=== PATIENT | male | born 1935 | race Caucasian/White ===

== ENCOUNTER 2021-03-27 13:29 | Emergency (ER) | payer MEDICARE, BC ==
[2021-03-27] MEDS ORDERED: Sodium Chloride 0.9% 10 ML Syringe FLUSH PRN (14:36)
[2021-03-27] MEDS ORDERED: Aspirin 81 MG Tab.Chew PO ONE (14:36)
[2021-03-27] MEDS ORDERED: Albuterol/Ipratropium 3.0-0.5 MG/3 ML Neb Soln NEB ONE (14:37)
--- NOTE | 2021-03-27 14:46 | EDM.PDOC ---
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 He states really over the last couple of days this has progressively gotten worse to the point where he cannot walk across the room without getting short of breath. He has been vaccinated for Covid x2 denies any fevers or contacts that he is aware of, Chest Pain Score (Numeric/FACES): 3 - Related Data Allergies Allergy/AdvReac Type Severity Reaction Status Date / Time oxycodone AdvReac Nausea and Verified 03/27/21 14:05 Vomiting Home Meds: Home Meds Albuterol Sulfate [Proair Hfa] 1 - 2 puff IH Q4H PRN 03/05/18 [History] Aspirin [Halfprin] 81 mg PO DAILY 03/05/18 [History] Cyanocobalamin (Vitamin B-12) [Vitamin B-12] 100 mcg PO DAILY 03/05/18 [History] Desonide [Tridesilon] 1 applic TP BID PRN 03/05/18 [History] Docusate Sodium [Colace] 100 mg PO DAILY 03/05/18 [History] Ferrous Sulfate [Iron] 325 mg PO BID 03/05/18 [History] Fluticasone/Vilanterol [Breo Ellipta 100-25 MCG Inhalation Kit] 1 puff IH DAILY 03/05/18 [History] Folic Acid 400 mg PO DAILY 03/05/18 [History] Furosemide [Lasix] 40 mg PO BID 03/05/18 [History] Isosorbide Mononitrate [Imdur] 60 mg PO DAILY 03/05/18 [History] Losartan [Cozaar] 100 mg PO DAILY 03/05/18 [History] Metoprolol Succinate [Toprol Xl] 50 mg PO BID 03/05/18 [History] Omeprazole 20 mg PO DAILY 03/05/18 [History] Warfarin [Coumadin] 6 mg PO BEDTIME 03/05/18 [History] allopurinoL [Zyloprim] 100 mg PO BID 03/05/18 [History] atorvaSTATin [Lipitor] 40 mg PO BEDTIME 03/05/18 [History] Spironolactone [Aldactone] 25 mg PO DAILY 10/21/18 [History] Albuterol/Ipratropium [DuoNeb 3.0-0.5 MG/3 ML] 3 ml .XX Q4HR PRN 08/13/20 [History] Fluticasone/Salmeterol [Advair 250-50] 1 puff INH BID 08/13/20 [History] Melatonin/Pyridoxine HCl (B6) [Melatonin 10 mg Tablet] 1 each PO BEDTIME 08/13/20 [History] Nitroglycerin [Nitrostat] 0.4 mg SL ASDIRECTED PRN 08/13/20 [History] Past Medical History HEENT History: Reports: Cataract Cardiovascular History: Reports: Afib, CAD, Heart Failure, Hypertension, Other (See Below) Other Cardiovascular History: peripheral edema Respiratory History: Reports: COPD, Other (See Below) Other Respiratory History: pulmonary nodule Gastrointestinal History: Reports: GERD, Other (See Below) Other Gastrointestinal History: "lesion in my stomach that was bleeding" Genitourinary History: Reports: Other (See Below) Other Genitourinary History: decreased kidney function Musculoskeletal History: Reports: Arthritis, Gout Endocrine/Metabolic History: Reports: Other (See Below), Obesity/BMI 30+ Other Endocrine/Metabolic History: hyperglycemia Hematologic History: Reports: Anemia, Iron Deficiency Oncologic (Cancer) History: Reports: Other (See Below) Other Oncologic History: skin CA Dermatologic History: Reports: Other (See Below) Other Dermatologic History: rash at times - Infectious Disease History Infectious Disease History: Reports: Chicken Pox, Measles, Mumps - Past Surgical History Cardiovascular Surgical History: Reports: Valve Replacement GI Surgical History: Reports: Colonoscopy, EGD Social & Family History - Tobacco Use Tobacco Use Status *Q: Former Tobacco User Used Tobacco, but Quit: Yes Month/Year Tobacco Last Used: - Caffeine Use Caffeine Use: Reports: Coffee - Recreational Drug Use Recreational Drug Use: No ED ROS GENERAL - Review of Systems Review Of Systems: See Below Constitutional: Reports: Fatigue. Denies: Fever, Chills, Diaphoresis HEENT: Reports: No Symptoms Respiratory: Reports: Shortness of Breath. Denies: Wheezing, Cough, Sputum Cardiovascular: Reports: Chest Pain, Dyspnea on Exertion GI/Abdominal: Reports: No Symptoms ED EXAM, GENERAL - Physical Exam Exam: See Below Exam Limited By: No Limitations General Appearance: Alert, WD/WN, No Apparent Distress Respiratory/Chest: No Respiratory Distress, Lungs Clear, No Accessory Muscle Use, Chest Non-Tender, Decreased Breath Sounds Cardiovascular: Regular Rate, Rhythm, No Murmur GI/Abdominal: Soft, Non-Tender Extremities: Pedal Edema #1 Interpretation EKG Date: 03/27/21 Time: 14:48 Rhythm: A-Fib [place]: Normal P-Wave: Absent QRS: LBBB ST-T: Normal QT: Normal Comparison: NA - No Prior EKG Course - Vital Signs Last Recorded V/S: Last Vital Signs Temp 98.1 F 03/27/21 14:01 Pulse 86 03/27/21 17:54 Resp 23 H 03/27/21 17:54 BP 101/58 L 03/27/21 17:54 Pulse Ox 96 03/27/21 17:54 - Orders/Labs/Meds Orders: Active Orders 24 hr Category Date Time Status Cardiac Monitoring [RC] .As Directed Care 03/27/21 14:36 Active Peripheral IV Care [RC] . DIRECTED Care 03/27/21 14:37 Active RT Aerosol Therapy [RC] ASDIRECTED Care 03/27/21 14:38 Active Heparin Sodium Med 03/27/21 18:35 Once 4,000 units IVPUSH .BOLUS ONE Heparin Sodium/D5W [Heparin 25,000 Units in D5W 500 ML] Med 03/27/21 18:45 Ordered 25,000 units in 500 ml IV TITRATE Sodium Chloride 0.9% [Saline Flush] Med 03/27/21 14:36 Active 10 ml FLUSH ASDIRECTED PRN Peripheral IV Insertion Adult [OM.PC] Stat Oth 03/27/21 14:36 Ordered Saline Lock Insert [OM.PC] Stat Oth 03/27/21 14:36 Ordered EKG 12 Lead [EK] Stat Ther 03/27/21 14:37 Ordered Medication Orders Sodium Chloride (Sodium Chloride 0.9% 10 Ml Syringe) 10 ml FLUSH ASDIRECTED PRN PRN Reason: Keep Vein Open Last Admin: 03/27/21 16:12 Dose: 10 ml Documented by: PREILOR Labs: Laboratory Tests 03/27/21 03/27/21 03/27/21 Range/Units 14:48 14:48 14:48 WBC 12.1 H (4.5-11.0) K/uL RBC 4.21 L (4.30-5.90) M/uL Hgb 12.6 (12.0-15.0) g/dL Hct 40.0 (40.0-54.0) % MCV 95 (80-98) fL MCH 30 (27-31) pg MCHC 32 (32-36) % Plt Count 151 (150-400) K/uL Neut % (Auto) 92.5 H (36-66) % Lymph % (Auto) 1.8 L (24-44) % Nelson % (Auto) 5.5 (2-6) % Eos % (Auto) 0.1 L (2-4) % Baso % (Auto) 0.1 (0-1) % PT (9.2-10.6) sec INR D-Dimer, Quantitative 419.97 (0.0-500.0) ng/mL Sodium 138 L (140-148) mmol/L Potassium 3.9 (3.6-5.2) mmol/L Chloride 100 (100-108) mmol/L Carbon Dioxide 31 (21-32) mmol/L Anion Gap 10.9 (5.0-14.0) mmol/L BUN 32 H (7-18) mg/dL Creatinine 1.1 (0.8-1.3) mg/dL Est Cr Clr Drug Dosing 47.55 mL/min Estimated GFR (MDRD) > 60 (>60) Glucose 126 H (74-106) mg/dL Lactic Acid (0.4-2.0) mmol/L Calcium 8.9 (8.5-10.1) mg/dL Total Bilirubin 1.3 H (0.2-1.0) mg/dL AST 40 H (15-37) U/L ALT 87 H (12-78) U/L Alkaline Phosphatase 118 H (46-116) U/L Troponin I 0.129 H* (0.000-0.056) ng/mL NT-Pro-B Natriuret Pep 2630 H (5-450) pg/mL Total Protein 6.0 L (6.4-8.2) g/dL Albumin 3.5 (3.4-5.0) g/dL Globulin 2.5 (2.3-3.5) g/dL Albumin/Globulin Ratio 1.4 (1.2-2.2) SARS-CoV-2 RNA (EDWIN) (NEGATIVE) 03/27/21 03/27/21 03/27/21 Range/Units 14:48 14:48 16:16 WBC (4.5-11.0) K/uL RBC (4.30-5.90) M/uL Hgb (12.0-15.0) g/dL Hct (40.0-54.0) % MCV (80-98) fL MCH (27-31) pg MCHC (32-36) % Plt Count (150-400) K/uL Neut % (Auto) (36-66) % Lymph % (Auto) (24-44) % Nelson % (Auto) (2-6) % Eos % (Auto) (2-4) % Baso % (Auto) (0-1) % PT 24.2 H (9.2-10.6) sec INR 2.4 D-Dimer, Quantitative (0.0-500.0) ng/mL Sodium (140-148) mmol/L Potassium (3.6-5.2) mmol/L Chloride (100-108) mmol/L Carbon Dioxide (21-32) mmol/L Anion Gap (5.0-14.0) mmol/L BUN (7-18) mg/dL Creatinine (0.8-1.3) mg/dL Est Cr Clr Drug Dosing mL/min Estimated GFR (MDRD) (>60) Glucose (74-106) mg/dL Lactic Acid 1.5 (0.4-2.0) mmol/L Calcium (8.5-10.1) mg/dL Total Bilirubin (0.2-1.0) mg/dL AST (15-37) U/L ALT (12-78) U/L Alkaline Phosphatase (46-116) U/L Troponin I (0.000-0.056) ng/mL NT-Pro-B Natriuret Pep (5-450) pg/mL Total Protein (6.4-8.2) g/dL Albumin (3.4-5.0) g/dL Globulin (2.3-3.5) g/dL Albumin/Globulin Ratio (1.2-2.2) SARS-CoV-2 RNA (EDWIN) Negative (NEGATIVE) 03/27/21 Range/Units 17:15 WBC (4.5-11.0) K/uL RBC (4.30-5.90) M/uL Hgb (12.0-15.0) g/dL Hct (40.0-54.0) % MCV (80-98) fL MCH (27-31) pg MCHC (32-36) % Plt Count (150-400) K/uL Neut % (Auto) (36-66) % Lymph % (Auto) (24-44) % Nelson % (Auto) (2-6) % Eos % (Auto) (2-4) % Baso % (Auto) (0-1) % PT (9.2-10.6) sec INR D-Dimer, Quantitative (0.0-500.0) ng/mL Sodium (140-148) mmol/L Potassium (3.6-5.2) mmol/L Chloride (100-108) mmol/L Carbon Dioxide (21-32) mmol/L Anion Gap (5.0-14.0) mmol/L BUN (7-18) mg/dL Creatinine (0.8-1.3) mg/dL Est Cr Clr Drug Dosing mL/min Estimated GFR (MDRD) (>60) Glucose (74-106) mg/dL Lactic Acid (0.4-2.0) mmol/L Calcium (8.5-10.1) mg/dL Total Bilirubin (0.2-1.0) mg/dL AST (15-37) U/L ALT (12-78) U/L Alkaline Phosphatase (46-116) U/L Troponin I 1.655 H* (0.000-0.056) ng/mL NT-Pro-B Natriuret Pep (5-450) pg/mL Total Protein (6.4-8.2) g/dL Albumin (3.4-5.0) g/dL Globulin (2.3-3.5) g/dL Albumin/Globulin Ratio (1.2-2.2) SARS-CoV-2 RNA (EDWIN) (NEGATIVE) Meds: Medications Generic Name Dose Route Start Last Admin Trade Name Freq PRN Reason Stop Dose Admin Sodium Chloride 10 ml 03/27/21 14:36 03/27/21 16:12 Sodium Chloride 0.9% 10 Ml Syringe FLUSH 10 ml ASDIRECTED PRN Administration Keep Vein Open Discontinued Medications Generic Name Dose Route Start Last Admin Trade Name Freq PRN Reason Stop Dose Admin Albuterol/Ipratropium 3 ml 03/27/21 14:37 Albuterol/Ipratropium 3.0-0.5 Mg/3 Ml Neb Soln NEB 03/27/21 14:38 ONETIME ONE Aspirin 324 mg 03/27/21 14:36 03/27/21 16:05 Aspirin 81 Mg Tab.Chew PO 03/27/21 14:37 324 mg ONETIME ONE Administration Furosemide 40 mg 03/27/21 15:57 03/27/21 16:11 Furosemide 40 Mg/4 Ml Vial IVPUSH 03/27/21 15:58 40 mg ONETIME ONE Administration Nitroglycerin 0.4 mg 03/27/21 15:54 03/27/21 16:09 Nitroglycerin 0.4 Mg Tab.Sl SL 03/27/21 15:55 0.4 mg ONETIME ONE Administration Departure - Departure Time of Disposition: 18:40 Disposition: DC/Tfer to Acute Hospital 02 Reason for Transfer *Q: Other Condition: Fair Clinical Impression: Chest pain Referrals: Savage Rodriguez MD [Primary Care Provider] - Forms: ED Department Discharge Sepsis Event Note (ED) - Evaluation Sepsis Screening Result: No Definite Risk - Focused Exam Vital Signs: Vital Signs Temp Pulse Resp BP BP Pulse Ox 03/27/21 17:54 86 23 H 101/58 L 96 03/27/21 17:40 86 24 H 130/61 94 L 03/27/21 16:28 93 30 H 140/71 89 L 03/27/21 16:09 145/81 H 03/27/21 15:57 92 22 H 112/65 98 03/27/21 15:19 91 31 H 122/63 93 L 03/27/21 14:01 98.1 F 99 37 H 146/83 H 95 03/27/21 13:50 98.1 F 99 37 H 146/83 H 95 - My Orders Last 24 Hours: My Active Orders 03/27/21 14:36 Cardiac Monitoring [RC] .As Directed Sodium Chloride 0.9% [Saline Flush] 10 ml FLUSH ASDIRECTED PRN Peripheral IV Insertion Adult [OM.PC] Stat Saline Lock Insert [OM.PC] Stat 03/27/21 14:37 Peripheral IV Care [RC] . DIRECTED EKG 12 Lead [EK] Stat 03/27/21 14:38 RT Aerosol Therapy [RC] ASDIRECTED 03/27/21 18:35 Heparin Sodium 4,000 units IVPUSH .BOLUS ONE 03/27/21 18:45 Heparin Sodium/D5W [Heparin 25,000 Units in D5W 500 ML] 25,000 units in 500 ml IV TITRATE - Assessment/Plan Last 24 Hours: My Active Orders 03/27/21 14:36 Cardiac Monitoring [RC] .As Directed Sodium Chloride 0.9% [Saline Flush] 10 ml FLUSH ASDIRECTED PRN Peripheral IV Insertion Adult [OM.PC] Stat Saline Lock Insert [OM.PC] Stat 03/27/21 14:37 Peripheral IV Care [RC] . DIRECTED EKG 12 Lead [EK] Stat 03/27/21 14:38 RT Aerosol Therapy [RC] ASDIRECTED 03/27/21 18:35 Heparin Sodium 4,000 units IVPUSH .BOLUS ONE 03/27/21 18:45 Heparin Sodium/D5W [Heparin 25,000 Units in D5W 500 ML] 25,000 units in 500 ml IV TITRATE Plan: Assessment Acuity = acute Site and laterality = chest pain congestive heart failure versus non-ST elevation myocardial infarction Etiology = unknown Manifestations = none Location of injury = Home Lab values = WBC slightly elevated 12.1 consistent leukocytosis, INR therapeutic at 2.4 lactic acid normal 1.5 initial troponin 0 0.129 now elevated to 1.655 BNP is elevated to 630 consistent with fluid overload type pattern Covid was negative chest x-ray shows cardiomegaly with concern for congestive heart failure EKG demonstrates atrial fibrillation with no ST elevations or depressions Plan Called multiple facilities [facility] [address] [facility] at [address] [facility] [address] [facility] no beds available at that time I did call [phone] kindly excepted the patient in transfer recommended heparin bolus will be given in the emergency department with heparin drip in route. This note was dictated using [employer] voice recognition software please call with any questions on syntax or grammar.
--- NOTE | 2021-03-27 15:02 | CR ---
CHEST: Portable 03/27/2021 at 2:57 PM CLINICAL HISTORY:Chest pain COMPARISON:CT 03/21/2021 FINDINGS: Patient has a persistent left pleural effusion. This may be slightly smaller than prior study. There is a small right effusion. Heart is enlarged pulmonary vascularity is mildly cephalized. There is patchy density in both lower lung doyle. Some of this may represent atelectasis or infiltrate. Pulmonary edema is felt less likely but not excluded. Impression: Cardiomegaly with vascular cephalization may represent some pulmonary venous hypertension. CHF is not excluded Small bibasal effusions left greater than right
[2021-03-27] MEDS ORDERED: Nitroglycerin 0.4 MG Tab.SL SL ONE (15:54)
[2021-03-27] MEDS ORDERED: Furosemide 40 MG/4 ML VIAL IVPUSH ONE (15:57)
[2021-03-27] MEDS ORDERED: Heparin Sodium 5,000 Units/ML Vial IVPUSH ONE (18:35)
[2021-03-27] MEDS ORDERED: Heparin Sodium/D5W 25,000 UNITS/500 ML BAG IV SCH (18:45)
== END 2021-03-27 21:43 ==
LOC: JP.ED 13:29
DX: R07.89 Other chest pain (principal); I48.91 Unspecified atrial fibrillation; I25.10 Atherosclerotic heart disease of native coronary artery without angina pectoris; I11.0 Hypertensive heart disease with heart failure; I50.9 Heart failure, unspecified; J44.9 Chronic obstructive pulmonary disease, unspecified; M10.9 Gout, unspecified; E66.9 Obesity, unspecified; K21.9 Gastro-esophageal reflux disease without esophagitis; Z68.30 Body mass index [BMI] 30.0-30.9, adult; Z88.5 Allergy status to narcotic agent; Z79.82 Long term (current) use of aspirin; Z79.01 Long term (current) use of anticoagulants; Z79.899 Other long term (current) drug therapy; Z87.891 Personal history of nicotine dependence; Z20.822 Contact with and (suspected) exposure to COVID-19
CPT/HCPCS: 36415; 71045; 80053; 83605; 83880; 84484; 85025; 85379; 85610; 93005; 96365; 96375; 99285; A9270; J1644; J1940; U0002

== ENCOUNTER 2021-04-12 07:42 | Emergency (ER) | payer MEDICARE, BC ==
--- NOTE | 2021-04-12 07:59 | EDM.PDOC ---
ED HPI GENERAL MEDICAL PROBLEM - General Chief Complaint: Chest Pain Stated Complaint: TROUBLE BREATHING Time Seen by Provider: 04/12/21 07:50 Source of Information: Reports: Patient, Old Records History Limitations: Reports: No Limitations - History of Present Illness INITIAL COMMENTS - FREE TEXT/NARRATIVE: 85 yo male presents with complaints of CHAUDHARY and SOB with lying flat. Was seen here for the same issues on 03/27/21 and was transferred to [facility] where he spent 6 days. Since d/c he has followed up with [facility] locally but reportedly there was an issue with seeing what [place] had done at that time. A 2nd outpatient cardiology appt was set up apparently as a result of this records issue. He has known CHF and chronic afib on tx for both of these. He has oxygen at home he uses. Jaylan occasionally gets chest pain resolved with NTG. He has not had any CP today. He lives alone and is interested in changing this living situation at this time to either a [facility] or assisted living facility. Says he accidentally took both his last night's meds and this morning's meds all last night. Took no additional meds this AM. Reviewing [facility]'s records suggests he has coronary dz that is non-operable so will require medical management and severe CHF, his EF is 30-35% with diastolic as well as systolic dysfunction. Made a comment while here of trying to drink 8 glasses of water/day. Onset: Gradual Duration: Chronic, Getting Worse, Waxing/Waning Location: Reports: Chest Quality: Reports: Other (no pain today) Severity: Mild Improves with: Reports: Rest, Other (sitting up) Worsens with: Reports: Other (lying flat/exertion) Context: Reports: Other (See HPI) Associated Symptoms: Reports: Chest Pain (occasionally, not today), Shortness of Breath Treatments SHIPPING ASSOCIATE: Reports: Other (see below) (usual meds) Chest Pain Score (Numeric/FACES): 5 - Related Data Allergies Allergy/AdvReac Type Severity Reaction Status Date / Time oxycodone AdvReac Nausea and Verified 04/12/21 08:16 Vomiting Home Meds: Home Meds Albuterol Sulfate [Proair Hfa] 1 - 2 puff IH Q4H PRN 03/05/18 [History] Aspirin [Halfprin] 81 mg PO DAILY 03/05/18 [History] Cyanocobalamin (Vitamin B-12) [Vitamin B-12] 100 mcg PO DAILY 03/05/18 [History] Desonide [Tridesilon] 1 applic TP BID PRN 03/05/18 [History] Docusate Sodium [Colace] 100 mg PO DAILY 03/05/18 [History] Ferrous Sulfate [Iron] 325 mg PO BID 03/05/18 [History] Fluticasone/Vilanterol [Breo Ellipta 100-25 MCG Inhalation Kit] 1 puff IH DAILY 03/05/18 [History] Folic Acid 400 mg PO DAILY 03/05/18 [History] Isosorbide Mononitrate [Imdur] 60 mg PO DAILY 03/05/18 [History] Losartan [Cozaar] 50 mg PO DAILY 03/05/18 [History] Metoprolol Succinate [Toprol Xl] 25 mg PO BID 03/05/18 [History] Warfarin [Coumadin] 6 mg PO BEDTIME 03/05/18 [History] allopurinoL [Zyloprim] 100 mg PO BID 03/05/18 [History] atorvaSTATin [Lipitor] 40 mg PO BEDTIME 03/05/18 [History] Spironolactone [Aldactone] 12.5 mg PO DAILY 10/21/18 [History] Albuterol/Ipratropium [DuoNeb 3.0-0.5 MG/3 ML] 3 ml .XX Q4HR PRN 08/13/20 [History] Fluticasone/Salmeterol [Advair 250-50] 1 puff INH BID 08/13/20 [History] Melatonin/Pyridoxine HCl (B6) [Melatonin 10 mg Tablet] 1 each PO BEDTIME 08/13/20 [History] Nitroglycerin [Nitrostat] 0.4 mg SL ASDIRECTED PRN 08/13/20 [History] Ascorbic Acid [Vitamin C] 1,000 mg PO DAILY 04/12/21 [History] Cholecalciferol (Vitamin D3) [Vitamin D3] 25 mcg PO DAILY 04/12/21 [History] Digoxin 125 mcg PO DAILY 04/12/21 [History] Lansoprazole [Prevacid] 15 mg PO DAILY 04/12/21 [History] Nystatin [Nystatin Crm] 15 gm TOP TID PRN 04/12/21 [History] Torsemide 100 mg PO DAILY 04/12/21 [History] Past Medical History HEENT History: Reports: Cataract Cardiovascular History: Reports: Afib, CAD, Heart Failure, Hypertension, Other (See Below) Other Cardiovascular History: peripheral edema Respiratory History: Reports: COPD, Other (See Below) Other Respiratory History: pulmonary nodule Gastrointestinal History: Reports: GERD, Other (See Below) Other Gastrointestinal History: "lesion in my stomach that was bleeding" Genitourinary History: Reports: Other (See Below) Other Genitourinary History: decreased kidney function Musculoskeletal History: Reports: Arthritis, Gout Endocrine/Metabolic History: Reports: Other (See Below), Obesity/BMI 30+ Other Endocrine/Metabolic History: hyperglycemia Hematologic History: Reports: Anemia, Iron Deficiency Oncologic (Cancer) History: Reports: Other (See Below) Other Oncologic History: skin CA Dermatologic History: Reports: Other (See Below) Other Dermatologic History: rash at times - Infectious Disease History Infectious Disease History: Reports: Chicken Pox, Measles, Mumps - Past Surgical History Cardiovascular Surgical History: Reports: Valve Replacement GI Surgical History: Reports: Colonoscopy, EGD Social & Family History - Caffeine Use Caffeine Use: Reports: Coffee ED ROS GENERAL - Review of Systems Review Of Systems: See Below Constitutional: Reports: No Symptoms HEENT: Reports: No Symptoms Respiratory: Reports: Shortness of Breath Cardiovascular: Reports: Chest Pain (intermittent) Endocrine: Reports: No Symptoms GI/Abdominal: Reports: Other (doesn't feel well with/after eating "for awhile" worse in the past couple of days. ) : Reports: No Symptoms Musculoskeletal: Reports: No Symptoms Skin: Reports: No Symptoms Neurological: Reports: No Symptoms ED EXAM, GENERAL - Physical Exam Exam: See Below Exam Limited By: No Limitations General Appearance: Alert, WD/WN, No Apparent Distress Eye Exam: Bilateral Eye: Normal Inspection Ears: Normal External Exam, Normal Canal, Hearing Grossly Normal Ear Exam: Bilateral Ear: Auricle Normal, Canal Normal Nose: Normal Inspection, No Blood Throat/Mouth: Normal Inspection, Normal Lips, Normal Oropharynx, Normal Voice, No Airway Compromise Head: Atraumatic, Normocephalic Neck: Normal Inspection Respiratory/Chest: No Respiratory Distress, No Accessory Muscle Use, Rales (bilat) Cardiovascular: Irregularly Irregular. No: No Edema GI/Abdominal: Soft, Non-Tender, No Distention. No: Distended Back Exam: Normal Inspection Extremities: Normal Inspection, Normal Range of Motion, Non-Tender, Pedal Edema (trace pitting edema to both LE's). No: No Pedal Edema Neurological: Alert, Oriented, CN II-XII Intact, Normal Cognition, No Motor/Sensory Deficits Psychiatric: Normal Affect, Normal Mood Skin Exam: Warm, Dry, Intact, Normal Color, No Rash #1 Interpretation EKG Date: 04/12/21 Time: 08:50 Rhythm: A-Fib Rate (Beats/Min): 90 [place]: Normal P-Wave: Absent QRS: LBBB ST-T: Normal QT: Normal Comparison: Change From Previous EKG (Bigeminy now present.) Course - Vital Signs Last Recorded V/S: Last Vital Signs Temp 36.3 C 04/12/21 08:00 Pulse 79 04/12/21 11:27 Resp 22 H 04/12/21 09:50 BP 114/58 L 04/12/21 11:27 Pulse Ox 98 04/12/21 11:27 - Orders/Labs/Meds Orders: Active Orders 24 hr Category Date Time Status Cardiac Monitoring [RC] .As Directed Care 04/12/21 07:56 Active Sodium Chloride 0.9% [Saline Flush] Med 04/12/21 08:11 Active 10 ml FLUSH ASDIRECTED PRN Saline Lock Insert [OM.PC] Routine Oth 04/12/21 08:11 Ordered EKG 12 Lead [EK] Routine Ther 04/12/21 07:56 Ordered Medication Orders Sodium Chloride (Sodium Chloride 0.9% 10 Ml Syringe) 10 ml FLUSH ASDIRECTED PRN PRN Reason: Keep Vein Open Last Admin: 04/12/21 08:29 Dose: 10 ml Documented by: PREILOR Labs: Laboratory Tests 04/12/21 04/12/21 04/12/21 Range/Units 08:11 08:20 08:20 WBC 6.3 (4.5-11.0) K/uL RBC 3.53 L (4.30-5.90) M/uL Hgb 10.3 L D (12.0-15.0) g/dL Hct 33.0 L (40.0-54.0) % MCV 94 (80-98) fL MCH 29 (27-31) pg MCHC 31 L (32-36) % Plt Count 277 (150-400) K/uL PT (9.2-10.6) sec INR Sodium 140 (140-148) mmol/L Potassium 4.4 (3.6-5.2) mmol/L Chloride 100 (100-108) mmol/L Carbon Dioxide 31 (21-32) mmol/L Anion Gap 8.8 (5.0-14.0) mmol/L BUN 38 H (7-18) mg/dL Creatinine 1.6 H (0.8-1.3) mg/dL Est Cr Clr Drug Dosing 32.13 mL/min Estimated GFR (MDRD) 41 L (>60) Glucose 131 H (74-106) mg/dL Calcium 8.8 (8.5-10.1) mg/dL Troponin I 0.027 (0.000-0.056) ng/mL 04/12/21 Range/Units 08:20 WBC (4.5-11.0) K/uL RBC (4.30-5.90) M/uL Hgb (12.0-15.0) g/dL Hct (40.0-54.0) % MCV (80-98) fL MCH (27-31) pg MCHC (32-36) % Plt Count (150-400) K/uL PT 28.6 H (9.2-10.6) sec INR 2.9 Sodium (140-148) mmol/L Potassium (3.6-5.2) mmol/L Chloride (100-108) mmol/L Carbon Dioxide (21-32) mmol/L Anion Gap (5.0-14.0) mmol/L BUN (7-18) mg/dL Creatinine (0.8-1.3) mg/dL Est Cr Clr Drug Dosing mL/min Estimated GFR (MDRD) (>60) Glucose (74-106) mg/dL Calcium (8.5-10.1) mg/dL Troponin I (0.000-0.056) ng/mL Meds: Medications Generic Name Dose Route Start Last Admin Trade Name Freq PRN Reason Stop Dose Admin Sodium Chloride 10 ml 04/12/21 08:11 04/12/21 08:29 Sodium Chloride 0.9% 10 Ml Syringe FLUSH 10 ml ASDIRECTED PRN Administration Keep Vein Open Discontinued Medications Generic Name Dose Route Start Last Admin Trade Name Adelaiad PRN Reason Stop Dose Admin Famotidine 20 mg 04/12/21 11:30 04/12/21 11:40 Famotidine 20 Mg/2 Ml Sdv IVPUSH 04/12/21 11:31 20 mg ONETIME ONE Administration Furosemide 40 mg 04/12/21 08:11 04/12/21 08:28 Furosemide 40 Mg/4 Ml Vial IVPUSH 04/12/21 08:12 40 mg ONETIME ONE Administration Nitroglycerin 1 gm 04/12/21 09:16 04/12/21 10:08 Nitroglycerin 2% Oint 1 Gm Ud Packet TOP 04/12/21 09:17 1 gm ONETIME ONE Administration Sucralfate 1 gm 04/12/21 11:30 04/12/21 11:40 Sucralfate 1 Gm Tab PO 04/12/21 11:31 1 gm ONETIME ONE Administration - Re-Assessments/Exams Free Text/Narrative Re-Assessment/Exam: 04/12/21 10:23 Discharge planning involved to at least get him more help at home. Free Text/Narrative Re-Assessment/Exam: 04/12/21 11:58 Ate lunch, feels better. SOB improved. Departure - Departure Time of Disposition: 12:15 Disposition: Home, Self-Care 01 Condition: Fair Clinical Impression: Heme + stool CHF exacerbation Qualifiers: Heart failure type: combined systolic and diastolic Qualified Code(s): I50.43 - Acute on chronic combined systolic (congestive) and diastolic (congestive) heart failure Gastritis Qualifiers: Gastritis type: unspecified gastritis Chronicity: acute Gastritis bleeding: with bleeding Qualified Code(s): K29.01 - Acute gastritis with bleeding CRF (chronic renal failure) Qualifiers: Chronic kidney disease stage: stage 3 (moderate) Chronic kidney disease stage 3 subtype: stage 3b (GFR 30-44) Qualified Code(s): N18.32 - Chronic kidney disease, stage 3b Instructions: Gastritis, Adult, [id number], Heart Failure Exacerbation Referrals: Elyssa Mensah NP [Ordering Only Provider] - 04/15/21 11:00 am (Your appointment with Elyssa Mensah is at [facility]. Please arrive 15 minutes early to register for your appointment. ) Savage Rodriguez MD [Physician] - 04/15/21 1:30 pm Forms: ED Department Discharge Additional Instructions: Make sure you take your medications on time and as prescribed. Stop your vitamin C 1000 mg daily and substitute 250 mg chewable 4 times a day. Hold your aspirin for 5 days, then resume making sure to take it with your largest meal of the day. Make sure the aspirin is enteric coated. Add famotidine 20 mg every day and take Maalox 30 ml with meals for a week. Follow up with your doctor soon for recheck. Care Plan Goals: A referral was made to [facility] for home services. [facility] will contact you the week of to schedule your home visit. Their phone number is [phone] Sepsis Event Note (ED) - Focused Exam Vital Signs: Vital Signs Temp Pulse Resp BP Pulse Ox 04/12/21 11:27 79 114/58 L 98 04/12/21 09:50 86 22 H 135/76 100 04/12/21 09:20 79 20 120/51 L 100 04/12/21 08:50 80 27 H 110/56 L 88 L 04/12/21 08:23 84 18 107/52 L 98 04/12/21 08:00 36.3 C 88 18 117/61 94 L - My Orders Last 24 Hours: My Active Orders 04/12/21 07:56 Cardiac Monitoring [RC] .As Directed EKG 12 Lead [EK] Routine 04/12/21 08:11 Sodium Chloride 0.9% [Saline Flush] 10 ml FLUSH ASDIRECTED PRN Saline Lock Insert [OM.PC] Routine - Assessment/Plan Last 24 Hours: My Active Orders 04/12/21 07:56 Cardiac Monitoring [RC] .As Directed EKG 12 Lead [EK] Routine 04/12/21 08:11 Sodium Chloride 0.9% [Saline Flush] 10 ml FLUSH ASDIRECTED PRN Saline Lock Insert [OM.PC] Routine
[2021-04-12] MEDS ORDERED: Furosemide 40 MG/4 ML VIAL IVPUSH ONE (08:11)
[2021-04-12] MEDS ORDERED: Sodium Chloride 0.9% 10 ML Syringe FLUSH PRN (08:11)
[2021-04-12] MEDS ORDERED: Nitroglycerin 2% Oint 1 GM UD Packet TOP ONE (09:16)
[2021-04-12] MEDS ORDERED: Sucralfate 1 GM Tab PO ONE (11:30)
[2021-04-12] MEDS ORDERED: Famotidine 20 MG/2 ML SDV IVPUSH ONE (11:30)
== END 2021-04-12 13:25 | disposition home or self-care (01) ==
LOC: JP.ED 07:42
DX: I13.0 Hypertensive heart and chronic kidney disease with heart failure and stage 1 through stage 4 chronic kidney disease, or unspecified chronic kidney disease (principal); N18.32 Chronic kidney disease, stage 3b; I50.40 Unspecified combined systolic (congestive) and diastolic (congestive) heart failure; D63.1 Anemia in chronic kidney disease; K29.01 Acute gastritis with bleeding; R19.5 Other fecal abnormalities; I48.91 Unspecified atrial fibrillation; I44.7 Left bundle-branch block, unspecified; I25.10 Atherosclerotic heart disease of native coronary artery without angina pectoris; J44.9 Chronic obstructive pulmonary disease, unspecified; K21.9 Gastro-esophageal reflux disease without esophagitis; M10.9 Gout, unspecified; E66.9 Obesity, unspecified; Z68.29 Body mass index [BMI] 29.0-29.9, adult; Z88.5 Allergy status to narcotic agent; Z79.82 Long term (current) use of aspirin; Z79.01 Long term (current) use of anticoagulants; Z79.899 Other long term (current) drug therapy
CPT/HCPCS: 36415; 80048; 82272; 84484; 85027; 85610; 93005; 96374; 96375; 99285; A9270; J1940; J3490

== ENCOUNTER 2021-04-15 11:43 | Inpatient (IN) | payer MEDICARE, BC ==
--- NOTE | 2021-04-15 12:28 | EDM.PDOC ---
ED HPI GENERAL MEDICAL PROBLEM - General Chief Complaint: General Stated Complaint: LOW BLOOD PRESSURE Time Seen by Provider: 04/15/21 12:35 Source of Information: Reports: Patient, Old Records History Limitations: Reports: Other (incomplete records) - History of Present Illness INITIAL COMMENTS - FREE TEXT/NARRATIVE: 85 yo male with CHF was sent to the ER from the [facility] for CHAUDHARY and low BP. He is on several meds for his CHF including ARB's and diuretics. He in on oxygen at 2 liters/min chronically. At rest or with lying his breathing is OK, but with any exertion he gets very winded. No recent fever or cough. Stool is black, but he is on Peptobismol. Was seen here in ER last Thursday and found to have heme + stools. Famotidine was added and some other minor changes were suggested in his meds. He was asked to recheck in the clinic today where he presented and was directed back to the ER. His breathing now is about the same as it was then. No chest pain was ex perienced by him. Covid + since 03/27/21 Onset: Gradual, Unknown/Unsure Duration: Chronic, Getting Worse Location: Reports: Chest Quality: Reports: Other (no pain) Severity: Moderate Improves with: Reports: Rest Worsens with: Reports: Movement (exertion) Context: Reports: Other (See HPI) Associated Symptoms: Reports: Other (CHAUDHARY) Treatments CLERICAL ADVISER: Reports: Other (see below) (famotidine) - Related Data Allergies Allergy/AdvReac Type Severity Reaction Status Date / Time oxycodone AdvReac Nausea and Verified 04/15/21 12:08 Vomiting Home Meds: Home Meds Albuterol Sulfate [Proair Hfa] 1 - 2 puff IH Q4H PRN 03/05/18 [History] Aspirin [Halfprin] 81 mg PO DAILY 03/05/18 [History] Cyanocobalamin (Vitamin B-12) [Vitamin B-12] 100 mcg PO DAILY 03/05/18 [History] Desonide [Tridesilon] 1 applic TP BID PRN 03/05/18 [History] Docusate Sodium [Colace] 100 mg PO DAILY 03/05/18 [History] Ferrous Sulfate [Iron] 325 mg PO BID 03/05/18 [History] Fluticasone/Vilanterol [Breo Ellipta 100-25 MCG Inhalation Kit] 1 puff IH DAILY 03/05/18 [History] Folic Acid 400 mg PO DAILY 03/05/18 [History] Isosorbide Mononitrate [Imdur] 60 mg PO DAILY 03/05/18 [History] Losartan [Cozaar] 50 mg PO DAILY 03/05/18 [History] Metoprolol Succinate [Toprol Xl] 25 mg PO BID 03/05/18 [History] Warfarin [Coumadin] 6 mg PO BEDTIME 03/05/18 [History] allopurinoL [Zyloprim] 100 mg PO BID 03/05/18 [History] atorvaSTATin [Lipitor] 40 mg PO BEDTIME 03/05/18 [History] Spironolactone [Aldactone] 12.5 mg PO DAILY 10/21/18 [History] Albuterol/Ipratropium [DuoNeb 3.0-0.5 MG/3 ML] 3 ml .XX Q4HR PRN 08/13/20 [History] Fluticasone/Salmeterol [Advair 250-50] 1 puff INH BID 08/13/20 [History] Melatonin/Pyridoxine HCl (B6) [Melatonin 10 mg Tablet] 1 each PO BEDTIME 08/13/20 [History] Nitroglycerin [Nitrostat] 0.4 mg SL ASDIRECTED PRN 08/13/20 [History] Ascorbic Acid [Vitamin C] 1,000 mg PO DAILY 04/12/21 [History] Cholecalciferol (Vitamin D3) [Vitamin D3] 25 mcg PO DAILY 04/12/21 [History] Digoxin 125 mcg PO DAILY 04/12/21 [History] Famotidine 20 mg PO DAILY #30 tab 04/12/21 [Rx] Lansoprazole [Prevacid] 15 mg PO DAILY 04/12/21 [History] Nystatin [Nystatin Crm] 15 gm TOP TID PRN 04/12/21 [History] Torsemide 100 mg PO DAILY 04/12/21 [History] Past Medical History HEENT History: Reports: Cataract Cardiovascular History: Reports: Afib, CAD, Heart Failure, Hypertension, Other (See Below) Other Cardiovascular History: peripheral edema Respiratory History: Reports: COPD, Other (See Below) Other Respiratory History: pulmonary nodule Gastrointestinal History: Reports: GERD, Other (See Below) Other Gastrointestinal History: "lesion in my stomach that was bleeding" Genitourinary History: Reports: Other (See Below) Other Genitourinary History: decreased kidney function Musculoskeletal History: Reports: Arthritis, Gout Endocrine/Metabolic History: Reports: Other (See Below), Obesity/BMI 30+ Other Endocrine/Metabolic History: hyperglycemia Hematologic History: Reports: Anemia, Iron Deficiency Oncologic (Cancer) History: Reports: Other (See Below) Other Oncologic History: skin CA Dermatologic History: Reports: Other (See Below) Other Dermatologic History: rash at times - Infectious Disease History Infectious Disease History: Reports: Chicken Pox, Measles, Mumps - Past Surgical History Cardiovascular Surgical History: Reports: Valve Replacement GI Surgical History: Reports: Colonoscopy, EGD Social & Family History - Tobacco Use Tobacco Use Status *Q: Never Tobacco User - Caffeine Use Caffeine Use: Reports: Coffee - Recreational Drug Use Recreational Drug Use: No ED ROS GENERAL - Review of Systems Review Of Systems: See Below Constitutional: Reports: No Symptoms HEENT: Reports: No Symptoms Respiratory: Denies: Shortness of Breath Cardiovascular: Reports: Dyspnea on Exertion. Denies: Chest Pain Endocrine: Reports: No Symptoms GI/Abdominal: Reports: Black Stool. Denies: Bloody Stool, Constipation, Diarrhea, Nausea, Vomiting : Reports: No Symptoms Musculoskeletal: Reports: No Symptoms Skin: Reports: No Symptoms Neurological: Reports: No Symptoms ED EXAM, GENERAL - Physical Exam Exam: See Below Exam Limited By: No Limitations General Appearance: Alert, WD/WN, No Apparent Distress Eye Exam: Bilateral Eye: Normal Inspection Ears: Normal External Exam, Normal Canal, Hearing Grossly Normal Ear Exam: Bilateral Ear: Auricle Normal, Canal Normal Nose: Normal Inspection, No Blood Throat/Mouth: Normal Inspection, Normal Lips, Normal Oropharynx, Normal Voice, No Airway Compromise Head: Atraumatic, Normocephalic Neck: Normal Inspection Respiratory/Chest: No Respiratory Distress, No Accessory Muscle Use, Rales Cardiovascular: Regular Rate, Rhythm, No Edema GI/Abdominal: Normal Bowel Sounds, Soft, Non-Tender, No Distention Extremities: Normal Inspection Neurological: Alert, Oriented, CN II-XII Intact, Normal Cognition, No Motor/Sensory Deficits Psychiatric: Normal Affect, Normal Mood #1 Interpretation EKG Date: 04/15/21 Time: 13:45 Rhythm: A-Fib Rate (Beats/Min): 77 [place]: Normal P-Wave: Absent QRS: LBBB ST-T: Normal QT: Normal Comparison: No Change Course - Vital Signs Text/Narrative:: [facility] called @ 1353h Dr. Cunha called @ 1610h Last Recorded V/S: Last Vital Signs Temp 36.9 C 04/15/21 12:13 Pulse 77 04/15/21 15:04 Resp 16 04/15/21 12:13 BP 87/40 L 04/15/21 15:04 Pulse Ox 100 04/15/21 15:04 - Orders/Labs/Meds Orders: Active Orders 24 hr Category Date Time Status Heparin Sodium/D5W [Heparin 25,000 Units in D5W 500 ML] Med 04/15/21 15:30 Active 25,000 units in 500 ml IV TITRATE EKG 12 Lead [EK] Routine Ther 04/15/21 13:33 Ordered Medication Orders Heparin Sodium/Dextrose (Heparin 25,000 Units In D5w 500 Ml) 25,000 units in 500 mls @ 18 mls/hr IV TITRATE MICHAEL Labs: Laboratory Tests 04/15/21 04/15/21 04/15/21 Range/Units 13:05 13:05 13:05 WBC 4.7 (4.5-11.0) K/uL RBC 3.43 L (4.30-5.90) M/uL Hgb 10.0 L (12.0-15.0) g/dL Hct 31.7 L (40.0-54.0) % MCV 92 (80-98) fL MCH 29 (27-31) pg MCHC 32 (32-36) % Plt Count 241 (150-400) K/uL Sodium 138 L (140-148) mmol/L Potassium 4.6 (3.6-5.2) mmol/L Chloride 97 L (100-108) mmol/L Carbon Dioxide 33 H (21-32) mmol/L Anion Gap 12.6 (5.0-14.0) mmol/L BUN 46 H (7-18) mg/dL Creatinine 2.2 H (0.8-1.3) mg/dL Est Cr Clr Drug Dosing 23.37 mL/min Estimated GFR (MDRD) 29 L (>60) Glucose 105 (74-106) mg/dL Calcium 8.2 L (8.5-10.1) mg/dL Troponin I 0.234 H* (0.000-0.056) ng/mL NT-Pro-B Natriuret Pep 5737 H (5-450) pg/mL SARS CoV-2 RNA Rapid EDWIN 04/15/21 Range/Units 13:34 WBC (4.5-11.0) K/uL RBC (4.30-5.90) M/uL Hgb (12.0-15.0) g/dL Hct (40.0-54.0) % MCV (80-98) fL MCH (27-31) pg MCHC (32-36) % Plt Count (150-400) K/uL Sodium (140-148) mmol/L Potassium (3.6-5.2) mmol/L Chloride (100-108) mmol/L Carbon Dioxide (21-32) mmol/L Anion Gap (5.0-14.0) mmol/L BUN (7-18) mg/dL Creatinine (0.8-1.3) mg/dL Est Cr Clr Drug Dosing mL/min Estimated GFR (MDRD) (>60) Glucose (74-106) mg/dL Calcium (8.5-10.1) mg/dL Troponin I (0.000-0.056) ng/mL NT-Pro-B Natriuret Pep (5-450) pg/mL SARS CoV-2 RNA Rapid EDWIN Positive H Meds: Medications Generic Name Dose Route Start Last Admin Trade Name Freq PRN Reason Stop Dose Admin Heparin Sodium/Dextrose 25,000 units in 500 mls @ 18 mls/hr 04/15/21 15:30 Heparin 25,000 Units In D5w 500 Ml IV TITRATE MICHAEL 900 UNITS/HR Discontinued Medications Generic Name Dose Route Start Last Admin Trade Name Freq PRN Reason Stop Dose Admin Heparin Sodium (Porcine) 4,000 units 04/15/21 15:20 Heparin Sodium 5,000 Units/Ml Vial IVPUSH 04/15/21 15:21 ONETIME ONE - Radiology Interpretation Free Text/Narrative:: CXR- - Re-Assessments/Exams Free Text/Narrative Re-Assessment/Exam: 04/15/21 13:37 Is not SOB and oxygen sats stable with lying flat. Free Text/Narrative Re-Assessment/Exam: 04/15/21 14:03 [facility] will call back in a couple hrs after some discharges to let us know if they can take Jaylan. Free Text/Narrative Re-Assessment/Exam: 04/15/21 15:22 Aspirin taken at home, will hold further doses for now due to his GI + blood status. Departure - Departure Time of Disposition: 17:00 Disposition: Admitted As Inpatient 67 Clinical Impression: CHAUDHARY (dyspnea on exertion), Elevated troponin, Occult blood positive stool Anemia Qualifiers: Anemia type: iron deficiency Iron deficiency anemia type: chronic blood loss Qualified Code(s): D50.0 - Iron deficiency anemia secondary to blood loss (chronic) - Discharge Information *PRESCRIPTION DRUG MONITORING PROGRAM REVIEWED*: Not Applicable *COPY OF PRESCRIPTION DRUG MONITORING REPORT IN PATIENT PATRICK: Not Applicable Referrals: Savage Rodriguez MD [Primary Care Provider] - Forms: ED Department Discharge Sepsis Event Note (ED) - Evaluation Sepsis Screening Result: No Definite Risk - Focused Exam Vital Signs: Vital Signs Temp Pulse Resp BP Pulse Ox 04/15/21 15:04 77 87/40 L 100 04/15/21 13:28 84 91/40 L 100 04/15/21 12:13 36.9 C 75 16 86/39 L 97 04/15/21 12:07 36.9 C 75 16 86/39 L 97 - My Orders Last 24 Hours: My Active Orders 04/15/21 13:33 EKG 12 Lead [EK] Routine 04/15/21 15:30 Heparin Sodium/D5W [Heparin 25,000 Units in D5W 500 ML] 25,000 units in 500 ml IV TITRATE - Assessment/Plan Last 24 Hours: My Active Orders 04/15/21 13:33 EKG 12 Lead [EK] Routine 04/15/21 15:30 Heparin Sodium/D5W [Heparin 25,000 Units in D5W 500 ML] 25,000 units in 500 ml IV TITRATE
--- NOTE | 2021-04-15 14:49 | CRLCR ---
For Patients: As a result of the Century Cures Act, medical imaging exams and procedure reports are released immediately into your electronic medical record. You may view this report before your referring provider. If you have questions, please contact your health care provider. INDICATION: Shortness of breath. TECHNIQUE: Chest 2 view(s) COMPARISON: Chest radiographs dated 03/27/2021. FINDINGS: Postsurgical changes of median sternotomy, with prosthetic heart valve. Mild cardiomegaly, unchanged. There are patchy interstitial opacities at the bilateral lower lobes, which are slightly increased in prominence since prior study. Small bilateral pleural effusions, left greater than right. No definite pneumothorax. Multilevel degenerative changes of the visualized spine. IMPRESSION: 1. Patchy interstitial opacities at the bilateral lower lobes, slightly increased in prominence since prior study. This may reflect component of pulmonary edema or infectious process, including component of COVID pneumonia. 2. Small bilateral pleural effusions, left greater than right. 3. Mild cardiomegaly. Dictated by Debo Peña MD @ 04/15/2021 2:48:50 PM (Electronically Signed)
[2021-04-15] MEDS ORDERED: Heparin Sodium 5,000 Units/ML Vial IVPUSH ONE (15:20)
[2021-04-15] MEDS ORDERED: Heparin Sodium/D5W 25,000 UNITS/500 ML BAG IV SCH (15:30)
--- NOTE | 2021-04-15 17:57 | PCM.HP.2 ---
H&P History of Present Illness - General Date of Service: 04/15/21 Admit Problem/Dx: Admission Diagnosis/Problem Admission Diagnosis/Problem Pneumonia Source of Information: Patient, Provider History Limitations: Reports: No Limitations - History of Present Illness Initial Comments - Free Text/Narative: CC: I was so winded HPI: Jaylan presents to the emergency room with progressive shortness of breath, weakness and fatigue. He reports that he has been short of breath for a couple of years but more so over the past couple of weeks and especially the last few days. He is now short of breath with even minimal activity but comfortable at rest. He has an occasional cough but not dramatically different than usual. No shortness of breath or nasal congestion. No orthopnea. No lower extremity edema. He is not aware of any fevers. No nausea or diarrhea. He has noticed that his appetite has been decreased and he has been sleeping more. His strength and energy seem to be quite reduced from baseline though he admits they were not great a few weeks ago before he started to feel worse. He was recently hospitalized at [facility] for management of a non-ST elevation myocardial infarction and diagnosed with heart failure with reduced ejection fraction and an ischemic cardiomyopathy that was managed medically. He seems to be going downhill since that time. He is aware of some sick contacts who have had Covid. He does report he has been vaccinated and has had a booster. Work-up in the emergency room revealed an elevated troponin at 0.2 as well as a mildly elevated INR. His Covid test was positive and D-dimer is moderately elevated while the CRP is quite high at more than 15. He has been started on dexamethasone since he is requiring 2 L of oxygen. He will be admitted for further management of Covid. - Related Data Allergies/Adverse Reactions: Allergies Allergy/AdvReac Type Severity Reaction Status Date / Time oxycodone AdvReac Nausea and Verified 04/15/21 12:08 Vomiting Home Medications: Home Meds Albuterol Sulfate [Proair Hfa] 1 - 2 puff IH Q4H PRN 03/05/18 [History] Aspirin [Halfprin] 81 mg PO DAILY 03/05/18 [History] Cyanocobalamin (Vitamin B-12) [Vitamin B-12] 100 mcg PO DAILY 03/05/18 [History] Desonide [Tridesilon] 1 applic TP BID PRN 03/05/18 [History] Docusate Sodium [Colace] 100 mg PO DAILY 03/05/18 [History] Ferrous Sulfate [Iron] 325 mg PO BID 03/05/18 [History] Fluticasone/Vilanterol [Breo Ellipta 100-25 MCG Inhalation Kit] 1 puff IH DAILY 03/05/18 [History] Folic Acid 400 mg PO DAILY 03/05/18 [History] Isosorbide Mononitrate [Imdur] 60 mg PO DAILY 03/05/18 [History] Losartan [Cozaar] 50 mg PO DAILY 03/05/18 [History] Metoprolol Succinate [Toprol Xl] 25 mg PO BID 03/05/18 [History] Warfarin [Coumadin] 6 mg PO BEDTIME 03/05/18 [History] allopurinoL [Zyloprim] 100 mg PO BID 03/05/18 [History] atorvaSTATin [Lipitor] 40 mg PO BEDTIME 03/05/18 [History] Spironolactone [Aldactone] 12.5 mg PO DAILY 10/21/18 [History] Albuterol/Ipratropium [DuoNeb 3.0-0.5 MG/3 ML] 3 ml .XX Q4HR PRN 08/13/20 [History] Fluticasone/Salmeterol [Advair 250-50] 1 puff INH BID 08/13/20 [History] Melatonin/Pyridoxine HCl (B6) [Melatonin 10 mg Tablet] 1 each PO BEDTIME 08/13/20 [History] Nitroglycerin [Nitrostat] 0.4 mg SL ASDIRECTED PRN 08/13/20 [History] Ascorbic Acid [Vitamin C] 1,000 mg PO DAILY 04/12/21 [History] Cholecalciferol (Vitamin D3) [Vitamin D3] 25 mcg PO DAILY 04/12/21 [History] Digoxin 125 mcg PO DAILY 04/12/21 [History] Famotidine 20 mg PO DAILY #30 tab 04/12/21 [Rx] Lansoprazole [Prevacid] 15 mg PO DAILY 04/12/21 [History] Nystatin [Nystatin Crm] 15 gm TOP TID PRN 04/12/21 [History] Torsemide 100 mg PO DAILY 04/12/21 [History] Past Medical History HEENT History: Reports: Cataract Cardiovascular History: Reports: Afib, CAD, Heart Failure, Hypertension, Other (See Below) Other Cardiovascular History: peripheral edema Respiratory History: Reports: COPD, Other (See Below) Other Respiratory History: pulmonary nodule Gastrointestinal History: Reports: GERD, Other (See Below) Other Gastrointestinal History: "lesion in my stomach that was bleeding" Genitourinary History: Reports: Other (See Below) Other Genitourinary History: decreased kidney function Musculoskeletal History: Reports: Arthritis, Gout Endocrine/Metabolic History: Reports: Other (See Below), Obesity/BMI 30+ Other Endocrine/Metabolic History: hyperglycemia Hematologic History: Reports: Anemia, Iron Deficiency Oncologic (Cancer) History: Reports: Other (See Below) Other Oncologic History: skin CA Dermatologic History: Reports: Other (See Below) Other Dermatologic History: rash at times - Infectious Disease History Infectious Disease History: Reports: Chicken Pox, Measles, Mumps - Past Surgical History Cardiovascular Surgical History: Reports: Valve Replacement GI Surgical History: Reports: Colonoscopy, EGD Social & Family History - Family History Cardiac: Reports: CAD - Tobacco Use Tobacco Use Status *Q: Never Tobacco User - Caffeine Use Caffeine Use: Reports: Coffee - Recreational Drug Use Recreational Drug Use: No H&P Review of Systems - Review of Systems: Review Of Systems: See Below Free Text/Narrative: A complete 12 point review of systems was obtained. Pertinent positives and negatives are noted in the history of present illness. All other systems were reviewed and were negative except as noted. Exam - Exam Exam: See Below - Vital Signs Vital Signs: Last Vital Signs Temp 36.9 C 04/15/21 12:13 Pulse 77 04/15/21 15:04 Resp 33 H 04/15/21 16:54 BP 108/44 L 04/15/21 16:54 Pulse Ox 98 04/15/21 16:54 Weight: 86.183 kg - Exam Quality Assessment: Supplemental Oxygen General: Alert, Oriented, Cooperative. No: Mild Distress HEENT: Conjunctiva Clear. No: Mucosa Moist & Tonsina (dry), Scleral Icterus Neck: Supple, Trachea Midline. No: JVD Lungs: Normal Respiratory Effort, Crackles (rare both mid lungs and mild both lower lungs) Cardiovascular: Regular Rate, Irregular Rhythm, Systolic Murmur, Other (crisp S2 of mechanical valve ) GI/Abdominal Exam: Normal Bowel Sounds, Soft, Non-Tender, No Distention Extremities: No Pedal Edema. No: Increased Warmth Peripheral Pulses: 2+: Dorsalis Pedis (L), Dorsalis Pedis (R) Skin: Warm, Dry. No: Rash Neuro Extensive - Mental Status: Alert, Oriented x3, Nl Response to Commands Neuro Extensive - Motor, Sensory, Reflexes: No: Dysarthria, Abnormal Motor, Tremor Psychiatric: Alert, Normal Affect - Patient Data Lab Results Last 24 hrs: Laboratory Results - last 24 hr 04/15/21 04/15/21 04/15/21 Range/Units 13:05 13:05 13:05 WBC 4.7 (4.5-11.0) K/uL RBC 3.43 L (4.30-5.90) M/uL Hgb 10.0 L (12.0-15.0) g/dL Hct 31.7 L (40.0-54.0) % MCV 92 (80-98) fL MCH 29 (27-31) pg MCHC 32 (32-36) % Plt Count 241 (150-400) K/uL PT (9.2-10.6) sec INR Sodium 138 L (140-148) mmol/L Potassium 4.6 (3.6-5.2) mmol/L Chloride 97 L (100-108) mmol/L Carbon Dioxide 33 H (21-32) mmol/L Anion Gap 12.6 (5.0-14.0) mmol/L BUN 46 H (7-18) mg/dL Creatinine 2.2 H (0.8-1.3) mg/dL Est Cr Clr Drug Dosing 23.37 mL/min Estimated GFR (MDRD) 29 L (>60) Glucose 105 (74-106) mg/dL Calcium 8.2 L (8.5-10.1) mg/dL Troponin I 0.234 H* (0.000-0.056) ng/mL C-Reactive Protein (0.0-0.3) mg/dL NT-Pro-B Natriuret Pep 5737 H (5-450) pg/mL SARS CoV-2 RNA Rapid EDWIN 04/15/21 04/15/21 04/15/21 Range/Units 13:05 13:05 13:34 WBC (4.5-11.0) K/uL RBC (4.30-5.90) M/uL Hgb (12.0-15.0) g/dL Hct (40.0-54.0) % MCV (80-98) fL MCH (27-31) pg MCHC (32-36) % Plt Count (150-400) K/uL PT 43.3 H (9.2-10.6) sec INR 4.4 H* Sodium (140-148) mmol/L Potassium (3.6-5.2) mmol/L Chloride (100-108) mmol/L Carbon Dioxide (21-32) mmol/L Anion Gap (5.0-14.0) mmol/L BUN (7-18) mg/dL Creatinine (0.8-1.3) mg/dL Est Cr Clr Drug Dosing mL/min Estimated GFR (MDRD) (>60) Glucose (74-106) mg/dL Calcium (8.5-10.1) mg/dL Troponin I (0.000-0.056) ng/mL C-Reactive Protein 14.48 H (0.0-0.3) mg/dL NT-Pro-B Natriuret Pep (5-450) pg/mL SARS CoV-2 RNA Rapid EDWIN Positive H Result Diagrams: 04/15/21 13:05 04/15/21 13:05 Darryl Results Last 24 hrs: Microbiology 04/15/21 13:49 Stool Occult Blood (DARRYL) - Final Stool / Feces - Stool, Formed Imaging Impressions Last 24 hrs: CXR-image personally reviewed-patchy diffuse interstitial infiltrates consistent with covid. No effusions or masses. #1 Interpretation EKG Date: 04/15/21 Rhythm: A-Fib Rate (Beats/Min): 77 Pelzer: LAD-Left Pelzer Deviation P-Wave: Variable QRS: LBBB ST-T: Normal QT: Normal Comparison: No Change Sepsis Event Note - Evaluation Sepsis Screening Result: No Definite Risk - Focused Exam Vital Signs: Vital Signs Temp Pulse Resp BP Pulse Ox 04/15/21 16:54 33 H 108/44 L 98 04/15/21 16:05 30 H 108/52 L 98 04/15/21 15:04 77 87/40 L 100 04/15/21 13:28 84 91/40 L 100 04/15/21 12:13 36.9 C 75 16 86/39 L 97 04/15/21 12:07 36.9 C 75 16 86/39 L 97 *Q Meaningful Use (ADM) - VTE Risk Assess *Q Each Risk Factor Represents 1 Point: Obesity ( BMI > 25 kg/m2), Congestive heart failure (CHF), Serious lung disease including pneumonia, Abnormal Pulmonary Function (COPD) Total Score 1 Point Risk Factors: 4 Each Risk Factor Represents 2 Points: None Total Score 2 Point Risk Factors: 0 Each Risk Factor Represents 3 Points: Age 75 Years or Greater Total Score 3 Point Risk Factors: 3 Each Risk Factor Represents 5 Points: None Total Score 5 Point Risk Factors: 0 Venous Thromboembolism Risk Factor Score *Q: 7 - Problem List (1) Pneumonia due to COVID-19 virus SNOMED Code(s): 858423587184791139 ICD Code: U07.1 - COVID-19; J12.82 - PNEUMONIA DUE TO CORONAVIRUS DISEASE 2018 Status: Acute Current Visit: Yes (2) Acute and chronic respiratory failure SNOMED Code(s): 81745294 ICD Code: J96.20 - ACUTE AND CHR RESP FAILURE, UNSP W HYPOXIA OR HYPERCAPNIA Status: Acute Current Visit: Yes Qualifiers: Respiratory failure complication: hypoxia Qualified Code(s): J96.21 - Acute and chronic respiratory failure with hypoxia (3) Acute kidney injury SNOMED Code(s): 58761228, 53810438 ICD Code: N17.9 - ACUTE KIDNEY FAILURE, UNSPECIFIED Status: Acute Current Visit: Yes (4) Elevated troponin SNOMED Code(s): 350051499, 914783663, 753940306 ICD Code: R77.8 - OTHER SPECIFIED ABNORMALITIES OF PLASMA PROTEINS Status: Acute Current Visit: Yes (5) HFrEF (heart failure with reduced ejection fraction) SNOMED Code(s): 430195522 ICD Code: I50.20 - UNSPECIFIED SYSTOLIC (CONGESTIVE) HEART FAILURE Status: Chronic Current Visit: Yes (6) CAD (coronary artery disease) SNOMED Code(s): 66304288 ICD Code: I25.10 - ATHSCL HEART DISEASE OF [place] CORONARY ARTERY W/O ANG PCTRS Status: Chronic Current Visit: Yes Qualifiers: Coronary Disease-Associated Artery/Lesion type: [place] artery [place] vs. transplanted heart: [place] heart Associated angina: without angina Qualified Code(s): I25.10 - Atherosclerotic heart disease of [place] coronary artery without angina pectoris Problem List Initiated/Reviewed/Updated: Yes Orders Last 24hrs: Active Orders 24 hr Category Date Time Status Patient Status Manage Transfer [TRANSFER] Routine ADT 04/15/21 17:44 Ordered DD [D-DIMER QUANTITATIVE] [COAG] Stat Lab 04/15/21 13:05 Received Resuscitation Status Routine Resus Stat 04/15/21 17:47 Ordered EKG 12 Lead [EK] Routine Ther 04/15/21 13:33 Ordered Assessment/Plan Comment:: ASSESSMENT AND PLAN - COVID-19 pneumonia-complicated by acute on chronic respiratory failure. Main manifestation was dyspnea. Significantly elevated CRP and moderately elevated D-dimer. High risk for progression with his coronary artery disease, COPD and advanced age. Potential exposures while he was in [place] [facility] as well as last week. Symptom onset difficult to determine given duration of dyspnea. -Dexamethasone 6 mg daily (day 1) -Remdesivir contraindicated with GFR less than 30 -Supplement oxygen -Encourage prone positioning -Isolation precautions Acute kidney injury-suspect intravascular volume depletion. He has hypotensive and has not been eating or drinking well. -Hold diuretics -Recheck in the morning Elevated troponin-suspect demand ischemia with known heart disease, Covid infection with hypoxia and reduced kidney function. -Serial troponins -Cardiac monitoring -No strong indication for anticoagulation unless his troponin level jumps Coronary artery disease-complicated by ischemic cardiomyopathy and heart failure with reduced ejection fraction. Recent extensive work-up. Some of this could be contributing to his dyspnea but right now he seems intravascularly deplete. He is hypotensive. -Hold diuretics -Hold losartan -Continue additional medical management Mechanical aortic valve replacement-chronically anticoagulated. INR slightly supratherapeutic. -Hold warfarin and recheck INR in the morning Anemia-mild, new for the most part. Stool was positive for heme. Hemoglobin stable compared to most recent check but down from a while back. I think this is a mild problem at this time and we will get some iron studies but otherwise hold off on additional work-up given Covid infection. Maintenance issues - -DVT prophylaxis-warfarin -GI prophylaxis-PPI -Dspvirorh-mfr-delawc -Hart catheter-not indicated CODE STATUS -DNR/DNI Admission justification -this patient will be admitted for inpatient services and is medically appropriate meeting medical necessity for inpatient admission as outlined in my documentation. I reasonably expect the patient will require inpatient services that span a period time over 2 midnights. I reasonably expect this patient to be discharged or transferred within 96 hours after admission to the [facility] Disposition -I anticipate discharge home after the hospital stay Primary care physician -Dr Savage Cunha M.D. - Mortality Measure Prognosis:: Good
[2021-04-15] MEDS ORDERED: Ondansetron 4 MG Tab.DIS PO PRN (18:53)
[2021-04-15] MEDS ORDERED: Ondansetron 4 MG/2 ML SDV IV PRN (18:53)
[2021-04-15] MEDS ORDERED: LORazepam 2 MG/ML SDV IVPUSH PRN (18:53)
[2021-04-15] MEDS: Acetaminophen 325 MG Tab PO PRN (22:22)
[2021-04-15] MEDS: Melatonin 3 MG Tab PO PRN (22:22)
[2021-04-15] MEDS: atorvaSTATin 20 MG Tab PO SCH (22:23)
[2021-04-16] MEDS ORDERED: Ascorbic Acid 500 MG Tab PO SCH (07:30)
[2021-04-16] MEDS: Docusate Sodium 100 MG Cap PO SCH ×2 (08:52→08:57)
[2021-04-16] MEDS: Pantoprazole 40 MG Tab.CR PO SCH ×2 (08:52→16:03)
[2021-04-16] MEDS: Formoterol/Mometasone 200-5 MCG 8.8 GM Inhaler IH SCH ×2 (08:53→20:20)
[2021-04-16] MEDS: Allopurinol 100 MG Tab PO SCH (08:53)
[2021-04-16] MEDS: Cholecalciferol (Vitamin D3) 25 MCG Tab PO SCH (08:53)
[2021-04-16] MEDS: Folic Acid 1 MG Tab PO SCH (08:53)
[2021-04-16] MEDS: Cyanocobalamin (Vitamin B12) 1,000 MCG Tab PO SCH (08:53)
[2021-04-16] MEDS: Metoprolol Succinate 25 MG Tab.ER PO SCH ×2 (10:15→20:21)
[2021-04-16] MEDS: Aspirin 81 MG Tab.EC PO SCH (10:51)
[2021-04-16] MEDS: Ascorbic Acid 500 MG Tab PO SCH ×4 (10:51→21:02)
[2021-04-16] MEDS: Digoxin 125 MCG Tab PO SCH (13:22)
--- NOTE | 2021-04-16 14:36 | PCM.PN ---
- General Info Date of Service: 04/16/21 Subjective Update: No acute events overnight. No significant change since yesterday with regards to his dyspnea. He thinks his cough is a little better. Still quite short of breath with any activity but comfortable at rest. No orthopnea. He did have a fever overnight that resolved after a dose of acetaminophen and has not returned. Kidney function is a little better today and his GFR is now over 30. Supplemental oxygen requirements are stable. Functional Status: Reports: Pain Controlled, Tolerating Diet - Review of Systems General: Reports: Weakness Pulmonary: Reports: Shortness of Breath - Patient Data Vitals - Most Recent: Last Vital Signs Temp 37.5 C 04/16/21 11:00 Pulse 77 04/16/21 13:22 Resp 16 04/16/21 11:00 BP 102/45 L 04/16/21 11:00 Pulse Ox 97 04/16/21 13:12 Weight - Most Recent: 84.277 kg I&O - Last 24 Hours: Intake & Output 04/15/21 04/16/21 04/16/21 22:59 06:59 14:59 Intake Total 320 800 940 Output Total 250 400 Balance 320 550 540 Lab Results Last 24 Hours: Laboratory Results - last 24 hr 04/15/21 04/15/21 04/15/21 Range/Units 13:05 13:05 13:05 WBC (4.5-11.0) K/uL RBC (4.30-5.90) M/uL Hgb (12.0-15.0) g/dL Hct (40.0-54.0) % MCV (80-98) fL MCH (27-31) pg MCHC (32-36) % Plt Count (150-400) K/uL PT 43.3 H (9.2-10.6) sec INR 4.4 H* D-Dimer, Quantitative 963.49 H (0.0-500.0) ng/mL Sodium (140-148) mmol/L Potassium (3.6-5.2) mmol/L Chloride (100-108) mmol/L Carbon Dioxide (21-32) mmol/L Anion Gap (5.0-14.0) mmol/L BUN (7-18) mg/dL Creatinine (0.8-1.3) mg/dL Est Cr Clr Drug Dosing mL/min Estimated GFR (MDRD) (>60) Glucose (74-106) mg/dL Calcium (8.5-10.1) mg/dL Magnesium (1.8-2.4) mg/dL Troponin I (0.000-0.056) ng/mL C-Reactive Protein 14.48 H (0.0-0.3) mg/dL Procalcitonin ng/mL 04/15/21 04/16/21 04/16/21 Range/Units 21:10 04:25 04:25 WBC 4.1 L (4.5-11.0) K/uL RBC 3.66 L (4.30-5.90) M/uL Hgb 10.7 L (12.0-15.0) g/dL Hct 32.8 L (40.0-54.0) % MCV 90 (80-98) fL MCH 29 (27-31) pg MCHC 33 (32-36) % Plt Count 246 (150-400) K/uL PT 37.4 H (9.2-10.6) sec INR 3.8 D-Dimer, Quantitative (0.0-500.0) ng/mL Sodium (140-148) mmol/L Potassium (3.6-5.2) mmol/L Chloride (100-108) mmol/L Carbon Dioxide (21-32) mmol/L Anion Gap (5.0-14.0) mmol/L BUN (7-18) mg/dL Creatinine (0.8-1.3) mg/dL Est Cr Clr Drug Dosing mL/min Estimated GFR (MDRD) (>60) Glucose (74-106) mg/dL Calcium (8.5-10.1) mg/dL Magnesium (1.8-2.4) mg/dL Troponin I 0.227 H* (0.000-0.056) ng/mL C-Reactive Protein (0.0-0.3) mg/dL Procalcitonin ng/mL 04/16/21 04/16/21 Range/Units 04:25 11:10 WBC (4.5-11.0) K/uL RBC (4.30-5.90) M/uL Hgb (12.0-15.0) g/dL Hct (40.0-54.0) % MCV (80-98) fL MCH (27-31) pg MCHC (32-36) % Plt Count (150-400) K/uL PT (9.2-10.6) sec INR D-Dimer, Quantitative (0.0-500.0) ng/mL Sodium 137 L (140-148) mmol/L Potassium 3.8 (3.6-5.2) mmol/L Chloride 98 L (100-108) mmol/L Carbon Dioxide 31 (21-32) mmol/L Anion Gap 11.8 (5.0-14.0) mmol/L BUN 54 H (7-18) mg/dL Creatinine 1.9 H (0.8-1.3) mg/dL Est Cr Clr Drug Dosing 27.06 mL/min Estimated GFR (MDRD) 34 L (>60) Glucose 95 (74-106) mg/dL Calcium 8.1 L (8.5-10.1) mg/dL Magnesium 1.8 (1.8-2.4) mg/dL Troponin I 0.232 H* (0.000-0.056) ng/mL C-Reactive Protein (0.0-0.3) mg/dL Procalcitonin 0.09 ng/mL Darryl Results Last 24 Hours: Microbiology 04/15/21 13:49 Stool Occult Blood (DARRYL) - Final Stool / Feces - Stool, Formed Med Orders - Current: Current Medications Acetaminophen (Acetaminophen 325 Mg Tab) 650 mg PO Q4H PRN PRN Reason: Pain (Mild 1-3)/fever Last Admin: 04/15/21 22:22 Dose: 650 mg Documented by: Albuterol (Albuterol 8 Gm Inhaler) 0 gm INH Q4H PRN PRN Reason: Shortness of Breath Allopurinol (Allopurinol 100 Mg Tab) 100 mg PO DAILY REPLACED BY [facility] Last Admin: 04/16/21 08:53 Dose: 100 mg Documented by: Ascorbic Acid (Ascorbic Acid 500 Mg Tab) 250 mg PO QID REPLACED BY [facility] Last Admin: 04/16/21 10:51 Dose: 250 mg Documented by: Aspirin (Aspirin 81 Mg Tab.Ec) 81 mg PO DAILY REPLACED BY [facility] Last Admin: 04/16/21 10:51 Dose: 81 mg Documented by: Atorvastatin Calcium (Atorvastatin 20 Mg Tab) 40 mg PO BEDTIME REPLACED BY [facility] Last Admin: 04/15/21 22:23 Dose: 40 mg Documented by: Benzonatate (Benzonatate 100 Mg Cap) 100 mg PO TID PRN PRN Reason: Cough Cholecalciferol (Cholecalciferol (Vitamin D3) 25 Mcg Tab) 25 mcg PO DAILY REPLACED BY [facility] Last Admin: 04/16/21 08:53 Dose: 25 mcg Documented by: Cyanocobalamin (Cyanocobalamin (Vitamin B12) 1,000 Mcg Tab) 500 mcg PO DAILY REPLACED BY [facility] Last Admin: 04/16/21 08:53 Dose: 500 mcg Documented by: Dexamethasone (Dexamethasone 4 Mg/Ml Sdv) 6 mg IVPUSH Q24H REPLACED BY [facility] Digoxin (Digoxin 125 Mcg Tab) 125 mcg PO DAILY@1300 REPLACED BY [facility] Last Admin: 04/16/21 13:22 Dose: 125 mcg Documented by: Docusate Sodium (Docusate Sodium 100 Mg Cap) 100 mg PO DAILY REPLACED BY [facility] Last Admin: 04/16/21 08:57 Dose: Not Given Documented by: Folic Acid (Folic Acid 1 Mg Tab) 0.5 mg PO DAILY REPLACED BY [facility] Last Admin: 04/16/21 08:53 Dose: 0.5 mg Documented by: Guaifenesin/Dextromethorphan (Guaifenesin/Dextromethorphan 100-10 Mg/5 Ml Soln 10 Ml Cup) 10 ml PO Q4H PRN PRN Reason: Cough Lorazepam (Lorazepam 2 Mg/Ml Sdv) 0.5 mg IVPUSH Q4H PRN PRN Reason: Nausea/Vomiting Magnesium Hydroxide (Magnesium Hydroxide 400 Mg/5 Ml Susp 30 Ml Cup) 30 ml PO Q12H PRN PRN Reason: Constipation Melatonin (Melatonin 3 Mg Tab) 9 mg PO BEDTIME PRN PRN Reason: Sleep Last Admin: 04/15/21 22:22 Dose: 9 mg Documented by: Metoprolol Succinate (Metoprolol Succinate 25 Mg Tab.Er) 25 mg PO BID REPLACED BY [facility] Last Admin: 04/16/21 10:15 Dose: 25 mg Documented by: Mometasone Furoate/Formoterol Fumar (Formoterol/Mometasone 200-5 Mcg 8.8 Gm Inhaler) 0 puff IH BIDRT REPLACED BY [facility] Last Admin: 04/16/21 08:53 Dose: 2 puff Documented by: Ondansetron HCl (Ondansetron 4 Mg/2 Ml Sdv) 4 mg IV Q6H PRN PRN Reason: Nausea/Vomiting Ondansetron HCl (Ondansetron 4 Mg Tab.Dis) 4 mg PO Q6H PRN PRN Reason: Nausea able to take PO Pantoprazole Sodium (Pantoprazole 40 Mg Tab.Cr) 40 mg PO BIDAC REPLACED BY [facility] Last Admin: 04/16/21 08:52 Dose: 40 mg Documented by: Senna/Docusate Sodium (Docusate Sodium/Sennosides 50-8.6 Mg Tab) 1 tab PO BID PRN PRN Reason: Constipation Discontinued Medications Ascorbic Acid (Ascorbic Acid 500 Mg Tab) 1,000 mg PO BIDAC REPLACED BY [facility] Last Admin: 04/16/21 10:37 Dose: Not Given Documented by: Heparin Sodium (Porcine) (Heparin Sodium 5,000 Units/Ml Vial) 4,000 units IVP [facility] ONETIME ONE Stop: 04/15/21 15:21 Last Admin: 04/15/21 16:51 Dose: Not Given Documented by: Heparin Sodium/Dextrose (Heparin 25,000 Units In D5w 500 Ml) 25,000 units in 500 mls @ 18 mls/hr IV TITRATE REPLACED BY [facility] - Exam Quality Assessment: Supplemental Oxygen General: Alert, Oriented, Cooperative, No Acute Distress Neck: No JVD Lungs: Normal Respiratory Effort, Decreased Breath Sounds (both bases) Cardiovascular: Regular Rate, Irregular Rhythm, Murmurs GI/Abdominal Exam: Soft, No Distention Extremities: No Pedal Edema. No: Increased Warmth Skin: Warm, Dry Psy/Mental Status: Alert, Normal Affect - Patient Data Lab Results Last 24 hrs: Laboratory Results - last 24 hr 04/15/21 04/15/21 04/15/21 Range/Units 13:05 13:05 13:05 WBC (4.5-11.0) K/uL RBC (4.30-5.90) M/uL Hgb (12.0-15.0) g/dL Hct (40.0-54.0) % MCV (80-98) fL MCH (27-31) pg MCHC (32-36) % Plt Count (150-400) K/uL PT 43.3 H (9.2-10.6) sec INR 4.4 H* D-Dimer, Quantitative 963.49 H (0.0-500.0) ng/mL Sodium (140-148) mmol/L Potassium (3.6-5.2) mmol/L Chloride (100-108) mmol/L Carbon Dioxide (21-32) mmol/L Anion Gap (5.0-14.0) mmol/L BUN (7-18) mg/dL Creatinine (0.8-1.3) mg/dL Est Cr Clr Drug Dosing mL/min Estimated GFR (MDRD) (>60) Glucose (74-106) mg/dL Calcium (8.5-10.1) mg/dL Magnesium (1.8-2.4) mg/dL Troponin I (0.000-0.056) ng/mL C-Reactive Protein 14.48 H (0.0-0.3) mg/dL Procalcitonin ng/mL 04/15/21 04/16/21 04/16/21 Range/Units 21:10 04:25 04:25 WBC 4.1 L (4.5-11.0) K/uL RBC 3.66 L (4.30-5.90) M/uL Hgb 10.7 L (12.0-15.0) g/dL Hct 32.8 L (40.0-54.0) % MCV 90 (80-98) fL MCH 29 (27-31) pg MCHC 33 (32-36) % Plt Count 246 (150-400) K/uL PT 37.4 H (9.2-10.6) sec INR 3.8 D-Dimer, Quantitative (0.0-500.0) ng/mL Sodium (140-148) mmol/L Potassium (3.6-5.2) mmol/L Chloride (100-108) mmol/L Carbon Dioxide (21-32) mmol/L Anion Gap (5.0-14.0) mmol/L BUN (7-18) mg/dL Creatinine (0.8-1.3) mg/dL Est Cr Clr Drug Dosing mL/min Estimated GFR (MDRD) (>60) Glucose (74-106) mg/dL Calcium (8.5-10.1) mg/dL Magnesium (1.8-2.4) mg/dL Troponin I 0.227 H* (0.000-0.056) ng/mL C-Reactive Protein (0.0-0.3) mg/dL Procalcitonin ng/mL 04/16/21 04/16/21 Range/Units 04:25 11:10 WBC (4.5-11.0) K/uL RBC (4.30-5.90) M/uL Hgb (12.0-15.0) g/dL Hct (40.0-54.0) % MCV (80-98) fL MCH (27-31) pg MCHC (32-36) % Plt Count (150-400) K/uL PT (9.2-10.6) sec INR D-Dimer, Quantitative (0.0-500.0) ng/mL Sodium 137 L (140-148) mmol/L Potassium 3.8 (3.6-5.2) mmol/L Chloride 98 L (100-108) mmol/L Carbon Dioxide 31 (21-32) mmol/L Anion Gap 11.8 (5.0-14.0) mmol/L BUN 54 H (7-18) mg/dL Creatinine 1.9 H (0.8-1.3) mg/dL Est Cr Clr Drug Dosing 27.06 mL/min Estimated GFR (MDRD) 34 L (>60) Glucose 95 (74-106) mg/dL Calcium 8.1 L (8.5-10.1) mg/dL Magnesium 1.8 (1.8-2.4) mg/dL Troponin I 0.232 H* (0.000-0.056) ng/mL C-Reactive Protein (0.0-0.3) mg/dL Procalcitonin 0.09 ng/mL Result Diagrams: 04/16/21 04:25 04/16/21 04:25 Darryl Results Last 24 hrs: Microbiology 04/15/21 13:49 Stool Occult Blood (DARRYL) - Final Stool / Feces - Stool, Formed Sepsis Event Note - Evaluation Sepsis Screening Result: No Definite Risk - Focused Exam Vital Signs: Vital Signs Temp Pulse Pulse Resp BP BP Pulse Ox 04/16/21 13:22 77 04/16/21 13:12 97 04/16/21 11:00 37.5 C 73 16 102/45 L 99 04/16/21 10:15 94 101/47 L 04/16/21 07:28 36.6 C 80 16 112/62 100 04/16/21 03:12 36.6 C 83 18 102/47 L 96 - Problem List & Annotations (1) Pneumonia due to COVID-19 virus SNOMED Code(s): 940120490669863633 Code(s): U07.1 - COVID-19; J12.82 - PNEUMONIA DUE TO CORONAVIRUS DISEASE 2018 Status: Acute Current Visit: Yes (2) Acute and chronic respiratory failure SNOMED Code(s): 35775343 Code(s): J96.20 - ACUTE AND CHR RESP FAILURE, UNSP W HYPOXIA OR HYPERCAPNIA Status: Acute Current Visit: Yes Qualifiers: Respiratory failure complication: hypoxia Qualified Code(s): J96.21 - Acute and chronic respiratory failure with hypoxia (3) Acute kidney injury SNOMED Code(s): 13913131, 20870070 Code(s): N17.9 - ACUTE KIDNEY FAILURE, UNSPECIFIED Status: Acute Current Visit: Yes (4) Elevated troponin SNOMED Code(s): 674499147, 579271759, 957893007 Code(s): R77.8 - OTHER SPECIFIED ABNORMALITIES OF PLASMA PROTEINS Status: Acute Current Visit: Yes (5) HFrEF (heart failure with reduced ejection fraction) SNOMED Code(s): 984344740 Code(s): I50.20 - UNSPECIFIED SYSTOLIC (CONGESTIVE) HEART FAILURE Status: Chronic Current Visit: Yes (6) CAD (coronary artery disease) SNOMED Code(s): 14122621 Code(s): I25.10 - ATHSCL HEART DISEASE OF [place] CORONARY ARTERY W/O ANG PCTRS Status: Chronic Current Visit: Yes Qualifiers: Coronary Disease-Associated Artery/Lesion type: [place] artery [place] vs. transplanted heart: [place] heart Associated angina: without angina Qualified Code(s): I25.10 - Atherosclerotic heart disease of [place] coronary artery without angina pectoris - Problem List Review Problem List Initiated/Reviewed/Updated: Yes - My Orders Last 24 Hours: My Active Orders 04/15/21 Dinner 2 Gram Sodium Diet [DIET] 04/15/21 17:47 Resuscitation Status Routine 04/15/21 18:53 Acetaminophen [TylenoL] 650 mg PO Q4H PRN Albuterol [Ventolin HFA] 0 gm INH Q4H PRN Benzonatate [Tessalon Perles] 100 mg PO TID PRN Dextromethorphan/guaiFENesin [Robitussin DM] 10 ml PO Q4H PRN Docusate Sodium/Sennosides [Senna Plus] 1 tab PO BID PRN LORazepam [Ativan] 0.5 mg IVPUSH Q4H PRN Magnesium Hydroxide [Milk of Magnesia] 30 ml PO Q12H PRN Melatonin 9 mg PO BEDTIME PRN Ondansetron [Zofran ODT] 4 mg PO Q6H PRN Ondansetron [Zofran] 4 mg IV Q6H PRN 04/15/21 18:53 Patient Status [ADT] Routine Intake and Output [RC] QSHIFT Notify Provider Vital Signs [RC] ASDIRECTED Oxygen Therapy [RC] PRN Pulse Oximetry [RC] CONTINUOUS RT Aerosol Therapy [RC] ASDIRECTED RT Post Treatment Assessment [RC] Click to Edit Up With Assistance [RC] ASDIRECTED VTE/DVT Education [RC] Per Unit Routine Vital Signs [RC] Q4H PT Evaluation and Treatment [CONS] Routine Isolation [COMM] Routine 04/15/21 21:00 Metoprolol Succinate [Toprol XL] 25 mg PO BID atorvaSTATin [Lipitor] 40 mg PO BEDTIME 04/16/21 07:30 Pantoprazole [ProTONIX] 40 mg PO BIDAC 04/16/21 09:00 Aspirin [Halfprin] 81 mg PO DAILY Cholecalciferol (Vitamin D3) [Vitamin D3] 25 mcg PO DAILY Cyanocobalamin (Vitamin B12) [Vitamin B12] 500 mcg PO DAILY Docusate Sodium [Colace] 100 mg PO DAILY Folic Acid 0.5 mg PO DAILY Mometasone/Formoterol [Dulera 200-5 MCG] 0 puff IH BIDRT allopurinoL [Zyloprim] 100 mg PO DAILY 04/16/21 11:00 Ascorbic Acid [Vitamin C] 250 mg PO QID 04/16/21 13:00 Digoxin [Lanoxin] 125 mcg PO DAILY@1300 04/16/21 14:34 Discontinue Telemetry Monitoring [Cardiac Monitoring Discontinue] [RC] Click to Edit 04/16/21 17:00 dexAMETHasone [Decadron] 6 mg IVPUSH Q24H 04/17/21 05:00 BASIC METABOLIC PANEL,BMP [CHEM] Timed CBC W/O DIFF,HEMOGRAM [HEME] Timed (1) INR,PT,PROTHROMBIN TIME [COAG] Timed TROPONIN I [CHEM] Timed - Plan Plan:: ASSESSMENT AND PLAN - COVID-19 pneumonia-complicated by acute on chronic respiratory failure. Stable overnight but not dramatically improved. Tolerating treatment so far. GFR has improved so we can initiate remdesivir. -Dexamethasone 6 mg daily (day 2) -Remdesivir x5 days (day 1) -Supplement oxygen -Encourage prone positioning -Isolation precautions Acute kidney injury-suspect intravascular volume depletion. Blood pressure slowly improving. Kidney function better today but not back to baseline. -Hold diuretics -Recheck in the morning Elevated troponin-suspect demand ischemia with known heart disease, Covid infection with hypoxia and reduced kidney function. Level has been stable since admission. -Recheck troponin in the morning -Discontinue cardiac monitoring -No strong indication for full dose systemic anticoagulation unless his troponin level jumps Coronary artery disease-complicated by ischemic cardiomyopathy and heart failure with reduced ejection fraction. Recent extensive work-up. Some of this could be contributing to his dyspnea but right now he seems intravascularly deplete. -Hold diuretics -Hold losartan -Continue additional medical management Mechanical aortic valve replacement-chronically anticoagulated. INR slightly supratherapeutic. -Hold warfarin again today and recheck INR in the morning Anemia-mild, new for the most part. Stool was positive for heme. Hemoglobin stable. -Outpatient work-up Maintenance issues - -DVT prophylaxis-warfarin -GI prophylaxis-PPI -[id number] Disposition -I anticipate discharge to the skilled nursing for subacute rehab after the hospital stay Primary care physician -Dr Savage Cunha M.D.
[2021-04-16] MEDS: Acetaminophen 325 MG Tab PO PRN (16:03)
[2021-04-16] MEDS ORDERED: Loperamide 2 MG Cap PO PRN (16:31)
[2021-04-16] MEDS: Dexamethasone 4 MG/ML SDV IVPUSH SCH (16:39)
[2021-04-16] MEDS: Melatonin 3 MG Tab PO PRN (20:20)
[2021-04-16] MEDS: atorvaSTATin 20 MG Tab PO SCH (20:21)
[2021-04-17] MEDS: Ascorbic Acid 500 MG Tab PO SCH ×4 (05:35→21:18)
[2021-04-17] MEDS: Formoterol/Mometasone 200-5 MCG 8.8 GM Inhaler IH SCH ×2 (07:43→20:34)
[2021-04-17] MEDS: Pantoprazole 40 MG Tab.CR PO SCH ×2 (08:27→16:53)
[2021-04-17] MEDS: Docusate Sodium 100 MG Cap PO SCH (08:27)
[2021-04-17] MEDS: Aspirin 81 MG Tab.EC PO SCH (08:27)
[2021-04-17] MEDS: Folic Acid 1 MG Tab PO SCH (08:27)
[2021-04-17] MEDS: Metoprolol Succinate 25 MG Tab.ER PO SCH ×2 (08:27→20:35)
[2021-04-17] MEDS: Cholecalciferol (Vitamin D3) 25 MCG Tab PO SCH (08:28)
[2021-04-17] MEDS: Allopurinol 100 MG Tab PO SCH (08:28)
[2021-04-17] MEDS: Cyanocobalamin (Vitamin B12) 1,000 MCG Tab PO SCH (08:28)
[2021-04-17] MEDS: Spironolactone 25 MG Tab PO SCH (09:21)
[2021-04-17] MEDS: Torsemide 20 MG Tab PO SCH (09:21)
[2021-04-17] MEDS ORDERED: Warfarin 5 MG Tab PO SCH (13:00)
--- NOTE | 2021-04-17 13:30 | PCM.PN ---
- General Info Date of Service: 04/17/21 Subjective Update: No acute events overnight. Patient reports he feels well as long as he is at rest. He is short of breath with even minimal activity. No chest pain. Appetite seems to be slowly improving. Slept fairly well last night. No abdominal pain, nausea or diarrhea. Feels weak. Feels tired. Kidney function steadily improving. INR back in his therapeutic range. Functional Status: Reports: Pain Controlled, Tolerating Diet - Review of Systems General: Reports: Weakness Cardiovascular: Reports: Dyspnea on Exertion - Patient Data Vitals - Most Recent: Last Vital Signs Temp 36.4 C 04/17/21 07:48 Pulse 71 04/17/21 11:00 Resp 18 04/17/21 11:00 BP 92/45 L 04/17/21 11:00 Pulse Ox 95 04/17/21 12:14 Weight - Most Recent: 83.915 kg I&O - Last 24 Hours: Intake & Output 04/16/21 04/17/21 04/17/21 22:59 06:59 14:59 Intake Total 240 800 360 Output Total 200 250 Balance 40 550 360 Lab Results Last 24 Hours: Laboratory Results - last 24 hr 04/17/21 04/17/21 04/17/21 Range/Units 05:55 05:55 05:55 WBC 1.8 L (4.5-11.0) K/uL RBC 3.71 L (4.30-5.90) M/uL Hgb 10.9 L (12.0-15.0) g/dL Hct 32.9 L (40.0-54.0) % MCV 89 (80-98) fL MCH 29 (27-31) pg MCHC 33 (32-36) % Plt Count 227 (150-400) K/uL PT 34.7 H (9.2-10.6) sec INR 3.5 Sodium 137 L (140-148) mmol/L Potassium 4.4 (3.6-5.2) mmol/L Chloride 98 L (100-108) mmol/L Carbon Dioxide 31 (21-32) mmol/L Anion Gap 12.4 (5.0-14.0) mmol/L BUN 51 H (7-18) mg/dL Creatinine 1.4 H (0.8-1.3) mg/dL Est Cr Clr Drug Dosing 36.72 mL/min Estimated GFR (MDRD) 48 L (>60) Glucose 132 H (74-106) mg/dL Calcium 8.2 L (8.5-10.1) mg/dL Troponin I 0.110 H* (0.000-0.056) ng/mL Med Orders - Current: Current Medications Acetaminophen (Acetaminophen 325 Mg Tab) 650 mg PO Q4H PRN PRN Reason: Pain (Mild 1-3)/fever Last Admin: 04/16/21 16:03 Dose: 650 mg Documented by: Albuterol (Albuterol 8 Gm Inhaler) 0 gm INH Q4H PRN PRN Reason: Shortness of Breath Allopurinol (Allopurinol 100 Mg Tab) 100 mg PO DAILY [facility] Last Admin: 04/17/21 08:28 Dose: 100 mg Documented by: Ascorbic Acid (Ascorbic Acid 500 Mg Tab) 250 mg PO QID [facility] Last Admin: 04/17/21 09:22 Dose: 250 mg Documented by: Aspirin (Aspirin 81 Mg Tab.Ec) 81 mg PO DAILY [facility] Last Admin: 04/17/21 08:27 Dose: 81 mg Documented by: Atorvastatin Calcium (Atorvastatin 20 Mg Tab) 40 mg PO BEDTIME [facility] Last Admin: 04/16/21 20:21 Dose: 40 mg Documented by: Benzonatate (Benzonatate 100 Mg Cap) 100 mg PO TID PRN PRN Reason: Cough Cholecalciferol (Cholecalciferol (Vitamin D3) 25 Mcg Tab) 25 mcg PO DAILY [facility] Last Admin: 04/17/21 08:28 Dose: 25 mcg Documented by: Cyanocobalamin (Cyanocobalamin (Vitamin B12) 1,000 Mcg Tab) 500 mcg PO DAILY [facility] Last Admin: 04/17/21 08:28 Dose: 500 mcg Documented by: Dexamethasone (Dexamethasone 4 Mg/Ml Sdv) 6 mg IVPUSH Q24H [facility] Last Admin: 04/16/21 16:39 Dose: 6 mg Documented by: Digoxin (Digoxin 125 Mcg Tab) 125 mcg PO DAILY@1300 [facility] Last Admin: 04/16/21 13:22 Dose: 125 mcg Documented by: Docusate Sodium (Docusate Sodium 100 Mg Cap) 100 mg PO DAILY [facility] Last Admin: 04/17/21 08:27 Dose: 100 mg Documented by: Folic Acid (Folic Acid 1 Mg Tab) 0.5 mg PO DAILY [facility] Last Admin: 04/17/21 08:27 Dose: 0.5 mg Documented by: Guaifenesin/Dextromethorphan (Guaifenesin/Dextromethorphan 100-10 Mg/5 Ml Soln 10 Ml Cup) 10 ml PO Q4H PRN PRN Reason: Cough Loperamide HCl (Loperamide 2 Mg Cap) 2 mg PO Q4H PRN PRN Reason: Diarrhea Last Admin: 04/16/21 17:47 Dose: 2 mg Documented by: Lorazepam (Lorazepam 2 Mg/Ml Sdv) 0.5 mg IVPUSH Q4H PRN PRN Reason: Nausea/Vomiting Magnesium Hydroxide (Magnesium Hydroxide 400 Mg/5 Ml Susp 30 Ml Cup) 30 ml PO Q12H PRN PRN Reason: Constipation Melatonin (Melatonin 3 Mg Tab) 9 mg PO BEDTIME PRN PRN Reason: Sleep Last Admin: 04/16/21 20:20 Dose: 9 mg Documented by: Metoprolol Succinate (Metoprolol Succinate 25 Mg Tab.Er) 25 mg PO BID [facility] Last Admin: 04/17/21 08:27 Dose: 25 mg Documented by: Mometasone Furoate/Formoterol Fumar (Formoterol/Mometasone 200-5 Mcg 8.8 Gm Inhaler) 0 puff IH BIDRT [facility] Last Admin: 04/17/21 07:43 Dose: 2 puff Documented by: Ondansetron HCl (Ondansetron 4 Mg/2 Ml Sdv) 4 mg IV Q6H PRN PRN Reason: Nausea/Vomiting Ondansetron HCl (Ondansetron 4 Mg Tab.Dis) 4 mg PO Q6H PRN PRN Reason: Nausea able to take PO Pantoprazole Sodium (Pantoprazole 40 Mg Tab.Cr) 40 mg PO BIDAC [facility] Last Admin: 04/17/21 08:27 Dose: 40 mg Documented by: Senna/Docusate Sodium (Docusate Sodium/Sennosides 50-8.6 Mg Tab) 1 tab PO BID PRN PRN Reason: Constipation Spironolactone (Spironolactone 25 Mg Tab) 12.5 mg PO DAILY [facility] Last Admin: 04/17/21 09:21 Dose: 12.5 mg Documented by: Torsemide (Torsemide 20 Mg Tab) 40 mg PO DAILY [facility] Last Admin: 04/17/21 09:21 Dose: 40 mg Documented by: Warfarin Sodium (Warfarin 5 Mg Tab) 5 mg PO DAILY@1300 [facility] Discontinued Medications Ascorbic Acid (Ascorbic Acid 500 Mg Tab) 1,000 mg PO BIDAC [facility] Last Admin: 04/16/21 10:37 Dose: Not Given Documented by: Heparin Sodium (Porcine) (Heparin Sodium 5,000 Units/Ml Vial) 4,000 units IVPUSH ONETIME ONE Stop: 04/15/21 15:21 Last Admin: 04/15/21 16:51 Dose: Not Given Documented by: Heparin Sodium/Dextrose (Heparin 25,000 Units In D5w 500 Ml) 25,000 units in 500 mls @ 18 mls/hr IV TITRATE [facility] - Exam Quality Assessment: Supplemental Oxygen General: Alert, Oriented, Cooperative, No Acute Distress Neck: No JVD Lungs: Normal Respiratory Effort, Crackles (rare right lung base) Cardiovascular: Regular Rate, Irregular Rhythm GI/Abdominal Exam: Soft, No Distention Extremities: No Pedal Edema. No: Increased Warmth Skin: Warm, Dry Psy/Mental Status: Alert, Normal Affect - Patient Data Lab Results Last 24 hrs: Laboratory Results - last 24 hr 04/17/21 04/17/21 04/17/21 Range/Units 05:55 05:55 05:55 WBC 1.8 L (4.5-11.0) K/uL RBC 3.71 L (4.30-5.90) M/uL Hgb 10.9 L (12.0-15.0) g/dL Hct 32.9 L (40.0-54.0) % MCV 89 (80-98) fL MCH 29 (27-31) pg MCHC 33 (32-36) % Plt Count 227 (150-400) K/uL PT 34.7 H (9.2-10.6) sec INR 3.5 Sodium 137 L (140-148) mmol/L Potassium 4.4 (3.6-5.2) mmol/L Chloride 98 L (100-108) mmol/L Carbon Dioxide 31 (21-32) mmol/L Anion Gap 12.4 (5.0-14.0) mmol/L BUN 51 H (7-18) mg/dL Creatinine 1.4 H (0.8-1.3) mg/dL Est Cr Clr Drug Dosing 36.72 mL/min Estimated GFR (MDRD) 48 L (>60) Glucose 132 H (74-106) mg/dL Calcium 8.2 L (8.5-10.1) mg/dL Troponin I 0.110 H* (0.000-0.056) ng/mL Result Diagrams: 04/17/21 05:55 04/17/21 05:55 Sepsis Event Note - Evaluation Sepsis Screening Result: No Definite Risk - Focused Exam Vital Signs: Vital Signs Temp Pulse Pulse Resp BP BP Pulse Ox 04/17/21 12:14 95 04/17/21 11:00 71 18 92/45 L 99 04/17/21 08:27 80 119/62 04/17/21 07:48 36.4 C 80 16 119/62 100 04/17/21 07:26 99 04/17/21 02:19 36.1 C 80 18 106/50 L 04/17/21 02:00 94 L - Problem List & Annotations (1) Pneumonia due to COVID-19 virus SNOMED Code(s): 989074383011341081 Code(s): U07.1 - COVID-19; J12.82 - PNEUMONIA DUE TO CORONAVIRUS DISEASE 2018 Status: Acute Current Visit: Yes (2) Acute and chronic respiratory failure SNOMED Code(s): 16097854 Code(s): J96.20 - ACUTE AND CHR RESP FAILURE, UNSP W HYPOXIA OR HYPERCAPNIA Status: Acute Current Visit: Yes Qualifiers: Respiratory failure complication: hypoxia Qualified Code(s): J96.21 - Acute and chronic respiratory failure with hypoxia (3) Acute kidney injury SNOMED Code(s): 66202907, 49125079 Code(s): N17.9 - ACUTE KIDNEY FAILURE, UNSPECIFIED Status: Acute Current Visit: Yes (4) Elevated troponin SNOMED Code(s): 556464805, 850672676, 555229839 Code(s): R77.8 - OTHER SPECIFIED ABNORMALITIES OF PLASMA PROTEINS Status: Acute Current Visit: Yes (5) HFrEF (heart failure with reduced ejection fraction) SNOMED Code(s): 258808801 Code(s): I50.20 - UNSPECIFIED SYSTOLIC (CONGESTIVE) HEART FAILURE Status: Chronic Current Visit: Yes (6) CAD (coronary artery disease) SNOMED Code(s): 59101998 Code(s): I25.10 - ATHSCL HEART DISEASE OF [place] CORONARY ARTERY W/O ANG PCTRS Status: Chronic Current Visit: Yes Qualifiers: Coronary Disease-Associated Artery/Lesion type: [place] artery [place] vs. transplanted heart: [place] heart Associated angina: without angina Qualified Code(s): I25.10 - Atherosclerotic heart disease of [place] coronary artery without angina pectoris - Problem List Review Problem List Initiated/Reviewed/Updated: Yes - My Orders Last 24 Hours: My Active Orders 04/16/21 13:00 Digoxin [Lanoxin] 125 mcg PO DAILY@1300 04/16/21 14:34 Discontinue Telemetry Monitoring [Cardiac Monitoring Discontinue] [RC] Click to Edit 04/16/21 16:31 Loperamide [Imodium] 2 mg PO Q4H PRN 04/16/21 17:00 dexAMETHasone [Decadron] 6 mg IVPUSH Q24H 04/17/21 09:00 Spironolactone [Aldactone] 12.5 mg PO DAILY Torsemide [Demadex] 40 mg PO DAILY 04/17/21 13:00 Warfarin [Coumadin] 5 mg PO DAILY@1300 04/18/21 05:00 BASIC METABOLIC PANEL,BMP [CHEM] Timed CBC W/O DIFF,HEMOGRAM [HEME] Timed (1) CRP [C-REACTIVE PROTEIN] [CHEM] Timed D-DIMER QUANTITATIVE [COAG] Timed INR,PT,PROTHROMBIN TIME [COAG] Timed TROPONIN I [CHEM] Timed - Plan Plan:: ASSESSMENT AND PLAN - COVID-19 pneumonia-complicated by acute on chronic respiratory failure. Stable. Tolerating current treatment. Most significant manifestation is weakness. -Dexamethasone 6 mg daily (day 3) -Remdesivir x5 days (day 2) -Supplement oxygen -Encourage prone positioning -Isolation precautions (symptom onset 04/12) Acute kidney injury-suspect intravascular volume depletion. Blood pressure improving. Kidney function improving. -Restart diuretics -Recheck labs in the morning Elevated troponin-suspect demand ischemia with known heart disease, Covid infection with hypoxia and reduced kidney function. Level is slowly improving. -Recheck troponin in the morning Coronary artery disease-complicated by ischemic cardiomyopathy and heart failure with reduced ejection fraction. Recent extensive work-up. -Restarting diuretics -Hold losartan -Continue additional medical management Mechanical aortic valve replacement-chronically anticoagulated. INR now at the top of the therapeutic range. -Restart reduced dose warfarin today and recheck INR in the morning -INR goal 2.5-3.5 Anemia-mild, new for the most part. Stool was positive for heme. Hemoglobin stable. -Outpatient work-up Maintenance issues - -DVT prophylaxis-warfarin -GI prophylaxis-PPI -[id number] Disposition -[facility] after the hospital stay. He will need isolation precautions until 04/22. Primary care physician -Dr Savage Cunha M.D.
[2021-04-17] MEDS: Digoxin 125 MCG Tab PO SCH (13:32)
[2021-04-17] MEDS: Albuterol 8 GM Inhaler INH PRN ×2 (14:30→22:55)
[2021-04-17] MEDS: Dexamethasone 4 MG/ML SDV IVPUSH SCH (16:53)
[2021-04-17] MEDS: atorvaSTATin 20 MG Tab PO SCH (20:37)
[2021-04-18] MEDS: guaiFENesin/Dextromethorphan 100-10 MG/5 ML Soln 10 ML Cup PO PRN ×2 (01:01→06:16)
[2021-04-18] MEDS: Albuterol 8 GM Inhaler INH PRN ×2 (03:09→23:59)
[2021-04-18] MEDS: Ascorbic Acid 500 MG Tab PO SCH ×4 (05:45→20:59)
[2021-04-18] MEDS ORDERED: Isosorbide Mononitrate 30 MG Tab.ER PO ONE (06:27)
[2021-04-18] MEDS: Formoterol/Mometasone 200-5 MCG 8.8 GM Inhaler IH SCH ×2 (07:23→20:57)
[2021-04-18] MEDS: Pantoprazole 40 MG Tab.CR PO SCH ×2 (09:01→16:02)
[2021-04-18] MEDS: Spironolactone 25 MG Tab PO SCH (09:02)
[2021-04-18] MEDS: Aspirin 81 MG Tab.EC PO SCH (09:02)
[2021-04-18] MEDS: Folic Acid 1 MG Tab PO SCH (09:02)
[2021-04-18] MEDS: Cholecalciferol (Vitamin D3) 25 MCG Tab PO SCH (09:03)
[2021-04-18] MEDS: Allopurinol 100 MG Tab PO SCH (09:03)
[2021-04-18] MEDS: Metoprolol Succinate 25 MG Tab.ER PO SCH ×2 (09:03→20:58)
[2021-04-18] MEDS: Docusate Sodium 100 MG Cap PO SCH (09:03)
[2021-04-18] MEDS: Cyanocobalamin (Vitamin B12) 1,000 MCG Tab PO SCH (09:03)
[2021-04-18] MEDS: Torsemide 20 MG Tab PO SCH (09:03)
--- NOTE | 2021-04-18 12:35 | PCM.PN ---
- General Info Date of Service: 04/18/21 Subjective Update: No acute events overnight but he did have an episode of chest pressure this morning shortly after he woke up. This was substernal and in the central portion of his chest. He did get a dose of Imdur and has had resolution since that time. He did report some dyspnea at the time of the chest pressure and this has resolved as well. Oxygenation has been stable and he only requires about 1 L of supplemental oxygen. Appetite is improving. Strength is still q uite decreased but seems to be slowly improving. Kidney function not quite back to baseline but stable. INR is supratherapeutic again today. Functional Status: Reports: Pain Controlled, Tolerating Diet - Review of Systems General: Reports: Weakness Pulmonary: Reports: Shortness of Breath - Patient Data Vitals - Most Recent: Last Vital Signs Temp 36.2 C 04/18/21 11:00 Pulse 70 04/18/21 11:00 Resp 18 04/18/21 11:00 BP 100/53 L 04/18/21 11:00 Pulse Ox 100 04/18/21 12:26 Weight - Most Recent: 83.915 kg I&O - Last 24 Hours: Intake & Output 04/17/21 04/18/21 04/18/21 22:59 06:59 14:59 Intake Total 600 Output Total 650 600 125 Balance -650 0 -125 Lab Results Last 24 Hours: Laboratory Results - last 24 hr 04/18/21 04/18/21 04/18/21 Range/Units 05:00 05:00 05:00 WBC 5.7 (4.5-11.0) K/uL RBC 3.83 L (4.30-5.90) M/uL Hgb 11.1 L (12.0-15.0) g/dL Hct 33.6 L (40.0-54.0) % MCV 88 (80-98) fL MCH 29 (27-31) pg MCHC 33 (32-36) % Plt Count 232 (150-400) K/uL PT 55.3 H (9.2-10.6) sec INR 5.7 H* D D-Dimer, Quantitative 1032.49 H (0.0-500.0) ng/mL Sodium (140-148) mmol/L Potassium (3.6-5.2) mmol/L Chloride (100-108) mmol/L Carbon Dioxide (21-32) mmol/L Anion Gap (5.0-14.0) mmol/L BUN (7-18) mg/dL Creatinine (0.8-1.3) mg/dL Est Cr Clr Drug Dosing mL/min Estimated GFR (MDRD) (>60) Glucose (74-106) mg/dL Calcium (8.5-10.1) mg/dL Troponin I (0.000-0.056) ng/mL C-Reactive Protein (0.0-0.3) mg/dL 04/18/21 Range/Units 05:00 WBC (4.5-11.0) K/uL RBC (4.30-5.90) M/uL Hgb (12.0-15.0) g/dL Hct (40.0-54.0) % MCV (80-98) fL MCH (27-31) pg MCHC (32-36) % Plt Count (150-400) K/uL PT (9.2-10.6) sec INR D-Dimer, Quantitative (0.0-500.0) ng/mL Sodium 139 L (140-148) mmol/L Potassium 4.5 (3.6-5.2) mmol/L Chloride 97 L (100-108) mmol/L Carbon Dioxide 31 (21-32) mmol/L Anion Gap 15.5 H (5.0-14.0) mmol/L BUN 66 H (7-18) mg/dL Creatinine 1.6 H (0.8-1.3) mg/dL Est Cr Clr Drug Dosing 32.13 mL/min Estimated GFR (MDRD) 41 L (>60) Glucose 139 H (74-106) mg/dL Calcium 8.2 L (8.5-10.1) mg/dL Troponin I 0.113 H* (0.000-0.056) ng/mL C-Reactive Protein 7.22 H (0.0-0.3) mg/dL Med Orders - Current: Current Medications Acetaminophen (Acetaminophen 325 Mg Tab) 650 mg PO Q4H PRN PRN Reason: Pain (Mild 1-3)/fever Last Admin: 04/16/21 16:03 Dose: 650 mg Documented by: Albuterol (Albuterol 8 Gm Inhaler) 0 gm INH Q4H PRN PRN Reason: Shortness of Breath Last Admin: 04/18/21 03:09 Dose: 2 puff Documented by: Allopurinol (Allopurinol 100 Mg Tab) 100 mg PO DAILY [facility] Last Admin: 04/18/21 09:03 Dose: 100 mg Documented by: Ascorbic Acid (Ascorbic Acid 500 Mg Tab) 250 mg PO QID [facility] Last Admin: 04/18/21 09:02 Dose: 250 mg Documented by: Aspirin (Aspirin 81 Mg Tab.Ec) 81 mg PO DAILY [facility] Last Admin: 04/18/21 09:02 Dose: 81 mg Documented by: Atorvastatin Calcium (Atorvastatin 20 Mg Tab) 40 mg PO BEDTIME [facility] Last Admin: 04/17/21 20:37 Dose: 40 mg Documented by: Benzonatate (Benzonatate 100 Mg Cap) 100 mg PO TID PRN PRN Reason: Cough Cholecalciferol (Cholecalciferol (Vitamin D3) 25 Mcg Tab) 25 mcg PO DAILY [facility] Last Admin: 04/18/21 09:03 Dose: 25 mcg Documented by: Cyanocobalamin (Cyanocobalamin (Vitamin B12) 1,000 Mcg Tab) 500 mcg PO DAILY [facility] Last Admin: 04/18/21 09:03 Dose: 500 mcg Documented by: Dexamethasone (Dexamethasone 4 Mg/Ml Sdv) 6 mg IVPUSH Q24H [facility] Last Admin: 04/17/21 16:53 Dose: 6 mg Documented by: Digoxin (Digoxin 125 Mcg Tab) 125 mcg PO DAILY@1300 [facility] Last Admin: 04/17/21 13:32 Dose: Not Given Documented by: Docusate Sodium (Docusate Sodium 100 Mg Cap) 100 mg PO DAILY [facility] Last Admin: 04/18/21 09:03 Dose: 100 mg Documented by: Folic Acid (Folic Acid 1 Mg Tab) 0.5 mg PO DAILY [facility] Last Admin: 04/18/21 09:02 Dose: 0.5 mg Documented by: Guaifenesin/Dextromethorphan (Guaifenesin/Dextromethorphan 100-10 Mg/5 Ml Soln 10 Ml Cup) 10 ml PO Q4H PRN PRN Reason: Cough Last Admin: 04/18/21 06:16 Dose: 10 ml Documented by: Loperamide HCl (Loperamide 2 Mg Cap) 2 mg PO Q4H PRN PRN Reason: Diarrhea Last Admin: 04/16/21 17:47 Dose: 2 mg Documented by: Lorazepam (Lorazepam 2 Mg/Ml Sdv) 0.5 mg IVPUSH Q4H PRN PRN Reason: Nausea/Vomiting Magnesium Hydroxide (Magnesium Hydroxide 400 Mg/5 Ml Susp 30 Ml Cup) 30 ml PO Q12H PRN PRN Reason: Constipation Melatonin (Melatonin 3 Mg Tab) 9 mg PO BEDTIME PRN PRN Reason: Sleep Last Admin: 04/16/21 20:20 Dose: 9 mg Documented by: Metoprolol Succinate (Metoprolol Succinate 25 Mg Tab.Er) 25 mg PO BID [facility] Last Admin: 04/18/21 09:03 Dose: 25 mg Documented by: Mometasone Furoate/Formoterol Fumar (Formoterol/Mometasone 200-5 Mcg 8.8 Gm Inhaler) 0 puff IH BIDRT [facility] Last Admin: 04/18/21 07:23 Dose: 2 puff Documented by: Ondansetron HCl (Ondansetron 4 Mg/2 Ml Sdv) 4 mg IV Q6H PRN PRN Reason: Nausea/Vomiting Ondansetron HCl (Ondansetron 4 Mg Tab.Dis) 4 mg PO Q6H PRN PRN Reason: Nausea able to take PO Pantoprazole Sodium (Pantoprazole 40 Mg Tab.Cr) 40 mg PO BIDAC [facility] Last Admin: 04/18/21 09:01 Dose: 40 mg Documented by: Senna/Docusate Sodium (Docusate Sodium/Sennosides 50-8.6 Mg Tab) 1 tab PO BID PRN PRN Reason: Constipation Spironolactone (Spironolactone 25 Mg Tab) 12.5 mg PO DAILY [facility] Last Admin: 04/18/21 09:02 Dose: 12.5 mg Documented by: Torsemide (Torsemide 20 Mg Tab) 40 mg PO DAILY [facility] Last Admin: 04/18/21 09:03 Dose: 40 mg Documented by: Discontinued Medications Ascorbic Acid (Ascorbic Acid 500 Mg Tab) 1,000 mg PO BIDAC [facility] Last Admin: 04/16/21 10:37 Dose: Not Given Documented by: Heparin Sodium (Porcine) (Heparin Sodium 5,000 Units/Ml Vial) 4,000 units IVPUSH ONETIME ONE Stop: 04/15/21 15:21 Last Admin: 04/15/21 16:51 Dose: Not Given Documented by: Heparin Sodium/Dextrose (Heparin 25,000 Units In D5w 500 Ml) 25,000 units in 500 mls @ 18 mls/hr IV TITRATE [facility] Isosorbide Mononitrate (Isosorbide Mononitrate 30 Mg Tab.Er) 30 mg PO ONETIME ONE Stop: 04/18/21 06:28 Last Admin: 04/18/21 06:39 Dose: 30 mg Documented by: Warfarin Sodium (Warfarin 5 Mg Tab) 5 mg PO DAILY@1300 [facility] Last Admin: 04/17/21 13:31 Dose: 5 mg Documented by: - Exam Quality Assessment: Supplemental Oxygen General: Alert, Oriented, Cooperative, No Acute Distress Lungs: Normal Respiratory Effort. No: Wheezing GI/Abdominal Exam: Soft, No Distention Extremities: No Pedal Edema. No: Increased Warmth Skin: Warm, Dry Psy/Mental Status: Alert, Normal Affect - Patient Data Lab Results Last 24 hrs: Laboratory Results - last 24 hr 04/18/21 04/18/21 04/18/21 Range/Units 05:00 05:00 05:00 WBC 5.7 (4.5-11.0) K/uL RBC 3.83 L (4.30-5.90) M/uL Hgb 11.1 L (12.0-15.0) g/dL Hct 33.6 L (40.0-54.0) % MCV 88 (80-98) fL MCH 29 (27-31) pg MCHC 33 (32-36) % Plt Count 232 (150-400) K/uL PT 55.3 H (9.2-10.6) sec INR 5.7 H* D D-Dimer, Quantitative 1032.49 H (0.0-500.0) ng/mL Sodium (140-148) mmol/L Potassium (3.6-5.2) mmol/L Chloride (100-108) mmol/L Carbon Dioxide (21-32) mmol/L Anion Gap (5.0-14.0) mmol/L BUN (7-18) mg/dL Creatinine (0.8-1.3) mg/dL Est Cr Clr Drug Dosing mL/min Estimated GFR (MDRD) (>60) Glucose (74-106) mg/dL Calcium (8.5-10.1) mg/dL Troponin I (0.000-0.056) ng/mL C-Reactive Protein (0.0-0.3) mg/dL 04/18/21 Range/Units 05:00 WBC (4.5-11.0) K/uL RBC (4.30-5.90) M/uL Hgb (12.0-15.0) g/dL Hct (40.0-54.0) % MCV (80-98) fL MCH (27-31) pg MCHC (32-36) % Plt Count (150-400) K/uL PT (9.2-10.6) sec INR D-Dimer, Quantitative (0.0-500.0) ng/mL Sodium 139 L (140-148) mmol/L Potassium 4.5 (3.6-5.2) mmol/L Chloride 97 L (100-108) mmol/L Carbon Dioxide 31 (21-32) mmol/L Anion Gap 15.5 H (5.0-14.0) mmol/L BUN 66 H (7-18) mg/dL Creatinine 1.6 H (0.8-1.3) mg/dL Est Cr Clr Drug Dosing 32.13 mL/min Estimated GFR (MDRD) 41 L (>60) Glucose 139 H (74-106) mg/dL Calcium 8.2 L (8.5-10.1) mg/dL Troponin I 0.113 H* (0.000-0.056) ng/mL C-Reactive Protein 7.22 H (0.0-0.3) mg/dL Result Diagrams: 04/18/21 05:00 04/18/21 05:00 Sepsis Event Note - Evaluation Sepsis Screening Result: No Definite Risk - Focused Exam Vital Signs: Vital Signs Temp Pulse Pulse Resp BP BP Pulse Ox 04/18/21 12:26 100 04/18/21 11:00 36.2 C 70 18 100/53 L 98 04/18/21 09:03 76 112/56 L 04/18/21 07:46 98 04/18/21 07:00 36.5 C 67 16 107/53 L 99 04/18/21 06:39 110/48 L 04/18/21 06:18 36.3 C 73 16 110/48 L 94 L 04/18/21 03:00 36.4 C 65 17 105/47 L 97 04/18/21 01:00 100 - Problem List & Annotations (1) Pneumonia due to COVID-19 virus SNOMED Code(s): 640467488785739905 Code(s): U07.1 - COVID-19; J12.82 - PNEUMONIA DUE TO CORONAVIRUS DISEASE 2019 Status: Acute Current Visit: Yes (2) Acute and chronic respiratory failure SNOMED Code(s): 64821185 Code(s): J96.20 - ACUTE AND CHR RESP FAILURE, UNSP W HYPOXIA OR HYPERCAPNIA Status: Acute Current Visit: Yes Qualifiers: Respiratory failure complication: hypoxia Qualified Code(s): J96.21 - Acute and chronic respiratory failure with hypoxia (3) Acute kidney injury SNOMED Code(s): 67735039, 86650370 Code(s): N17.9 - ACUTE KIDNEY FAILURE, UNSPECIFIED Status: Acute Current Visit: Yes (4) Elevated troponin SNOMED Code(s): 789747872, 239067353, 331677259 Code(s): R77.8 - OTHER SPECIFIED ABNORMALITIES OF PLASMA PROTEINS Status: Acute Current Visit: Yes (5) HFrEF (heart failure with reduced ejection fraction) SNOMED Code(s): 573638254 Code(s): I50.20 - UNSPECIFIED SYSTOLIC (CONGESTIVE) HEART FAILURE Status: Chronic Current Visit: Yes (6) CAD (coronary artery disease) SNOMED Code(s): 68702664 Code(s): I25.10 - ATHSCL HEART DISEASE OF [place] CORONARY ARTERY W/O ANG PCTRS Status: Chronic Current Visit: Yes Qualifiers: Coronary Disease-Associated Artery/Lesion type: [place] artery [place] vs. transplanted heart: [place] heart Associated angina: without angina Qualified Code(s): I25.10 - Atherosclerotic heart disease of [place] coronary artery without angina pectoris - Problem List Review Problem List Initiated/Reviewed/Updated: Yes - My Orders Last 24 Hours: My Active Orders 04/18/21 12:33 Phytonadione [Mephyton] 2.5 mg PO ONETIME ONE 04/19/21 05:00 BASIC METABOLIC PANEL,BMP [CHEM] Timed CBC W/O DIFF,HEMOGRAM [HEME] Timed (1) INR,PT,PROTHROMBIN TIME [COAG] Timed - Plan Plan:: ASSESSMENT AND PLAN - COVID-19 pneumonia-complicated by acute on chronic respiratory failure. Stable. Tolerating current treatment. Weak but otherwise doing okay. -Dexamethasone 6 mg daily (day 4) -Remdesivir x5 days (day 3) -Supplement oxygen -Encourage prone positioning -Isolation precautions (symptom onset 04/12) Acute kidney injury-suspect intravascular volume depletion. Blood pressure improving. Kidney function stable but not quite back to baseline. -Continue diuretics -Recheck labs in the morning Elevated troponin-suspect demand ischemia with known heart disease, Covid infection with hypoxia and reduced kidney function. Level is slowly improving. -Recheck troponin in the morning Coronary artery disease-complicated by ischemic cardiomyopathy and heart failure with reduced ejection fraction. Episode of chest pain this morning that has resolved. -Continue diuretics -Restart isosorbide mononitrate -Hold losartan -Continue additional medical management Mechanical aortic valve replacement-chronically anticoagulated. INR supratherapeutic after 1 dose of warfarin yesterday. -Discontinue warfarin -Vitamin K 2.5 mg this morning -INR in the morning -INR goal 2.5-3.5 Anemia-mild, stable. -Outpatient work-up Maintenance issues - -DVT prophylaxis-warfarin -GI prophylaxis-PPI -[id number] Disposition -I anticipate [facility] the [facility] for subacute rehab after the hospital stay. He will need isolation precautions until 04/22. Primary care physician -Dr Savage Cunha M.D.
[2021-04-18] MEDS ORDERED: Phytonadione 5 MG Tab PO ONE (13:00)
[2021-04-18] MEDS: Digoxin 125 MCG Tab PO SCH (13:43)
[2021-04-18] MEDS: Dexamethasone 4 MG/ML SDV IVPUSH SCH (16:02)
[2021-04-18] MEDS: atorvaSTATin 20 MG Tab PO SCH (20:58)
[2021-04-19] MEDS: Benzonatate 100 MG Cap PO PRN ×2 (00:02→21:45)
[2021-04-19] MEDS: guaiFENesin/Dextromethorphan 100-10 MG/5 ML Soln 10 ML Cup PO PRN ×2 (00:02→20:21)
[2021-04-19] MEDS: Ascorbic Acid 500 MG Tab PO SCH ×4 (06:35→21:45)
[2021-04-19] MEDS: Formoterol/Mometasone 200-5 MCG 8.8 GM Inhaler IH SCH ×2 (06:59→20:07)
[2021-04-19] MEDS: Pantoprazole 40 MG Tab.CR PO SCH ×2 (07:16→16:52)
[2021-04-19] MEDS: Cyanocobalamin (Vitamin B12) 1,000 MCG Tab PO SCH (09:44)
[2021-04-19] MEDS: Allopurinol 100 MG Tab PO SCH (09:46)
[2021-04-19] MEDS: Aspirin 81 MG Tab.EC PO SCH (09:46)
[2021-04-19] MEDS: Cholecalciferol (Vitamin D3) 25 MCG Tab PO SCH (09:46)
[2021-04-19] MEDS: Docusate Sodium 100 MG Cap PO SCH (09:46)
[2021-04-19] MEDS: Folic Acid 1 MG Tab PO SCH (09:47)
[2021-04-19] MEDS: Spironolactone 25 MG Tab PO SCH (09:47)
[2021-04-19] MEDS: Torsemide 20 MG Tab PO SCH (09:47)
[2021-04-19] MEDS: Isosorbide Mononitrate 30 MG Tab.ER PO SCH (09:48)
[2021-04-19] MEDS: Metoprolol Succinate 25 MG Tab.ER PO SCH ×2 (09:48→20:09)
[2021-04-19] MEDS ORDERED: Calcium Carbonate 500 MG Tab.Chew PO PRN (09:57)
--- NOTE | 2021-04-19 12:15 | PCM.PN ---
- General Info Date of Service: 04/19/21 Subjective Update: No acute events overnight. No chest pain. He has reported some heartburn symptoms. These have responded well to the pantoprazole. No significant change in his dyspnea since admission. Still feels weak. Still quite fatigued. Appetite not great but may be a little better. INR is down to 4.1. Kidney function slightly better. Troponin level continues to trend down. Functional Status: Reports: Pain Controlled, Tolerating Diet - Review of Systems General: Reports: Weakness Pulmonary: Reports: Shortness of Breath - Patient Data Vitals - Most Recent: Last Vital Signs Temp 36.1 C 04/19/21 11:01 Pulse 74 04/19/21 11:01 Resp 16 04/19/21 11:01 BP 107/62 04/19/21 11:01 Pulse Ox 93 L 04/19/21 11:01 Weight - Most Recent: 83.915 kg I&O - Last 24 Hours: Intake & Output 04/18/21 04/19/21 04/19/21 22:59 06:59 14:59 Intake Total 1300 120 Output Total 800 200 850 Balance 500 -200 -730 Lab Results Last 24 Hours: Laboratory Results - last 24 hr 04/19/21 04/19/21 04/19/21 Range/Units 05:30 05:30 05:30 WBC 11.8 H (4.5-11.0) K/uL RBC 3.57 L (4.30-5.90) M/uL Hgb 10.2 L (12.0-15.0) g/dL Hct 31.4 L (40.0-54.0) % MCV 88 (80-98) fL MCH 29 (27-31) pg MCHC 33 (32-36) % Plt Count 239 (150-400) K/uL PT 40.3 H (9.2-10.6) sec INR 4.1 H* Sodium 142 (140-148) mmol/L Potassium 4.9 (3.6-5.2) mmol/L Chloride 99 L (100-108) mmol/L Carbon Dioxide 34 H (21-32) mmol/L Anion Gap 13.9 (5.0-14.0) mmol/L BUN 66 H (7-18) mg/dL Creatinine 1.4 H (0.8-1.3) mg/dL Est Cr Clr Drug Dosing 36.72 mL/min Estimated GFR (MDRD) 48 L (>60) Glucose 141 H (74-106) mg/dL Calcium 8.1 L (8.5-10.1) mg/dL Troponin I 0.076 H* (0.000-0.056) ng/mL Med Orders - Current: Current Medications Acetaminophen (Acetaminophen 325 Mg Tab) 650 mg PO Q4H PRN PRN Reason: Pain (Mild 1-3)/fever Last Admin: 04/16/21 16:03 Dose: 650 mg Documented by: Albuterol (Albuterol 8 Gm Inhaler) 0 gm INH Q4H PRN PRN Reason: Shortness of Breath Last Admin: 04/18/21 23:59 Dose: 2 puff Documented by: Allopurinol (Allopurinol 100 Mg Tab) 100 mg PO DAILY [facility] Last Admin: 04/19/21 09:46 Dose: 100 mg Documented by: Ascorbic Acid (Ascorbic Acid 500 Mg Tab) 250 mg PO QID [facility] Last Admin: 04/19/21 09:44 Dose: 250 mg Documented by: Aspirin (Aspirin 81 Mg Tab.Ec) 81 mg PO DAILY [facility] Last Admin: 04/19/21 09:46 Dose: 81 mg Documented by: Atorvastatin Calcium (Atorvastatin 20 Mg Tab) 40 mg PO BEDTIME [facility] Last Admin: 04/18/21 20:58 Dose: 40 mg Documented by: Benzonatate (Benzonatate 100 Mg Cap) 100 mg PO TID PRN PRN Reason: Cough Last Admin: 04/19/21 00:02 Dose: 100 mg Documented by: Calcium Carbonate/Glycine (Calcium Carbonate 500 Mg Tab.Chew) 1,000 mg PO Q2H PRN PRN Reason: Indigestion Cholecalciferol (Cholecalciferol (Vitamin D3) 25 Mcg Tab) 25 mcg PO DAILY [facility] Last Admin: 04/19/21 09:46 Dose: 25 mcg Documented by: Cyanocobalamin (Cyanocobalamin (Vitamin B12) 1,000 Mcg Tab) 500 mcg PO DAILY [facility] Last Admin: 04/19/21 09:44 Dose: 500 mcg Documented by: Dexamethasone (Dexamethasone 4 Mg/Ml Sdv) 6 mg IVPUSH Q24H [facility] Last Admin: 04/18/21 16:02 Dose: 6 mg Documented by: Digoxin (Digoxin 125 Mcg Tab) 125 mcg PO DAILY@1300 [facility] Last Admin: 04/18/21 13:43 Dose: 125 mcg Documented by: Docusate Sodium (Docusate Sodium 100 Mg Cap) 100 mg PO DAILY [facility] Last Admin: 04/19/21 09:46 Dose: 100 mg Documented by: Folic Acid (Folic Acid 1 Mg Tab) 0.5 mg PO DAILY [facility] Last Admin: 04/19/21 09:47 Dose: 0.5 mg Documented by: Guaifenesin/Dextromethorphan (Guaifenesin/Dextromethorphan 100-10 Mg/5 Ml Soln 10 Ml Cup) 10 ml PO Q4H PRN PRN Reason: Cough Last Admin: 04/19/21 00:02 Dose: 10 ml Documented by: Isosorbide Mononitrate (Isosorbide Mononitrate 30 Mg Tab.Er) 30 mg PO DAILY [facility] Last Admin: 04/19/21 09:48 Dose: 30 mg Documented by: Loperamide HCl (Loperamide 2 Mg Cap) 2 mg PO Q4H PRN PRN Reason: Diarrhea Last Admin: 04/16/21 17:47 Dose: 2 mg Documented by: Lorazepam (Lorazepam 2 Mg/Ml Sdv) 0.5 mg IVPUSH Q4H PRN PRN Reason: Nausea/Vomiting Magnesium Hydroxide (Magnesium Hydroxide 400 Mg/5 Ml Susp 30 Ml Cup) 30 ml PO Q12H PRN PRN Reason: Constipation Melatonin (Melatonin 3 Mg Tab) 9 mg PO BEDTIME PRN PRN Reason: Sleep Last Admin: 04/16/21 20:20 Dose: 9 mg Documented by: Metoprolol Succinate (Metoprolol Succinate 25 Mg Tab.Er) 25 mg PO BID [facility] Last Admin: 04/19/21 09:48 Dose: 25 mg Documented by: Mometasone Furoate/Formoterol Fumar (Formoterol/Mometasone 200-5 Mcg 8.8 Gm Inhaler) 0 puff IH BIDRT [facility] Last Admin: 04/19/21 06:59 Dose: 2 puff Documented by: Ondansetron HCl (Ondansetron 4 Mg/2 Ml Sdv) 4 mg IV Q6H PRN PRN Reason: Nausea/Vomiting Ondansetron HCl (Ondansetron 4 Mg Tab.Dis) 4 mg PO Q6H PRN PRN Reason: Nausea able to take PO Pantoprazole Sodium (Pantoprazole 40 Mg Tab.Cr) 40 mg PO BIDAC [facility] Last Admin: 04/19/21 07:16 Dose: 40 mg Documented by: Senna/Docusate Sodium (Docusate Sodium/Sennosides 50-8.6 Mg Tab) 1 tab PO BID PRN PRN Reason: Constipation Spironolactone (Spironolactone 25 Mg Tab) 12.5 mg PO DAILY [facility] Last Admin: 04/19/21 09:47 Dose: 12.5 mg Documented by: Torsemide (Torsemide 20 Mg Tab) 40 mg PO DAILY [facility] Last Admin: 04/19/21 09:47 Dose: 40 mg Documented by: Discontinued Medications Ascorbic Acid (Ascorbic Acid 500 Mg Tab) 1,000 mg PO BIDAC [facility] Last Admin: 04/16/21 10:37 Dose: Not Given Documented by: Heparin Sodium (Porcine) (Heparin Sodium 5,000 Units/Ml Vial) 4,000 units IVPUSH ONETIME ONE Stop: 04/15/21 15:21 Last Admin: 04/15/21 16:51 Dose: Not Given Documented by: Heparin Sodium/Dextrose (Heparin 25,000 Units In D5w 500 Ml) 25,000 units in 500 mls @ 18 mls/hr IV TITRATE [facility] Isosorbide Mononitrate (Isosorbide Mononitrate 30 Mg Tab.Er) 30 mg PO ONETIME ONE Stop: 04/18/21 06:28 Last Admin: 04/18/21 06:39 Dose: 30 mg Documented by: Phytonadione (Phytonadione 5 Mg Tab) 2.5 mg PO ONETIME ONE Stop: 04/18/21 13:01 Last Admin: 04/18/21 13:43 Dose: 2.5 mg Documented by: Warfarin Sodium (Warfarin 5 Mg Tab) 5 mg PO DAILY@1300 [facility] Last Admin: 04/17/21 13:31 Dose: 5 mg Documented by: - Exam Quality Assessment: Supplemental Oxygen General: Alert, Oriented, Cooperative, No Acute Distress Lungs: Normal Respiratory Effort. No: Wheezing Cardiovascular: Regular Rate, Irregular Rhythm GI/Abdominal Exam: Soft, No Distention Extremities: No Pedal Edema. No: Increased Warmth Psy/Mental Status: Alert, Normal Affect - Patient Data Lab Results Last 24 hrs: Laboratory Results - last 24 hr 04/19/21 04/19/21 04/19/21 Range/Units 05:30 05:30 05:30 WBC 11.8 H (4.5-11.0) K/uL RBC 3.57 L (4.30-5.90) M/uL Hgb 10.2 L (12.0-15.0) g/dL Hct 31.4 L (40.0-54.0) % MCV 88 (80-98) fL MCH 29 (27-31) pg MCHC 33 (32-36) % Plt Count 239 (150-400) K/uL PT 40.3 H (9.2-10.6) sec INR 4.1 H* Sodium 142 (140-148) mmol/L Potassium 4.9 (3.6-5.2) mmol/L Chloride 99 L (100-108) mmol/L Carbon Dioxide 34 H (21-32) mmol/L Anion Gap 13.9 (5.0-14.0) mmol/L BUN 66 H (7-18) mg/dL Creatinine 1.4 H (0.8-1.3) mg/dL Est Cr Clr Drug Dosing 36.72 mL/min Estimated GFR (MDRD) 48 L (>60) Glucose 141 H (74-106) mg/dL Calcium 8.1 L (8.5-10.1) mg/dL Troponin I 0.076 H* (0.000-0.056) ng/mL Result Diagrams: 04/19/21 05:30 04/19/21 05:30 Sepsis Event Note - Evaluation Sepsis Screening Result: No Definite Risk - Focused Exam Vital Signs: Vital Signs Temp Pulse Pulse Resp BP BP Pulse Ox 04/19/21 11:01 36.1 C 74 16 107/62 93 L 04/19/21 09:48 67 112/65 04/19/21 08:17 35.9 C L 67 18 112/55 L 94 L 04/19/21 07:30 96 04/19/21 04:00 58 L 97 04/19/21 01:36 98 - Problem List & Annotations (1) Pneumonia due to COVID-19 virus SNOMED Code(s): 423872723112721817 Code(s): U07.1 - COVID-19; J12.82 - PNEUMONIA DUE TO CORONAVIRUS DISEASE 2019 Status: Acute Current Visit: Yes (2) Acute and chronic respiratory failure SNOMED Code(s): 91452410 Code(s): J96.20 - ACUTE AND CHR RESP FAILURE, UNSP W HYPOXIA OR HYPERCAPNIA Status: Acute Current Visit: Yes Qualifiers: Respiratory failure complication: hypoxia Qualified Code(s): J96.21 - Acute and chronic respiratory failure with hypoxia (3) Acute kidney injury SNOMED Code(s): 42760016, 03919439 Code(s): N17.9 - ACUTE KIDNEY FAILURE, UNSPECIFIED Status: Acute Current Visit: Yes (4) Elevated troponin SNOMED Code(s): 495450695, 809653403, 850142384 Code(s): R77.8 - OTHER SPECIFIED ABNORMALITIES OF PLASMA PROTEINS Status: Acute Current Visit: Yes (5) HFrEF (heart failure with reduced ejection fraction) SNOMED Code(s): 862239182 Code(s): I50.20 - UNSPECIFIED SYSTOLIC (CONGESTIVE) HEART FAILURE Status: Chronic Current Visit: Yes (6) CAD (coronary artery disease) SNOMED Code(s): 40649816 Code(s): I25.10 - ATHSCL HEART DISEASE OF [place] CORONARY ARTERY W/O ANG PCTRS Status: Chronic Current Visit: Yes Qualifiers: Coronary Disease-Associated Artery/Lesion type: [place] artery [place] vs. transplanted heart: [place] heart Associated angina: without angina Qualified Code(s): I25.10 - Atherosclerotic heart disease of [place] coronary artery without angina pectoris - Problem List Review Problem List Initiated/Reviewed/Updated: Yes - My Orders Last 24 Hours: My Active Orders 04/19/21 09:00 Isosorbide Mononitrate [Imdur] 30 mg PO DAILY 04/19/21 09:57 Calcium Carbonate [Tums] 1,000 mg PO Q2H PRN 04/20/21 05:00 BASIC METABOLIC PANEL,BMP [CHEM] Timed CBC W/O DIFF,HEMOGRAM [HEME] Timed (1) CRP [C-REACTIVE PROTEIN] [CHEM] Timed D-DIMER QUANTITATIVE [COAG] Timed INR,PT,PROTHROMBIN TIME [COAG] Timed - Plan Plan:: ASSESSMENT AND PLAN - COVID-19 pneumonia-complicated by acute on chronic respiratory failure. Stable. Tolerating current treatment. Weak but otherwise doing okay. -Dexamethasone 6 mg daily (day 5) -Remdesivir x5 days (day 4) -Supplement oxygen -Encourage prone positioning -Isolation precautions (symptom onset 04/12) Acute kidney injury-suspect intravascular volume depletion. Blood pressure improving. Kidney function slowly improving but not quite to baseline. -Continue diuretics -Recheck labs in the morning Elevated troponin-suspect demand ischemia with known heart disease, Covid infection with hypoxia and reduced kidney function. Level slowly improving. -Recheck troponin in the morning Coronary artery disease-complicated by ischemic cardiomyopathy and heart failure with reduced ejection fraction. No chest pain overnight. -Continue diuretics -Continue isosorbide mononitrate -Hold losartan -Continue additional medical management Mechanical aortic valve replacement-chronically anticoagulated. INR supratherapeutic but improving after vitamin K yesterday. -Hold warfarin -INR in the morning -INR goal 2.5-3.5 Anemia-mild, stable. -Outpatient work-up Maintenance issues - -DVT prophylaxis-warfarin -GI prophylaxis-PPI -[id number] Disposition [facility] stay. He will need isolation precautions until 04/22. Primary care physician -Dr Savage Cunha M.D.
[2021-04-19] MEDS: Digoxin 125 MCG Tab PO SCH (13:06)
[2021-04-19] MEDS: Albuterol 8 GM Inhaler INH PRN ×2 (13:07→23:13)
[2021-04-19] MEDS: Dexamethasone 2 MG Tab PO SCH (16:53)
[2021-04-19] MEDS: atorvaSTATin 20 MG Tab PO SCH (20:08)
[2021-04-19] MEDS: Melatonin 3 MG Tab PO PRN (21:45)
[2021-04-20] MEDS: Ascorbic Acid 500 MG Tab PO SCH ×4 (06:15→21:02)
[2021-04-20] MEDS: Pantoprazole 40 MG Tab.CR PO SCH ×3 (06:30→16:36)
[2021-04-20] MEDS: Formoterol/Mometasone 200-5 MCG 8.8 GM Inhaler IH SCH ×2 (07:17→20:59)
[2021-04-20] MEDS: Benzonatate 100 MG Cap PO PRN (07:59)
[2021-04-20] MEDS: Albuterol 8 GM Inhaler INH PRN (07:59)
[2021-04-20] MEDS: Allopurinol 100 MG Tab PO SCH (09:13)
[2021-04-20] MEDS: Spironolactone 25 MG Tab PO SCH (09:13)
[2021-04-20] MEDS: Aspirin 81 MG Tab.EC PO SCH (09:13)
[2021-04-20] MEDS: Isosorbide Mononitrate 30 MG Tab.ER PO SCH (09:14)
[2021-04-20] MEDS: Cholecalciferol (Vitamin D3) 25 MCG Tab PO SCH (09:15)
[2021-04-20] MEDS: Cyanocobalamin (Vitamin B12) 1,000 MCG Tab PO SCH (09:15)
[2021-04-20] MEDS: Torsemide 20 MG Tab PO SCH (09:15)
[2021-04-20] MEDS: Metoprolol Succinate 25 MG Tab.ER PO SCH ×2 (09:15→20:56)
[2021-04-20] MEDS: Folic Acid 1 MG Tab PO SCH (09:16)
[2021-04-20] MEDS: Docusate Sodium 100 MG Cap PO SCH (09:16)
--- NOTE | 2021-04-20 11:59 | PCM.PN ---
- General Info Date of Service: 04/20/21 Subjective Update: No acute events overnight but he did have a slight increase in his supplemental oxygen requirements overnight. Back down to 2 L this morning. He feels weak and fatigued. He thinks he is a little more short of breath today. No chest pain. Heartburn is improving. No fevers. Heart rate and blood pressure have been stable. INR therapeutic today. Functional Status: Reports: Pain Controlled, Tolerating Diet - Review of Systems General: Reports: Weakness Pulmonary: Reports: Shortness of Breath - Patient Data Vitals - Most Recent: Last Vital Signs Temp 36.3 C 04/20/21 10:47 Pulse 73 04/20/21 10:47 Resp 18 04/20/21 10:47 BP 109/58 L 04/20/21 10:47 Pulse Ox 97 04/20/21 10:47 Weight - Most Recent: 83.915 kg I&O - Last 24 Hours: Intake & Output 04/19/21 04/20/21 04/20/21 22:59 06:59 14:59 Output Total 250 400 450 Balance -250 -400 -450 Lab Results Last 24 Hours: Laboratory Results - last 24 hr 04/20/21 04/20/21 04/20/21 Range/Units 04:15 04:15 04:15 WBC 12.3 H (4.5-11.0) K/uL RBC 3.36 L (4.30-5.90) M/uL Hgb 9.8 L (12.0-15.0) g/dL Hct 30.1 L (40.0-54.0) % MCV 90 (80-98) fL MCH 29 (27-31) pg MCHC 33 (32-36) % Plt Count 235 (150-400) K/uL PT 27.9 H (9.2-10.6) sec INR 2.8 D-Dimer, Quantitative 759.13 H (0.0-500.0) ng/mL Sodium (140-148) mmol/L Potassium (3.6-5.2) mmol/L Chloride (100-108) mmol/L Carbon Dioxide (21-32) mmol/L Anion Gap (5.0-14.0) mmol/L BUN (7-18) mg/dL Creatinine (0.8-1.3) mg/dL Est Cr Clr Drug Dosing mL/min Estimated GFR (MDRD) (>60) Glucose (74-106) mg/dL Calcium (8.5-10.1) mg/dL C-Reactive Protein (0.0-0.3) mg/dL 04/20/21 Range/Units 04:15 WBC (4.5-11.0) K/uL RBC (4.30-5.90) M/uL Hgb (12.0-15.0) g/dL Hct (40.0-54.0) % MCV (80-98) fL MCH (27-31) pg MCHC (32-36) % Plt Count (150-400) K/uL PT (9.2-10.6) sec INR D-Dimer, Quantitative (0.0-500.0) ng/mL Sodium 143 (140-148) mmol/L Potassium 4.7 (3.6-5.2) mmol/L Chloride 101 (100-108) mmol/L Carbon Dioxide 34 H (21-32) mmol/L Anion Gap 12.7 (5.0-14.0) mmol/L BUN 68 H (7-18) mg/dL Creatinine 1.4 H (0.8-1.3) mg/dL Est Cr Clr Drug Dosing 36.72 mL/min Estimated GFR (MDRD) 48 L (>60) Glucose 179 H (74-106) mg/dL Calcium 8.3 L (8.5-10.1) mg/dL C-Reactive Protein 5.01 H (0.0-0.3) mg/dL Med Orders - Current: Current Medications Acetaminophen (Acetaminophen 325 Mg Tab) 650 mg PO Q4H PRN PRN Reason: Pain (Mild 1-3)/fever Last Admin: 04/16/21 16:03 Dose: 650 mg Documented by: Albuterol (Albuterol 8 Gm Inhaler) 0 gm INH Q4H PRN PRN Reason: Shortness of Breath Last Admin: 04/20/21 07:59 Dose: 2 puff Documented by: Allopurinol (Allopurinol 100 Mg Tab) 100 mg PO DAILY [facility] Last Admin: 04/20/21 09:13 Dose: 100 mg Documented by: Ascorbic Acid (Ascorbic Acid 500 Mg Tab) 250 mg PO QID [facility] Last Admin: 04/20/21 09:15 Dose: Not Given Documented by: Aspirin (Aspirin 81 Mg Tab.Ec) 81 mg PO DAILY [facility] Last Admin: 04/20/21 09:13 Dose: 81 mg Documented by: Atorvastatin Calcium (Atorvastatin 20 Mg Tab) 40 mg PO BEDTIME [facility] Last Admin: 04/19/21 20:08 Dose: 40 mg Documented by: Benzonatate (Benzonatate 100 Mg Cap) 100 mg PO TID PRN PRN Reason: Cough Last Admin: 04/20/21 07:59 Dose: 100 mg Documented by: Calcium Carbonate/Glycine (Calcium Carbonate 500 Mg Tab.Chew) 1,000 mg PO Q2H PRN PRN Reason: Indigestion Cholecalciferol (Cholecalciferol (Vitamin D3) 25 Mcg Tab) 25 mcg PO DAILY [facility] Last Admin: 04/20/21 09:15 Dose: Not Given Documented by: Cyanocobalamin (Cyanocobalamin (Vitamin B12) 1,000 Mcg Tab) 500 mcg PO DAILY [facility] Last Admin: 04/20/21 09:15 Dose: Not Given Documented by: Dexamethasone (Dexamethasone 2 Mg Tab) 6 mg PO Q24H [facility] Last Admin: 04/19/21 16:53 Dose: 6 mg Documented by: Digoxin (Digoxin 125 Mcg Tab) 125 mcg PO DAILY@1300 [facility] Last Admin: 04/19/21 13:06 Dose: 125 mcg Documented by: Docusate Sodium (Docusate Sodium 100 Mg Cap) 100 mg PO DAILY [facility] Last Admin: 04/20/21 09:16 Dose: 100 mg Documented by: Folic Acid (Folic Acid 1 Mg Tab) 0.5 mg PO DAILY [facility] Last Admin: 04/20/21 09:16 Dose: Not Given Documented by: Guaifenesin/Dextromethorphan (Guaifenesin/Dextromethorphan 100-10 Mg/5 Ml Soln 10 Ml Cup) 10 ml PO Q4H PRN PRN Reason: Cough Last Admin: 04/19/21 20:21 Dose: 10 ml Documented by: Isosorbide Mononitrate (Isosorbide Mononitrate 30 Mg Tab.Er) 30 mg PO DAILY [facility] Last Admin: 04/20/21 09:14 Dose: 30 mg Documented by: Loperamide HCl (Loperamide 2 Mg Cap) 2 mg PO Q4H PRN PRN Reason: Diarrhea Last Admin: 04/16/21 17:47 Dose: 2 mg Documented by: Lorazepam (Lorazepam 2 Mg/Ml Sdv) 0.5 mg IVPUSH Q4H PRN PRN Reason: Nausea/Vomiting Magnesium Hydroxide (Magnesium Hydroxide 400 Mg/5 Ml Susp 30 Ml Cup) 30 ml PO Q12H PRN PRN Reason: Constipation Melatonin (Melatonin 3 Mg Tab) 9 mg PO BEDTIME PRN PRN Reason: Sleep Last Admin: 04/19/21 21:45 Dose: 9 mg Documented by: Metoprolol Succinate (Metoprolol Succinate 25 Mg Tab.Er) 25 mg PO BID [facility] Last Admin: 04/20/21 09:15 Dose: 25 mg Documented by: Mometasone Furoate/Formoterol Fumar (Formoterol/Mometasone 200-5 Mcg 8.8 Gm Inhaler) 0 puff IH BIDRT [facility] Last Admin: 04/20/21 07:17 Dose: 2 puff Documented by: Ondansetron HCl (Ondansetron 4 Mg/2 Ml Sdv) 4 mg IV Q6H PRN PRN Reason: Nausea/Vomiting Ondansetron HCl (Ondansetron 4 Mg Tab.Dis) 4 mg PO Q6H PRN PRN Reason: Nausea able to take PO Pantoprazole Sodium (Pantoprazole 40 Mg Tab.Cr) 40 mg PO BIDAC [facility] Last Admin: 04/20/21 06:59 Dose: Not Given Documented by: Senna/Docusate Sodium (Docusate Sodium/Sennosides 50-8.6 Mg Tab) 1 tab PO BID PRN PRN Reason: Constipation Spironolactone (Spironolactone 25 Mg Tab) 12.5 mg PO DAILY [facility] Last Admin: 04/20/21 09:13 Dose: 12.5 mg Documented by: Torsemide (Torsemide 20 Mg Tab) 40 mg PO DAILY [facility] Last Admin: 04/20/21 09:15 Dose: 40 mg Documented by: Warfarin Sodium (Warfarin 2.5 Mg Tab) 2.5 mg PO DAILY@1300 [facility] Discontinued Medications Ascorbic Acid (Ascorbic Acid 500 Mg Tab) 1,000 mg PO BIDAC [facility] Last Admin: 04/16/21 10:37 Dose: Not Given Documented by: Dexamethasone (Dexamethasone 4 Mg/Ml Sdv) 6 mg IVPUSH Q24H [facility] Last Admin: 04/18/21 16:02 Dose: 6 mg Documented by: Heparin Sodium (Porcine) (Heparin Sodium 5,000 Units/Ml Vial) 4,000 units IVPUSH ONETIME ONE Stop: 04/15/21 15:21 Last Admin: 04/15/21 16:51 Dose: Not Given Documented by: Heparin Sodium/Dextrose (Heparin 25,000 Units In D5w 500 Ml) 25,000 units in 500 mls @ 18 mls/hr IV TITRATE [facility] Isosorbide Mononitrate (Isosorbide Mononitrate 30 Mg Tab.Er) 30 mg PO ONETIME ONE Stop: 04/18/21 06:28 Last Admin: 04/18/21 06:39 Dose: 30 mg Documented by: Phytonadione (Phytonadione 5 Mg Tab) 2.5 mg PO ONETIME ONE Stop: 04/18/21 13:01 Last Admin: 04/18/21 13:43 Dose: 2.5 mg Documented by: Warfarin Sodium (Warfarin 5 Mg Tab) 5 mg PO DAILY@1300 [facility] Last Admin: 04/17/21 13:31 Dose: 5 mg Documented by: - Exam Quality Assessment: Supplemental Oxygen General: Alert, Oriented, Cooperative, No Acute Distress Neck: No JVD Lungs: Normal Respiratory Effort, Rhonchi (moderate bilateral upper lungs). No: Wheezing GI/Abdominal Exam: Soft, No Distention Extremities: No Pedal Edema. No: Increased Warmth Skin: Warm, Dry Psy/Mental Status: Alert, Normal Affect - Patient Data Lab Results Last 24 hrs: Laboratory Results - last 24 hr 04/20/21 04/20/21 04/20/21 Range/Units 04:15 04:15 04:15 WBC 12.3 H (4.5-11.0) K/uL RBC 3.36 L (4.30-5.90) M/uL Hgb 9.8 L (12.0-15.0) g/dL Hct 30.1 L (40.0-54.0) % MCV 90 (80-98) fL MCH 29 (27-31) pg MCHC 33 (32-36) % Plt Count 235 (150-400) K/uL PT 27.9 H (9.2-10.6) sec INR 2.8 D-Dimer, Quantitative 759.13 H (0.0-500.0) ng/mL Sodium (140-148) mmol/L Potassium (3.6-5.2) mmol/L Chloride (100-108) mmol/L Carbon Dioxide (21-32) mmol/L Anion Gap (5.0-14.0) mmol/L BUN (7-18) mg/dL Creatinine (0.8-1.3) mg/dL Est Cr Clr Drug Dosing mL/min Estimated GFR (MDRD) (>60) Glucose (74-106) mg/dL Calcium (8.5-10.1) mg/dL C-Reactive Protein (0.0-0.3) mg/dL 04/20/21 Range/Units 04:15 WBC (4.5-11.0) K/uL RBC (4.30-5.90) M/uL Hgb (12.0-15.0) g/dL Hct (40.0-54.0) % MCV (80-98) fL MCH (27-31) pg MCHC (32-36) % Plt Count (150-400) K/uL PT (9.2-10.6) sec INR D-Dimer, Quantitative (0.0-500.0) ng/mL Sodium 143 (140-148) mmol/L Potassium 4.7 (3.6-5.2) mmol/L Chloride 101 (100-108) mmol/L Carbon Dioxide 34 H (21-32) mmol/L Anion Gap 12.7 (5.0-14.0) mmol/L BUN 68 H (7-18) mg/dL Creatinine 1.4 H (0.8-1.3) mg/dL Est Cr Clr Drug Dosing 36.72 mL/min Estimated GFR (MDRD) 48 L (>60) Glucose 179 H (74-106) mg/dL Calcium 8.3 L (8.5-10.1) mg/dL C-Reactive Protein 5.01 H (0.0-0.3) mg/dL Result Diagrams: 04/20/21 04:15 04/20/21 04:15 Sepsis Event Note - Evaluation Sepsis Screening Result: No Definite Risk - Focused Exam Vital Signs: Vital Signs Temp Pulse Pulse Resp BP BP Pulse Ox 04/20/21 10:47 36.3 C 73 18 109/58 L 97 04/20/21 09:15 75 119/63 04/20/21 09:14 119/75 04/20/21 08:14 36.3 C 75 18 119/63 95 04/20/21 03:00 36.6 C 64 18 114/52 L 93 L - Problem List & Annotations (1) Pneumonia due to COVID-19 virus SNOMED Code(s): 121552534040298047 Code(s): U07.1 - COVID-19; J12.82 - PNEUMONIA DUE TO CORONAVIRUS DISEASE 2018 Status: Acute Current Visit: Yes (2) Acute and chronic respiratory failure SNOMED Code(s): 25220640 Code(s): J96.20 - ACUTE AND CHR RESP FAILURE, UNSP W HYPOXIA OR HYPERCAPNIA Status: Acute Current Visit: Yes Qualifiers: Respiratory failure complication: hypoxia Qualified Code(s): J96.21 - Acute and chronic respiratory failure with hypoxia (3) Acute kidney injury SNOMED Code(s): 49250233, 43200594 Code(s): N17.9 - ACUTE KIDNEY FAILURE, UNSPECIFIED Status: Acute Current Visit: Yes (4) Elevated troponin SNOMED Code(s): 800001086, 506361149, 872970268 Code(s): R77.8 - OTHER SPECIFIED ABNORMALITIES OF PLASMA PROTEINS Status: Acute Current Visit: Yes (5) HFrEF (heart failure with reduced ejection fraction) SNOMED Code(s): 778052558 Code(s): I50.20 - UNSPECIFIED SYSTOLIC (CONGESTIVE) HEART FAILURE Status: Chronic Current Visit: Yes (6) CAD (coronary artery disease) SNOMED Code(s): 34580717 Code(s): I25.10 - ATHSCL HEART DISEASE OF [place] CORONARY ARTERY W/O ANG PCTRS Status: Chronic Current Visit: Yes Qualifiers: Coronary Disease-Associated Artery/Lesion type: [place] artery [place] vs. transplanted heart: [place] heart Associated angina: without angina Qualified Code(s): I25.10 - Atherosclerotic heart disease of [place] coronary artery without angina pectoris - Problem List Review Problem List Initiated/Reviewed/Updated: Yes - My Orders Last 24 Hours: My Active Orders 04/19/21 17:00 dexAMETHasone 6 mg PO Q24H 04/20/21 11:58 RT Aerosol Therapy [RC] ASDIRECTED RT Post Treatment Assessment [RC] Click to Edit 04/20/21 12:00 Albuterol/Ipratropium [Combivent Respimat] 2 gm INH QID Doxycycline [Vibramycin] 100 mg PO Q12H 04/20/21 13:00 Warfarin [Coumadin] 2.5 mg PO DAILY@1300 04/20/21 18:00 Benzonatate [Tessalon Perles] 100 mg PO Q24H 04/21/21 05:00 BASIC METABOLIC PANEL,BMP [CHEM] Timed INR,PT,PROTHROMBIN TIME [COAG] Timed 04/22/21 08:00 OT Evaluation and Treatment [CONS] Routine - Plan Plan:: ASSESSMENT AND PLAN - COVID-19 pneumonia-complicated by acute on chronic respiratory failure. Stable. Tolerating current treatment. Weak but otherwise doing okay. Respiratory status stable. -Dexamethasone 6 mg daily (day 6) -Remdesivir x5 days (day 5) -Supplement oxygen -Encourage prone positioning -Isolation precautions (symptom onset 04/12), precautions well and after 04/21) Acute kidney injury- Blood pressure improving. Kidney function slowly improving but not quite to baseline. -Continue diuretics -Recheck labs in the morning Elevated troponin-suspect demand ischemia with known heart disease, Covid infection with hypoxia and reduced kidney function. Level decreased to near normal. Coronary artery disease-complicated by ischemic cardiomyopathy and heart failure with reduced ejection fraction. No chest pain the past 24 hours. -Continue diuretics -Continue isosorbide mononitrate -Hold losartan -Continue additional medical management Mechanical aortic valve replacement-chronically anticoagulated. INR therapeutic today. -Restart reduced dose of warfarin -INR in the morning -INR goal 2.5-3.5 Anemia-mild, stable. -Outpatient work-up Maintenance issues - -DVT prophylaxis-warfarin -GI prophylaxis-PPI -Jjpopaiua-saf-npcokc Disposition -I anticipate discharge to the group home for subacute rehab after the hospital stay. He will need isolation precautions until 04/22. We are planning to transition to swing bed on 04/22 until a subacute rehab bed is available on the . Primary care physician -Dr Savage Cunha M.D.
[2021-04-20] MEDS: Doxycycline 100 MG Cap PO SCH (12:21)
[2021-04-20] MEDS: Digoxin 125 MCG Tab PO SCH (12:21)
[2021-04-20] MEDS: Albuterol/Ipratropium 4 GM Inhalation Spray INH SCH ×3 (12:22→20:59)
[2021-04-20] MEDS ORDERED: Warfarin 2.5 MG Tab PO SCH (13:00)
[2021-04-20] MEDS: Dexamethasone 2 MG Tab PO SCH (16:36)
[2021-04-20] MEDS: Benzonatate 100 MG Cap PO SCH (18:11)
[2021-04-20] MEDS: Melatonin 3 MG Tab PO PRN (20:55)
[2021-04-20] MEDS: atorvaSTATin 20 MG Tab PO SCH (20:56)
[2021-04-20] MEDS: guaiFENesin/Dextromethorphan 100-10 MG/5 ML Soln 10 ML Cup PO PRN (20:56)
[2021-04-21] MEDS: Albuterol 8 GM Inhaler INH PRN ×2 (00:17→04:30)
[2021-04-21] MEDS: Doxycycline 100 MG Cap PO SCH ×3 (00:17→21:09)
[2021-04-21] MEDS: Benzonatate 100 MG Cap PO PRN (04:30)
[2021-04-21] MEDS: Ascorbic Acid 500 MG Tab PO SCH ×4 (06:24→21:08)
[2021-04-21] MEDS: Albuterol/Ipratropium 4 GM Inhalation Spray INH SCH ×4 (07:22→21:11)
[2021-04-21] MEDS: Formoterol/Mometasone 200-5 MCG 8.8 GM Inhaler IH SCH ×2 (07:22→21:11)
[2021-04-21] MEDS: Pantoprazole 40 MG Tab.CR PO SCH ×2 (07:52→15:38)
[2021-04-21] MEDS: Docusate Sodium 100 MG Cap PO SCH (09:24)
[2021-04-21] MEDS: Torsemide 20 MG Tab PO SCH (09:24)
[2021-04-21] MEDS: Metoprolol Succinate 25 MG Tab.ER PO SCH ×2 (09:25→21:09)
[2021-04-21] MEDS: Allopurinol 100 MG Tab PO SCH (09:25)
[2021-04-21] MEDS: Aspirin 81 MG Tab.EC PO SCH (09:25)
[2021-04-21] MEDS: Spironolactone 25 MG Tab PO SCH (09:26)
[2021-04-21] MEDS: Folic Acid 1 MG Tab PO SCH (09:27)
[2021-04-21] MEDS: Cyanocobalamin (Vitamin B12) 1,000 MCG Tab PO SCH (09:27)
[2021-04-21] MEDS: Cholecalciferol (Vitamin D3) 25 MCG Tab PO SCH (09:27)
[2021-04-21] MEDS: Isosorbide Mononitrate 30 MG Tab.ER PO SCH (09:32)
[2021-04-21] MEDS: Digoxin 125 MCG Tab PO SCH (12:13)
--- NOTE | 2021-04-21 14:06 | PCM.PN ---
- General Info Date of Service: 04/21/21 Subjective Update: No acute events overnight. Patient did have an episode of short-lived desaturation this morning. He feels weaker and a little bit more short of breath today. Cough is unchanged. He is worried that he is slowly going backwards. Weak and requiring a fair amount of assistance. Not much of an appetite. Fluid intake has been okay. He is not having any fevers. Supplemental oxygen requirement is stable. Functional Status: Reports: Pain Controlled, Tolerating Diet - Review of Systems General: Reports: Weakness. Denies: Fever Pulmonary: Reports: Shortness of Breath - Patient Data Vitals - Most Recent: Last Vital Signs Temp 36.9 C 04/21/21 10:18 Pulse 82 04/21/21 12:13 Resp 20 04/21/21 10:18 BP 145/63 H 04/21/21 10:18 Pulse Ox 86 L 04/21/21 10:18 Weight - Most Recent: 83.915 kg I&O - Last 24 Hours: Intake & Output 04/20/21 04/21/21 04/21/21 22:59 06:59 14:59 Intake Total 800 120 Output Total 150 300 200 Balance -150 500 -80 Lab Results Last 24 Hours: Laboratory Results - last 24 hr 04/21/21 04/21/21 Range/Units 04:10 04:10 PT 32.7 H (9.2-10.6) sec INR 3.3 Sodium 144 (140-148) mmol/L Potassium 4.6 (3.6-5.2) mmol/L Chloride 100 (100-108) mmol/L Carbon Dioxide 37 H (21-32) mmol/L Anion Gap 11.6 (5.0-14.0) mmol/L BUN 66 H (7-18) mg/dL Creatinine 1.3 (0.8-1.3) mg/dL Est Cr Clr Drug Dosing 39.55 mL/min Estimated GFR (MDRD) 53 L (>60) Glucose 190 H (74-106) mg/dL Calcium 8.6 (8.5-10.1) mg/dL Med Orders - Current: Current Medications Acetaminophen (Acetaminophen 325 Mg Tab) 650 mg PO Q4H PRN PRN Reason: Pain (Mild 1-3)/fever Last Admin: 04/16/21 16:03 Dose: 650 mg Documented by: Albuterol (Albuterol 8 Gm Inhaler) 0 gm INH Q4H PRN PRN Reason: Shortness of Breath Last Admin: 04/21/21 04:30 Dose: 2 puff Documented by: Albuterol/Ipratropium (Albuterol/Ipratropium 4 Gm Inhalation [place]) 0 gm INH QIDRT [facility] Last Admin: 04/21/21 12:12 Dose: 2 puff Documented by: Allopurinol (Allopurinol 100 Mg Tab) 100 mg PO DAILY [facility] Last Admin: 04/21/21 09:25 Dose: 100 mg Documented by: Ascorbic Acid (Ascorbic Acid 500 Mg Tab) 250 mg PO QID [facility] Last Admin: 04/21/21 09:30 Dose: Not Given Documented by: Aspirin (Aspirin 81 Mg Tab.Ec) 81 mg PO DAILY [facility] Last Admin: 04/21/21 09:25 Dose: 81 mg Documented by: Atorvastatin Calcium (Atorvastatin 20 Mg Tab) 40 mg PO BEDTIME [facility] Last Admin: 04/20/21 20:56 Dose: 40 mg Documented by: Benzonatate (Benzonatate 100 Mg Cap) 100 mg PO TID PRN PRN Reason: Cough Last Admin: 04/21/21 04:30 Dose: 100 mg Documented by: Benzonatate (Benzonatate 100 Mg Cap) 100 mg PO Q24H [facility] Last Admin: 04/20/21 18:11 Dose: 100 mg Documented by: Calcium Carbonate/Glycine (Calcium Carbonate 500 Mg Tab.Chew) 1,000 mg PO Q2H PRN PRN Reason: Indigestion Cholecalciferol (Cholecalciferol (Vitamin D3) 25 Mcg Tab) 25 mcg PO DAILY [facility] Last Admin: 04/21/21 09:27 Dose: Not Given Documented by: Cyanocobalamin (Cyanocobalamin (Vitamin B12) 1,000 Mcg Tab) 500 mcg PO DAILY [facility] Last Admin: 04/21/21 09:27 Dose: Not Given Documented by: Dexamethasone (Dexamethasone 2 Mg Tab) 6 mg PO Q24H [facility] Last Admin: 04/20/21 16:36 Dose: 6 mg Documented by: Digoxin (Digoxin 125 Mcg Tab) 125 mcg PO DAILY@1300 [facility] Last Admin: 04/21/21 12:13 Dose: 125 mcg Documented by: Docusate Sodium (Docusate Sodium 100 Mg Cap) 100 mg PO DAILY [facility] Last Admin: 04/21/21 09:24 Dose: 100 mg Documented by: Doxycycline Hyclate (Doxycycline 100 Mg Cap) 100 mg PO Q12H [facility] Stop: 04/24/21 22:01 Folic Acid (Folic Acid 1 Mg Tab) 0.5 mg PO DAILY [facility] Last Admin: 04/21/21 09:27 Dose: Not Given Documented by: Guaifenesin/Dextromethorphan (Guaifenesin/Dextromethorphan 100-10 Mg/5 Ml Soln 10 Ml Cup) 10 ml PO Q4H PRN PRN Reason: Cough Last Admin: 04/20/21 20:56 Dose: 10 ml Documented by: Isosorbide Mononitrate (Isosorbide Mononitrate 30 Mg Tab.Er) 30 mg PO DAILY [facility] Last Admin: 04/21/21 09:32 Dose: 30 mg Documented by: Loperamide HCl (Loperamide 2 Mg Cap) 2 mg PO Q4H PRN PRN Reason: Diarrhea Last Admin: 04/16/21 17:47 Dose: 2 mg Documented by: Lorazepam (Lorazepam 2 Mg/Ml Sdv) 0.5 mg IVPUSH Q4H PRN PRN Reason: Nausea/Vomiting Magnesium Hydroxide (Magnesium Hydroxide 400 Mg/5 Ml Susp 30 Ml Cup) 30 ml PO Q12H PRN PRN Reason: Constipation Melatonin (Melatonin 3 Mg Tab) 9 mg PO BEDTIME PRN PRN Reason: Sleep Last Admin: 04/20/21 20:55 Dose: 9 mg Documented by: Metoprolol Succinate (Metoprolol Succinate 25 Mg Tab.Er) 25 mg PO BID [facility] Last Admin: 04/21/21 09:25 Dose: 25 mg Documented by: Mometasone Furoate/Formoterol Fumar (Formoterol/Mometasone 200-5 Mcg 8.8 Gm Inhaler) 0 puff IH BIDRT [facility] Last Admin: 04/21/21 07:22 Dose: 2 puff Documented by: Ondansetron HCl (Ondansetron 4 Mg/2 Ml Sdv) 4 mg IV Q6H PRN PRN Reason: Nausea/Vomiting Ondansetron HCl (Ondansetron 4 Mg Tab.Dis) 4 mg PO Q6H PRN PRN Reason: Nausea able to take PO Pantoprazole Sodium (Pantoprazole 40 Mg Tab.Cr) 40 mg PO BIDAC [facility] Last Admin: 04/21/21 07:52 Dose: 40 mg Documented by: Senna/Docusate Sodium (Docusate Sodium/Sennosides 50-8.6 Mg Tab) 1 tab PO BID PRN PRN Reason: Constipation Spironolactone (Spironolactone 25 Mg Tab) 12.5 mg PO DAILY [facility] Last Admin: 04/21/21 09:26 Dose: 12.5 mg Documented by: Torsemide (Torsemide 20 Mg Tab) 40 mg PO DAILY [facility] Last Admin: 04/21/21 09:24 Dose: 40 mg Documented by: Warfarin Sodium (Warfarin 2.5 Mg Tab) 1.25 mg PO DAILY@1300 [facility] Discontinued Medications Ascorbic Acid (Ascorbic Acid 500 Mg Tab) 1,000 mg PO BIDAC [facility] Last Admin: 04/16/21 10:37 Dose: Not Given Documented by: Dexamethasone (Dexamethasone 4 Mg/Ml Sdv) 6 mg IVPUSH Q24H [facility] Last Admin: 04/18/21 16:02 Dose: 6 mg Documented by: Doxycycline Hyclate (Doxycycline 100 Mg Cap) 100 mg PO Q12H [facility] Stop: 04/25/21 00:01 Last Admin: 04/21/21 12:12 Dose: 100 mg Documented by: Heparin Sodium (Porcine) (Heparin Sodium 5,000 Units/Ml Vial) 4,000 units IVPUSH ONETIME ONE Stop: 04/15/21 15:21 Last Admin: 04/15/21 16:51 Dose: Not Given Documented by: Heparin Sodium/Dextrose (Heparin 25,000 Units In D5w 500 Ml) 25,000 units in 500 mls @ 18 mls/hr IV TITRATE [facility] Isosorbide Mononitrate (Isosorbide Mononitrate 30 Mg Tab.Er) 30 mg PO ONETIME ONE Stop: 04/18/21 06:28 Last Admin: 04/18/21 06:39 Dose: 30 mg Documented by: Phytonadione (Phytonadione 5 Mg Tab) 2.5 mg PO ONETIME ONE Stop: 04/18/21 13:01 Last Admin: 04/18/21 13:43 Dose: 2.5 mg Documented by: Warfarin Sodium (Warfarin 5 Mg Tab) 5 mg PO DAILY@1300 [facility] Last Admin: 04/17/21 13:31 Dose: 5 mg Documented by: Warfarin Sodium (Warfarin 2.5 Mg Tab) 2.5 mg PO DAILY@1300 [facility] Last Admin: 04/20/21 12:21 Dose: 2.5 mg Documented by: - Exam Quality Assessment: Supplemental Oxygen General: Alert, Oriented, Cooperative, No Acute Distress Lungs: Normal Respiratory Effort, Crackles (moderate both lower lungs) Cardiovascular: Regular Rate, Irregular Rhythm GI/Abdominal Exam: Soft, No Distention Extremities: No Pedal Edema. No: Increased Warmth Skin: Warm, Dry Psy/Mental Status: Alert, Normal Affect - Patient Data Lab Results Last 24 hrs: Laboratory Results - last 24 hr 04/21/21 04/21/21 Range/Units 04:10 04:10 PT 32.7 H (9.2-10.6) sec INR 3.3 Sodium 144 (140-148) mmol/L Potassium 4.6 (3.6-5.2) mmol/L Chloride 100 (100-108) mmol/L Carbon Dioxide 37 H (21-32) mmol/L Anion Gap 11.6 (5.0-14.0) mmol/L BUN 66 H (7-18) mg/dL Creatinine 1.3 (0.8-1.3) mg/dL Est Cr Clr Drug Dosing 39.55 mL/min Estimated GFR (MDRD) 53 L (>60) Glucose 190 H (74-106) mg/dL Calcium 8.6 (8.5-10.1) mg/dL Result Diagrams: 04/20/21 04:15 04/21/21 04:10 Sepsis Event Note - Evaluation Sepsis Screening Result: No Definite Risk - Focused Exam Vital Signs: Vital Signs Temp Pulse Pulse Resp BP BP Pulse Ox 04/21/21 12:13 82 04/21/21 10:18 36.9 C 64 20 145/63 H 86 L 04/21/21 09:32 124/62 04/21/21 09:25 78 124/62 04/21/21 07:00 36.8 C 78 16 124/62 93 L 04/21/21 02:54 37.0 C 71 18 106/47 L 97 - Problem List & Annotations (1) Pneumonia due to COVID-19 virus SNOMED Code(s): 808792951441714639 Code(s): U07.1 - COVID-19; J12.82 - PNEUMONIA DUE TO CORONAVIRUS DISEASE 2019 Status: Acute Current Visit: Yes (2) Acute and chronic respiratory failure SNOMED Code(s): 94120563 Code(s): J96.20 - ACUTE AND CHR RESP FAILURE, UNSP W HYPOXIA OR HYPERCAPNIA Status: Acute Current Visit: Yes Qualifiers: Respiratory failure complication: hypoxia Qualified Code(s): J96.21 - Acute and chronic respiratory failure with hypoxia (3) Acute kidney injury SNOMED Code(s): 55721225, 34138552 Code(s): N17.9 - ACUTE KIDNEY FAILURE, UNSPECIFIED Status: Acute Current Visit: Yes (4) Elevated troponin SNOMED Code(s): 597153571, 382442750, 200351189 Code(s): R77.8 - OTHER SPECIFIED ABNORMALITIES OF PLASMA PROTEINS Status: Acute Current Visit: Yes (5) HFrEF (heart failure with reduced ejection fraction) SNOMED Code(s): 862773944 Code(s): I50.20 - UNSPECIFIED SYSTOLIC (CONGESTIVE) HEART FAILURE Status: Chronic Current Visit: Yes (6) CAD (coronary artery disease) SNOMED Code(s): 55276438 Code(s): I25.10 - ATHSCL HEART DISEASE OF [place] CORONARY ARTERY W/O ANG PCTRS Status: Chronic Current Visit: Yes Qualifiers: Coronary Disease-Associated Artery/Lesion type: [place] artery [place] vs. transplanted heart: [place] heart Associated angina: without angina Qualified Code(s): I25.10 - Atherosclerotic heart disease of [place] coronary artery without angina pectoris - Problem List Review Problem List Initiated/Reviewed/Updated: Yes - My Orders Last 24 Hours: My Active Orders 04/20/21 18:00 Benzonatate [Tessalon Perles] 100 mg PO Q24H 04/21/21 22:00 Doxycycline [Vibramycin] 100 mg PO Q12H 04/22/21 05:00 BASIC METABOLIC PANEL,BMP [CHEM] Timed CBC W/O DIFF,HEMOGRAM [HEME] Timed (1) CRP [C-REACTIVE PROTEIN] [CHEM] Timed D-DIMER QUANTITATIVE [COAG] Timed 04/22/21 08:00 OT Evaluation and Treatment [CONS] Routine 04/22/21 13:00 Warfarin [Coumadin] 1.25 mg PO DAILY@1300 - Plan Plan:: ASSESSMENT AND PLAN - COVID-19 pneumonia-complicated by acute on chronic respiratory failure. Stable. Tolerating current treatment. Weak but otherwise doing okay. Respiratory status stable. -Dexamethasone 6 mg daily (day 7) -Remdesivir x5 days complete -Supplement oxygen -Encourage prone positioning -Isolation precautions (symptom onset 04/12), precautions well and after 04/21) Acute kidney injury- Blood pressure improving. Kidney function has steadily improved. -Continue diuretics (dose reduced slightly from home dose) -Recheck labs in the morning Elevated troponin-suspect demand ischemia with known heart disease, Covid infection with hypoxia and reduced kidney function. Level decreased to near normal. Coronary artery disease-complicated by ischemic cardiomyopathy and heart failure with reduced ejection fraction. -Continue diuretics -Continue isosorbide mononitrate -Hold losartan -Continue additional medical management Mechanical aortic valve replacement-chronically anticoagulated. INR therapeutic today. -Restart reduced dose of warfarin Thursday -INR in the morning -INR goal 2.5-3.5 Anemia-mild, stable. -Outpatient work-up Maintenance issues - -DVT prophylaxis-warfarin -GI prophylaxis-PPI -[id number] Disposition -I anticipate discharge to the skilled nursing for subacute rehab after the hospital stay. He will need isolation precautions until 04/22. We are planning to transition to swing bed on 04/22 until a subacute rehab bed is available on the . Primary care physician -Dr Savage Cunha M.D.
[2021-04-21] MEDS: Dexamethasone 2 MG Tab PO SCH (17:21)
[2021-04-21] MEDS: Benzonatate 100 MG Cap PO SCH (17:21)
[2021-04-21] MEDS: Melatonin 3 MG Tab PO PRN (21:08)
[2021-04-21] MEDS: guaiFENesin/Dextromethorphan 100-10 MG/5 ML Soln 10 ML Cup PO PRN (21:08)
[2021-04-21] MEDS: atorvaSTATin 20 MG Tab PO SCH (21:09)
[2021-04-22] MEDS: Albuterol 8 GM Inhaler INH PRN ×4 (01:55→23:40)
[2021-04-22] MEDS: Ascorbic Acid 500 MG Tab PO SCH ×4 (05:52→21:49)
[2021-04-22] MEDS: Albuterol/Ipratropium 4 GM Inhalation Spray INH SCH ×4 (07:01→21:53)
[2021-04-22] MEDS: Formoterol/Mometasone 200-5 MCG 8.8 GM Inhaler IH SCH ×2 (07:01→20:16)
[2021-04-22] MEDS: Spironolactone 25 MG Tab PO SCH (08:29)
[2021-04-22] MEDS: Pantoprazole 40 MG Tab.CR PO SCH ×2 (08:29→15:46)
[2021-04-22] MEDS: Docusate Sodium 100 MG Cap PO SCH (08:29)
[2021-04-22] MEDS: Folic Acid 1 MG Tab PO SCH (08:30)
[2021-04-22] MEDS: Torsemide 20 MG Tab PO SCH (08:30)
[2021-04-22] MEDS: Aspirin 81 MG Tab.EC PO SCH (08:30)
[2021-04-22] MEDS: Isosorbide Mononitrate 30 MG Tab.ER PO SCH (08:30)
[2021-04-22] MEDS: Metoprolol Succinate 25 MG Tab.ER PO SCH ×2 (08:30→20:16)
[2021-04-22] MEDS: Cyanocobalamin (Vitamin B12) 1,000 MCG Tab PO SCH (08:31)
[2021-04-22] MEDS: Allopurinol 100 MG Tab PO SCH (08:31)
[2021-04-22] MEDS: Cholecalciferol (Vitamin D3) 25 MCG Tab PO SCH (08:31)
[2021-04-22] MEDS: Doxycycline 100 MG Cap PO SCH ×2 (09:00→21:49)
[2021-04-22] MEDS: Digoxin 125 MCG Tab PO SCH (11:59)
[2021-04-22] MEDS: Warfarin 2.5 MG Tab PO SCH (11:59)
--- NOTE | 2021-04-22 15:43 | CR ---
CHEST: Portable 04/22/2021 at 1510. CLINICAL HISTORY:Increasing dyspnea, history of CHF COMPARISON:04/15/2021 FINDINGS: Heart size is enlarged pulmonary vascular areas cephalized. There are diffuse bilateral pulmonary infiltrates. Patient is a small left effusion similar to the prior study. Impression: Increasing diffuse bilateral pulmonary infiltrates. This may represent pulmonary edema from CHF alone or its may be superimposed over pneumonitis which is seen in the lower lobes on prior study
[2021-04-22] MEDS: Benzonatate 100 MG Cap PO SCH (17:13)
[2021-04-22] MEDS: Dexamethasone 2 MG Tab PO SCH (17:13)
--- NOTE | 2021-04-22 17:18 | PCM.PN ---
- General Info Date of Service: 04/22/21 Subjective Update: Mr. Batres continues to feel very weak and tired. He gets short of breath with fairly minimal exertion resulting in increase in respiratory rate. At rest he is on 2 L/min via nasal cannula and feels fairly comfortable. Functional Status: Reports: Tolerating Diet, Urinating - Review of Systems General: Reports: Weakness, Fatigue. Denies: Fever, Chills Pulmonary: Reports: Shortness of Breath, Cough. Denies: Pleuritic Chest Pain, Sputum, Hemoptysis, Wheezing Cardiovascular: Reports: Dyspnea on Exertion, Edema. Denies: Chest Pain, Palpitations, Orthopnea, PND, Lightheadedness Gastrointestinal: Reports: No Symptoms Genitourinary: Reports: No Symptoms - Patient Data Vitals - Most Recent: Last Vital Signs Temp 96.9 F 04/22/21 14:23 Pulse 56 L 04/22/21 14:23 Resp 20 04/22/21 14:23 BP 144/63 H 04/22/21 14:23 Pulse Ox 96 04/22/21 14:25 Weight - Most Recent: 185 lb I&O - Last 24 Hours: Intake & Output 04/22/21 04/22/21 04/22/21 06:59 14:59 22:59 Intake Total 600 800 Output Total 800 275 Balance -200 525 Lab Results Last 24 Hours: Laboratory Results - last 24 hr 04/22/21 04/22/21 04/22/21 Range/Units 04:40 04:40 04:40 WBC 17.9 H (4.5-11.0) K/uL RBC 3.27 L (4.30-5.90) M/uL Hgb 9.5 L (12.0-15.0) g/dL Hct 30.0 L (40.0-54.0) % MCV 92 (80-98) fL MCH 29 (27-31) pg MCHC 32 (32-36) % Plt Count 257 (150-400) K/uL D-Dimer, Quantitative 1090.45 H (0.0-500.0) ng/mL Sodium 146 (140-148) mmol/L Potassium 4.5 (3.6-5.2) mmol/L Chloride 101 (100-108) mmol/L Carbon Dioxide 37 H (21-32) mmol/L Anion Gap 12.5 (5.0-14.0) mmol/L BUN 67 H (7-18) mg/dL Creatinine 1.2 (0.8-1.3) mg/dL Est Cr Clr Drug Dosing 42.84 mL/min Estimated GFR (MDRD) 58 L (>60) Glucose 194 H (74-106) mg/dL Calcium 8.8 (8.5-10.1) mg/dL C-Reactive Protein 14.61 H (0.0-0.3) mg/dL Med Orders - Current: Current Medications Acetaminophen (Acetaminophen 325 Mg Tab) 650 mg PO Q4H PRN PRN Reason: Pain (Mild 1-3)/fever Last Admin: 04/16/21 16:03 Dose: 650 mg Documented by: Albuterol (Albuterol 8 Gm Inhaler) 0 gm INH Q4H PRN PRN Reason: Shortness of Breath Last Admin: 04/22/21 05:54 Dose: 2 puff Documented by: Albuterol/Ipratropium (Albuterol/Ipratropium 4 Gm Inhalation [place]) 0 gm INH QIDRT [facility] Last Admin: 04/22/21 15:45 Dose: 2 puff Documented by: Allopurinol (Allopurinol 100 Mg Tab) 100 mg PO DAILY [facility] Last Admin: 04/22/21 08:31 Dose: 100 mg Documented by: Ascorbic Acid (Ascorbic Acid 500 Mg Tab) 250 mg PO QID [facility] Last Admin: 04/22/21 15:46 Dose: 250 mg Documented by: Aspirin (Aspirin 81 Mg Tab.Ec) 81 mg PO DAILY [facility] Last Admin: 04/22/21 08:30 Dose: 81 mg Documented by: Atorvastatin Calcium (Atorvastatin 20 Mg Tab) 40 mg PO BEDTIME [facility] Last Admin: 04/21/21 21:09 Dose: 40 mg Documented by: Benzonatate (Benzonatate 100 Mg Cap) 100 mg PO TID PRN PRN Reason: Cough Last Admin: 04/21/21 04:30 Dose: 100 mg Documented by: Benzonatate (Benzonatate 100 Mg Cap) 100 mg PO Q24H [facility] Last Admin: 04/22/21 17:13 Dose: 100 mg Documented by: Bumetanide (Bumetanide 1 Mg/4 Ml Mdv) 2 mg IVPUSH ONETIME ONE Stop: 04/22/21 18:01 Last Admin: 04/22/21 17:12 Dose: 2 mg Documented by: Calcium Carbonate/Glycine (Calcium Carbonate 500 Mg Tab.Chew) 1,000 mg PO Q2H PRN PRN Reason: Indigestion Cholecalciferol (Cholecalciferol (Vitamin D3) 25 Mcg Tab) 25 mcg PO DAILY [facility] Last Admin: 04/22/21 08:31 Dose: 25 mcg Documented by: Cyanocobalamin (Cyanocobalamin (Vitamin B12) 1,000 Mcg Tab) 500 mcg PO DAILY [facility] Last Admin: 04/22/21 08:31 Dose: 500 mcg Documented by: Dexamethasone (Dexamethasone 2 Mg Tab) 6 mg PO Q24H [facility] Last Admin: 04/22/21 17:13 Dose: 6 mg Documented by: Digoxin (Digoxin 125 Mcg Tab) 125 mcg PO DAILY@1300 [facility] Last Admin: 04/22/21 11:59 Dose: 125 mcg Documented by: Docusate Sodium (Docusate Sodium 100 Mg Cap) 100 mg PO DAILY [facility] Last Admin: 04/22/21 08:29 Dose: 100 mg Documented by: Doxycycline Hyclate (Doxycycline 100 Mg Cap) 100 mg PO Q12H [facility] Stop: 04/24/21 22:01 Last Admin: 04/22/21 09:00 Dose: 100 mg Documented by: Folic Acid (Folic Acid 1 Mg Tab) 0.5 mg PO DAILY [facility] Last Admin: 04/22/21 08:30 Dose: 0.5 mg Documented by: Guaifenesin/Dextromethorphan (Guaifenesin/Dextromethorphan 100-10 Mg/5 Ml Soln 10 Ml Cup) 10 ml PO Q4H PRN PRN Reason: Cough Last Admin: 04/21/21 21:08 Dose: 10 ml Documented by: Isosorbide Mononitrate (Isosorbide Mononitrate 30 Mg Tab.Er) 30 mg PO DAILY [facility] Last Admin: 04/22/21 08:30 Dose: 30 mg Documented by: Loperamide HCl (Loperamide 2 Mg Cap) 2 mg PO Q4H PRN PRN Reason: Diarrhea Last Admin: 04/16/21 17:47 Dose: 2 mg Documented by: Lorazepam (Lorazepam 2 Mg/Ml Sdv) 0.5 mg IVPUSH Q4H PRN PRN Reason: Nausea/Vomiting Magnesium Hydroxide (Magnesium Hydroxide 400 Mg/5 Ml Susp 30 Ml Cup) 30 ml PO Q12H PRN PRN Reason: Constipation Melatonin (Melatonin 3 Mg Tab) 9 mg PO BEDTIME PRN PRN Reason: Sleep Last Admin: 04/21/21 21:08 Dose: 9 mg Documented by: Metoprolol Succinate (Metoprolol Succinate 25 Mg Tab.Er) 25 mg PO BID [facility] Last Admin: 04/22/21 08:30 Dose: 25 mg Documented by: Mometasone Furoate/Formoterol Fumar (Formoterol/Mometasone 200-5 Mcg 8.8 Gm Inhaler) 0 puff IH BIDRT [facility] Last Admin: 04/22/21 07:01 Dose: 2 puff Documented by: Ondansetron HCl (Ondansetron 4 Mg/2 Ml Sdv) 4 mg IV Q6H PRN PRN Reason: Nausea/Vomiting Ondansetron HCl (Ondansetron 4 Mg Tab.Dis) 4 mg PO Q6H PRN PRN Reason: Nausea able to take PO Pantoprazole Sodium (Pantoprazole 40 Mg Tab.Cr) 40 mg PO BIDAC [facility] Last Admin: 04/22/21 15:46 Dose: 40 mg Documented by: Senna/Docusate Sodium (Docusate Sodium/Sennosides 50-8.6 Mg Tab) 1 tab PO BID PRN PRN Reason: Constipation Spironolactone (Spironolactone 25 Mg Tab) 12.5 mg PO DAILY [facility] Last Admin: 04/22/21 08:29 Dose: 12.5 mg Documented by: Torsemide (Torsemide 20 Mg Tab) 40 mg PO DAILY [facility] Last Admin: 04/22/21 08:30 Dose: 40 mg Documented by: Warfarin Sodium (Warfarin 2.5 Mg Tab) 1.25 mg PO DAILY@1300 [facility] Last Admin: 04/22/21 11:59 Dose: 1.25 mg Documented by: Discontinued Medications Ascorbic Acid (Ascorbic Acid 500 Mg Tab) 1,000 mg PO BIDAC [facility] Last Admin: 04/16/21 10:37 Dose: Not Given Documented by: Dexamethasone (Dexamethasone 4 Mg/Ml Sdv) 6 mg IVPUSH Q24H [facility] Last Admin: 04/18/21 16:02 Dose: 6 mg Documented by: Doxycycline Hyclate (Doxycycline 100 Mg Cap) 100 mg PO Q12H [facility] Stop: 04/25/21 00:01 Last Admin: 04/21/21 12:12 Dose: 100 mg Documented by: Heparin Sodium (Porcine) (Heparin Sodium 5,000 Units/Ml Vial) 4,000 units IVPUSH ONETIME ONE Stop: 04/15/21 15:21 Last Admin: 04/15/21 16:51 Dose: Not Given Documented by: Heparin Sodium/Dextrose (Heparin 25,000 Units In D5w 500 Ml) 25,000 units in 500 mls @ 18 mls/hr IV TITRATE [facility] Isosorbide Mononitrate (Isosorbide Mononitrate 30 Mg Tab.Er) 30 mg PO ONETIME ONE Stop: 04/18/21 06:28 Last Admin: 04/18/21 06:39 Dose: 30 mg Documented by: Phytonadione (Phytonadione 5 Mg Tab) 2.5 mg PO ONETIME ONE Stop: 04/18/21 13:01 Last Admin: 04/18/21 13:43 Dose: 2.5 mg Documented by: Warfarin Sodium (Warfarin 5 Mg Tab) 5 mg PO DAILY@1300 [facility] Last Admin: 04/17/21 13:31 Dose: 5 mg Documented by: Warfarin Sodium (Warfarin 2.5 Mg Tab) 2.5 mg PO DAILY@1300 [facility] Last Admin: 04/20/21 12:21 Dose: 2.5 mg Documented by: - Exam Quality Assessment: Supplemental Oxygen, DVT Prophylaxis General: Alert, Oriented, Cooperative, Moderate Distress Lungs: Decreased Breath Sounds, Crackles. No: Rales, Rhonchi, Wheezing Cardiovascular: Regular Rate, No Murmurs, Irregular Rhythm GI/Abdominal Exam: Soft, Non-Tender, No Organomegaly, No Distention Extremities: Non-Tender, Pedal Edema - Patient Data Lab Results Last 24 hrs: Laboratory Results - last 24 hr 04/22/21 04/22/21 04/22/21 Range/Units 04:40 04:40 04:40 WBC 17.9 H (4.5-11.0) K/uL RBC 3.27 L (4.30-5.90) M/uL Hgb 9.5 L (12.0-15.0) g/dL Hct 30.0 L (40.0-54.0) % MCV 92 (80-98) fL MCH 29 (27-31) pg MCHC 32 (32-36) % Plt Count 257 (150-400) K/uL D-Dimer, Quantitative 1090.45 H (0.0-500.0) ng/mL Sodium 146 (140-148) mmol/L Potassium 4.5 (3.6-5.2) mmol/L Chloride 101 (100-108) mmol/L Carbon Dioxide 37 H (21-32) mmol/L Anion Gap 12.5 (5.0-14.0) mmol/L BUN 67 H (7-18) mg/dL Creatinine 1.2 (0.8-1.3) mg/dL Est Cr Clr Drug Dosing 42.84 mL/min Estimated GFR (MDRD) 58 L (>60) Glucose 194 H (74-106) mg/dL Calcium 8.8 (8.5-10.1) mg/dL C-Reactive Protein 14.61 H (0.0-0.3) mg/dL Result Diagrams: 04/22/21 04:40 04/22/21 04:40 Sepsis Event Note - Evaluation Sepsis Screening Result: No Definite Risk - Focused Exam Vital Signs: Vital Signs Temp Pulse Pulse Resp BP BP Pulse Ox 04/22/21 14:25 96 04/22/21 14:23 96.9 F 56 L 20 144/63 H 96 04/22/21 11:59 82 04/22/21 11:33 123/66 04/22/21 11:31 96.4 F L 81 22 H 126/105 H 96 04/22/21 08:30 82 118/56 L 04/22/21 07:58 98.2 F 82 20 118/56 L 94 L 04/22/21 07:47 94 L - Problem List Review Problem List Initiated/Reviewed/Updated: Yes - My Orders Last 24 Hours: My Active Orders 04/22/21 18:00 Bumetanide [Bumex] 2 mg IVPUSH ONETIME ONE 04/23/21 05:00 BASIC METABOLIC PANEL,BMP [CHEM] Timed CBC WITH AUTO DIFF [HEME] Timed INR,PT,PROTHROMBIN TIME [COAG] DAILY 04/24/21 05:00 INR,PT,PROTHROMBIN TIME [COAG] DAILY 04/25/21 05:00 INR,PT,PROTHROMBIN TIME [COAG] DAILY 04/26/21 05:00 INR,PT,PROTHROMBIN TIME [COAG] DAILY 04/27/21 05:00 INR,PT,PROTHROMBIN TIME [COAG] DAILY 04/28/21 05:00 INR,PT,PROTHROMBIN TIME [COAG] DAILY 04/29/21 05:00 INR,PT,PROTHROMBIN TIME [COAG] DAILY - Plan Plan:: ASSESSMENT AND PLAN - COVID-19 pneumonia-complicated by acute on chronic respiratory failure. Stable. Tolerating current treatment. Weak and fatigues easily, short of breath with minimal exertion. -Bumex 2 mg IV this afternoon, reassess in a.m. -Dexamethasone 6 mg daily (day 8) -Remdesivir x5 days complete -Supplement oxygen -Encourage prone positioning -Isolation precautions (symptom onset 04/12) Acute kidney injury- Blood pressure improving. Kidney function has steadily improved. -Continue diuretics (dose reduced slightly from home dose) -Recheck labs in the morning Elevated troponin-suspect demand ischemia with known heart disease, Covid infection with hypoxia and reduced kidney function. Level decreased to near normal. Coronary artery disease-complicated by ischemic cardiomyopathy and heart failure with reduced ejection fraction. -Continue diuretics -Continue isosorbide mononitrate -Hold losartan -Continue additional medical management Mechanical aortic valve replacement-chronically anticoagulated. INR therapeutic today. -Restart reduced dose of warfarin Thursday -INR in the morning -INR goal 2.5-3.5 Anemia-mild, stable. -Outpatient work-up Maintenance issues - -DVT prophylaxis-warfarin -GI prophylaxis-PPI -[id number] Disposition -I anticipate discharge to the residential for subacute rehab after the hospital stay. He will need isolation precautions until 04/22. We are planning to transition to swing bed on 04/22 until a subacute rehab bed is available on the . Primary care physician -Dr Savage Rodriguez
[2021-04-22] MEDS ORDERED: Bumetanide 1 MG/4 ML MDV IVPUSH ONE (18:00)
[2021-04-22] MEDS: atorvaSTATin 20 MG Tab PO SCH (21:53)
[2021-04-23] MEDS: Ascorbic Acid 500 MG Tab PO SCH ×4 (05:13→21:12)
[2021-04-23] MEDS: Formoterol/Mometasone 200-5 MCG 8.8 GM Inhaler IH SCH ×2 (07:02→21:05)
[2021-04-23] MEDS: Albuterol/Ipratropium 4 GM Inhalation Spray INH SCH ×4 (07:02→21:06)
[2021-04-23] MEDS: Cholecalciferol (Vitamin D3) 25 MCG Tab PO SCH (08:43)
[2021-04-23] MEDS: Allopurinol 100 MG Tab PO SCH (08:44)
[2021-04-23] MEDS: Cyanocobalamin (Vitamin B12) 1,000 MCG Tab PO SCH (08:45)
[2021-04-23] MEDS: Torsemide 20 MG Tab PO SCH (08:45)
[2021-04-23] MEDS: Isosorbide Mononitrate 30 MG Tab.ER PO SCH (08:45)
[2021-04-23] MEDS: Spironolactone 25 MG Tab PO SCH (08:46)
[2021-04-23] MEDS: Aspirin 81 MG Tab.EC PO SCH (08:46)
[2021-04-23] MEDS: Metoprolol Succinate 25 MG Tab.ER PO SCH ×2 (08:46→21:13)
[2021-04-23] MEDS: Folic Acid 1 MG Tab PO SCH (08:47)
[2021-04-23] MEDS: Docusate Sodium 100 MG Cap PO SCH (08:47)
[2021-04-23] MEDS: Pantoprazole 40 MG Tab.CR PO SCH ×2 (08:47→15:56)
[2021-04-23] MEDS: Doxycycline 100 MG Cap PO SCH ×2 (09:02→21:14)
[2021-04-23] MEDS: Warfarin 2.5 MG Tab PO SCH (15:50)
--- NOTE | 2021-04-23 15:51 | PCM.PN ---
- General Info Date of Service: 04/23/21 Subjective Update: Mr. Batres felt somewhat improved today compared to yesterday. Less shortness of breath, cough, and modest improvement in overall strength. Functional Status: Reports: Urinating. Denies: Tolerating Diet, Ambulating - Review of Systems General: Reports: Weakness, Fatigue. Denies: Fever, Chills Pulmonary: Reports: Shortness of Breath, Cough. Denies: Pleuritic Chest Pain, Sputum, Hemoptysis, Wheezing Cardiovascular: Reports: Dyspnea on Exertion. Denies: Chest Pain, Palpitations, Orthopnea, PND, Edema, Lightheadedness Gastrointestinal: Reports: No Symptoms Genitourinary: Reports: No Symptoms - Patient Data Vitals - Most Recent: Last Vital Signs Temp 97.5 F 04/23/21 14:45 Pulse 88 04/23/21 14:45 Resp 18 04/23/21 14:45 BP 112/55 L 04/23/21 14:45 Pulse Ox 98 04/23/21 14:45 Weight - Most Recent: 185 lb I&O - Last 24 Hours: Intake & Output 04/23/21 04/23/21 04/23/21 06:59 14:59 22:59 Intake Total 360 200 Output Total 600 Balance -240 200 Lab Results Last 24 Hours: Laboratory Results - last 24 hr 04/23/21 04/23/21 04/23/21 Range/Units 04:55 04:55 04:55 WBC 16.7 H (4.5-11.0) K/uL RBC 3.23 L (4.30-5.90) M/uL Hgb 9.8 L (12.0-15.0) g/dL Hct 30.4 L (40.0-54.0) % MCV 94 (80-98) fL MCH 30 (27-31) pg MCHC 32 (32-36) % Plt Count 283 (150-400) K/uL Add Manual Diff Yes Neutrophils % (Manual) 89 H (36-66) % Band Neutrophils % 3 L (5-11) % Lymphocytes % (Manual) 3 L (24-44) % Monocytes % (Manual) 5 (2-6) % Anisocytosis Marked H Ovalocytes Moderate H PT 39.1 H (9.2-10.6) sec INR 4.0 Sodium 146 (140-148) mmol/L Potassium 4.7 (3.6-5.2) mmol/L Chloride 101 (100-108) mmol/L Carbon Dioxide 36 H (21-32) mmol/L Anion Gap 13.7 (5.0-14.0) mmol/L BUN 67 H (7-18) mg/dL Creatinine 1.4 H (0.8-1.3) mg/dL Est Cr Clr Drug Dosing 36.72 mL/min Estimated GFR (MDRD) 48 L (>60) Glucose 180 H (74-106) mg/dL Calcium 9.1 (8.5-10.1) mg/dL Med Orders - Current: Current Medications Acetaminophen (Acetaminophen 325 Mg Tab) 650 mg PO Q4H PRN PRN Reason: Pain (Mild 1-3)/fever Last Admin: 04/16/21 16:03 Dose: 650 mg Documented by: Albuterol (Albuterol 8 Gm Inhaler) 0 gm INH Q4H PRN PRN Reason: Shortness of Breath Last Admin: 04/22/21 23:40 Dose: 2 puff Documented by: Albuterol/Ipratropium (Albuterol/Ipratropium 4 Gm Inhalation Raymond) 0 gm INH QIDRT [facility] Last Admin: 04/23/21 14:29 Dose: 2 puff Documented by: Allopurinol (Allopurinol 100 Mg Tab) 100 mg PO DAILY [facility] Last Admin: 04/23/21 08:44 Dose: 100 mg Documented by: Ascorbic Acid (Ascorbic Acid 500 Mg Tab) 250 mg PO QID [facility] Last Admin: 04/23/21 09:02 Dose: 250 mg Documented by: Aspirin (Aspirin 81 Mg Tab.Ec) 81 mg PO DAILY [facility] Last Admin: 04/23/21 08:46 Dose: 81 mg Documented by: Atorvastatin Calcium (Atorvastatin 20 Mg Tab) 40 mg PO BEDTIME [facility] Last Admin: 04/22/21 21:53 Dose: 40 mg Documented by: Benzonatate (Benzonatate 100 Mg Cap) 100 mg PO TID PRN PRN Reason: Cough Last Admin: 04/21/21 04:30 Dose: 100 mg Documented by: Benzonatate (Benzonatate 100 Mg Cap) 100 mg PO Q24H [facility] Last Admin: 04/22/21 17:13 Dose: 100 mg Documented by: Calcium Carbonate/Glycine (Calcium Carbonate 500 Mg Tab.Chew) 1,000 mg PO Q2H PRN PRN Reason: Indigestion Cholecalciferol (Cholecalciferol (Vitamin D3) 25 Mcg Tab) 25 mcg PO DAILY [facility] Last Admin: 04/23/21 08:43 Dose: 25 mcg Documented by: Cyanocobalamin (Cyanocobalamin (Vitamin B12) 1,000 Mcg Tab) 500 mcg PO DAILY [facility] Last Admin: 04/23/21 08:45 Dose: 500 mcg Documented by: Dexamethasone (Dexamethasone 2 Mg Tab) 6 mg PO Q24H [facility] Last Admin: 04/22/21 17:13 Dose: 6 mg Documented by: Digoxin (Digoxin 125 Mcg Tab) 125 mcg PO DAILY@1300 [facility] Last Admin: 04/22/21 11:59 Dose: 125 mcg Documented by: Docusate Sodium (Docusate Sodium 100 Mg Cap) 100 mg PO DAILY [facility] Last Admin: 04/23/21 08:47 Dose: 100 mg Documented by: Doxycycline Hyclate (Doxycycline 100 Mg Cap) 100 mg PO Q12H [facility] Stop: 04/24/21 22:01 Last Admin: 04/23/21 09:02 Dose: 100 mg Documented by: Folic Acid (Folic Acid 1 Mg Tab) 0.5 mg PO DAILY [facility] Last Admin: 04/23/21 08:47 Dose: 0.5 mg Documented by: Guaifenesin/Dextromethorphan (Guaifenesin/Dextromethorphan 100-10 Mg/5 Ml Soln 10 Ml Cup) 10 ml PO Q4H PRN PRN Reason: Cough Last Admin: 04/21/21 21:08 Dose: 10 ml Documented by: Isosorbide Mononitrate (Isosorbide Mononitrate 30 Mg Tab.Er) 30 mg PO DAILY [facility] Last Admin: 04/23/21 08:45 Dose: 30 mg Documented by: Loperamide HCl (Loperamide 2 Mg Cap) 2 mg PO Q4H PRN PRN Reason: Diarrhea Last Admin: 04/16/21 17:47 Dose: 2 mg Documented by: Lorazepam (Lorazepam 2 Mg/Ml Sdv) 0.5 mg IVPUSH Q4H PRN PRN Reason: Nausea/Vomiting Magnesium Hydroxide (Magnesium Hydroxide 400 Mg/5 Ml Susp 30 Ml Cup) 30 ml PO Q12H PRN PRN Reason: Constipation Melatonin (Melatonin 3 Mg Tab) 9 mg PO BEDTIME PRN PRN Reason: Sleep Last Admin: 04/21/21 21:08 Dose: 9 mg Documented by: Metoprolol Succinate (Metoprolol Succinate 25 Mg Tab.Er) 25 mg PO BID [facility] Last Admin: 04/23/21 08:46 Dose: 25 mg Documented by: Mometasone Furoate/Formoterol Fumar (Formoterol/Mometasone 200-5 Mcg 8.8 Gm Inhaler) 0 puff IH BIDRT [facility] Last Admin: 04/23/21 07:02 Dose: 2 puff Documented by: Ondansetron HCl (Ondansetron 4 Mg/2 Ml Sdv) 4 mg IV Q6H PRN PRN Reason: Nausea/Vomiting Ondansetron HCl (Ondansetron 4 Mg Tab.Dis) 4 mg PO Q6H PRN PRN Reason: Nausea able to take PO Pantoprazole Sodium (Pantoprazole 40 Mg Tab.Cr) 40 mg PO BIDAC [facility] Last Admin: 04/23/21 08:47 Dose: 40 mg Documented by: Senna/Docusate Sodium (Docusate Sodium/Sennosides 50-8.6 Mg Tab) 1 tab PO BID PRN PRN Reason: Constipation Spironolactone (Spironolactone 25 Mg Tab) 12.5 mg PO DAILY [facility] Last Admin: 04/23/21 08:46 Dose: 12.5 mg Documented by: Torsemide (Torsemide 20 Mg Tab) 40 mg PO DAILY [facility] Last Admin: 04/23/21 08:45 Dose: 40 mg Documented by: Warfarin Sodium (Warfarin 2.5 Mg Tab) 1.25 mg PO DAILY@1300 [facility] Last Admin: 04/22/21 11:59 Dose: 1.25 mg Documented by: Discontinued Medications Ascorbic Acid (Ascorbic Acid 500 Mg Tab) 1,000 mg PO BIDAC [facility] Last Admin: 04/16/21 10:37 Dose: Not Given Documented by: Bumetanide (Bumetanide 1 Mg/4 Ml Mdv) 2 mg IVPUSH ONETIME ONE Stop: 04/22/21 18:01 Last Admin: 04/22/21 17:12 Dose: 2 mg Documented by: Dexamethasone (Dexamethasone 4 Mg/Ml Sdv) 6 mg IVPUSH Q24H [facility] Last Admin: 04/18/21 16:02 Dose: 6 mg Documented by: Doxycycline Hyclate (Doxycycline 100 Mg Cap) 100 mg PO Q12H [facility] Stop: 04/25/21 00:01 Last Admin: 04/21/21 12:12 Dose: 100 mg Documented by: Heparin Sodium (Porcine) (Heparin Sodium 5,000 Units/Ml Vial) 4,000 units IVPUSH ONETIME ONE Stop: 04/15/21 15:21 Last Admin: 04/15/21 16:51 Dose: Not Given Documented by: Heparin Sodium/Dextrose (Heparin 25,000 Units In D5w 500 Ml) 25,000 units in 500 mls @ 18 mls/hr IV TITRATE [facility] Isosorbide Mononitrate (Isosorbide Mononitrate 30 Mg Tab.Er) 30 mg PO ONETIME ONE Stop: 04/18/21 06:28 Last Admin: 04/18/21 06:39 Dose: 30 mg Documented by: Phytonadione (Phytonadione 5 Mg Tab) 2.5 mg PO ONETIME ONE Stop: 04/18/21 13:01 Last Admin: 04/18/21 13:43 Dose: 2.5 mg Documented by: Warfarin Sodium (Warfarin 5 Mg Tab) 5 mg PO DAILY@1300 [facility] Last Admin: 04/17/21 13:31 Dose: 5 mg Documented by: Warfarin Sodium (Warfarin 2.5 Mg Tab) 2.5 mg PO DAILY@1300 [facility] Last Admin: 04/20/21 12:21 Dose: 2.5 mg Documented by: - Exam Quality Assessment: Supplemental Oxygen, DVT Prophylaxis General: Alert, Oriented, Cooperative, Mild Distress Lungs: Clear to Auscultation, Normal Respiratory Effort, Decreased Breath Sounds. No: Crackles, Rales, Rhonchi, Wheezing Cardiovascular: Regular Rate, Irregular Rhythm, Murmurs GI/Abdominal Exam: Soft, Non-Tender, No Organomegaly, No Distention Extremities: Non-Tender, No Pedal Edema - Patient Data Lab Results Last 24 hrs: Laboratory Results - last 24 hr 04/23/21 04/23/21 04/23/21 Range/Units 04:55 04:55 04:55 WBC 16.7 H (4.5-11.0) K/uL RBC 3.23 L (4.30-5.90) M/uL Hgb 9.8 L (12.0-15.0) g/dL Hct 30.4 L (40.0-54.0) % MCV 94 (80-98) fL MCH 30 (27-31) pg MCHC 32 (32-36) % Plt Count 283 (150-400) K/uL Add Manual Diff Yes Neutrophils % (Manual) 89 H (36-66) % Band Neutrophils % 3 L (5-11) % Lymphocytes % (Manual) 3 L (24-44) % Monocytes % (Manual) 5 (2-6) % Anisocytosis Marked H Ovalocytes Moderate H PT 39.1 H (9.2-10.6) sec INR 4.0 Sodium 146 (140-148) mmol/L Potassium 4.7 (3.6-5.2) mmol/L Chloride 101 (100-108) mmol/L Carbon Dioxide 36 H (21-32) mmol/L Anion Gap 13.7 (5.0-14.0) mmol/L BUN 67 H (7-18) mg/dL Creatinine 1.4 H (0.8-1.3) mg/dL Est Cr Clr Drug Dosing 36.72 mL/min Estimated GFR (MDRD) 48 L (>60) Glucose 180 H (74-106) mg/dL Calcium 9.1 (8.5-10.1) mg/dL Result Diagrams: 04/23/21 04:55 04/23/21 04:55 Sepsis Event Note - Evaluation Sepsis Screening Result: No Definite Risk - Focused Exam Vital Signs: Vital Signs Temp Pulse Pulse Resp BP BP BP 04/23/21 14:45 97.5 F 88 18 112/55 L 04/23/21 11:00 97.2 F 84 18 109/50 L 04/23/21 08:46 75 126/68 04/23/21 08:45 126/68 04/23/21 07:00 98.5 F 75 18 126/68 Pulse Ox 04/23/21 14:45 98 04/23/21 11:00 99 04/23/21 08:46 04/23/21 08:45 04/23/21 07:00 97 - Problem List Review Problem List Initiated/Reviewed/Updated: Yes - My Orders Last 24 Hours: My Active Orders 04/24/21 05:00 CBC WITH AUTO DIFF [HEME] Timed COMPREHENSIVE METABOLIC PN,CMP [CHEM] Timed INR,PT,PROTHROMBIN TIME [COAG] DAILY 04/24/21 05:11 CRP [C-REACTIVE PROTEIN] [CHEM] AM D Dimer [D-DIMER QUANTITATIVE] [COAG] AM 04/25/21 05:00 INR,PT,PROTHROMBIN TIME [COAG] DAILY 04/26/21 05:00 INR,PT,PROTHROMBIN TIME [COAG] DAILY 04/27/21 05:00 INR,PT,PROTHROMBIN TIME [COAG] DAILY 04/28/21 05:00 INR,PT,PROTHROMBIN TIME [COAG] DAILY 04/29/21 05:00 INR,PT,PROTHROMBIN TIME [COAG] DAILY - Plan Plan:: ASSESSMENT AND PLAN - COVID-19 pneumonia-complicated by acute on chronic respiratory failure. Stable. Tolerating current treatment. Modest improvement in strength and shortness of breath since yesterday -Dexamethasone 6 mg daily (day 9) -Remdesivir x5 days complete -Supplement oxygen -Encourage prone positioning -Isolation precautions (symptom onset 04/12) Acute kidney injury-resolved -Continue diuretics (dose reduced slightly from home dose) -Recheck labs in the morning Elevated troponin-suspect demand ischemia with known heart disease, Covid infection with hypoxia and reduced kidney function. Level decreased to near normal. Coronary artery disease-complicated by ischemic cardiomyopathy and heart failure with reduced ejection fraction. -Continue diuretics -Continue isosorbide mononitrate -Hold losartan -Continue additional medical management Mechanical aortic valve replacement-chronically anticoagulated. INR supratherapeutic -Hold warfarin -INR in the morning -INR goal 2.5-3.5 Anemia-mild, stable. -Outpatient work-up Maintenance issues - -DVT prophylaxis-warfarin -GI prophylaxis-PPI -[id number] Disposition -I anticipate discharge to the halfway for subacute rehab after the hospital stay. He will need isolation precautions until 04/22. We are planning to transition to swing bed on 04/22 until a subacute rehab bed is available on the . Primary care physician -Dr Savage Rodriguez
[2021-04-23] MEDS: Albuterol 8 GM Inhaler INH PRN (15:52)
[2021-04-23] MEDS: Digoxin 125 MCG Tab PO SCH (15:55)
[2021-04-23] MEDS: Benzonatate 100 MG Cap PO SCH (18:11)
[2021-04-23] MEDS: Dexamethasone 2 MG Tab PO SCH (18:11)
[2021-04-23] MEDS: Albuterol/Ipratropium 3.0-0.5 MG/3 ML Neb Soln NEB SCH (21:06)
[2021-04-23] MEDS: atorvaSTATin 20 MG Tab PO SCH (21:12)
[2021-04-24] MEDS: Melatonin 3 MG Tab PO PRN ×2 (01:21→22:44)
[2021-04-24] MEDS: Ascorbic Acid 500 MG Tab PO SCH ×4 (06:00→22:34)
[2021-04-24] MEDS: Formoterol/Mometasone 200-5 MCG 8.8 GM Inhaler IH SCH ×2 (07:07→22:33)
[2021-04-24] MEDS: Albuterol/Ipratropium 4 GM Inhalation Spray INH SCH ×4 (07:07→22:32)
[2021-04-24] MEDS: Albuterol/Ipratropium 3.0-0.5 MG/3 ML Neb Soln NEB SCH ×4 (07:07→22:40)
[2021-04-24] MEDS: Pantoprazole 40 MG Tab.CR PO SCH ×2 (07:31→17:04)
[2021-04-24] MEDS: Cholecalciferol (Vitamin D3) 25 MCG Tab PO SCH (08:51)
[2021-04-24] MEDS: Docusate Sodium 100 MG Cap PO SCH (08:52)
[2021-04-24] MEDS: Folic Acid 1 MG Tab PO SCH (08:52)
[2021-04-24] MEDS: Cyanocobalamin (Vitamin B12) 1,000 MCG Tab PO SCH (08:52)
[2021-04-24] MEDS: Isosorbide Mononitrate 30 MG Tab.ER PO SCH (08:53)
[2021-04-24] MEDS: Allopurinol 100 MG Tab PO SCH (08:53)
[2021-04-24] MEDS: Spironolactone 25 MG Tab PO SCH (08:53)
[2021-04-24] MEDS: Torsemide 20 MG Tab PO SCH (08:54)
[2021-04-24] MEDS: Metoprolol Succinate 25 MG Tab.ER PO SCH ×2 (08:54→22:34)
[2021-04-24] MEDS: Aspirin 81 MG Tab.EC PO SCH (08:55)
[2021-04-24] MEDS: Doxycycline 100 MG Cap PO SCH ×2 (09:29→22:34)
[2021-04-24] MEDS: Digoxin 125 MCG Tab PO SCH (14:05)
--- NOTE | 2021-04-24 14:36 | PCM.PN ---
- General Info Date of Service: 04/24/21 Subjective Update: Mr. Batres is stable since yesterday, continues to require 2 L of oxygen per minute via nasal cannula. He is fairly comfortable at rest but does become short of breath with minimal exertion. Inflammatory markers have improved significantly since 2 days ago. Functional Status: Reports: Urinating. Denies: Tolerating Diet - Review of Systems General: Reports: Weakness, Fatigue. Denies: Fever, Chills Pulmonary: Reports: Shortness of Breath. Denies: Pleuritic Chest Pain, Cough, Sputum, Hemoptysis, Wheezing Cardiovascular: Reports: Dyspnea on Exertion. Denies: Chest Pain, Palpitations, Orthopnea, PND, Edema, Lightheadedness Gastrointestinal: Reports: No Symptoms Genitourinary: Reports: No Symptoms - Patient Data Vitals - Most Recent: Last Vital Signs Temp 97.4 F 04/24/21 10:13 Pulse 103 H 04/24/21 14:05 Resp 18 04/24/21 10:13 BP 98/50 L 04/24/21 10:13 Pulse Ox 91 L 04/24/21 10:13 Weight - Most Recent: 185 lb I&O - Last 24 Hours: Intake & Output 04/23/21 04/24/21 04/24/21 22:59 06:59 14:59 Intake Total 920 500 Output Total 200 825 325 Balance 720 -325 -325 Lab Results Last 24 Hours: Laboratory Results - last 24 hr 04/24/21 04/24/21 04/24/21 Range/Units 04:20 04:20 04:20 WBC 23.6 H (4.5-11.0) K/uL RBC 3.45 L (4.30-5.90) M/uL Hgb 10.1 L (12.0-15.0) g/dL Hct 32.0 L (40.0-54.0) % MCV 93 (80-98) fL MCH 29 (27-31) pg MCHC 32 (32-36) % Plt Count 312 (150-400) K/uL Add Manual Diff Yes Neutrophils % (Manual) 89 H (36-66) % Lymphocytes % (Manual) 5 L (24-44) % Monocytes % (Manual) 6 (2-6) % PT 40.4 H (9.2-10.6) sec INR 4.1 H* D-Dimer, Quantitative (0.0-500.0) ng/mL Sodium 144 (140-148) mmol/L Potassium 4.3 (3.6-5.2) mmol/L Chloride 100 (100-108) mmol/L Carbon Dioxide 36 H (21-32) mmol/L Anion Gap 12.3 (5.0-14.0) mmol/L BUN 72 H (7-18) mg/dL Creatinine 1.4 H (0.8-1.3) mg/dL Est Cr Clr Drug Dosing 36.72 mL/min Estimated GFR (MDRD) 48 L (>60) Glucose 189 H (74-106) mg/dL Calcium 8.9 (8.5-10.1) mg/dL Total Bilirubin 1.4 H (0.2-1.0) mg/dL AST 48 H (15-37) U/L ALT 63 (12-78) U/L Alkaline Phosphatase 98 (46-116) U/L C-Reactive Protein (0.0-0.3) mg/dL Total Protein 6.1 L (6.4-8.2) g/dL Albumin 2.5 L (3.4-5.0) g/dL Globulin 3.6 H (2.3-3.5) g/dL Albumin/Globulin Ratio 0.7 L (1.2-2.2) 04/24/21 04/24/21 Range/Units 04:20 04:20 WBC (4.5-11.0) K/uL RBC (4.30-5.90) M/uL Hgb (12.0-15.0) g/dL Hct (40.0-54.0) % MCV (80-98) fL MCH (27-31) pg MCHC (32-36) % Plt Count (150-400) K/uL Add Manual Diff Neutrophils % (Manual) (36-66) % Lymphocytes % (Manual) (24-44) % Monocytes % (Manual) (2-6) % PT (9.2-10.6) sec INR D-Dimer, Quantitative 1166.25 H (0.0-500.0) ng/mL Sodium (140-148) mmol/L Potassium (3.6-5.2) mmol/L Chloride (100-108) mmol/L Carbon Dioxide (21-32) mmol/L Anion Gap (5.0-14.0) mmol/L BUN (7-18) mg/dL Creatinine (0.8-1.3) mg/dL Est Cr Clr Drug Dosing mL/min Estimated GFR (MDRD) (>60) Glucose (74-106) mg/dL Calcium (8.5-10.1) mg/dL Total Bilirubin (0.2-1.0) mg/dL AST (15-37) U/L ALT (12-78) U/L Alkaline Phosphatase (46-116) U/L C-Reactive Protein 6.59 H (0.0-0.3) mg/dL Total Protein (6.4-8.2) g/dL Albumin (3.4-5.0) g/dL Globulin (2.3-3.5) g/dL Albumin/Globulin Ratio (1.2-2.2) Med Orders - Current: Current Medications Acetaminophen (Acetaminophen 325 Mg Tab) 650 mg PO Q4H PRN PRN Reason: Pain (Mild 1-3)/fever Last Admin: 04/16/21 16:03 Dose: 650 mg Documented by: Albuterol (Albuterol 8 Gm Inhaler) 0 gm INH Q4H PRN PRN Reason: Shortness of Breath Last Admin: 04/23/21 15:52 Dose: 2 puff Documented by: Albuterol (Albuterol 0.083% 2.5 Mg/3 Ml Neb Soln) 2.5 mg NEB Q4H PRN PRN Reason: Dyspnea Albuterol/Ipratropium (Albuterol/Ipratropium 4 Gm Inhalation [place]) 0 gm INH QIDRT [facility] Last Admin: 04/24/21 10:50 Dose: Not Given Documented by: Albuterol/Ipratropium (Albuterol/Ipratropium 3.0-0.5 Mg/3 Ml Neb Soln) 3 ml NEB QIDRT [facility] Last Admin: 04/24/21 10:50 Dose: 3 ml Documented by: Allopurinol (Allopurinol 100 Mg Tab) 100 mg PO DAILY [facility] Last Admin: 04/24/21 08:53 Dose: 100 mg Documented by: Ascorbic Acid (Ascorbic Acid 500 Mg Tab) 250 mg PO QID [facility] Last Admin: 04/24/21 10:44 Dose: 250 mg Documented by: Aspirin (Aspirin 81 Mg Tab.Ec) 81 mg PO DAILY [facility] Last Admin: 04/24/21 08:55 Dose: 81 mg Documented by: Atorvastatin Calcium (Atorvastatin 20 Mg Tab) 40 mg PO BEDTIME [facility] Last Admin: 04/23/21 21:12 Dose: 40 mg Documented by: Benzonatate (Benzonatate 100 Mg Cap) 100 mg PO TID PRN PRN Reason: Cough Last Admin: 04/21/21 04:30 Dose: 100 mg Documented by: Benzonatate (Benzonatate 100 Mg Cap) 100 mg PO Q24H [facility] Last Admin: 04/23/21 18:11 Dose: 100 mg Documented by: Calcium Carbonate/Glycine (Calcium Carbonate 500 Mg Tab.Chew) 1,000 mg PO Q2H PRN PRN Reason: Indigestion Cholecalciferol (Cholecalciferol (Vitamin D3) 25 Mcg Tab) 25 mcg PO DAILY [facility] Last Admin: 04/24/21 08:51 Dose: 25 mcg Documented by: Cyanocobalamin (Cyanocobalamin (Vitamin B12) 1,000 Mcg Tab) 500 mcg PO DAILY [facility] Last Admin: 04/24/21 08:52 Dose: 500 mcg Documented by: Dexamethasone (Dexamethasone 2 Mg Tab) 6 mg PO Q24H [facility] Last Admin: 04/23/21 18:11 Dose: 6 mg Documented by: Digoxin (Digoxin 125 Mcg Tab) 125 mcg PO DAILY@1300 [facility] Last Admin: 04/24/21 14:05 Dose: 125 mcg Documented by: Docusate Sodium (Docusate Sodium 100 Mg Cap) 100 mg PO DAILY [facility] Last Admin: 04/24/21 08:52 Dose: 100 mg Documented by: Doxycycline Hyclate (Doxycycline 100 Mg Cap) 100 mg PO Q12H [facility] Stop: 04/24/21 22:01 Last Admin: 04/24/21 09:29 Dose: 100 mg Documented by: Folic Acid (Folic Acid 1 Mg Tab) 0.5 mg PO DAILY [facility] Last Admin: 04/24/21 08:52 Dose: 0.5 mg Documented by: Guaifenesin/Dextromethorphan (Guaifenesin/Dextromethorphan 100-10 Mg/5 Ml Soln 10 Ml Cup) 10 ml PO Q4H PRN PRN Reason: Cough Last Admin: 04/21/21 21:08 Dose: 10 ml Documented by: Isosorbide Mononitrate (Isosorbide Mononitrate 30 Mg Tab.Er) 30 mg PO DAILY [facility] Last Admin: 04/24/21 08:53 Dose: 30 mg Documented by: Loperamide HCl (Loperamide 2 Mg Cap) 2 mg PO Q4H PRN PRN Reason: Diarrhea Last Admin: 04/16/21 17:47 Dose: 2 mg Documented by: Lorazepam (Lorazepam 2 Mg/Ml Sdv) 0.5 mg IVPUSH Q4H PRN PRN Reason: Nausea/Vomiting Magnesium Hydroxide (Magnesium Hydroxide 400 Mg/5 Ml Susp 30 Ml Cup) 30 ml PO Q12H PRN PRN Reason: Constipation Melatonin (Melatonin 3 Mg Tab) 9 mg PO BEDTIME PRN PRN Reason: Sleep Last Admin: 04/24/21 01:21 Dose: 9 mg Documented by: Metoprolol Succinate (Metoprolol Succinate 25 Mg Tab.Er) 25 mg PO BID [facility] Last Admin: 04/24/21 08:54 Dose: 25 mg Documented by: Mometasone Furoate/Formoterol Fumar (Formoterol/Mometasone 200-5 Mcg 8.8 Gm Inhaler) 0 puff IH BIDRT [facility] Last Admin: 04/24/21 07:07 Dose: 2 puff Documented by: Ondansetron HCl (Ondansetron 4 Mg/2 Ml Sdv) 4 mg IV Q6H PRN PRN Reason: Nausea/Vomiting Ondansetron HCl (Ondansetron 4 Mg Tab.Dis) 4 mg PO Q6H PRN PRN Reason: Nausea able to take PO Pantoprazole Sodium (Pantoprazole 40 Mg Tab.Cr) 40 mg PO BIDAC [facility] Last Admin: 04/24/21 07:31 Dose: 40 mg Documented by: Senna/Docusate Sodium (Docusate Sodium/Sennosides 50-8.6 Mg Tab) 1 tab PO BID PRN PRN Reason: Constipation Spironolactone (Spironolactone 25 Mg Tab) 12.5 mg PO DAILY [facility] Last Admin: 04/24/21 08:53 Dose: 12.5 mg Documented by: Torsemide (Torsemide 20 Mg Tab) 40 mg PO DAILY [facility] Last Admin: 04/24/21 08:54 Dose: 40 mg Documented by: Warfarin Sodium (Warfarin 2.5 Mg Tab) 1.25 mg PO DAILY@1300 [facility] Last Admin: 04/23/21 15:50 Dose: Not Given Documented by: Discontinued Medications Ascorbic Acid (Ascorbic Acid 500 Mg Tab) 1,000 mg PO BIDAC [facility] Last Admin: 04/16/21 10:37 Dose: Not Given Documented by: Bumetanide (Bumetanide 1 Mg/4 Ml Mdv) 2 mg IVPUSH ONETIME ONE Stop: 04/22/21 18:01 Last Admin: 04/22/21 17:12 Dose: 2 mg Documented by: Dexamethasone (Dexamethasone 4 Mg/Ml Sdv) 6 mg IVPUSH Q24H [facility] Last Admin: 04/18/21 16:02 Dose: 6 mg Documented by: Doxycycline Hyclate (Doxycycline 100 Mg Cap) 100 mg PO Q12H [facility] Stop: 04/25/21 00:01 Last Admin: 04/21/21 12:12 Dose: 100 mg Documented by: Heparin Sodium (Porcine) (Heparin Sodium 5,000 Units/Ml Vial) 4,000 units IVPUSH ONETIME ONE Stop: 04/15/21 15:21 Last Admin: 04/15/21 16:51 Dose: Not Given Documented by: Heparin Sodium/Dextrose (Heparin 25,000 Units In D5w 500 Ml) 25,000 units in 500 mls @ 18 mls/hr IV TITRATE [facility] Isosorbide Mononitrate (Isosorbide Mononitrate 30 Mg Tab.Er) 30 mg PO ONETIME ONE Stop: 04/18/21 06:28 Last Admin: 04/18/21 06:39 Dose: 30 mg Documented by: Phytonadione (Phytonadione 5 Mg Tab) 2.5 mg PO ONETIME ONE Stop: 04/18/21 13:01 Last Admin: 04/18/21 13:43 Dose: 2.5 mg Documented by: Warfarin Sodium (Warfarin 5 Mg Tab) 5 mg PO DAILY@1300 [facility] Last Admin: 04/17/21 13:31 Dose: 5 mg Documented by: Warfarin Sodium (Warfarin 2.5 Mg Tab) 2.5 mg PO DAILY@1300 [facility] Last Admin: 04/20/21 12:21 Dose: 2.5 mg Documented by: - Exam Quality Assessment: Supplemental Oxygen, DVT Prophylaxis General: Alert, Oriented, Cooperative, Moderate Distress Lungs: Decreased Breath Sounds. No: Crackles, Rales, Rhonchi, Wheezing Cardiovascular: Regular Rate, Regular Rhythm, No Murmurs GI/Abdominal Exam: Soft, Non-Tender, No Organomegaly, No Distention Extremities: Non-Tender, No Pedal Edema - Patient Data Lab Results Last 24 hrs: Laboratory Results - last 24 hr 04/24/21 04/24/21 04/24/21 Range/Units 04:20 04:20 04:20 WBC 23.6 H (4.5-11.0) K/uL RBC 3.45 L (4.30-5.90) M/uL Hgb 10.1 L (12.0-15.0) g/dL Hct 32.0 L (40.0-54.0) % MCV 93 (80-98) fL MCH 29 (27-31) pg MCHC 32 (32-36) % Plt Count 312 (150-400) K/uL Add Manual Diff Yes Neutrophils % (Manual) 89 H (36-66) % Lymphocytes % (Manual) 5 L (24-44) % Monocytes % (Manual) 6 (2-6) % PT 40.4 H (9.2-10.6) sec INR 4.1 H* D-Dimer, Quantitative (0.0-500.0) ng/mL Sodium 144 (140-148) mmol/L Potassium 4.3 (3.6-5.2) mmol/L Chloride 100 (100-108) mmol/L Carbon Dioxide 36 H (21-32) mmol/L Anion Gap 12.3 (5.0-14.0) mmol/L BUN 72 H (7-18) mg/dL Creatinine 1.4 H (0.8-1.3) mg/dL Est Cr Clr Drug Dosing 36.72 mL/min Estimated GFR (MDRD) 48 L (>60) Glucose 189 H (74-106) mg/dL Calcium 8.9 (8.5-10.1) mg/dL Total Bilirubin 1.4 H (0.2-1.0) mg/dL AST 48 H (15-37) U/L ALT 63 (12-78) U/L Alkaline Phosphatase 98 (46-116) U/L C-Reactive Protein (0.0-0.3) mg/dL Total Protein 6.1 L (6.4-8.2) g/dL Albumin 2.5 L (3.4-5.0) g/dL Globulin 3.6 H (2.3-3.5) g/dL Albumin/Globulin Ratio 0.7 L (1.2-2.2) 04/24/21 04/24/21 Range/Units 04:20 04:20 WBC (4.5-11.0) K/uL RBC (4.30-5.90) M/uL Hgb (12.0-15.0) g/dL Hct (40.0-54.0) % MCV (80-98) fL MCH (27-31) pg MCHC (32-36) % Plt Count (150-400) K/uL Add Manual Diff Neutrophils % (Manual) (36-66) % Lymphocytes % (Manual) (24-44) % Monocytes % (Manual) (2-6) % PT (9.2-10.6) sec INR D-Dimer, Quantitative 1166.25 H (0.0-500.0) ng/mL Sodium (140-148) mmol/L Potassium (3.6-5.2) mmol/L Chloride (100-108) mmol/L Carbon Dioxide (21-32) mmol/L Anion Gap (5.0-14.0) mmol/L BUN (7-18) mg/dL Creatinine (0.8-1.3) mg/dL Est Cr Clr Drug Dosing mL/min Estimated GFR (MDRD) (>60) Glucose (74-106) mg/dL Calcium (8.5-10.1) mg/dL Total Bilirubin (0.2-1.0) mg/dL AST (15-37) U/L ALT (12-78) U/L Alkaline Phosphatase (46-116) U/L C-Reactive Protein 6.59 H (0.0-0.3) mg/dL Total Protein (6.4-8.2) g/dL Albumin (3.4-5.0) g/dL Globulin (2.3-3.5) g/dL Albumin/Globulin Ratio (1.2-2.2) Result Diagrams: 04/24/21 04:20 04/24/21 04:20 Sepsis Event Note - Evaluation Sepsis Screening Result: Possible Sepsis Risk - Focused Exam Vital Signs: Vital Signs Temp Pulse Pulse Resp BP BP Pulse Ox 04/24/21 14:05 103 H 04/24/21 10:13 97.4 F 96 18 98/50 L 91 L 04/24/21 08:54 84 119/53 L 04/24/21 08:53 119/53 L 04/24/21 07:25 97.7 F 84 20 119/53 L 90 L - Problem List Review Problem List Initiated/Reviewed/Updated: Yes - My Orders Last 24 Hours: My Active Orders 04/23/21 16:10 RT Aerosol Therapy [RC] ASDIRECTED Albuterol [Proventil Neb Soln] 2.5 mg NEB Q4H PRN 04/23/21 21:00 Albuterol/Ipratropium [DuoNeb 3.0-0.5 MG/3 ML] 3 ml NEB QIDRT 04/25/21 05:00 BASIC METABOLIC PANEL,BMP [CHEM] Timed CBC WITH AUTO DIFF [HEME] Timed INR,PT,PROTHROMBIN TIME [COAG] DAILY 04/26/21 05:00 INR,PT,PROTHROMBIN TIME [COAG] DAILY 04/27/21 05:00 INR,PT,PROTHROMBIN TIME [COAG] DAILY 04/28/21 05:00 INR,PT,PROTHROMBIN TIME [COAG] DAILY 04/29/21 05:00 INR,PT,PROTHROMBIN TIME [COAG] DAILY - Plan Plan:: ASSESSMENT AND PLAN - COVID-19 pneumonia-complicated by acute on chronic respiratory failure. Stable. Tolerating current treatment. Continues to experience shortness of breath with minimal activity -Dexamethasone 6 mg daily (day 10) -Remdesivir x5 days complete -Supplement oxygen -Encourage prone positioning -Isolation precautions (symptom onset 04/12) Acute kidney injury-renal function stable since yesterday -Continue diuretics (dose reduced slightly from home dose) -Recheck labs in the morning Elevated troponin-suspect demand ischemia with known heart disease, Covid infection with hypoxia and reduced kidney function. Level decreased to near normal. Coronary artery disease-complicated by ischemic cardiomyopathy and heart failure with reduced ejection fraction. -Continue diuretics -Continue isosorbide mononitrate -Hold losartan -Continue additional medical management Mechanical aortic valve replacement-chronically anticoagulated. INR suprathera peutic -Hold warfarin -INR in the morning -INR goal 2.5-3.5 Anemia-mild, stable. -Outpatient work-up Maintenance issues - -DVT prophylaxis-warfarin -GI prophylaxis-PPI -[id number] Disposition -I anticipate discharge to the half-way for subacute rehab after the hospital stay. He will need isolation precautions until 04/22. We are planning to transition to swing bed on 04/22 until a subacute rehab bed is available on the . Primary care physician -Dr Savage Rodriguez
[2021-04-24] MEDS: Dexamethasone 2 MG Tab PO SCH (17:03)
[2021-04-24] MEDS: Benzonatate 100 MG Cap PO SCH (17:04)
[2021-04-24] MEDS: atorvaSTATin 20 MG Tab PO SCH (22:33)
[2021-04-25] MEDS: Ascorbic Acid 500 MG Tab PO SCH ×4 (06:15→21:01)
[2021-04-25] MEDS: Albuterol/Ipratropium 4 GM Inhalation Spray INH SCH ×4 (06:57→20:35)
[2021-04-25] MEDS: Formoterol/Mometasone 200-5 MCG 8.8 GM Inhaler IH SCH ×2 (06:57→20:35)
[2021-04-25] MEDS: Albuterol/Ipratropium 3.0-0.5 MG/3 ML Neb Soln NEB SCH ×4 (06:57→20:39)
[2021-04-25] MEDS: Pantoprazole 40 MG Tab.CR PO SCH ×2 (08:50→16:58)
[2021-04-25] MEDS: Cholecalciferol (Vitamin D3) 25 MCG Tab PO SCH (08:51)
[2021-04-25] MEDS: Cyanocobalamin (Vitamin B12) 1,000 MCG Tab PO SCH (08:51)
[2021-04-25] MEDS: Allopurinol 100 MG Tab PO SCH (08:54)
[2021-04-25] MEDS: Torsemide 20 MG Tab PO SCH (08:54)
[2021-04-25] MEDS: Spironolactone 25 MG Tab PO SCH (08:55)
[2021-04-25] MEDS: Docusate Sodium 100 MG Cap PO SCH (08:55)
[2021-04-25] MEDS: Aspirin 81 MG Tab.EC PO SCH (08:56)
[2021-04-25] MEDS: Isosorbide Mononitrate 30 MG Tab.ER PO SCH (08:57)
[2021-04-25] MEDS: Metoprolol Succinate 25 MG Tab.ER PO SCH ×2 (08:59→20:37)
[2021-04-25] MEDS: Folic Acid 1 MG Tab PO SCH (08:59)
--- NOTE | 2021-04-25 13:48 | PCM.PN ---
- General Info Date of Service: 04/25/21 Subjective Update: Mr. Batres is remained stable since yesterday, continues to require supplemental oxygen at 2 L/min via nasal cannula. He is comfortable at rest but becomes short of breath with fairly minimal exertion. Functional Status: Reports: Urinating - Review of Systems General: Reports: Weakness, Fatigue. Denies: Fever, Chills Pulmonary: Reports: Shortness of Breath. Denies: Pleuritic Chest Pain, Cough, Sputum, Hemoptysis, Wheezing Cardiovascular: Reports: Dyspnea on Exertion. Denies: Chest Pain, Palpitations, Orthopnea, PND, Edema, Lightheadedness Gastrointestinal: Reports: No Symptoms Genitourinary: Reports: No Symptoms - Patient Data Vitals - Most Recent: Last Vital Signs Temp 97.5 F 04/25/21 11:22 Pulse 76 04/25/21 11:22 Resp 20 04/25/21 11:22 BP 112/52 L 04/25/21 11:22 Pulse Ox 90 L 04/25/21 11:22 Weight - Most Recent: 185 lb I&O - Last 24 Hours: Intake & Output 04/24/21 04/25/21 04/25/21 22:59 06:59 14:59 Intake Total 480 600 Output Total 925 400 550 Balance -445 -400 50 Lab Results Last 24 Hours: Laboratory Results - last 24 hr 04/25/21 04/25/21 04/25/21 Range/Units 05:00 05:00 05:00 WBC 20.6 H (4.5-11.0) K/uL RBC 3.43 L (4.30-5.90) M/uL Hgb 10.4 L (12.0-15.0) g/dL Hct 32.2 L (40.0-54.0) % MCV 94 (80-98) fL MCH 30 (27-31) pg MCHC 32 (32-36) % Plt Count 284 (150-400) K/uL Add Manual Diff Yes Neutrophils % (Manual) 92 H (36-66) % Band Neutrophils % 1 L (5-11) % Lymphocytes % (Manual) 2 L (24-44) % Monocytes % (Manual) 5 (2-6) % Nucleated RBCs 1 Atypical Lymphocytes Rare PT 35.3 H (9.2-10.6) sec INR 3.6 Sodium 146 (140-148) mmol/L Potassium 4.6 (3.6-5.2) mmol/L Chloride 102 (100-108) mmol/L Carbon Dioxide 38 H (21-32) mmol/L Anion Gap 10.6 (5.0-14.0) mmol/L BUN 70 H (7-18) mg/dL Creatinine 1.3 (0.8-1.3) mg/dL Est Cr Clr Drug Dosing 39.55 mL/min Estimated GFR (MDRD) 53 L (>60) Glucose 192 H (74-106) mg/dL Calcium 9.0 (8.5-10.1) mg/dL Med Orders - Current: Current Medications Acetaminophen (Acetaminophen 325 Mg Tab) 650 mg PO Q4H PRN PRN Reason: Pain (Mild 1-3)/fever Last Admin: 04/16/21 16:03 Dose: 650 mg Documented by: Albuterol (Albuterol 8 Gm Inhaler) 0 gm INH Q4H PRN PRN Reason: Shortness of Breath Last Admin: 04/23/21 15:52 Dose: 2 puff Documented by: Albuterol (Albuterol 0.083% 2.5 Mg/3 Ml Neb Soln) 2.5 mg NEB Q4H PRN PRN Reason: Dyspnea Albuterol/Ipratropium (Albuterol/Ipratropium 4 Gm Inhalation Cabins) 0 gm INH QIDRT [facility] Last Admin: 04/25/21 10:22 Dose: Not Given Documented by: Albuterol/Ipratropium (Albuterol/Ipratropium 3.0-0.5 Mg/3 Ml Neb Soln) 3 ml NEB QIDRT [facility] Last Admin: 04/25/21 10:53 Dose: 3 ml Documented by: Allopurinol (Allopurinol 100 Mg Tab) 100 mg PO DAILY [facility] Last Admin: 04/25/21 08:54 Dose: 100 mg Documented by: Ascorbic Acid (Ascorbic Acid 500 Mg Tab) 250 mg PO QID [facility] Last Admin: 04/25/21 09:00 Dose: 250 mg Documented by: Aspirin (Aspirin 81 Mg Tab.Ec) 81 mg PO DAILY [facility] Last Admin: 04/25/21 08:56 Dose: 81 mg Documented by: Atorvastatin Calcium (Atorvastatin 20 Mg Tab) 40 mg PO BEDTIME [facility] Last Admin: 04/24/21 22:33 Dose: 40 mg Documented by: Benzonatate (Benzonatate 100 Mg Cap) 100 mg PO TID PRN PRN Reason: Cough Last Admin: 04/21/21 04:30 Dose: 100 mg Documented by: Benzonatate (Benzonatate 100 Mg Cap) 100 mg PO Q24H [facility] Last Admin: 04/24/21 17:04 Dose: 100 mg Documented by: Calcium Carbonate/Glycine (Calcium Carbonate 500 Mg Tab.Chew) 1,000 mg PO Q2H PRN PRN Reason: Indigestion Cholecalciferol (Cholecalciferol (Vitamin D3) 25 Mcg Tab) 25 mcg PO DAILY [facility] Last Admin: 04/25/21 08:51 Dose: 25 mcg Documented by: Cyanocobalamin (Cyanocobalamin (Vitamin B12) 1,000 Mcg Tab) 500 mcg PO DAILY [facility] Last Admin: 04/25/21 08:51 Dose: 500 mcg Documented by: Digoxin (Digoxin 125 Mcg Tab) 125 mcg PO DAILY@1300 [facility] Last Admin: 04/24/21 14:05 Dose: 125 mcg Documented by: Docusate Sodium (Docusate Sodium 100 Mg Cap) 100 mg PO DAILY [facility] Last Admin: 04/25/21 08:55 Dose: 100 mg Documented by: Folic Acid (Folic Acid 1 Mg Tab) 0.5 mg PO DAILY [facility] Last Admin: 04/25/21 08:59 Dose: 0.5 mg Documented by: Guaifenesin/Dextromethorphan (Guaifenesin/Dextromethorphan 100-10 Mg/5 Ml Soln 10 Ml Cup) 10 ml PO Q4H PRN PRN Reason: Cough Last Admin: 04/21/21 21:08 Dose: 10 ml Documented by: Isosorbide Mononitrate (Isosorbide Mononitrate 30 Mg Tab.Er) 30 mg PO DAILY [facility] Last Admin: 04/25/21 08:57 Dose: 30 mg Documented by: Loperamide HCl (Loperamide 2 Mg Cap) 2 mg PO Q4H PRN PRN Reason: Diarrhea Last Admin: 04/16/21 17:47 Dose: 2 mg Documented by: Lorazepam (Lorazepam 2 Mg/Ml Sdv) 0.5 mg IVPUSH Q4H PRN PRN Reason: Nausea/Vomiting Magnesium Hydroxide (Magnesium Hydroxide 400 Mg/5 Ml Susp 30 Ml Cup) 30 ml PO Q12H PRN PRN Reason: Constipation Melatonin (Melatonin 3 Mg Tab) 9 mg PO BEDTIME PRN PRN Reason: Sleep Last Admin: 04/24/21 22:44 Dose: 9 mg Documented by: Metoprolol Succinate (Metoprolol Succinate 25 Mg Tab.Er) 25 mg PO BID [facility] Last Admin: 04/25/21 08:59 Dose: 25 mg Documented by: Mometasone Furoate/Formoterol Fumar (Formoterol/Mometasone 200-5 Mcg 8.8 Gm Inhaler) 0 puff IH BIDRT [facility] Last Admin: 04/25/21 06:57 Dose: 2 puff Documented by: Ondansetron HCl (Ondansetron 4 Mg/2 Ml Sdv) 4 mg IV Q6H PRN PRN Reason: Nausea/Vomiting Ondansetron HCl (Ondansetron 4 Mg Tab.Dis) 4 mg PO Q6H PRN PRN Reason: Nausea able to take PO Pantoprazole Sodium (Pantoprazole 40 Mg Tab.Cr) 40 mg PO BIDAC [facility] Last Admin: 04/25/21 08:50 Dose: 40 mg Documented by: Senna/Docusate Sodium (Docusate Sodium/Sennosides 50-8.6 Mg Tab) 1 tab PO BID PRN PRN Reason: Constipation Last Admin: 04/24/21 17:02 Dose: 1 tab Documented by: Spironolactone (Spironolactone 25 Mg Tab) 12.5 mg PO DAILY [facility] Last Admin: 04/25/21 08:55 Dose: 12.5 mg Documented by: Torsemide (Torsemide 20 Mg Tab) 60 mg PO DAILY [facility] Warfarin Sodium (Warfarin 2.5 Mg Tab) 1.25 mg PO DAILY@1300 [facility] Last Admin: 04/23/21 15:50 Dose: Not Given Documented by: Discontinued Medications Ascorbic Acid (Ascorbic Acid 500 Mg Tab) 1,000 mg PO BIDAC [facility] Last Admin: 04/16/21 10:37 Dose: Not Given Documented by: Bumetanide (Bumetanide 1 Mg/4 Ml Mdv) 2 mg IVPUSH ONETIME ONE Stop: 04/22/21 18:01 Last Admin: 04/22/21 17:12 Dose: 2 mg Documented by: Dexamethasone (Dexamethasone 4 Mg/Ml Sdv) 6 mg IVPUSH Q24H [facility] Last Admin: 04/18/21 16:02 Dose: 6 mg Documented by: Dexamethasone (Dexamethasone 2 Mg Tab) 6 mg PO Q24H [facility] Last Admin: 04/24/21 17:03 Dose: 6 mg Documented by: Doxycycline Hyclate (Doxycycline 100 Mg Cap) 100 mg PO Q12H [facility] Stop: 04/25/21 00:01 Last Admin: 04/21/21 12:12 Dose: 100 mg Documented by: Doxycycline Hyclate (Doxycycline 100 Mg Cap) 100 mg PO Q12H [facility] Stop: 04/24/21 22:01 Last Admin: 04/24/21 22:34 Dose: 100 mg Documented by: Heparin Sodium (Porcine) (Heparin Sodium 5,000 Units/Ml Vial) 4,000 units IVPUSH ONETIME ONE Stop: 04/15/21 15:21 Last Admin: 04/15/21 16:51 Dose: Not Given Documented by: Heparin Sodium/Dextrose (Heparin 25,000 Units In D5w 500 Ml) 25,000 units in 500 mls @ 18 mls/hr IV TITRATE [facility] Isosorbide Mononitrate (Isosorbide Mononitrate 30 Mg Tab.Er) 30 mg PO ONETIME ONE Stop: 04/18/21 06:28 Last Admin: 04/18/21 06:39 Dose: 30 mg Documented by: Phytonadione (Phytonadione 5 Mg Tab) 2.5 mg PO ONETIME ONE Stop: 04/18/21 13:01 Last Admin: 04/18/21 13:43 Dose: 2.5 mg Documented by: Torsemide (Torsemide 20 Mg Tab) 40 mg PO DAILY [facility] Last Admin: 04/25/21 08:54 Dose: 40 mg Documented by: Warfarin Sodium (Warfarin 5 Mg Tab) 5 mg PO DAILY@1300 [facility] Last Admin: 04/17/21 13:31 Dose: 5 mg Documented by: Warfarin Sodium (Warfarin 2.5 Mg Tab) 2.5 mg PO DAILY@1300 [facility] Last Admin: 04/20/21 12:21 Dose: 2.5 mg Documented by: - Exam Quality Assessment: Supplemental Oxygen, DVT Prophylaxis General: Alert, Oriented, Cooperative, Mild Distress Lungs: Decreased Breath Sounds. No: Crackles, Rales, Rhonchi, Wheezing Cardiovascular: Regular Rate, Regular Rhythm, No Murmurs GI/Abdominal Exam: Soft, Non-Tender, No Organomegaly, No Distention Extremities: Non-Tender, No Pedal Edema - Patient Data Lab Results Last 24 hrs: Laboratory Results - last 24 hr 04/25/21 04/25/21 04/25/21 Range/Units 05:00 05:00 05:00 WBC 20.6 H (4.5-11.0) K/uL RBC 3.43 L (4.30-5.90) M/uL Hgb 10.4 L (12.0-15.0) g/dL Hct 32.2 L (40.0-54.0) % MCV 94 (80-98) fL MCH 30 (27-31) pg MCHC 32 (32-36) % Plt Count 284 (150-400) K/uL Add Manual Diff Yes Neutrophils % (Manual) 92 H (36-66) % Band Neutrophils % 1 L (5-11) % Lymphocytes % (Manual) 2 L (24-44) % Monocytes % (Manual) 5 (2-6) % Nucleated RBCs 1 Atypical Lymphocytes Rare PT 35.3 H (9.2-10.6) sec INR 3.6 Sodium 146 (140-148) mmol/L Potassium 4.6 (3.6-5.2) mmol/L Chloride 102 (100-108) mmol/L Carbon Dioxide 38 H (21-32) mmol/L Anion Gap 10.6 (5.0-14.0) mmol/L BUN 70 H (7-18) mg/dL Creatinine 1.3 (0.8-1.3) mg/dL Est Cr Clr Drug Dosing 39.55 mL/min Estimated GFR (MDRD) 53 L (>60) Glucose 192 H (74-106) mg/dL Calcium 9.0 (8.5-10.1) mg/dL Result Diagrams: 04/25/21 05:00 04/25/21 05:00 Sepsis Event Note - Evaluation Sepsis Screening Result: No Definite Risk - Focused Exam Vital Signs: Vital Signs Temp Pulse Pulse Resp BP BP BP 04/25/21 11:22 97.5 F 76 20 112/52 L 04/25/21 10:11 96.9 F 92 18 106/51 L 04/25/21 08:59 77 107/52 L 04/25/21 08:57 107/52 L 04/25/21 07:52 97.3 F 77 18 107/52 L 04/25/21 02:56 97.4 F 86 18 115/45 L 04/25/21 02:00 Pulse Ox 04/25/21 11:22 90 L 04/25/21 10:11 93 L 04/25/21 08:59 04/25/21 08:57 04/25/21 07:52 92 L 04/25/21 02:56 97 04/25/21 02:00 96 - Problem List Review Problem List Initiated/Reviewed/Updated: Yes - My Orders Last 24 Hours: My Active Orders 04/26/21 05:00 BASIC METABOLIC PANEL,BMP [CHEM] Timed CBC WITH AUTO DIFF [HEME] Timed INR,PT,PROTHROMBIN TIME [COAG] DAILY 04/26/21 09:00 Torsemide [Demadex] 60 mg PO DAILY 04/27/21 05:00 INR,PT,PROTHROMBIN TIME [COAG] DAILY 04/28/21 05:00 INR,PT,PROTHROMBIN TIME [COAG] DAILY 04/29/21 05:00 INR,PT,PROTHROMBIN TIME [COAG] DAILY - Plan Plan:: ASSESSMENT AND PLAN - COVID-19 pneumonia-complicated by acute on chronic respiratory failure. Stable. Tolerating current treatment. Continues to experience shortness of breath with minimal activity -Dexamethasone 6 mg daily, complete -Remdesivir x5 days complete -Supplement oxygen -Encourage prone positioning -Isolation precautions (symptom onset 04/12) Acute kidney injury-renal function stable over the past few days -Continue diuretics -Recheck labs in the morning Elevated troponin-resolved Coronary artery disease-complicated by ischemic cardiomyopathy and heart failure with reduced ejection fraction. -Continue diuretics -Continue isosorbide mononitrate -Hold losartan -Continue additional medical management Mechanical aortic valve replacement-chronically anticoagulated. INR supratherapeutic -Resume warfarin tomorrow -INR in the morning -INR goal 2.5-3.5 Anemia-mild, stable. -Outpatient work-up Maintenance issues - -DVT prophylaxis-warfarin -GI prophylaxis-PPI -[id number] Disposition -I anticipate discharge to the residential for subacute rehab after the hospital stay. He will need isolation precautions until 04/22. We are planning to transition to swing bed on 04/22 until a subacute rehab bed is available on the . Primary care physician -Dr Savage Rodriguez
[2021-04-25] MEDS: Digoxin 125 MCG Tab PO SCH (14:42)
[2021-04-25] MEDS: Benzonatate 100 MG Cap PO SCH (17:00)
[2021-04-25] MEDS: atorvaSTATin 20 MG Tab PO SCH (20:36)
[2021-04-25] MEDS: Melatonin 3 MG Tab PO PRN (20:36)
[2021-04-25] MEDS: Acetaminophen 325 MG Tab PO PRN (22:04)
[2021-04-25] MEDS: Benzonatate 100 MG Cap PO PRN (22:04)
[2021-04-26] MEDS: Albuterol 0.083% 2.5 MG/3 ML Neb Soln NEB PRN ×2 (00:48→04:54)
[2021-04-26] MEDS: Ascorbic Acid 500 MG Tab PO SCH ×4 (05:13→21:08)
[2021-04-26] MEDS: Albuterol/Ipratropium 3.0-0.5 MG/3 ML Neb Soln NEB SCH ×4 (06:27→21:02)
[2021-04-26] MEDS: Albuterol/Ipratropium 4 GM Inhalation Spray INH SCH ×2 (06:53→10:21)
[2021-04-26] MEDS: Formoterol/Mometasone 200-5 MCG 8.8 GM Inhaler IH SCH ×2 (07:17→21:00)
[2021-04-26] MEDS: Albuterol 8 GM Inhaler INH PRN (08:24)
[2021-04-26] MEDS: Spironolactone 25 MG Tab PO SCH (08:26)
[2021-04-26] MEDS: Torsemide 20 MG Tab PO SCH (08:26)
[2021-04-26] MEDS: Pantoprazole 40 MG Tab.CR PO SCH ×2 (09:16→15:31)
[2021-04-26] MEDS: Docusate Sodium 100 MG Cap PO SCH (09:16)
[2021-04-26] MEDS: Folic Acid 1 MG Tab PO SCH (09:17)
[2021-04-26] MEDS: Cholecalciferol (Vitamin D3) 25 MCG Tab PO SCH (09:17)
[2021-04-26] MEDS: Metoprolol Succinate 25 MG Tab.ER PO SCH ×2 (09:17→21:07)
[2021-04-26] MEDS: Allopurinol 100 MG Tab PO SCH (09:17)
[2021-04-26] MEDS: Aspirin 81 MG Tab.EC PO SCH (09:17)
[2021-04-26] MEDS: Cyanocobalamin (Vitamin B12) 1,000 MCG Tab PO SCH (09:18)
[2021-04-26] MEDS: Isosorbide Mononitrate 30 MG Tab.ER PO SCH (09:18)
[2021-04-26] MEDS ORDERED: Vancomycin 1 GM SDV IV SCH (11:15)
[2021-04-26] MEDS: Meropenem 1 GM in Sodium Chloride 0.9% 100 ML IV SCH ×2 (11:22→19:34)
[2021-04-26] MEDS ORDERED: Vancomycin 1.6 GM in Sodium Chloride 0.9% 250 ML IV SCH (12:30)
[2021-04-26] MEDS: Warfarin 2.5 MG Tab PO SCH (12:35)
--- NOTE | 2021-04-26 12:47 | CR ---
CHEST: Portable 04/26/2021 at 12:19 PM CLINICAL HISTORY:Hypoxia,covid COMPARISON:04/22/2021 FINDINGS: Patient has moderate bilateral lower lobe pneumonic infiltrates. There is no new area consolidation in the right lower lung field. Left pleural effusion persists. Heart is enlarged. Patient has had previous sternotomy. There are atherosclerotic changes in the aorta. Impression: Persistent bilateral pulmonary infiltrates No area of consolidation in the right lower lobe [id number] left pleural effusion similar to prior study.
[2021-04-26] MEDS: Morphine 10 MG/0.5 ML Oral Syringe PO PRN ×2 (13:28→21:08)
--- NOTE | 2021-04-26 13:36 | PCM.PN ---
- General Info Date of Service: 04/26/21 Subjective Update: Mr. Batres is not feeling as well today with more fatigue and shortness of breath. White blood cell count has been elevated and has been thought secondary to recent steroid use. He has not had significant fevers but has had persistent productive cough with purulent appearing sputum. He has required increased level of supplemental oxygen today. Functional Status: Reports: Urinating. Denies: Ambulating - Review of Systems General: Reports: Weakness, Fatigue. Denies: Fever, Chills Pulmonary: Reports: Shortness of Breath, Cough, Sputum. Denies: Pleuritic Chest Pain, Hemoptysis, Wheezing Cardiovascular: Reports: Dyspnea on Exertion. Denies: Chest Pain, Palpitations, Orthopnea, PND, Edema, Lightheadedness Gastrointestinal: Reports: No Symptoms Genitourinary: Reports: No Symptoms - Patient Data Vitals - Most Recent: Last Vital Signs Temp 97.9 F 04/26/21 10:38 Pulse 95 04/26/21 10:38 Resp 18 04/26/21 10:38 BP 102/62 04/26/21 10:38 Pulse Ox 88 L 04/26/21 10:38 Weight - Most Recent: 185 lb I&O - Last 24 Hours: Intake & Output 04/25/21 04/26/21 04/26/21 22:59 06:59 14:59 Intake Total 360 360 710 Output Total 925 675 625 Balance -565 -315 85 Lab Results Last 24 Hours: Laboratory Results - last 24 hr 04/26/21 04/26/21 04/26/21 Range/Units 05:08 05:08 05:08 WBC 26.0 H (4.5-11.0) K/uL RBC 3.73 L (4.30-5.90) M/uL Hgb 11.0 L (12.0-15.0) g/dL Hct 35.5 L (40.0-54.0) % MCV 95 (80-98) fL MCH 30 (27-31) pg MCHC 31 L (32-36) % Plt Count 291 (150-400) K/uL Add Manual Diff Yes Neutrophils % (Manual) 97 H (36-66) % Lymphocytes % (Manual) 1 L (24-44) % Monocytes % (Manual) 2 (2-6) % Anisocytosis Few Macrocytosis Occasional PT 29.9 H (9.2-10.6) sec INR 3.0 Sodium 148 (140-148) mmol/L Potassium 4.4 (3.6-5.2) mmol/L Chloride 104 (100-108) mmol/L Carbon Dioxide 38 H (21-32) mmol/L Anion Gap 10.4 (5.0-14.0) mmol/L BUN 63 H (7-18) mg/dL Creatinine 1.3 (0.8-1.3) mg/dL Est Cr Clr Drug Dosing 39.55 mL/min Estimated GFR (MDRD) 53 L (>60) Glucose 155 H (74-106) mg/dL Calcium 9.2 (8.5-10.1) mg/dL Procalcitonin ng/mL 04/26/21 Range/Units 11:45 WBC (4.5-11.0) K/uL RBC (4.30-5.90) M/uL Hgb (12.0-15.0) g/dL Hct (40.0-54.0) % MCV (80-98) fL MCH (27-31) pg MCHC (32-36) % Plt Count (150-400) K/uL Add Manual Diff Neutrophils % (Manual) (36-66) % Lymphocytes % (Manual) (24-44) % Monocytes % (Manual) (2-6) % Anisocytosis Macrocytosis PT (9.2-10.6) sec INR Sodium (140-148) mmol/L Potassium (3.6-5.2) mmol/L Chloride (100-108) mmol/L Carbon Dioxide (21-32) mmol/L Anion Gap (5.0-14.0) mmol/L BUN (7-18) mg/dL Creatinine (0.8-1.3) mg/dL Est Cr Clr Drug Dosing mL/min Estimated GFR (MDRD) (>60) Glucose (74-106) mg/dL Calcium (8.5-10.1) mg/dL Procalcitonin 0.23 ng/mL Med Orders - Current: Current Medications Acetaminophen (Acetaminophen 325 Mg Tab) 650 mg PO Q4H PRN PRN Reason: Pain (Mild 1-3)/fever Last Admin: 04/25/21 22:04 Dose: 650 mg Documented by: Albuterol (Albuterol 8 Gm Inhaler) 0 gm INH Q4H PRN PRN Reason: Shortness of Breath Last Admin: 04/26/21 08:24 Dose: 2 puff Documented by: Albuterol (Albuterol 0.083% 2.5 Mg/3 Ml Neb Soln) 2.5 mg NEB Q4H PRN PRN Reason: Dyspnea Last Admin: 04/26/21 04:54 Dose: 2.5 mg Documented by: Albuterol/Ipratropium (Albuterol/Ipratropium 3.0-0.5 Mg/3 Ml Neb Soln) 3 ml NEB QIDRT [facility] Last Admin: 04/26/21 10:21 Dose: 3 ml Documented by: Allopurinol (Allopurinol 100 Mg Tab) 100 mg PO DAILY [facility] Last Admin: 04/26/21 09:17 Dose: 100 mg Documented by: Ascorbic Acid (Ascorbic Acid 500 Mg Tab) 250 mg PO QID [facility] Last Admin: 04/26/21 09:16 Dose: 250 mg Documented by: Aspirin (Aspirin 81 Mg Tab.Ec) 81 mg PO DAILY [facility] Last Admin: 04/26/21 09:17 Dose: 81 mg Documented by: Atorvastatin Calcium (Atorvastatin 20 Mg Tab) 40 mg PO BEDTIME [facility] Last Admin: 04/25/21 20:36 Dose: 40 mg Documented by: Benzonatate (Benzonatate 100 Mg Cap) 100 mg PO TID PRN PRN Reason: Cough Last Admin: 04/25/21 22:04 Dose: 100 mg Documented by: Benzonatate (Benzonatate 100 Mg Cap) 100 mg PO Q24H [facility] Last Admin: 04/25/21 17:00 Dose: 100 mg Documented by: Bumetanide (Bumetanide 2.5 Mg/10 Ml Mdv) 2 mg IV ONETIME ONE Stop: 04/27/21 18:01 Calcium Carbonate/Glycine (Calcium Carbonate 500 Mg Tab.Chew) 1,000 mg PO Q2H PRN PRN Reason: Indigestion Last Admin: 04/25/21 21:32 Dose: 1,000 mg Documented by: Cholecalciferol (Cholecalciferol (Vitamin D3) 25 Mcg Tab) 25 mcg PO DAILY [facility] Last Admin: 04/26/21 09:17 Dose: 25 mcg Documented by: Cyanocobalamin (Cyanocobalamin (Vitamin B12) 1,000 Mcg Tab) 500 mcg PO DAILY [facility] Last Admin: 04/26/21 09:18 Dose: 500 mcg Documented by: Digoxin (Digoxin 125 Mcg Tab) 125 mcg PO DAILY@1300 [facility] Last Admin: 04/25/21 14:42 Dose: 125 mcg Documented by: Docusate Sodium (Docusate Sodium 100 Mg Cap) 100 mg PO DAILY [facility] Last Admin: 04/26/21 09:16 Dose: 100 mg Documented by: Folic Acid (Folic Acid 1 Mg Tab) 0.5 mg PO DAILY [facility] Last Admin: 04/26/21 09:17 Dose: 0.5 mg Documented by: Guaifenesin/Dextromethorphan (Guaifenesin/Dextromethorphan 100-10 Mg/5 Ml Soln 10 Ml Cup) 10 ml PO Q4H PRN PRN Reason: Cough Last Admin: 04/21/21 21:08 Dose: 10 ml Documented by: Meropenem 1 gm/ Sodium (Chloride) 100 mls @ 200 mls/hr IV Q8H [facility] Last Admin: 04/26/21 11:22 Dose: 200 mls/hr Documented by: Levofloxacin/Dextrose 750 mg/ (Premix) 150 mls @ 100 mls/hr IV Q48H [facility] Vancomycin HCl 1.6 gm/ Sodium (Chloride) 250 mls @ 166.667 mls/hr IV Q12H [facility] Stop: 04/26/21 13:59 Last Admin: 04/26/21 12:29 Dose: 166.667 mls/hr Documented by: Vancomycin HCl 1.25 gm/ Sodium (Chloride) 250 mls @ 166.667 mls/hr IV Q24H [facility] Isosorbide Mononitrate (Isosorbide Mononitrate 30 Mg Tab.Er) 30 mg PO DAILY [facility] Last Admin: 04/26/21 09:18 Dose: 30 mg Documented by: Loperamide HCl (Loperamide 2 Mg Cap) 2 mg PO Q4H PRN PRN Reason: Diarrhea Last Admin: 04/16/21 17:47 Dose: 2 mg Documented by: Lorazepam (Lorazepam 2 Mg/Ml Sdv) 0.5 mg IVPUSH Q4H PRN PRN Reason: Nausea/Vomiting Magnesium Hydroxide (Magnesium Hydroxide 400 Mg/5 Ml Susp 30 Ml Cup) 30 ml PO Q12H PRN PRN Reason: Constipation Melatonin (Melatonin 3 Mg Tab) 9 mg PO BEDTIME PRN PRN Reason: Sleep Last Admin: 04/25/21 20:36 Dose: 9 mg Documented by: Metoprolol Succinate (Metoprolol Succinate 25 Mg Tab.Er) 25 mg PO BID [facility] Last Admin: 04/26/21 09:17 Dose: 25 mg Documented by: Mometasone Furoate/Formoterol Fumar (Formoterol/Mometasone 200-5 Mcg 8.8 Gm Inhaler) 0 puff IH BIDRT [facility] Last Admin: 04/26/21 07:17 Dose: 2 puff Documented by: Morphine Sulfate (Morphine 10 Mg/0.5 Ml Oral Syringe) 2.5 mg PO Q2H PRN PRN Reason: Dyspnea Last Admin: 04/26/21 13:28 Dose: 2.5 mg Documented by: Ondansetron HCl (Ondansetron 4 Mg/2 Ml Sdv) 4 mg IV Q6H PRN PRN Reason: Nausea/Vomiting Ondansetron HCl (Ondansetron 4 Mg Tab.Dis) 4 mg PO Q6H PRN PRN Reason: Nausea able to take PO Pantoprazole Sodium (Pantoprazole 40 Mg Tab.Cr) 40 mg PO BIDAC [facility] Last Admin: 04/26/21 09:16 Dose: 40 mg Documented by: Senna/Docusate Sodium (Docusate Sodium/Sennosides 50-8.6 Mg Tab) 1 tab PO BID PRN PRN Reason: Constipation Last Admin: 04/24/21 17:02 Dose: 1 tab Documented by: Spironolactone (Spironolactone 25 Mg Tab) 12.5 mg PO DAILY [facility] Last Admin: 04/26/21 08:26 Dose: 12.5 mg Documented by: Torsemide (Torsemide 20 Mg Tab) 60 mg PO DAILY [facility] Last Admin: 04/26/21 08:26 Dose: 60 mg Documented by: Warfarin Sodium (Warfarin 2.5 Mg Tab) 1.25 mg PO DAILY@1300 [facility] Last Admin: 04/26/21 12:35 Dose: 1.25 mg Documented by: Discontinued Medications Albuterol/Ipratropium (Albuterol/Ipratropium 4 Gm Inhalation [place]) 0 gm INH QIDRT [facility] Last Admin: 04/26/21 10:21 Dose: Not Given Documented by: Ascorbic Acid (Ascorbic Acid 500 Mg Tab) 1,000 mg PO BIDAC [facility] Last Admin: 04/16/21 10:37 Dose: Not Given Documented by: Bumetanide (Bumetanide 1 Mg/4 Ml Mdv) 2 mg IVPUSH ONETIME ONE Stop: 04/22/21 18:01 Last Admin: 04/22/21 17:12 Dose: 2 mg Documented by: Dexamethasone (Dexamethasone 4 Mg/Ml Sdv) 6 mg IVPUSH Q24H [facility] Last Admin: 04/18/21 16:02 Dose: 6 mg Documented by: Dexamethasone (Dexamethasone 2 Mg Tab) 6 mg PO Q24H [facility] Last Admin: 04/24/21 17:03 Dose: 6 mg Documented by: Doxycycline Hyclate (Doxycycline 100 Mg Cap) 100 mg PO Q12H [facility] Stop: 04/25/21 00:01 Last Admin: 04/21/21 12:12 Dose: 100 mg Documented by: Doxycycline Hyclate (Doxycycline 100 Mg Cap) 100 mg PO Q12H [facility] Stop: 04/24/21 22:01 Last Admin: 04/24/21 22:34 Dose: 100 mg Documented by: Heparin Sodium (Porcine) (Heparin Sodium 5,000 Units/Ml Vial) 4,000 units IVPUSH ONETIME ONE Stop: 04/15/21 15:21 Last Admin: 04/15/21 16:51 Dose: Not Given Documented by: Heparin Sodium/Dextrose (Heparin 25,000 Units In D5w 500 Ml) 25,000 units in 500 mls @ 18 mls/hr IV TITRATE [facility] Isosorbide Mononitrate (Isosorbide Mononitrate 30 Mg Tab.Er) 30 mg PO ONETIME ONE Stop: 04/18/21 06:28 Last Admin: 04/18/21 06:39 Dose: 30 mg Documented by: Phytonadione (Phytonadione 5 Mg Tab) 2.5 mg PO ONETIME ONE Stop: 04/18/21 13:01 Last Admin: 04/18/21 13:43 Dose: 2.5 mg Documented by: Torsemide (Torsemide 20 Mg Tab) 40 mg PO DAILY [facility] Last Admin: 04/25/21 08:54 Dose: 40 mg Documented by: Vancomycin HCl (Vancomycin 1 Gm Sdv) 1 gm IV .PHARMACY TO DOSE [facility] Stop: 04/26/21 12:00 Warfarin Sodium (Warfarin 5 Mg Tab) 5 mg PO DAILY@1300 [facility] Last Admin: 04/17/21 13:31 Dose: 5 mg Documented by: Warfarin Sodium (Warfarin 2.5 Mg Tab) 2.5 mg PO DAILY@1300 [facility] Last Admin: 04/20/21 12:21 Dose: 2.5 mg Documented by: - Exam Quality Assessment: Supplemental Oxygen, DVT Prophylaxis General: Alert, Oriented, Cooperative, Moderate Distress Lungs: Decreased Breath Sounds, Rales. No: Crackles, Rhonchi, Wheezing Cardiovascular: Regular Rate, Regular Rhythm, No Murmurs GI/Abdominal Exam: Soft, Non-Tender, No Organomegaly, No Distention Extremities: Non-Tender, No Pedal Edema - Patient Data Lab Results Last 24 hrs: Laboratory Results - last 24 hr 04/26/21 04/26/21 04/26/21 Range/Units 05:08 05:08 05:08 WBC 26.0 H (4.5-11.0) K/uL RBC 3.73 L (4.30-5.90) M/uL Hgb 11.0 L (12.0-15.0) g/dL Hct 35.5 L (40.0-54.0) % MCV 95 (80-98) fL MCH 30 (27-31) pg MCHC 31 L (32-36) % Plt Count 291 (150-400) K/uL Add Manual Diff Yes Neutrophils % (Manual) 97 H (36-66) % Lymphocytes % (Manual) 1 L (24-44) % Monocytes % (Manual) 2 (2-6) % Anisocytosis Few Macrocytosis Occasional PT 29.9 H (9.2-10.6) sec INR 3.0 Sodium 148 (140-148) mmol/L Potassium 4.4 (3.6-5.2) mmol/L Chloride 104 (100-108) mmol/L Carbon Dioxide 38 H (21-32) mmol/L Anion Gap 10.4 (5.0-14.0) mmol/L BUN 63 H (7-18) mg/dL Creatinine 1.3 (0.8-1.3) mg/dL Est Cr Clr Drug Dosing 39.55 mL/min Estimated GFR (MDRD) 53 L (>60) Glucose 155 H (74-106) mg/dL Calcium 9.2 (8.5-10.1) mg/dL Procalcitonin ng/mL 04/26/21 Range/Units 11:45 WBC (4.5-11.0) K/uL RBC (4.30-5.90) M/uL Hgb (12.0-15.0) g/dL Hct (40.0-54.0) % MCV (80-98) fL MCH (27-31) pg MCHC (32-36) % Plt Count (150-400) K/uL Add Manual Diff Neutrophils % (Manual) (36-66) % Lymphocytes % (Manual) (24-44) % Monocytes % (Manual) (2-6) % Anisocytosis Macrocytosis PT (9.2-10.6) sec INR Sodium (140-148) mmol/L Potassium (3.6-5.2) mmol/L Chloride (100-108) mmol/L Carbon Dioxide (21-32) mmol/L Anion Gap (5.0-14.0) mmol/L BUN (7-18) mg/dL Creatinine (0.8-1.3) mg/dL Est Cr Clr Drug Dosing mL/min Estimated GFR (MDRD) (>60) Glucose (74-106) mg/dL Calcium (8.5-10.1) mg/dL Procalcitonin 0.23 ng/mL Result Diagrams: 04/26/21 05:08 04/26/21 05:08 Sepsis Event Note - Evaluation Sepsis Screening Result: No Definite Risk - Focused Exam Vital Signs: Vital Signs Temp Pulse Pulse Resp BP BP BP 04/26/21 10:38 97.9 F 95 18 102/62 04/26/21 09:18 119/58 L 04/26/21 09:17 85 119/58 L 04/26/21 08:33 97.5 F 85 20 119/58 L 04/26/21 02:30 96.7 F L 79 22 H 107/67 04/26/21 02:00 Pulse Ox 04/26/21 10:38 88 L 04/26/21 09:18 04/26/21 09:17 04/26/21 08:33 86 L 04/26/21 02:30 90 L 04/26/21 02:00 94 L - Problem List Review Problem List Initiated/Reviewed/Updated: Yes - My Orders Last 24 Hours: My Active Orders 04/26/21 09:00 Torsemide [Demadex] 60 mg PO DAILY 04/26/21 11:08 Morphine [Morphine 10 MG/0.5 ML Oral Syringe] 2.5 mg PO Q2H PRN Blood Culture x2 Reflex Set [OM.PC] Urgent 04/26/21 11:25 CULTURE BLOOD [BC] Stat 04/26/21 11:30 Meropenem [Merrem] 1 gm Sodium Chloride 0.9% [Normal Saline] 100 ml IV Q8H 04/26/21 11:45 CULTURE BLOOD [BC] Stat 04/26/21 12:30 Vancomycin 1.6 gm Sodium Chloride 0.9% [Normal Saline] 250 ml IV Q12H 04/26/21 14:00 Levofloxacin/Dextrose 5%-Water [Levaquin in D5W 750 MG/150 ML] 750 mg Premix Bag 1 bag IV Q48H 04/27/21 05:00 BASIC METABOLIC PANEL,BMP [CHEM] Timed CBC WITH AUTO DIFF [HEME] Timed INR,PT,PROTHROMBIN TIME [COAG] DAILY 04/27/21 12:30 Vancomycin 1.25 gm Sodium Chloride 0.9% [Normal Saline] 250 ml IV Q24H 04/27/21 18:00 Bumetanide [Bumex] 2 mg IV ONETIME ONE 04/28/21 05:00 INR,PT,PROTHROMBIN TIME [COAG] DAILY 04/29/21 05:00 INR,PT,PROTHROMBIN TIME [COAG] DAILY - Plan Plan:: ASSESSMENT AND PLAN - Pneumonia-probable component of bacterial pneumonia given persistent elevation in white count and borderline elevation in procalcitonin. He is more short of breath over the last 24 hours and requiring increased level of supplemental oxygen. Chest x-ray shows bilateral pulmonary infiltrates. -Blood cultures x2 -Begin empiric antibiotic therapy for healthcare acquired pneumonia; vancomycin, meropenem, and levofloxacin COVID-19 pneumonia-complicated by acute on chronic respiratory failure. Stable. Tolerating current treatment. Continues to experience shortness of breath with minimal activity -Dexamethasone 6 mg daily, complete -Remdesivir x5 days complete -Supplement oxygen -Isolation precautions (symptom onset 04/12) Acute kidney injury-renal function stable over the past few days -Continue diuretics -Recheck labs in the morning Elevated troponin-resolved Coronary artery disease-complicated by ischemic cardiomyopathy and heart failure with reduced ejection fraction. -Continue diuretics -Continue isosorbide mononitrate -Hold losartan -Continue additional medical management Mechanical aortic valve replacement-chronically anticoagulated. INR therapeutic -Continue warfarin -INR in the morning -INR goal 2.5-3.5 Anemia-mild, stable. -Outpatient work-up Palliative care-we discussed options for ongoing management, he is not yet ready to consider comfort cares only. He would like to be treated for comfort in addition to other interventions. -Morphine 2.5 mg p.o. every 2 hours as needed Maintenance issues - -DVT prophylaxis-warfarin -GI prophylaxis-PPI -[id number] Disposition -I anticipate discharge to the longterm for subacute rehab after the hospital stay. He will need isolation precautions until 04/22. We are planning to transition to swing bed on 04/22 until a subacute rehab bed is available on the . Primary care physician -Dr Savage Rodriguez
[2021-04-26] MEDS: Digoxin 125 MCG Tab PO SCH (13:53)
[2021-04-26] MEDS: Levofloxacin/Dextrose 5%-Water 750 MG in Premix Bag 1 BAG IV SCH (13:54)
[2021-04-26] MEDS: Benzonatate 100 MG Cap PO SCH (17:31)
[2021-04-26] MEDS ORDERED: Bumetanide 1 MG/4 ML MDV IV ONE (18:00)
[2021-04-26] MEDS: atorvaSTATin 20 MG Tab PO SCH (21:08)
[2021-04-27] MEDS: Meropenem 1 GM in Sodium Chloride 0.9% 100 ML IV SCH ×2 (03:41→15:02)
[2021-04-27] MEDS: Ascorbic Acid 500 MG Tab PO SCH ×4 (06:27→21:12)
[2021-04-27] MEDS: Formoterol/Mometasone 200-5 MCG 8.8 GM Inhaler IH SCH ×2 (06:56→21:10)
[2021-04-27] MEDS: Albuterol/Ipratropium 3.0-0.5 MG/3 ML Neb Soln NEB SCH ×4 (06:56→21:07)
[2021-04-27] MEDS: Pantoprazole 40 MG Tab.CR PO SCH ×2 (07:34→17:30)
[2021-04-27] MEDS: Morphine 10 MG/0.5 ML Oral Syringe PO PRN ×4 (07:35→21:36)
[2021-04-27] MEDS: Cholecalciferol (Vitamin D3) 25 MCG Tab PO SCH (08:57)
[2021-04-27] MEDS: Torsemide 20 MG Tab PO SCH (08:57)
[2021-04-27] MEDS: Docusate Sodium 100 MG Cap PO SCH (08:57)
[2021-04-27] MEDS: Cyanocobalamin (Vitamin B12) 1,000 MCG Tab PO SCH (08:58)
[2021-04-27] MEDS: Spironolactone 25 MG Tab PO SCH (08:58)
[2021-04-27] MEDS: Allopurinol 100 MG Tab PO SCH (08:59)
[2021-04-27] MEDS: Folic Acid 1 MG Tab PO SCH (08:59)
[2021-04-27] MEDS: Isosorbide Mononitrate 30 MG Tab.ER PO SCH (08:59)
[2021-04-27] MEDS: Aspirin 81 MG Tab.EC PO SCH (08:59)
[2021-04-27] MEDS: Metoprolol Succinate 25 MG Tab.ER PO SCH ×2 (09:00→21:11)
--- NOTE | 2021-04-27 11:09 | PCM.PN ---
- General Info Date of Service: 04/27/21 Subjective Update: Mr. Batres reports feeling modestly improved since yesterday. Definitely more comfortable with intermittent use of morphine and slightly less short of breath. Continues to have cough productive of purulent appearing sputum. Functional Status: Reports: Urinating. Denies: Tolerating Diet, Ambulating - Review of Systems General: Reports: Weakness, Fatigue. Denies: Fever, Chills Pulmonary: Reports: Shortness of Breath, Cough, Sputum. Denies: Pleuritic Chest Pain, Hemoptysis, Wheezing Cardiovascular: Reports: Dyspnea on Exertion. Denies: Chest Pain, Palpitations, Orthopnea, PND, Edema, Lightheadedness Gastrointestinal: Reports: No Symptoms Genitourinary: Reports: No Symptoms - Patient Data Vitals - Most Recent: Last Vital Signs Temp 97.9 F 04/27/21 07:00 Pulse 82 04/27/21 10:31 Resp 20 04/27/21 07:00 BP 118/70 04/27/21 09:00 Pulse Ox 97 04/27/21 07:00 Weight - Most Recent: 185 lb I&O - Last 24 Hours: Intake & Output 04/26/21 04/27/21 04/27/21 22:59 06:59 14:59 Intake Total 1000 380 Output Total 1075 850 300 Balance -75 -470 -300 Lab Results Last 24 Hours: Laboratory Results - last 24 hr 04/26/21 04/27/21 04/27/21 Range/Units 11:45 04:30 04:30 WBC 23.1 H (4.5-11.0) K/uL RBC 3.46 L (4.30-5.90) M/uL Hgb 10.2 L (12.0-15.0) g/dL Hct 33.2 L (40.0-54.0) % MCV 96 (80-98) fL MCH 30 (27-31) pg MCHC 31 L (32-36) % Plt Count 237 (150-400) K/uL Neut % (Auto) 93.7 H (36-66) % Lymph % (Auto) 1.1 L (24-44) % [place] % (Auto) 4.7 (2-6) % Eos % (Auto) 0.3 L (2-4) % Baso % (Auto) 0.2 (0-1) % PT 28.8 H (9.2-10.6) sec INR 2.9 Sodium (140-148) mmol/L Potassium (3.6-5.2) mmol/L Chloride (100-108) mmol/L Carbon Dioxide (21-32) mmol/L Anion Gap (5.0-14.0) mmol/L BUN (7-18) mg/dL Creatinine (0.8-1.3) mg/dL Est Cr Clr Drug Dosing mL/min Estimated GFR (MDRD) (>60) Glucose (74-106) mg/dL Calcium (8.5-10.1) mg/dL Procalcitonin 0.23 ng/mL 04/27/21 Range/Units 04:30 WBC (4.5-11.0) K/uL RBC (4.30-5.90) M/uL Hgb (12.0-15.0) g/dL Hct (40.0-54.0) % MCV (80-98) fL MCH (27-31) pg MCHC (32-36) % Plt Count (150-400) K/uL Neut % (Auto) (36-66) % Lymph % (Auto) (24-44) % [place] % (Auto) (2-6) % Eos % (Auto) (2-4) % Baso % (Auto) (0-1) % PT (9.2-10.6) sec INR Sodium 147 (140-148) mmol/L Potassium 3.7 (3.6-5.2) mmol/L Chloride 103 (100-108) mmol/L Carbon Dioxide 37 H (21-32) mmol/L Anion Gap 10.7 (5.0-14.0) mmol/L BUN 51 H (7-18) mg/dL Creatinine 1.2 (0.8-1.3) mg/dL Est Cr Clr Drug Dosing 42.84 mL/min Estimated GFR (MDRD) 58 L (>60) Glucose 116 H (74-106) mg/dL Calcium 8.8 (8.5-10.1) mg/dL Procalcitonin ng/mL Med Orders - Current: Current Medications Acetaminophen (Acetaminophen 325 Mg Tab) 650 mg PO Q4H PRN PRN Reason: Pain (Mild 1-3)/fever Last Admin: 04/25/21 22:04 Dose: 650 mg Documented by: Albuterol (Albuterol 8 Gm Inhaler) 0 gm INH Q4H PRN PRN Reason: Shortness of Breath Last Admin: 04/26/21 08:24 Dose: 2 puff Documented by: Albuterol (Albuterol 0.083% 2.5 Mg/3 Ml Neb Soln) 2.5 mg NEB Q4H PRN PRN Reason: Dyspnea Last Admin: 04/26/21 04:54 Dose: 2.5 mg Documented by: Albuterol/Ipratropium (Albuterol/Ipratropium 3.0-0.5 Mg/3 Ml Neb Soln) 3 ml NEB QIDRT [facility] Last Admin: 04/27/21 10:31 Dose: 3 ml Documented by: Allopurinol (Allopurinol 100 Mg Tab) 100 mg PO DAILY [facility] Last Admin: 04/27/21 08:59 Dose: 100 mg Documented by: Ascorbic Acid (Ascorbic Acid 500 Mg Tab) 250 mg PO QID [facility] Last Admin: 04/27/21 06:27 Dose: 250 mg Documented by: Aspirin (Aspirin 81 Mg Tab.Ec) 81 mg PO DAILY [facility] Last Admin: 04/27/21 08:59 Dose: 81 mg Documented by: Atorvastatin Calcium (Atorvastatin 20 Mg Tab) 40 mg PO BEDTIME [facility] Last Admin: 04/26/21 21:08 Dose: 40 mg Documented by: Benzonatate (Benzonatate 100 Mg Cap) 100 mg PO TID PRN PRN Reason: Cough Last Admin: 04/25/21 22:04 Dose: 100 mg Documented by: Benzonatate (Benzonatate 100 Mg Cap) 100 mg PO Q24H [facility] Last Admin: 04/26/21 17:31 Dose: 100 mg Documented by: Bumetanide (Bumetanide 1 Mg/4 Ml Mdv) 2 mg IVPUSH ONETIME ONE Stop: 04/27/21 18:01 Calcium Carbonate/Glycine (Calcium Carbonate 500 Mg Tab.Chew) 1,000 mg PO Q2H PRN PRN Reason: Indigestion Last Admin: 04/25/21 21:32 Dose: 1,000 mg Documented by: Cholecalciferol (Cholecalciferol (Vitamin D3) 25 Mcg Tab) 25 mcg PO DAILY [facility] Last Admin: 04/27/21 08:57 Dose: 25 mcg Documented by: Cyanocobalamin (Cyanocobalamin (Vitamin B12) 1,000 Mcg Tab) 500 mcg PO DAILY [facility] Last Admin: 04/27/21 08:58 Dose: 500 mcg Documented by: Digoxin (Digoxin 125 Mcg Tab) 125 mcg PO DAILY@1300 [facility] Last Admin: 04/26/21 13:53 Dose: 125 mcg Documented by: Docusate Sodium (Docusate Sodium 100 Mg Cap) 100 mg PO DAILY [facility] Last Admin: 04/27/21 08:57 Dose: 100 mg Documented by: Folic Acid (Folic Acid 1 Mg Tab) 0.5 mg PO DAILY [facility] Last Admin: 04/27/21 08:59 Dose: 0.5 mg Documented by: Guaifenesin/Dextromethorphan (Guaifenesin/Dextromethorphan 100-10 Mg/5 Ml Soln 10 Ml Cup) 10 ml PO Q4H PRN PRN Reason: Cough Last Admin: 04/21/21 21:08 Dose: 10 ml Documented by: Levofloxacin/Dextrose 750 mg/ (Premix) 150 mls @ 100 mls/hr IV Q48H [facility] Last Admin: 04/26/21 13:54 Dose: 100 mls/hr Documented by: Vancomycin HCl 1.25 gm/ Sodium (Chloride) 250 mls @ 166.667 mls/hr IV Q24H [facility] Meropenem 1 gm/ Sodium (Chloride) 100 mls @ 200 mls/hr IV Q12H [facility] Isosorbide Mononitrate (Isosorbide Mononitrate 30 Mg Tab.Er) 30 mg PO DAILY [facility] Last Admin: 04/27/21 08:59 Dose: 30 mg Documented by: Loperamide HCl (Loperamide 2 Mg Cap) 2 mg PO Q4H PRN PRN Reason: Diarrhea Last Admin: 04/16/21 17:47 Dose: 2 mg Documented by: Lorazepam (Lorazepam 2 Mg/Ml Sdv) 0.5 mg IVPUSH Q4H PRN PRN Reason: Nausea/Vomiting Magnesium Hydroxide (Magnesium Hydroxide 400 Mg/5 Ml Susp 30 Ml Cup) 30 ml PO Q12H PRN PRN Reason: Constipation Melatonin (Melatonin 3 Mg Tab) 9 mg PO BEDTIME PRN PRN Reason: Sleep Last Admin: 04/25/21 20:36 Dose: 9 mg Documented by: Metoprolol Succinate (Metoprolol Succinate 25 Mg Tab.Er) 25 mg PO BID [facility] Last Admin: 04/27/21 09:00 Dose: 25 mg Documented by: Mometasone Furoate/Formoterol Fumar (Formoterol/Mometasone 200-5 Mcg 8.8 Gm Inhaler) 0 puff IH BIDRT [facility] Last Admin: 04/27/21 06:56 Dose: 2 puff Documented by: Morphine Sulfate (Morphine 10 Mg/0.5 Ml Oral Syringe) 2.5 mg PO Q2H PRN PRN Reason: Dyspnea Last Admin: 04/27/21 07:35 Dose: 2.5 mg Documented by: Ondansetron HCl (Ondansetron 4 Mg/2 Ml Sdv) 4 mg IV Q6H PRN PRN Reason: Nausea/Vomiting Ondansetron HCl (Ondansetron 4 Mg Tab.Dis) 4 mg PO Q6H PRN PRN Reason: Nausea able to take PO Pantoprazole Sodium (Pantoprazole 40 Mg Tab.Cr) 40 mg PO BIDAC [facility] Last Admin: 04/27/21 07:34 Dose: 40 mg Documented by: Senna/Docusate Sodium (Docusate Sodium/Sennosides 50-8.6 Mg Tab) 1 tab PO BID PRN PRN Reason: Constipation Last Admin: 04/24/21 17:02 Dose: 1 tab Documented by: Spironolactone (Spironolactone 25 Mg Tab) 12.5 mg PO DAILY [facility] Last Admin: 04/27/21 08:58 Dose: 12.5 mg Documented by: Torsemide (Torsemide 20 Mg Tab) 60 mg PO DAILY [facility] Last Admin: 04/27/21 08:57 Dose: 60 mg Documented by: Warfarin Sodium (Warfarin 2.5 Mg Tab) 1.25 mg PO DAILY@1300 [facility] Last Admin: 04/26/21 12:35 Dose: 1.25 mg Documented by: Discontinued Medications Albuterol/Ipratropium (Albuterol/Ipratropium 4 Gm Inhalation [place]) 0 gm INH QIDRT [facility] Last Admin: 04/26/21 10:21 Dose: Not Given Documented by: Ascorbic Acid (Ascorbic Acid 500 Mg Tab) 1,000 mg PO BIDAC [facility] Last Admin: 04/16/21 10:37 Dose: Not Given Documented by: Bumetanide (Bumetanide 1 Mg/4 Ml Mdv) 2 mg IVPUSH ONETIME ONE Stop: 04/22/21 18:01 Last Admin: 04/22/21 17:12 Dose: 2 mg Documented by: Bumetanide (Bumetanide 2.5 Mg/10 Ml Mdv) 2 mg IV ONETIME ONE Stop: 04/27/21 18:01 Bumetanide (Bumetanide 1 Mg/4 Ml Mdv) 2 mg IV ONETIME ONE Stop: 04/26/21 18:01 Last Admin: 04/26/21 17:42 Dose: 2 mg Documented by: Dexamethasone (Dexamethasone 4 Mg/Ml Sdv) 6 mg IVPUSH Q24H [facility] Last Admin: 04/18/21 16:02 Dose: 6 mg Documented by: Dexamethasone (Dexamethasone 2 Mg Tab) 6 mg PO Q24H [facility] Last Admin: 04/24/21 17:03 Dose: 6 mg Documented by: Doxycycline Hyclate (Doxycycline 100 Mg Cap) 100 mg PO Q12H [facility] Stop: 04/25/21 00:01 Last Admin: 04/21/21 12:12 Dose: 100 mg Documented by: Doxycycline Hyclate (Doxycycline 100 Mg Cap) 100 mg PO Q12H [facility] Stop: 04/24/21 22:01 Last Admin: 04/24/21 22:34 Dose: 100 mg Documented by: Heparin Sodium (Porcine) (Heparin Sodium 5,000 Units/Ml Vial) 4,000 units IVPUSH ONETIME ONE Stop: 04/15/21 15:21 Last Admin: 04/15/21 16:51 Dose: Not Given Documented by: Heparin Sodium/Dextrose (Heparin 25,000 Units In D5w 500 Ml) 25,000 units in 500 mls @ 18 mls/hr IV TITRATE [facility] Meropenem 1 gm/ Sodium (Chloride) 100 mls @ 200 mls/hr IV Q8H [facility] Last Admin: 04/27/21 03:41 Dose: 200 mls/hr Documented by: Vancomycin HCl 1.6 gm/ Sodium (Chloride) 250 mls @ 166.667 mls/hr IV Q12H [facility] Stop: 04/26/21 13:59 Last Admin: 04/26/21 12:29 Dose: 166.667 mls/hr Documented by: Isosorbide Mononitrate (Isosorbide Mononitrate 30 Mg Tab.Er) 30 mg PO ONETIME ONE Stop: 04/18/21 06:28 Last Admin: 04/18/21 06:39 Dose: 30 mg Documented by: Phytonadione (Phytonadione 5 Mg Tab) 2.5 mg PO ONETIME ONE Stop: 04/18/21 13:01 Last Admin: 04/18/21 13:43 Dose: 2.5 mg Documented by: Torsemide (Torsemide 20 Mg Tab) 40 mg PO DAILY [facility] Last Admin: 04/25/21 08:54 Dose: 40 mg Documented by: Vancomycin HCl (Vancomycin 1 Gm Sdv) 1 gm IV .PHARMACY TO DOSE [facility] Stop: 04/26/21 12:00 Warfarin Sodium (Warfarin 5 Mg Tab) 5 mg PO DAILY@1300 [facility] Last Admin: 04/17/21 13:31 Dose: 5 mg Documented by: Warfarin Sodium (Warfarin 2.5 Mg Tab) 2.5 mg PO DAILY@1300 [facility] Last Admin: 04/20/21 12:21 Dose: 2.5 mg Documented by: - Exam Quality Assessment: Supplemental Oxygen, DVT Prophylaxis General: Alert, Oriented, Cooperative, Moderate Distress Lungs: Decreased Breath Sounds, Rales. No: Crackles, Rhonchi Cardiovascular: Regular Rate, No Murmurs, Irregular Rhythm GI/Abdominal Exam: Soft, Non-Tender, No Organomegaly, No Distention Extremities: Non-Tender, No Pedal Edema - Patient Data Lab Results Last 24 hrs: Laboratory Results - last 24 hr 04/26/21 04/27/21 04/27/21 Range/Units 11:45 04:30 04:30 WBC 23.1 H (4.5-11.0) K/uL RBC 3.46 L (4.30-5.90) M/uL Hgb 10.2 L (12.0-15.0) g/dL Hct 33.2 L (40.0-54.0) % MCV 96 (80-98) fL MCH 30 (27-31) pg MCHC 31 L (32-36) % Plt Count 237 (150-400) K/uL Neut % (Auto) 93.7 H (36-66) % Lymph % (Auto) 1.1 L (24-44) % [place] % (Auto) 4.7 (2-6) % Eos % (Auto) 0.3 L (2-4) % Baso % (Auto) 0.2 (0-1) % PT 28.8 H (9.2-10.6) sec INR 2.9 Sodium (140-148) mmol/L Potassium (3.6-5.2) mmol/L Chloride (100-108) mmol/L Carbon Dioxide (21-32) mmol/L Anion Gap (5.0-14.0) mmol/L BUN (7-18) mg/dL Creatinine (0.8-1.3) mg/dL Est Cr Clr Drug Dosing mL/min Estimated GFR (MDRD) (>60) Glucose (74-106) mg/dL Calcium (8.5-10.1) mg/dL Procalcitonin 0.23 ng/mL 04/27/21 Range/Units 04:30 WBC (4.5-11.0) K/uL RBC (4.30-5.90) M/uL Hgb (12.0-15.0) g/dL Hct (40.0-54.0) % MCV (80-98) fL MCH (27-31) pg MCHC (32-36) % Plt Count (150-400) K/uL Neut % (Auto) (36-66) % Lymph % (Auto) (24-44) % [place] % (Auto) (2-6) % Eos % (Auto) (2-4) % Baso % (Auto) (0-1) % PT (9.2-10.6) sec INR Sodium 147 (140-148) mmol/L Potassium 3.7 (3.6-5.2) mmol/L Chloride 103 (100-108) mmol/L Carbon Dioxide 37 H (21-32) mmol/L Anion Gap 10.7 (5.0-14.0) mmol/L BUN 51 H (7-18) mg/dL Creatinine 1.2 (0.8-1.3) mg/dL Est Cr Clr Drug Dosing 42.84 mL/min Estimated GFR (MDRD) 58 L (>60) Glucose 116 H (74-106) mg/dL Calcium 8.8 (8.5-10.1) mg/dL Procalcitonin ng/mL Result Diagrams: 04/27/21 04:30 04/27/21 04:30 Sepsis Event Note - Evaluation Sepsis Screening Result: No Definite Risk - Focused Exam Vital Signs: Vital Signs Temp Pulse Pulse Resp BP BP Pulse Ox 04/27/21 10:31 82 04/27/21 09:00 82 118/70 04/27/21 08:59 118/70 04/27/21 07:00 97.9 F 86 20 96/55 L 97 04/27/21 06:57 83 04/27/21 03:00 97.9 F 86 16 113/57 L 96 04/27/21 02:00 96 - Problem List Review Problem List Initiated/Reviewed/Updated: Yes - My Orders Last 24 Hours: My Active Orders 04/26/21 11:08 Morphine [Morphine 10 MG/0.5 ML Oral Syringe] 2.5 mg PO Q2H PRN Blood Culture x2 Reflex Set [OM.PC] Urgent 04/26/21 11:25 CULTURE BLOOD [BC] Stat 04/26/21 11:45 CULTURE BLOOD [BC] Stat 04/26/21 14:00 Levofloxacin/Dextrose 5%-Water [Levaquin in D5W 750 MG/150 ML] 750 mg Premix Bag 1 bag IV Q48H 04/27/21 12:30 Vancomycin 1.25 gm Sodium Chloride 0.9% [Normal Saline] 250 ml IV Q24H 04/27/21 15:30 Meropenem [Merrem] 1 gm Sodium Chloride 0.9% [Normal Saline] 100 ml IV Q12H 04/27/21 18:00 Bumetanide [Bumex] 2 mg IVPUSH ONETIME ONE 04/28/21 05:00 BASIC METABOLIC PANEL,BMP [CHEM] Timed CBC WITH AUTO DIFF [HEME] Timed INR,PT,PROTHROMBIN TIME [COAG] DAILY 04/29/21 05:00 INR,PT,PROTHROMBIN TIME [COAG] DAILY - Plan Plan:: ASSESSMENT AND PLAN - Pneumonia-probable component of bacterial pneumonia given persistent elevation in white count and borderline elevation in procalcitonin. Modest improvement in shortness of breath since yesterday, definitely more comfortable with intermittent use of morphine -Blood cultures x2 -Diuretic therapy twice daily, reassess in a.m. -Continue empiric antibiotic therapy for healthcare acquired pneumonia; vancomycin, meropenem, and levofloxacin COVID-19 pneumonia-complicated by acute on chronic respiratory failure. -Dexamethasone 6 mg daily, complete -Remdesivir x5 days complete -Supplement oxygen -Isolation precautions (symptom onset 04/12) Acute kidney injury-renal function stable over the past few days -Continue diuretics -Recheck labs in the morning Elevated troponin-resolved Coronary artery disease-complicated by ischemic cardiomyopathy and heart failure with reduced ejection fraction. -Continue diuretics -Continue isosorbide mononitrate -Hold losartan -Continue additional medical management Mechanical aortic valve replacement-chronically anticoagulated. INR therapeutic -Continue warfarin -INR in the morning -INR goal 2.5-3.5 Anemia-mild, stable. -Outpatient work-up Palliative care-we discussed options for ongoing management, he is not yet ready to consider comfort cares only. He would like to be treated for comfort in addition to other interventions. -Morphine 2.5 mg p.o. every 2 hours as needed Maintenance issues - -DVT prophylaxis-warfarin -GI prophylaxis-PPI -[id number] Disposition -I anticipate discharge to the group home for subacute rehab after the hospital stay. He will need isolation precautions until 04/22. We are planning to transition to swing bed on 04/22 until a subacute rehab bed is available on the . Primary care physician -Dr Savage Rodriguez
[2021-04-27] MEDS: Digoxin 125 MCG Tab PO SCH (12:39)
[2021-04-27] MEDS: Warfarin 2.5 MG Tab PO SCH (12:39)
[2021-04-27] MEDS: Benzonatate 100 MG Cap PO SCH (17:30)
[2021-04-27] MEDS ORDERED: Bumetanide 2.5 MG/10 ML MDV IV ONE (18:00)
[2021-04-27] MEDS ORDERED: Bumetanide 2.5 MG/10 ML MDV IVPUSH ONE (18:00)
[2021-04-27] MEDS: atorvaSTATin 20 MG Tab PO SCH (21:11)
[2021-04-28] MEDS: Meropenem 1 GM in Sodium Chloride 0.9% 100 ML IV SCH ×2 (03:27→16:33)
[2021-04-28] MEDS: Ascorbic Acid 500 MG Tab PO SCH ×4 (06:06→21:33)
[2021-04-28] MEDS: Albuterol/Ipratropium 3.0-0.5 MG/3 ML Neb Soln NEB SCH ×4 (06:56→20:16)
[2021-04-28] MEDS: Formoterol/Mometasone 200-5 MCG 8.8 GM Inhaler IH SCH ×2 (06:57→21:30)
[2021-04-28] MEDS: Pantoprazole 40 MG Tab.CR PO SCH ×2 (07:29→16:40)
[2021-04-28] MEDS: Morphine 10 MG/0.5 ML Oral Syringe PO PRN ×4 (09:51→22:56)
[2021-04-28] MEDS: Spironolactone 25 MG Tab PO SCH (09:53)
[2021-04-28] MEDS: Docusate Sodium 100 MG Cap PO SCH (09:54)
[2021-04-28] MEDS: Torsemide 20 MG Tab PO SCH (09:54)
[2021-04-28] MEDS: Isosorbide Mononitrate 30 MG Tab.ER PO SCH (09:55)
[2021-04-28] MEDS: Folic Acid 1 MG Tab PO SCH (09:55)
[2021-04-28] MEDS: Aspirin 81 MG Tab.EC PO SCH (09:55)
[2021-04-28] MEDS: Cyanocobalamin (Vitamin B12) 1,000 MCG Tab PO SCH (09:56)
[2021-04-28] MEDS: Metoprolol Succinate 25 MG Tab.ER PO SCH ×2 (09:56→21:36)
[2021-04-28] MEDS: Allopurinol 100 MG Tab PO SCH (09:57)
[2021-04-28] MEDS: Cholecalciferol (Vitamin D3) 25 MCG Tab PO SCH (09:57)
[2021-04-28] MEDS: Digoxin 125 MCG Tab PO SCH (13:11)
[2021-04-28] MEDS: Warfarin 2.5 MG Tab PO SCH (13:12)
--- NOTE | 2021-04-28 13:57 | PCM.PN ---
- General Info Date of Service: 04/28/21 Subjective Update: Mr. Batres is well today with increased shortness of breath and fatigue. He does feel that the morphine is helping make him much more comfortable. He would like to continue current management as well as palliative care with medication for comfort. He is not yet ready to consider a move to comfort cares only. Functional Status: Reports: Urinating. Denies: Tolerating Diet, Ambulating - Review of Systems General: Reports: Weakness, Fatigue. Denies: Fever, Chills Pulmonary: Reports: Shortness of Breath, Cough, Sputum. Denies: Pleuritic Chest Pain, Hemoptysis, Wheezing Cardiovascular: Reports: Dyspnea on Exertion. Denies: Chest Pain, Palpitations, Orthopnea, PND, Edema, Lightheadedness Gastrointestinal: Reports: No Symptoms Genitourinary: Reports: No Symptoms - Patient Data Vitals - Most Recent: Last Vital Signs Temp 96.3 F L 04/28/21 13:08 Pulse 88 04/28/21 13:11 Resp 20 04/28/21 13:08 BP 106/62 04/28/21 13:08 Pulse Ox 95 04/28/21 13:08 Weight - Most Recent: 185 lb I&O - Last 24 Hours: Intake & Output 04/27/21 04/28/21 04/28/21 22:59 06:59 14:59 Intake Total 900 300 650 Output Total 350 400 600 Balance 550 -100 50 Lab Results Last 24 Hours: Laboratory Results - last 24 hr 04/28/21 04/28/21 04/28/21 Range/Units 04:35 04:35 04:35 WBC 21.6 H (4.5-11.0) K/uL RBC 3.76 L (4.30-5.90) M/uL Hgb 11.1 L (12.0-15.0) g/dL Hct 36.6 L (40.0-54.0) % MCV 97 (80-98) fL MCH 30 (27-31) pg MCHC 30 L (32-36) % Plt Count 248 (150-400) K/uL Neut % (Auto) 93.0 H (36-66) % Lymph % (Auto) 1.3 L (24-44) % Tyler % (Auto) 5.1 (2-6) % Eos % (Auto) 0.4 L (2-4) % Baso % (Auto) 0.2 (0-1) % PT 33.9 H (9.2-10.6) sec INR 3.4 Sodium 150 H (140-148) mmol/L Potassium 4.6 (3.6-5.2) mmol/L Chloride 106 (100-108) mmol/L Carbon Dioxide 40 H (21-32) mmol/L Anion Gap 8.6 (5.0-14.0) mmol/L BUN 51 H (7-18) mg/dL Creatinine 1.3 (0.8-1.3) mg/dL Est Cr Clr Drug Dosing 39.55 mL/min Estimated GFR (MDRD) 53 L (>60) Glucose 105 (74-106) mg/dL Calcium 9.1 (8.5-10.1) mg/dL Darryl Results Last 24 Hours: Microbiology 04/26/21 11:45 Aerobic Blood Culture - Preliminary Blood NO GROWTH AFTER 2 DAYS Anaerobic Blood Culture - Preliminary NO GROWTH AFTER 2 DAYS 04/26/21 11:25 Aerobic Blood Culture - Preliminary Blood - Venous - Lab Draw NO GROWTH AFTER 2 DAYS Anaerobic Blood Culture - Preliminary NO GROWTH AFTER 2 DAYS Med Orders - Current: Current Medications Acetaminophen (Acetaminophen 325 Mg Tab) 650 mg PO Q4H PRN PRN Reason: Pain (Mild 1-3)/fever Last Admin: 04/25/21 22:04 Dose: 650 mg Documented by: Albuterol (Albuterol 8 Gm Inhaler) 0 gm INH Q4H PRN PRN Reason: Shortness of Breath Last Admin: 04/26/21 08:24 Dose: 2 puff Documented by: Albuterol (Albuterol 0.083% 2.5 Mg/3 Ml Neb Soln) 2.5 mg NEB Q4H PRN PRN Reason: Dyspnea Last Admin: 04/26/21 04:54 Dose: 2.5 mg Documented by: Albuterol/Ipratropium (Albuterol/Ipratropium 3.0-0.5 Mg/3 Ml Neb Soln) 3 ml NEB QIDRT [facility] Last Admin: 04/28/21 10:30 Dose: 3 ml Documented by: Allopurinol (Allopurinol 100 Mg Tab) 100 mg PO DAILY [facility] Last Admin: 04/28/21 09:57 Dose: 100 mg Documented by: Ascorbic Acid (Ascorbic Acid 500 Mg Tab) 250 mg PO QID [facility] Last Admin: 04/28/21 09:57 Dose: 250 mg Documented by: Aspirin (Aspirin 81 Mg Tab.Ec) 81 mg PO DAILY [facility] Last Admin: 04/28/21 09:55 Dose: 81 mg Documented by: Atorvastatin Calcium (Atorvastatin 20 Mg Tab) 40 mg PO BEDTIME [facility] Last Admin: 04/27/21 21:11 Dose: 40 mg Documented by: Benzonatate (Benzonatate 100 Mg Cap) 100 mg PO TID PRN PRN Reason: Cough Last Admin: 04/25/21 22:04 Dose: 100 mg Documented by: Benzonatate (Benzonatate 100 Mg Cap) 100 mg PO Q24H [facility] Last Admin: 04/27/21 17:30 Dose: 100 mg Documented by: Bumetanide (Bumetanide 1 Mg/4 Ml Mdv) 2 mg IVPUSH ONETIME ONE Stop: 04/28/21 18:01 Calcium Carbonate/Glycine (Calcium Carbonate 500 Mg Tab.Chew) 1,000 mg PO Q2H PRN PRN Reason: Indigestion Last Admin: 04/25/21 21:32 Dose: 1,000 mg Documented by: Cholecalciferol (Cholecalciferol (Vitamin D3) 25 Mcg Tab) 25 mcg PO DAILY [facility] Last Admin: 04/28/21 09:57 Dose: 25 mcg Documented by: Cyanocobalamin (Cyanocobalamin (Vitamin B12) 1,000 Mcg Tab) 500 mcg PO DAILY [facility] Last Admin: 04/28/21 09:56 Dose: 500 mcg Documented by: Digoxin (Digoxin 125 Mcg Tab) 125 mcg PO DAILY@1300 [facility] Last Admin: 04/28/21 13:11 Dose: 125 mcg Documented by: Docusate Sodium (Docusate Sodium 100 Mg Cap) 100 mg PO DAILY [facility] Last Admin: 04/28/21 09:54 Dose: 100 mg Documented by: Folic Acid (Folic Acid 1 Mg Tab) 0.5 mg PO DAILY [facility] Last Admin: 04/28/21 09:55 Dose: 0.5 mg Documented by: Guaifenesin/Dextromethorphan (Guaifenesin/Dextromethorphan 100-10 Mg/5 Ml Soln 10 Ml Cup) 10 ml PO Q4H PRN PRN Reason: Cough Last Admin: 04/21/21 21:08 Dose: 10 ml Documented by: Levofloxacin/Dextrose 750 mg/ (Premix) 150 mls @ 100 mls/hr IV Q48H [facility] Last Admin: 04/26/21 13:54 Dose: 100 mls/hr Documented by: Vancomycin HCl 1.25 gm/ Sodium (Chloride) 250 mls @ 166.667 mls/hr IV Q24H [facility] Last Admin: 04/28/21 13:04 Dose: 166.667 mls/hr Documented by: Meropenem 1 gm/ Sodium (Chloride) 100 mls @ 200 mls/hr IV Q12H [facility] Last Admin: 04/28/21 03:27 Dose: 200 mls/hr Documented by: Isosorbide Mononitrate (Isosorbide Mononitrate 30 Mg Tab.Er) 30 mg PO DAILY [facility] Last Admin: 04/28/21 09:55 Dose: 30 mg Documented by: Loperamide HCl (Loperamide 2 Mg Cap) 2 mg PO Q4H PRN PRN Reason: Diarrhea Last Admin: 04/16/21 17:47 Dose: 2 mg Documented by: Lorazepam (Lorazepam 2 Mg/Ml Sdv) 0.5 mg IVPUSH Q4H PRN PRN Reason: Nausea/Vomiting Magnesium Hydroxide (Magnesium Hydroxide 400 Mg/5 Ml Susp 30 Ml Cup) 30 ml PO Q12H PRN PRN Reason: Constipation Melatonin (Melatonin 3 Mg Tab) 9 mg PO BEDTIME PRN PRN Reason: Sleep Last Admin: 04/25/21 20:36 Dose: 9 mg Documented by: Metoprolol Succinate (Metoprolol Succinate 25 Mg Tab.Er) 25 mg PO BID [facility] Last Admin: 04/28/21 09:56 Dose: 25 mg Documented by: Mometasone Furoate/Formoterol Fumar (Formoterol/Mometasone 200-5 Mcg 8.8 Gm Inhaler) 0 puff IH BIDRT [facility] Last Admin: 04/28/21 06:57 Dose: 2 puff Documented by: Morphine Sulfate (Morphine 10 Mg/0.5 Ml Oral Syringe) 2.5 mg PO Q2H PRN PRN Reason: Dyspnea Last Admin: 04/28/21 09:51 Dose: 2.5 mg Documented by: Ondansetron HCl (Ondansetron 4 Mg/2 Ml Sdv) 4 mg IV Q6H PRN PRN Reason: Nausea/Vomiting Ondansetron HCl (Ondansetron 4 Mg Tab.Dis) 4 mg PO Q6H PRN PRN Reason: Nausea able to take PO Pantoprazole Sodium (Pantoprazole 40 Mg Tab.Cr) 40 mg PO BIDAC [facility] Last Admin: 04/28/21 07:29 Dose: 40 mg Documented by: Senna/Docusate Sodium (Docusate Sodium/Sennosides 50-8.6 Mg Tab) 1 tab PO BID PRN PRN Reason: Constipation Last Admin: 04/24/21 17:02 Dose: 1 tab Documented by: Spironolactone (Spironolactone 25 Mg Tab) 12.5 mg PO DAILY [facility] Last Admin: 04/28/21 09:53 Dose: 12.5 mg Documented by: Torsemide (Torsemide 20 Mg Tab) 60 mg PO DAILY [facility] Last Admin: 04/28/21 09:54 Dose: 60 mg Documented by: Warfarin Sodium (Warfarin 2.5 Mg Tab) 1.25 mg PO DAILY@1300 [facility] Last Admin: 04/28/21 13:12 Dose: 1.25 mg Documented by: Discontinued Medications Albuterol/Ipratropium (Albuterol/Ipratropium 4 Gm Inhalation Gleason) 0 gm INH QIDRT [facility] Last Admin: 04/26/21 10:21 Dose: Not Given Documented by: Ascorbic Acid (Ascorbic Acid 500 Mg Tab) 1,000 mg PO BIDAC [facility] Last Admin: 04/16/21 10:37 Dose: Not Given Documented by: Bumetanide (Bumetanide 1 Mg/4 Ml Mdv) 2 mg IVPUSH ONETIME ONE Stop: 04/22/21 18:01 Last Admin: 04/22/21 17:12 Dose: 2 mg Documented by: Bumetanide (Bumetanide 2.5 Mg/10 Ml Mdv) 2 mg IV ONETIME ONE Stop: 04/27/21 18:01 Bumetanide (Bumetanide 1 Mg/4 Ml Mdv) 2 mg IV ONETIME ONE Stop: 04/26/21 18:01 Last Admin: 04/26/21 17:42 Dose: 2 mg Documented by: Bumetanide (Bumetanide 2.5 Mg/10 Ml Mdv) 2 mg IVPUSH ONETIME ONE Stop: 04/27/21 18:01 Last Admin: 04/27/21 17:59 Dose: 2 mg Documented by: Dexamethasone (Dexamethasone 4 Mg/Ml Sdv) 6 mg IVPUSH Q24H [facility] Last Admin: 04/18/21 16:02 Dose: 6 mg Documented by: Dexamethasone (Dexamethasone 2 Mg Tab) 6 mg PO Q24H [facility] Last Admin: 04/24/21 17:03 Dose: 6 mg Documented by: Doxycycline Hyclate (Doxycycline 100 Mg Cap) 100 mg PO Q12H [facility] Stop: 04/25/21 00:01 Last Admin: 04/21/21 12:12 Dose: 100 mg Documented by: Doxycycline Hyclate (Doxycycline 100 Mg Cap) 100 mg PO Q12H [facility] Stop: 04/24/21 22:01 Last Admin: 04/24/21 22:34 Dose: 100 mg Documented by: Heparin Sodium (Porcine) (Heparin Sodium 5,000 Units/Ml Vial) 4,000 units IVPUSH ONETIME ONE Stop: 04/15/21 15:21 Last Admin: 04/15/21 16:51 Dose: Not Given Documented by: Heparin Sodium/Dextrose (Heparin 25,000 Units In D5w 500 Ml) 25,000 units in 500 mls @ 18 mls/hr IV TITRATE [facility] Meropenem 1 gm/ Sodium (Chloride) 100 mls @ 200 mls/hr IV Q8H [facility] Last Admin: 04/27/21 03:41 Dose: 200 mls/hr Documented by: Vancomycin HCl 1.6 gm/ Sodium (Chloride) 250 mls @ 166.667 mls/hr IV Q12H [facility] Stop: 04/26/21 13:59 Last Admin: 04/26/21 12:29 Dose: 166.667 mls/hr Documented by: Isosorbide Mononitrate (Isosorbide Mononitrate 30 Mg Tab.Er) 30 mg PO ONETIME ONE Stop: 04/18/21 06:28 Last Admin: 04/18/21 06:39 Dose: 30 mg Documented by: Phytonadione (Phytonadione 5 Mg Tab) 2.5 mg PO ONETIME ONE Stop: 04/18/21 13:01 Last Admin: 04/18/21 13:43 Dose: 2.5 mg Documented by: Torsemide (Torsemide 20 Mg Tab) 40 mg PO DAILY [facility] Last Admin: 04/25/21 08:54 Dose: 40 mg Documented by: Vancomycin HCl (Vancomycin 1 Gm Sdv) 1 gm IV .PHARMACY TO DOSE [facility] Stop: 04/26/21 12:00 Warfarin Sodium (Warfarin 5 Mg Tab) 5 mg PO DAILY@1300 [facility] Last Admin: 04/17/21 13:31 Dose: 5 mg Documented by: Warfarin Sodium (Warfarin 2.5 Mg Tab) 2.5 mg PO DAILY@1300 [facility] Last Admin: 04/20/21 12:21 Dose: 2.5 mg Documented by: - Exam Quality Assessment: Supplemental Oxygen, DVT Prophylaxis General: Alert, Oriented, Cooperative, Moderate Distress Lungs: Decreased Breath Sounds, Crackles. No: Rales, Rhonchi, Wheezing Cardiovascular: Regular Rate, No Murmurs, Irregular Rhythm GI/Abdominal Exam: Soft, Non-Tender, No Organomegaly, No Distention Extremities: Non-Tender, No Pedal Edema - Patient Data Lab Results Last 24 hrs: Laboratory Results - last 24 hr 04/28/21 04/28/21 04/28/21 Range/Units 04:35 04:35 04:35 WBC 21.6 H (4.5-11.0) K/uL RBC 3.76 L (4.30-5.90) M/uL Hgb 11.1 L (12.0-15.0) g/dL Hct 36.6 L (40.0-54.0) % MCV 97 (80-98) fL MCH 30 (27-31) pg MCHC 30 L (32-36) % Plt Count 248 (150-400) K/uL Neut % (Auto) 93.0 H (36-66) % Lymph % (Auto) 1.3 L (24-44) % Tyler % (Auto) 5.1 (2-6) % Eos % (Auto) 0.4 L (2-4) % Baso % (Auto) 0.2 (0-1) % PT 33.9 H (9.2-10.6) sec INR 3.4 Sodium 150 H (140-148) mmol/L Potassium 4.6 (3.6-5.2) mmol/L Chloride 106 (100-108) mmol/L Carbon Dioxide 40 H (21-32) mmol/L Anion Gap 8.6 (5.0-14.0) mmol/L BUN 51 H (7-18) mg/dL Creatinine 1.3 (0.8-1.3) mg/dL Est Cr Clr Drug Dosing 39.55 mL/min Estimated GFR (MDRD) 53 L (>60) Glucose 105 (74-106) mg/dL Calcium 9.1 (8.5-10.1) mg/dL Result Diagrams: 04/28/21 04:35 04/28/21 04:35 Darryl Results Last 24 hrs: Microbiology 04/26/21 11:45 Aerobic Blood Culture - Preliminary Blood NO GROWTH AFTER 2 DAYS Anaerobic Blood Culture - Preliminary NO GROWTH AFTER 2 DAYS 04/26/21 11:25 Aerobic Blood Culture - Preliminary Blood - Venous - Lab Draw NO GROWTH AFTER 2 DAYS Anaerobic Blood Culture - Preliminary NO GROWTH AFTER 2 DAYS Sepsis Event Note - Evaluation Sepsis Screening Result: Sepsis Risk - Focused Exam Vital Signs: Vital Signs Temp Pulse Pulse Resp BP BP BP 04/28/21 13:11 88 04/28/21 13:08 96.3 F L 82 20 106/62 04/28/21 11:30 24 H 04/28/21 11:28 26 H 04/28/21 10:07 34 H 04/28/21 09:56 83 113/52 L 04/28/21 09:55 113/52 L 04/28/21 07:26 97.1 F 83 32 H 113/52 L 04/28/21 06:57 84 04/28/21 03:28 04/28/21 03:00 97.7 F 88 18 107/59 L Pulse Ox 04/28/21 13:11 04/28/21 13:08 95 04/28/21 11:30 99 04/28/21 11:28 100 04/28/21 10:07 91 L 04/28/21 09:56 04/28/21 09:55 04/28/21 07:26 96 04/28/21 06:57 04/28/21 03:28 91 L 04/28/21 03:00 96 - Problem List Review Problem List Initiated/Reviewed/Updated: Yes - My Orders Last 24 Hours: My Active Orders 04/27/21 15:30 Meropenem [Merrem] 1 gm Sodium Chloride 0.9% [Normal Saline] 100 ml IV Q12H 04/28/21 18:00 Bumetanide [Bumex] 2 mg IVPUSH ONETIME ONE 04/29/21 05:00 BASIC METABOLIC PANEL,BMP [CHEM] Timed CBC WITH AUTO DIFF [HEME] Timed INR,PT,PROTHROMBIN TIME [COAG] DAILY 04/29/21 12:00 VANCOMYCIN TROUGH [CHEM] Timed 04/30/21 05:00 INR,PT,PROTHROMBIN TIME [COAG] DAILY 05/01/21 05:00 INR,PT,PROTHROMBIN TIME [COAG] DAILY 05/02/21 05:00 INR,PT,PROTHROMBIN TIME [COAG] DAILY 05/03/21 05:00 INR,PT,PROTHROMBIN TIME [COAG] DAILY 05/04/21 05:00 INR,PT,PROTHROMBIN TIME [COAG] DAILY - Plan Plan:: ASSESSMENT AND PLAN - Pneumonia-probable component of bacterial pneumonia given persistent elevation in white count and borderline elevation in procalcitonin. He feels somewhat worse today with increased shortness of breath and weakness, despite current interventions. -Blood cultures x2 -Diuretic therapy twice daily, reassess in a.m. -Continue empiric antibiotic therapy for healthcare acquired pneumonia; vancomycin, meropenem, and levofloxacin -Restart steroids with Solu-Medrol 40 mg IV every 8 hours COVID-19 pneumonia-complicated by acute on chronic respiratory failure. -Dexamethasone 6 mg daily, complete -Remdesivir x5 days complete -Supplement oxygen -Isolation precautions (symptom onset 04/12) Acute kidney injury-renal function stable over the past few days -Continue diuretics -Recheck labs in the morning Elevated troponin-resolved Coronary artery disease-complicated by ischemic cardiomyopathy and heart failure with reduced ejection fraction. -Continue diuretics -Continue isosorbide mononitrate -Hold losartan -Continue additional medical management Mechanical aortic valve replacement-chronically anticoagulated. INR therapeutic -Continue warfarin -INR in the morning -INR goal 2.5-3.5 Anemia-mild, stable. -Outpatient work-up Palliative care-we discussed options for ongoing management, he is not yet ready to consider comfort cares only. He would like to be treated for comfort in addition to other interventions. -Morphine 2.5 mg p.o. every 2 hours as needed Maintenance issues - -DVT prophylaxis-warfarin -GI prophylaxis-PPI -[id number] Disposition -I anticipate discharge to the senior living for subacute rehab after the hospital stay. He will need isolation precautions until 04/22. We are planning to transition to swing bed on 04/22 until a subacute rehab bed is available on the . Primary care physician -Dr Savage Rodriguez
[2021-04-28] MEDS: methylPREDNISolone Sodium Succinate 40 MG/1 ML SDV IVPUSH SCH ×2 (14:46→21:37)
[2021-04-28] MEDS: Levofloxacin/Dextrose 5%-Water 750 MG in Premix Bag 1 BAG IV SCH (14:47)
[2021-04-28] MEDS: Benzonatate 100 MG Cap PO SCH (17:38)
[2021-04-28] MEDS ORDERED: Bumetanide 1 MG/4 ML MDV IVPUSH ONE (18:00)
[2021-04-28] MEDS: Benzonatate 100 MG Cap PO PRN (20:13)
[2021-04-28] MEDS: atorvaSTATin 20 MG Tab PO SCH (21:33)
[2021-04-29] MEDS: Morphine 10 MG/0.5 ML Oral Syringe PO PRN ×6 (03:12→22:18)
[2021-04-29] MEDS: Meropenem 1 GM in Sodium Chloride 0.9% 100 ML IV SCH ×2 (03:38→15:27)
[2021-04-29] MEDS: methylPREDNISolone Sodium Succinate 40 MG/1 ML SDV IVPUSH SCH ×3 (06:52→21:39)
[2021-04-29] MEDS: Ascorbic Acid 500 MG Tab PO SCH ×4 (06:53→21:38)
[2021-04-29] MEDS: Albuterol/Ipratropium 3.0-0.5 MG/3 ML Neb Soln NEB SCH ×4 (07:13→21:37)
[2021-04-29] MEDS: Formoterol/Mometasone 200-5 MCG 8.8 GM Inhaler IH SCH ×2 (07:13→21:37)
[2021-04-29] MEDS: Pantoprazole 40 MG Tab.CR PO SCH ×2 (08:17→15:34)
[2021-04-29] MEDS: Cyanocobalamin (Vitamin B12) 1,000 MCG Tab PO SCH (08:18)
[2021-04-29] MEDS: Folic Acid 1 MG Tab PO SCH (08:19)
[2021-04-29] MEDS: Spironolactone 25 MG Tab PO SCH (08:20)
[2021-04-29] MEDS: Allopurinol 100 MG Tab PO SCH (08:20)
[2021-04-29] MEDS: Docusate Sodium 100 MG Cap PO SCH (08:20)
[2021-04-29] MEDS: Metoprolol Succinate 25 MG Tab.ER PO SCH ×2 (08:21→21:38)
[2021-04-29] MEDS: Cholecalciferol (Vitamin D3) 25 MCG Tab PO SCH (08:21)
[2021-04-29] MEDS: Torsemide 20 MG Tab PO SCH (08:22)
[2021-04-29] MEDS: Isosorbide Mononitrate 30 MG Tab.ER PO SCH (08:22)
[2021-04-29] MEDS: Aspirin 81 MG Tab.EC PO SCH (08:22)
[2021-04-29] MEDS ORDERED: Phytonadione 5 MG Tab PO ONE (08:45)
[2021-04-29] MEDS: Digoxin 125 MCG Tab PO SCH (13:13)
--- NOTE | 2021-04-29 14:12 | PCM.PN ---
- General Info Date of Service: 04/29/21 Subjective Update: No acute events overnight. Patient does report that he is feeling a little better today. He feels less short of breath. No chest pain. Oxygenation has improved and he is down to 3 L of supplemental oxygen. No nausea. He is in better spirits today. We did discuss the utility of a CT scan of his chest to further evaluate the bilateral infiltrates and possible effusion. He was interested in the CT scan. Functional Status: Reports: Pain Controlled, Tolerating Diet - Review of Systems General: Reports: Weakness Pulmonary: Reports: Shortness of Breath - Patient Data Vitals - Most Recent: Last Vital Signs Temp 35.4 C L 04/29/21 10:26 Pulse 91 04/29/21 13:13 Resp 18 04/29/21 10:26 BP 109/55 L 04/29/21 10:26 Pulse Ox 96 04/29/21 10:26 Weight - Most Recent: 83.915 kg I&O - Last 24 Hours: Intake & Output 04/28/21 04/29/21 04/29/21 22:59 06:59 14:59 Intake Total 220 560 260 Output Total 500 400 100 Balance -280 160 160 Lab Results Last 24 Hours: Laboratory Results - last 24 hr 04/29/21 04/29/21 04/29/21 Range/Units 04:40 04:40 04:40 WBC 21.5 H (4.5-11.0) K/uL RBC 3.69 L (4.30-5.90) M/uL Hgb 10.8 L (12.0-15.0) g/dL Hct 36.0 L (40.0-54.0) % MCV 98 (80-98) fL MCH 29 (27-31) pg MCHC 30 L (32-36) % Plt Count 278 (150-400) K/uL Neut % (Auto) 98.6 H (36-66) % Lymph % (Auto) 0.7 L (24-44) % [place] % (Auto) 0.6 L (2-6) % Eos % (Auto) 0.0 L (2-4) % Baso % (Auto) 0.1 (0-1) % PT 59.0 H (9.2-10.6) sec INR 6.1 H* D D-Dimer, Quantitative (0.0-500.0) ng/mL Sodium 148 (140-148) mmol/L Potassium 4.2 (3.6-5.2) mmol/L Chloride 105 (100-108) mmol/L Carbon Dioxide 37 H (21-32) mmol/L Anion Gap 10.2 (5.0-14.0) mmol/L BUN 68 H (7-18) mg/dL Creatinine 1.5 H (0.8-1.3) mg/dL Est Cr Clr Drug Dosing 34.27 mL/min Estimated GFR (MDRD) 45 L (>60) Glucose 170 H (74-106) mg/dL Calcium 9.1 (8.5-10.1) mg/dL C-Reactive Protein (0.0-0.3) mg/dL 04/29/21 04/29/21 Range/Units 04:40 04:40 WBC (4.5-11.0) K/uL RBC (4.30-5.90) M/uL Hgb (12.0-15.0) g/dL Hct (40.0-54.0) % MCV (80-98) fL MCH (27-31) pg MCHC (32-36) % Plt Count (150-400) K/uL Neut % (Auto) (36-66) % Lymph % (Auto) (24-44) % [place] % (Auto) (2-6) % Eos % (Auto) (2-4) % Baso % (Auto) (0-1) % PT (9.2-10.6) sec INR D-Dimer, Quantitative 1665.65 H (0.0-500.0) ng/mL Sodium (140-148) mmol/L Potassium (3.6-5.2) mmol/L Chloride (100-108) mmol/L Carbon Dioxide (21-32) mmol/L Anion Gap (5.0-14.0) mmol/L BUN (7-18) mg/dL Creatinine (0.8-1.3) mg/dL Est Cr Clr Drug Dosing mL/min Estimated GFR (MDRD) (>60) Glucose (74-106) mg/dL Calcium (8.5-10.1) mg/dL C-Reactive Protein 21.17 H (0.0-0.3) mg/dL Darryl Results Last 24 Hours: Microbiology 04/26/21 11:45 Aerobic Blood Culture - Preliminary Blood NO GROWTH AFTER 3 DAYS Anaerobic Blood Culture - Preliminary NO GROWTH AFTER 3 DAYS 04/26/21 11:25 Aerobic Blood Culture - Preliminary Blood - Venous - Lab Draw NO GROWTH AFTER 3 DAYS Anaerobic Blood Culture - Preliminary NO GROWTH AFTER 3 DAYS Med Orders - Current: Current Medications Acetaminophen (Acetaminophen 325 Mg Tab) 650 mg PO Q4H PRN PRN Reason: Pain (Mild 1-3)/fever Last Admin: 04/25/21 22:04 Dose: 650 mg Documented by: Albuterol (Albuterol 8 Gm Inhaler) 0 gm INH Q4H PRN PRN Reason: Shortness of Breath Last Admin: 04/26/21 08:24 Dose: 2 puff Documented by: Albuterol (Albuterol 0.083% 2.5 Mg/3 Ml Neb Soln) 2.5 mg NEB Q4H PRN PRN Reason: Dyspnea Last Admin: 04/26/21 04:54 Dose: 2.5 mg Documented by: Albuterol/Ipratropium (Albuterol/Ipratropium 3.0-0.5 Mg/3 Ml Neb Soln) 3 ml NEB QIDRT [facility] Last Admin: 04/29/21 11:00 Dose: 3 ml Documented by: Allopurinol (Allopurinol 100 Mg Tab) 100 mg PO DAILY [facility] Last Admin: 04/29/21 08:20 Dose: 100 mg Documented by: Ascorbic Acid (Ascorbic Acid 500 Mg Tab) 250 mg PO QID [facility] Last Admin: 04/29/21 10:47 Dose: 250 mg Documented by: Aspirin (Aspirin 81 Mg Tab.Ec) 81 mg PO DAILY [facility] Last Admin: 04/29/21 08:22 Dose: 81 mg Documented by: Atorvastatin Calcium (Atorvastatin 20 Mg Tab) 40 mg PO BEDTIME [facility] Last Admin: 04/28/21 21:33 Dose: 40 mg Documented by: Benzonatate (Benzonatate 100 Mg Cap) 100 mg PO TID PRN PRN Reason: Cough Last Admin: 04/28/21 20:13 Dose: 100 mg Documented by: Benzonatate (Benzonatate 100 Mg Cap) 100 mg PO Q24H [facility] Last Admin: 04/28/21 17:38 Dose: 100 mg Documented by: Calcium Carbonate/Glycine (Calcium Carbonate 500 Mg Tab.Chew) 1,000 mg PO Q2H PRN PRN Reason: Indigestion Last Admin: 04/25/21 21:32 Dose: 1,000 mg Documented by: Cholecalciferol (Cholecalciferol (Vitamin D3) 25 Mcg Tab) 25 mcg PO DAILY [facility] Last Admin: 04/29/21 08:21 Dose: 25 mcg Documented by: Cyanocobalamin (Cyanocobalamin (Vitamin B12) 1,000 Mcg Tab) 500 mcg PO DAILY [facility] Last Admin: 04/29/21 08:18 Dose: 500 mcg Documented by: Digoxin (Digoxin 125 Mcg Tab) 125 mcg PO DAILY@1300 [facility] Last Admin: 04/29/21 13:13 Dose: 125 mcg Documented by: Docusate Sodium (Docusate Sodium 100 Mg Cap) 100 mg PO DAILY [facility] Last Admin: 04/29/21 08:20 Dose: 100 mg Documented by: Folic Acid (Folic Acid 1 Mg Tab) 0.5 mg PO DAILY [facility] Last Admin: 04/29/21 08:19 Dose: 0.5 mg Documented by: Guaifenesin/Dextromethorphan (Guaifenesin/Dextromethorphan 100-10 Mg/5 Ml Soln 10 Ml Cup) 10 ml PO Q4H PRN PRN Reason: Cough Last Admin: 04/21/21 21:08 Dose: 10 ml Documented by: Levofloxacin/Dextrose 750 mg/ (Premix) 150 mls @ 100 mls/hr IV Q48H [facility] Last Admin: 04/28/21 14:47 Dose: 100 mls/hr Documented by: Meropenem 1 gm/ Sodium (Chloride) 100 mls @ 200 mls/hr IV Q12H [facility] Last Admin: 04/29/21 03:38 Dose: 200 mls/hr Documented by: Isosorbide Mononitrate (Isosorbide Mononitrate 30 Mg Tab.Er) 30 mg PO DAILY [facility] Last Admin: 04/29/21 08:22 Dose: 30 mg Documented by: Loperamide HCl (Loperamide 2 Mg Cap) 2 mg PO Q4H PRN PRN Reason: Diarrhea Last Admin: 04/16/21 17:47 Dose: 2 mg Documented by: Lorazepam (Lorazepam 2 Mg/Ml Sdv) 0.5 mg IVPUSH Q4H PRN PRN Reason: Nausea/Vomiting Magnesium Hydroxide (Magnesium Hydroxide 400 Mg/5 Ml Susp 30 Ml Cup) 30 ml PO Q12H PRN PRN Reason: Constipation Melatonin (Melatonin 3 Mg Tab) 9 mg PO BEDTIME PRN PRN Reason: Sleep Last Admin: 04/25/21 20:36 Dose: 9 mg Documented by: Methylprednisolone Sodium Succinate (Methylprednisolone Sodium Succinate 40 Mg/1 Ml Sdv) 40 mg IVPUSH Q8H [facility] Stop: 04/30/21 02:00 Last Admin: 04/29/21 06:52 Dose: 40 mg Documented by: Metoprolol Succinate (Metoprolol Succinate 25 Mg Tab.Er) 25 mg PO BID [facility] Last Admin: 04/29/21 08:21 Dose: 25 mg Documented by: Mometasone Furoate/Formoterol Fumar (Formoterol/Mometasone 200-5 Mcg 8.8 Gm Inhaler) 0 puff IH BIDRT [facility] Last Admin: 04/29/21 07:13 Dose: 2 puff Documented by: Morphine Sulfate (Morphine 10 Mg/0.5 Ml Oral Syringe) 2.5 mg PO Q2H PRN PRN Reason: Dyspnea Last Admin: 04/29/21 12:08 Dose: 2.5 mg Documented by: Ondansetron HCl (Ondansetron 4 Mg/2 Ml Sdv) 4 mg IV Q6H PRN PRN Reason: Nausea/Vomiting Ondansetron HCl (Ondansetron 4 Mg Tab.Dis) 4 mg PO Q6H PRN PRN Reason: Nausea able to take PO Pantoprazole Sodium (Pantoprazole 40 Mg Tab.Cr) 40 mg PO BIDAC [facility] Last Admin: 04/29/21 08:17 Dose: 40 mg Documented by: Senna/Docusate Sodium (Docusate Sodium/Sennosides 50-8.6 Mg Tab) 1 tab PO BID PRN PRN Reason: Constipation Last Admin: 04/24/21 17:02 Dose: 1 tab Documented by: Spironolactone (Spironolactone 25 Mg Tab) 12.5 mg PO DAILY [facility] Last Admin: 04/29/21 08:20 Dose: 12.5 mg Documented by: Torsemide (Torsemide 20 Mg Tab) 60 mg PO DAILY [facility] Last Admin: 04/29/21 08:22 Dose: 60 mg Documented by: Discontinued Medications Albuterol/Ipratropium (Albuterol/Ipratropium 4 Gm Inhalation [place]) 0 gm INH QIDRT [facility] Last Admin: 04/26/21 10:21 Dose: Not Given Documented by: Ascorbic Acid (Ascorbic Acid 500 Mg Tab) 1,000 mg PO BIDAC [facility] Last Admin: 04/16/21 10:37 Dose: Not Given Documented by: Bumetanide (Bumetanide 1 Mg/4 Ml Mdv) 2 mg IVPUSH ONETIME ONE Stop: 04/22/21 18:01 Last Admin: 04/22/21 17:12 Dose: 2 mg Documented by: Bumetanide (Bumetanide 2.5 Mg/10 Ml Mdv) 2 mg IV ONETIME ONE Stop: 04/27/21 18:01 Bumetanide (Bumetanide 1 Mg/4 Ml Mdv) 2 mg IV ONETIME ONE Stop: 04/26/21 18:01 Last Admin: 04/26/21 17:42 Dose: 2 mg Documented by: Bumetanide (Bumetanide 2.5 Mg/10 Ml Mdv) 2 mg IVPUSH ONETIME ONE Stop: 04/27/21 18:01 Last Admin: 04/27/21 17:59 Dose: 2 mg Documented by: Bumetanide (Bumetanide 1 Mg/4 Ml Mdv) 2 mg IVPUSH ONETIME ONE Stop: 04/28/21 18:01 Last Admin: 04/28/21 17:27 Dose: 2 mg Documented by: Dexamethasone (Dexamethasone 4 Mg/Ml Sdv) 6 mg IVPUSH Q24H [facility] Last Admin: 04/18/21 16:02 Dose: 6 mg Documented by: Dexamethasone (Dexamethasone 2 Mg Tab) 6 mg PO Q24H [facility] Last Admin: 04/24/21 17:03 Dose: 6 mg Documented by: Doxycycline Hyclate (Doxycycline 100 Mg Cap) 100 mg PO Q12H [facility] Stop: 04/25/21 00:01 Last Admin: 04/21/21 12:12 Dose: 100 mg Documented by: Doxycycline Hyclate (Doxycycline 100 Mg Cap) 100 mg PO Q12H [facility] Stop: 04/24/21 22:01 Last Admin: 04/24/21 22:34 Dose: 100 mg Documented by: Heparin Sodium (Porcine) (Heparin Sodium 5,000 Units/Ml Vial) 4,000 units IVPUSH ONETIME ONE Stop: 04/15/21 15:21 Last Admin: 04/15/21 16:51 Dose: Not Given Documented by: Heparin Sodium/Dextrose (Heparin 25,000 Units In D5w 500 Ml) 25,000 units in 500 mls @ 18 mls/hr IV TITRATE [facility] Meropenem 1 gm/ Sodium (Chloride) 100 mls @ 200 mls/hr IV Q8H [facility] Last Admin: 04/27/21 03:41 Dose: 200 mls/hr Documented by: Vancomycin HCl 1.6 gm/ Sodium (Chloride) 250 mls @ 166.667 mls/hr IV Q12H [facility] Stop: 04/26/21 13:59 Last Admin: 04/26/21 12:29 Dose: 166.667 mls/hr Documented by: Vancomycin HCl 1.25 gm/ Sodium (Chloride) 250 mls @ 166.667 mls/hr IV Q24H [facility] Last Admin: 04/28/21 13:04 Dose: 166.667 mls/hr Documented by: Isosorbide Mononitrate (Isosorbide Mononitrate 30 Mg Tab.Er) 30 mg PO ONETIME ONE Stop: 04/18/21 06:28 Last Admin: 04/18/21 06:39 Dose: 30 mg Documented by: Phytonadione (Phytonadione 5 Mg Tab) 2.5 mg PO ONETIME ONE Stop: 04/18/21 13:01 Last Admin: 04/18/21 13:43 Dose: 2.5 mg Documented by: Phytonadione (Phytonadione 5 Mg Tab) 2.5 mg PO ONETIME ONE Stop: 04/29/21 08:46 Last Admin: 04/29/21 08:49 Dose: 2.5 mg Documented by: Torsemide (Torsemide 20 Mg Tab) 40 mg PO DAILY [facility] Last Admin: 04/25/21 08:54 Dose: 40 mg Documented by: Vancomycin HCl (Vancomycin 1 Gm Sdv) 1 gm IV .PHARMACY TO DOSE [facility] Stop: 04/26/21 12:00 Warfarin Sodium (Warfarin 5 Mg Tab) 5 mg PO DAILY@1300 [facility] Last Admin: 04/17/21 13:31 Dose: 5 mg Documented by: Warfarin Sodium (Warfarin 2.5 Mg Tab) 2.5 mg PO DAILY@1300 [facility] Last Admin: 04/20/21 12:21 Dose: 2.5 mg Documented by: Warfarin Sodium (Warfarin 2.5 Mg Tab) 1.25 mg PO DAILY@1300 [facility] Last Admin: 04/28/21 13:12 Dose: 1.25 mg Documented by: - Exam Quality Assessment: Supplemental Oxygen General: Alert, Oriented, Cooperative, No Acute Distress Lungs: Normal Respiratory Effort, Crackles (mild diffuse ) Cardiovascular: Irregular Rhythm, Tachycardia, Murmurs GI/Abdominal Exam: Soft, No Distention Extremities: No Pedal Edema. No: Increased Warmth Skin: Warm, Dry Psy/Mental Status: Alert, Normal Affect - Patient Data Lab Results Last 24 hrs: Laboratory Results - last 24 hr 04/29/21 04/29/21 04/29/21 Range/Units 04:40 04:40 04:40 WBC 21.5 H (4.5-11.0) K/uL RBC 3.69 L (4.30-5.90) M/uL Hgb 10.8 L (12.0-15.0) g/dL Hct 36.0 L (40.0-54.0) % MCV 98 (80-98) fL MCH 29 (27-31) pg MCHC 30 L (32-36) % Plt Count 278 (150-400) K/uL Neut % (Auto) 98.6 H (36-66) % Lymph % (Auto) 0.7 L (24-44) % [place] % (Auto) 0.6 L (2-6) % Eos % (Auto) 0.0 L (2-4) % Baso % (Auto) 0.1 (0-1) % PT 59.0 H (9.2-10.6) sec INR 6.1 H* D D-Dimer, Quantitative (0.0-500.0) ng/mL Sodium 148 (140-148) mmol/L Potassium 4.2 (3.6-5.2) mmol/L Chloride 105 (100-108) mmol/L Carbon Dioxide 37 H (21-32) mmol/L Anion Gap 10.2 (5.0-14.0) mmol/L BUN 68 H (7-18) mg/dL Creatinine 1.5 H (0.8-1.3) mg/dL Est Cr Clr Drug Dosing 34.27 mL/min Estimated GFR (MDRD) 45 L (>60) Glucose 170 H (74-106) mg/dL Calcium 9.1 (8.5-10.1) mg/dL C-Reactive Protein (0.0-0.3) mg/dL 04/29/21 04/29/21 Range/Units 04:40 04:40 WBC (4.5-11.0) K/uL RBC (4.30-5.90) M/uL Hgb (12.0-15.0) g/dL Hct (40.0-54.0) % MCV (80-98) fL MCH (27-31) pg MCHC (32-36) % Plt Count (150-400) K/uL Neut % (Auto) (36-66) % Lymph % (Auto) (24-44) % [place] % (Auto) (2-6) % Eos % (Auto) (2-4) % Baso % (Auto) (0-1) % PT (9.2-10.6) sec INR D-Dimer, Quantitative 1665.65 H (0.0-500.0) ng/mL Sodium (140-148) mmol/L Potassium (3.6-5.2) mmol/L Chloride (100-108) mmol/L Carbon Dioxide (21-32) mmol/L Anion Gap (5.0-14.0) mmol/L BUN (7-18) mg/dL Creatinine (0.8-1.3) mg/dL Est Cr Clr Drug Dosing mL/min Estimated GFR (MDRD) (>60) Glucose (74-106) mg/dL Calcium (8.5-10.1) mg/dL C-Reactive Protein 21.17 H (0.0-0.3) mg/dL Result Diagrams: 04/29/21 04:40 04/29/21 04:40 Darryl Results Last 24 hrs: Microbiology 04/26/21 11:45 Aerobic Blood Culture - Preliminary Blood NO GROWTH AFTER 3 DAYS Anaerobic Blood Culture - Preliminary NO GROWTH AFTER 3 DAYS 04/26/21 11:25 Aerobic Blood Culture - Preliminary Blood - Venous - Lab Draw NO GROWTH AFTER 3 DAYS Anaerobic Blood Culture - Preliminary NO GROWTH AFTER 3 DAYS Sepsis Event Note - Evaluation Sepsis Screening Result: Severe Sepsis Risk - Focused Exam Vital Signs: Vital Signs Temp Pulse Pulse Resp BP BP Pulse Ox 04/29/21 13:13 91 04/29/21 11:01 99 04/29/21 10:26 35.4 C L 109 H 18 109/55 L 96 04/29/21 08:22 131/71 04/29/21 08:21 86 131/71 04/29/21 08:00 35.4 C L 85 22 H 131/71 97 04/29/21 05:27 93 L 04/29/21 03:41 35.6 C L 97 22 H 123/68 95 04/29/21 03:00 94 L - Problem List & Annotations (1) Pneumonia due to COVID-19 virus SNOMED Code(s): 719469403748804887 Code(s): U07.1 - COVID-19; J12.82 - PNEUMONIA DUE TO CORONAVIRUS DISEASE 2018 Status: Acute Current Visit: Yes (2) Acute and chronic respiratory failure SNOMED Code(s): 39512622 Code(s): J96.20 - ACUTE AND CHR RESP FAILURE, UNSP W HYPOXIA OR HYPERCAPNIA Status: Acute Current Visit: Yes Qualifiers: Respiratory failure complication: hypoxia Qualified Code(s): J96.21 - Acute and chronic respiratory failure with hypoxia (3) Acute kidney injury SNOMED Code(s): 74520048, 61273410 Code(s): N17.9 - ACUTE KIDNEY FAILURE, UNSPECIFIED Status: Acute Current Visit: Yes (4) Elevated troponin SNOMED Code(s): 518071579, 350109066, 402810296 Code(s): R77.8 - OTHER SPECIFIED ABNORMALITIES OF PLASMA PROTEINS Status: Acute Current Visit: Yes (5) HFrEF (heart failure with reduced ejection fraction) SNOMED Code(s): 965929964 Code(s): I50.20 - UNSPECIFIED SYSTOLIC (CONGESTIVE) HEART FAILURE Status: Chronic Current Visit: Yes (6) CAD (coronary artery disease) SNOMED Code(s): 84521403 Code(s): I25.10 - ATHSCL HEART DISEASE OF [place] CORONARY ARTERY W/O ANG PCTRS Status: Chronic Current Visit: Yes Qualifiers: Coronary Disease-Associated Artery/Lesion type: crow artery [place] vs. transplanted heart: crow heart Associated angina: without angina Qualified Code(s): I25.10 - Atherosclerotic heart disease of [place] coronary artery without angina pectoris - Problem List Review Problem List Initiated/Reviewed/Updated: Yes - My Orders Last 24 Hours: My Active Orders 04/29/21 14:10 Chest wo Cont [CT] Routine 04/30/21 05:00 BASIC METABOLIC PANEL,BMP [CHEM] Timed CBC W/O DIFF,HEMOGRAM [HEME] Timed (1) INR,PT,PROTHROMBIN TIME [COAG] Timed 04/30/21 08:00 predniSONE 40 mg PO WITHBREAKFAST - Plan Plan:: ASSESSMENT AND PLAN - Pneumonia, bilateral-probable component of bacterial pneumonia given persistent elevation in white count and borderline elevation in procalcitonin. He feels slightly better today and we have seen some improvement in his oxygenation but with his persistently elevated white blood cell count I think a CT scan of the chest would be helpful to further assess infiltrates and possible effusion. -CT scan of the chest this afternoon -Blood cultures x2 -Diuretic therapy daily -Continue empiric antibiotic therapy for healthcare acquired pneumonia; merope nem, and levofloxacin -Discontinue vancomycin -Continue steroids, transition to oral COVID-19 pneumonia-complicated by acute on chronic respiratory failure. Covid infection has resolved and he no longer requires isolation. -Dexamethasone 6 mg daily, complete -Remdesivir x5 days complete -Supplement oxygen -Isolation precautions discontinued last week Acute kidney injury-renal function stable over the last several days. -Continue diuretics -Recheck labs in the morning Elevated troponin-resolved Coronary artery disease-complicated by ischemic cardiomyopathy and heart failure with reduced ejection fraction. -Continue diuretics -Continue isosorbide mononitrate -Hold losartan -Continue additional medical management Mechanical aortic valve replacement-chronically anticoagulated. INR sup ratherapeutic. -2.5 mg of vitamin K this morning -Hold warfarin -INR in the morning -INR goal 2.5-3.5 Anemia-mild, stable. -Outpatient work-up Palliative care-we discussed options for ongoing management, he is not yet ready to consider comfort cares only. He would like to be treated for comfort in addition to other interventions. -Morphine 2.5 mg p.o. every 2 hours as needed Maintenance issues - -DVT prophylaxis-warfarin -GI prophylaxis-PPI -[id number]-clrtux Disposition -[facility] hospital stay. Once his respiratory status has stabilized he will be ready for subacute rehab. Hopefully in the next day or 2. Michel Cunha MD
--- NOTE | 2021-04-29 15:17 | CT ---
Chest wo Cont CLINICAL HISTORY: Pneumonia, pleural effusion TECHNIQUE: Transverse scans were obtained from the thoracic inlet to the lung bases without contrast. Auto dosage reduction in intervertebral reconstruction techniques were employed COMPARISONS: Recent chest x-ray FINDINGS: Patient is some minimal patchy infiltrate posteriorly in the right upper lobe. There are moderate patchy infiltrates in both lower lobes. There are scattered groundglass opacities. There are small areas of consolidation in both lung bases. Patient is a small right effusion and a small to moderate left pleural effusion. There is some underlying lung disease with bronchiectasis Mediastinal window images show calcified nodule in the lower portion of the left lobe of the thyroid. The heart is enlarged. There are atherosclerotic changes in the aorta. 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 There is a prosthetic aortic valve. There is diffuse calcified plaque. IMPRESSION: Moderate diffuse bilateral predominantly lower lobe infiltrates with areas of groundglass opacification. Findings are most suggestive of diffuse pneumonia or pneumonitis Bilateral pleural effusions left greater than right A sending aortic ectasia. There is a prosthetic aortic valve
[2021-04-29] MEDS: Benzonatate 100 MG Cap PO SCH (17:54)
[2021-04-29] MEDS: atorvaSTATin 20 MG Tab PO SCH (21:38)
[2021-04-30] MEDS: Meropenem 1 GM in Sodium Chloride 0.9% 100 ML IV SCH (03:11)
[2021-04-30] MEDS: Ascorbic Acid 500 MG Tab PO SCH ×5 (06:21→21:49)
[2021-04-30] MEDS: Formoterol/Mometasone 200-5 MCG 8.8 GM Inhaler IH SCH ×2 (07:03→20:34)
[2021-04-30] MEDS: Albuterol/Ipratropium 3.0-0.5 MG/3 ML Neb Soln NEB SCH ×4 (07:03→20:39)
[2021-04-30] MEDS: Pantoprazole 40 MG Tab.CR PO SCH ×2 (07:24→16:41)
[2021-04-30] MEDS ORDERED: predniSONE 20 MG Tab PO SCH (08:00)
[2021-04-30] MEDS: Docusate Sodium 100 MG Cap PO SCH (08:44)
[2021-04-30] MEDS: Folic Acid 1 MG Tab PO SCH (08:44)
[2021-04-30] MEDS: Cholecalciferol (Vitamin D3) 25 MCG Tab PO SCH (08:45)
[2021-04-30] MEDS: Aspirin 81 MG Tab.EC PO SCH (08:45)
[2021-04-30] MEDS: Cyanocobalamin (Vitamin B12) 1,000 MCG Tab PO SCH (08:46)
[2021-04-30] MEDS: Allopurinol 100 MG Tab PO SCH (08:46)
[2021-04-30] MEDS: Metoprolol Succinate 25 MG Tab.ER PO SCH ×2 (08:47→20:33)
[2021-04-30] MEDS: Isosorbide Mononitrate 30 MG Tab.ER PO SCH (08:49)
[2021-04-30] MEDS: Magnesium Hydroxide 400 MG/5 ML Susp 30 ML Cup PO PRN (08:53)
[2021-04-30] MEDS ORDERED: Phytonadione 5 MG Tab PO ONE (09:00)
[2021-04-30] MEDS: Morphine 10 MG/0.5 ML Oral Syringe PO PRN (09:23)
--- NOTE | 2021-04-30 12:31 | PCM.PN ---
- General Info Date of Service: 04/30/21 Subjective Update: No acute events overnight. Patient reports that he feels about the same today. Fairly comfortable at rest but does get short of breath with activity. Stable o n 3 L of supplemental oxygen. No reports of chest pain or abdominal pain. Appetite okay. Still quite weak. Still quite fatigued with no energy. INR remains elevated despite vitamin K yesterday. Creatinine is higher today. Functional Status: Reports: Pain Controlled, Tolerating Diet - Review of Systems General: Reports: Weakness Pulmonary: Reports: Shortness of Breath - Patient Data Vitals - Most Recent: Last Vital Signs Temp 35.5 C L 04/30/21 10:24 Pulse 87 04/30/21 10:24 Resp 18 04/30/21 08:23 BP 127/64 04/30/21 10:24 Pulse Ox 100 04/30/21 10:47 Weight - Most Recent: 83.915 kg I&O - Last 24 Hours: Intake & Output 04/29/21 04/30/21 04/30/21 22:59 06:59 14:59 Intake Total 1050 Output Total 600 200 200 Balance 450 -200 -200 Lab Results Last 24 Hours: Laboratory Results - last 24 hr 04/30/21 04/30/21 04/30/21 Range/Units 04:40 04:40 04:40 WBC 32.4 H* (4.5-11.0) K/uL RBC 3.71 L (4.30-5.90) M/uL Hgb 10.9 L (12.0-15.0) g/dL Hct 36.2 L (40.0-54.0) % MCV 98 (80-98) fL MCH 29 (27-31) pg MCHC 30 L (32-36) % Plt Count 279 (150-400) K/uL PT 71.9 H (9.2-10.6) sec INR 7.5 H* Sodium 149 H (140-148) mmol/L Potassium 4.3 (3.6-5.2) mmol/L Chloride 105 (100-108) mmol/L Carbon Dioxide 37 H (21-32) mmol/L Anion Gap 11.3 (5.0-14.0) mmol/L BUN 95 H* (7-18) mg/dL Creatinine 2.0 H (0.8-1.3) mg/dL Est Cr Clr Drug Dosing 25.71 mL/min Estimated GFR (MDRD) 32 L (>60) Glucose 185 H (74-106) mg/dL Calcium 9.0 (8.5-10.1) mg/dL Darryl Results Last 24 Hours: Microbiology 04/26/21 11:45 Aerobic Blood Culture - Preliminary Blood NO GROWTH AFTER 4 DAYS Anaerobic Blood Culture - Preliminary NO GROWTH AFTER 4 DAYS 04/26/21 11:25 Aerobic Blood Culture - Preliminary Blood - Venous - Lab Draw NO GROWTH AFTER 4 DAYS Anaerobic Blood Culture - Preliminary NO GROWTH AFTER 4 DAYS Med Orders - Current: Current Medications Acetaminophen (Acetaminophen 325 Mg Tab) 650 mg PO Q4H PRN PRN Reason: Pain (Mild 1-3)/fever Last Admin: 04/25/21 22:04 Dose: 650 mg Documented by: Albuterol (Albuterol 8 Gm Inhaler) 0 gm INH Q4H PRN PRN Reason: Shortness of Breath Last Admin: 04/26/21 08:24 Dose: 2 puff Documented by: Albuterol (Albuterol 0.083% 2.5 Mg/3 Ml Neb Soln) 2.5 mg NEB Q4H PRN PRN Reason: Dyspnea Last Admin: 04/26/21 04:54 Dose: 2.5 mg Documented by: Albuterol/Ipratropium (Albuterol/Ipratropium 3.0-0.5 Mg/3 Ml Neb Soln) 3 ml NEB QIDRT [facility] Last Admin: 04/30/21 10:49 Dose: 3 ml Documented by: Allopurinol (Allopurinol 100 Mg Tab) 100 mg PO DAILY [facility] Last Admin: 04/30/21 08:46 Dose: 100 mg Documented by: Ascorbic Acid (Ascorbic Acid 500 Mg Tab) 250 mg PO QID [facility] Last Admin: 04/30/21 10:29 Dose: Not Given Documented by: Aspirin (Aspirin 81 Mg Tab.Ec) 81 mg PO DAILY [facility] Last Admin: 04/30/21 08:45 Dose: 81 mg Documented by: Atorvastatin Calcium (Atorvastatin 20 Mg Tab) 40 mg PO BEDTIME [facility] Last Admin: 04/29/21 21:38 Dose: 40 mg Documented by: Benzonatate (Benzonatate 100 Mg Cap) 100 mg PO TID PRN PRN Reason: Cough Last Admin: 04/28/21 20:13 Dose: 100 mg Documented by: Benzonatate (Benzonatate 100 Mg Cap) 100 mg PO Q24H [facility] Last Admin: 04/29/21 17:54 Dose: 100 mg Documented by: Calcium Carbonate/Glycine (Calcium Carbonate 500 Mg Tab.Chew) 1,000 mg PO Q2H PRN PRN Reason: Indigestion Last Admin: 04/25/21 21:32 Dose: 1,000 mg Documented by: Cholecalciferol (Cholecalciferol (Vitamin D3) 25 Mcg Tab) 25 mcg PO DAILY [facility] Last Admin: 04/30/21 08:45 Dose: 25 mcg Documented by: Cyanocobalamin (Cyanocobalamin (Vitamin B12) 1,000 Mcg Tab) 500 mcg PO DAILY [facility] Last Admin: 04/30/21 08:46 Dose: 500 mcg Documented by: Digoxin (Digoxin 125 Mcg Tab) 125 mcg PO DAILY@1300 [facility] Last Admin: 04/29/21 13:13 Dose: 125 mcg Documented by: Docusate Sodium (Docusate Sodium 100 Mg Cap) 100 mg PO DAILY [facility] Last Admin: 04/30/21 08:44 Dose: 100 mg Documented by: Folic Acid (Folic Acid 1 Mg Tab) 0.5 mg PO DAILY [facility] Last Admin: 04/30/21 08:44 Dose: 0.5 mg Documented by: Guaifenesin/Dextromethorphan (Guaifenesin/Dextromethorphan 100-10 Mg/5 Ml Soln 10 Ml Cup) 10 ml PO Q4H PRN PRN Reason: Cough Last Admin: 04/21/21 21:08 Dose: 10 ml Documented by: Levofloxacin/Dextrose 750 mg/ (Premix) 150 mls @ 100 mls/hr IV Q48H [facility] Last Admin: 04/28/21 14:47 Dose: 100 mls/hr Documented by: Meropenem 0.5 gm/ Sodium (Chloride) 100 mls @ 200 mls/hr IV Q12H [facility] Isosorbide Mononitrate (Isosorbide Mononitrate 30 Mg Tab.Er) 30 mg PO DAILY [facility] Last Admin: 04/30/21 08:49 Dose: 30 mg Documented by: Loperamide HCl (Loperamide 2 Mg Cap) 2 mg PO Q4H PRN PRN Reason: Diarrhea Last Admin: 04/16/21 17:47 Dose: 2 mg Documented by: Lorazepam (Lorazepam 2 Mg/Ml Sdv) 0.5 mg IVPUSH Q4H PRN PRN Reason: Nausea/Vomiting Magnesium Hydroxide (Magnesium Hydroxide 400 Mg/5 Ml Susp 30 Ml Cup) 30 ml PO Q12H PRN PRN Reason: Constipation Last Admin: 04/30/21 08:53 Dose: 30 ml Documented by: Melatonin (Melatonin 3 Mg Tab) 9 mg PO BEDTIME PRN PRN Reason: Sleep Last Admin: 04/25/21 20:36 Dose: 9 mg Documented by: Metoprolol Succinate (Metoprolol Succinate 25 Mg Tab.Er) 25 mg PO BID [facility] Last Admin: 04/30/21 08:47 Dose: 25 mg Documented by: Mometasone Furoate/Formoterol Fumar (Formoterol/Mometasone 200-5 Mcg 8.8 Gm Inhaler) 0 puff IH BIDRT [facility] Last Admin: 04/30/21 07:03 Dose: 2 puff Documented by: Morphine Sulfate (Morphine 10 Mg/0.5 Ml Oral Syringe) 2.5 mg PO Q2H PRN PRN Reason: Dyspnea Last Admin: 04/30/21 09:23 Dose: 2.5 mg Documented by: Ondansetron HCl (Ondansetron 4 Mg/2 Ml Sdv) 4 mg IV Q6H PRN PRN Reason: Nausea/Vomiting Ondansetron HCl (Ondansetron 4 Mg Tab.Dis) 4 mg PO Q6H PRN PRN Reason: Nausea able to take PO Pantoprazole Sodium (Pantoprazole 40 Mg Tab.Cr) 40 mg PO BIDAC [facility] Last Admin: 04/30/21 07:24 Dose: 40 mg Documented by: Prednisone (Prednisone 20 Mg Tab) 20 mg PO WITHBREAKFAST [facility] Senna/Docusate Sodium (Docusate Sodium/Sennosides 50-8.6 Mg Tab) 1 tab PO BID PRN PRN Reason: Constipation Last Admin: 04/24/21 17:02 Dose: 1 tab Documented by: Spironolactone (Spironolactone 25 Mg Tab) 12.5 mg PO DAILY [facility] Last Admin: 04/29/21 08:20 Dose: 12.5 mg Documented by: Torsemide (Torsemide 20 Mg Tab) 60 mg PO DAILY [facility] Last Admin: 04/29/21 08:22 Dose: 60 mg Documented by: Discontinued Medications Albuterol/Ipratropium (Albuterol/Ipratropium 4 Gm Inhalation [place]) 0 gm INH QIDRT [facility] Last Admin: 04/26/21 10:21 Dose: Not Given Documented by: Ascorbic Acid (Ascorbic Acid 500 Mg Tab) 1,000 mg PO BIDAC [facility] Last Admin: 04/16/21 10:37 Dose: Not Given Documented by: Bumetanide (Bumetanide 1 Mg/4 Ml Mdv) 2 mg IVPUSH ONETIME ONE Stop: 04/22/21 18:01 Last Admin: 04/22/21 17:12 Dose: 2 mg Documented by: Bumetanide (Bumetanide 2.5 Mg/10 Ml Mdv) 2 mg IV ONETIME ONE Stop: 04/27/21 18:01 Bumetanide (Bumetanide 1 Mg/4 Ml Mdv) 2 mg IV ONETIME ONE Stop: 04/26/21 18:01 Last Admin: 04/26/21 17:42 Dose: 2 mg Documented by: Bumetanide (Bumetanide 2.5 Mg/10 Ml Mdv) 2 mg IVPUSH ONETIME ONE Stop: 04/27/21 18:01 Last Admin: 04/27/21 17:59 Dose: 2 mg Documented by: Bumetanide (Bumetanide 1 Mg/4 Ml Mdv) 2 mg IVPUSH ONETIME ONE Stop: 04/28/21 18:01 Last Admin: 04/28/21 17:27 Dose: 2 mg Documented by: Dexamethasone (Dexamethasone 4 Mg/Ml Sdv) 6 mg IVPUSH Q24H [facility] Last Admin: 04/18/21 16:02 Dose: 6 mg Documented by: Dexamethasone (Dexamethasone 2 Mg Tab) 6 mg PO Q24H [facility] Last Admin: 04/24/21 17:03 Dose: 6 mg Documented by: Doxycycline Hyclate (Doxycycline 100 Mg Cap) 100 mg PO Q12H [facility] Stop: 04/25/21 00:01 Last Admin: 04/21/21 12:12 Dose: 100 mg Documented by: Doxycycline Hyclate (Doxycycline 100 Mg Cap) 100 mg PO Q12H [facility] Stop: 04/24/21 22:01 Last Admin: 04/24/21 22:34 Dose: 100 mg Documented by: Heparin Sodium (Porcine) (Heparin Sodium 5,000 Units/Ml Vial) 4,000 units IVPUSH ONETIME ONE Stop: 04/15/21 15:21 Last Admin: 04/15/21 16:51 Dose: Not Given Documented by: Heparin Sodium/Dextrose (Heparin 25,000 Units In D5w 500 Ml) 25,000 units in 500 mls @ 18 mls/hr IV TITRATE [facility] Meropenem 1 gm/ Sodium (Chloride) 100 mls @ 200 mls/hr IV Q8H [facility] Last Admin: 04/27/21 03:41 Dose: 200 mls/hr Documented by: Vancomycin HCl 1.6 gm/ Sodium (Chloride) 250 mls @ 166.667 mls/hr IV Q12H [facility] Stop: 04/26/21 13:59 Last Admin: 04/26/21 12:29 Dose: 166.667 mls/hr Documented by: Vancomycin HCl 1.25 gm/ Sodium (Chloride) 250 mls @ 166.667 mls/hr IV Q24H [facility] Last Admin: 04/28/21 13:04 Dose: 166.667 mls/hr Documented by: Meropenem 1 gm/ Sodium (Chloride) 100 mls @ 200 mls/hr IV Q12H [facility] Last Admin: 04/30/21 03:11 Dose: 200 mls/hr Documented by: Isosorbide Mononitrate (Isosorbide Mononitrate 30 Mg Tab.Er) 30 mg PO ONETIME ONE Stop: 04/18/21 06:28 Last Admin: 04/18/21 06:39 Dose: 30 mg Documented by: Methylprednisolone Sodium Succinate (Methylprednisolone Sodium Succinate 40 Mg/1 Ml Sdv) 40 mg IVPUSH Q8H [facility] Stop: 04/30/21 02:00 Last Admin: 04/29/21 21:39 Dose: 40 mg Documented by: Phytonadione (Phytonadione 5 Mg Tab) 2.5 mg PO ONETIME ONE Stop: 04/18/21 13:01 Last Admin: 04/18/21 13:43 Dose: 2.5 mg Documented by: Phytonadione (Phytonadione 5 Mg Tab) 2.5 mg PO ONETIME ONE Stop: 04/29/21 08:46 Last Admin: 04/29/21 08:49 Dose: 2.5 mg Documented by: Phytonadione (Phytonadione 5 Mg Tab) 5 mg PO ONETIME ONE Stop: 04/30/21 09:01 Last Admin: 04/30/21 08:43 Dose: 5 mg Documented by: Prednisone (Prednisone 20 Mg Tab) 40 mg PO WITHBREAKFAST [facility] Last Admin: 04/30/21 07:24 Dose: 40 mg Documented by: Torsemide (Torsemide 20 Mg Tab) 40 mg PO DAILY [facility] Last Admin: 04/25/21 08:54 Dose: 40 mg Documented by: Vancomycin HCl (Vancomycin 1 Gm Sdv) 1 gm IV .PHARMACY TO DOSE [facility] Stop: 04/26/21 12:00 Warfarin Sodium (Warfarin 5 Mg Tab) 5 mg PO DAILY@1300 [facility] Last Admin: 04/17/21 13:31 Dose: 5 mg Documented by: Warfarin Sodium (Warfarin 2.5 Mg Tab) 2.5 mg PO DAILY@1300 [facility] Last Admin: 04/20/21 12:21 Dose: 2.5 mg Documented by: Warfarin Sodium (Warfarin 2.5 Mg Tab) 1.25 mg PO DAILY@1300 [facility] Last Admin: 04/28/21 13:12 Dose: 1.25 mg Documented by: - Exam Quality Assessment: Supplemental Oxygen General: Alert, Oriented, Cooperative, No Acute Distress Lungs: Crackles (moderate both lower lungs). No: Normal Respiratory Effort (mild increase in work of breathing ) Cardiovascular: Regular Rate, Irregular Rhythm GI/Abdominal Exam: Soft, No Distention Extremities: No Pedal Edema. No: Increased Warmth Skin: Warm, Dry Psy/Mental Status: Alert, Normal Affect - Patient Data Lab Results Last 24 hrs: Laboratory Results - last 24 hr 04/30/21 04/30/21 04/30/21 Range/Units 04:40 04:40 04:40 WBC 32.4 H* (4.5-11.0) K/uL RBC 3.71 L (4.30-5.90) M/uL Hgb 10.9 L (12.0-15.0) g/dL Hct 36.2 L (40.0-54.0) % MCV 98 (80-98) fL MCH 29 (27-31) pg MCHC 30 L (32-36) % Plt Count 279 (150-400) K/uL PT 71.9 H (9.2-10.6) sec INR 7.5 H* Sodium 149 H (140-148) mmol/L Potassium 4.3 (3.6-5.2) mmol/L Chloride 105 (100-108) mmol/L Carbon Dioxide 37 H (21-32) mmol/L Anion Gap 11.3 (5.0-14.0) mmol/L BUN 95 H* (7-18) mg/dL Creatinine 2.0 H (0.8-1.3) mg/dL Est Cr Clr Drug Dosing 25.71 mL/min Estimated GFR (MDRD) 32 L (>60) Glucose 185 H (74-106) mg/dL Calcium 9.0 (8.5-10.1) mg/dL Result Diagrams: 04/30/21 04:40 04/30/21 04:40 Darryl Results Last 24 hrs: Microbiology 04/26/21 11:45 Aerobic Blood Culture - Preliminary Blood NO GROWTH AFTER 4 DAYS Anaerobic Blood Culture - Preliminary NO GROWTH AFTER 4 DAYS 04/26/21 11:25 Aerobic Blood Culture - Preliminary Blood - Venous - Lab Draw NO GROWTH AFTER 4 DAYS Anaerobic Blood Culture - Preliminary NO GROWTH AFTER 4 DAYS Sepsis Event Note - Evaluation Sepsis Screening Result: Severe Sepsis Risk - Focused Exam Vital Signs: Vital Signs Temp Pulse Pulse Resp BP BP BP 04/30/21 10:47 04/30/21 10:24 35.5 C L 87 127/64 04/30/21 08:49 119/60 04/30/21 08:47 82 119/60 04/30/21 08:23 35.6 C L 85 18 120/53 L 04/30/21 06:17 35.7 C L 81 20 129/65 04/30/21 03:12 35.6 C L 93 22 H 114/94 H 04/30/21 03:05 Pulse Ox 04/30/21 10:47 100 04/30/21 10:24 92 L 04/30/21 08:49 04/30/21 08:47 04/30/21 08:23 95 04/30/21 06:17 98 04/30/21 03:12 96 04/30/21 03:05 93 L - Problem List & Annotations (1) Pneumonia due to COVID-19 virus SNOMED Code(s): 946365258343527477 Code(s): U07.1 - COVID-19; J12.82 - PNEUMONIA DUE TO CORONAVIRUS DISEASE 2019 Status: Acute Current Visit: Yes (2) Acute and chronic respiratory failure SNOMED Code(s): 14351097 Code(s): J96.20 - ACUTE AND CHR RESP FAILURE, UNSP W HYPOXIA OR HYPERCAPNIA Status: Acute Current Visit: Yes Qualifiers: Respiratory failure complication: hypoxia Qualified Code(s): J96.21 - Acute and chronic respiratory failure with hypoxia (3) Acute kidney injury SNOMED Code(s): 27247778, 27984284 Code(s): N17.9 - ACUTE KIDNEY FAILURE, UNSPECIFIED Status: Acute Current Visit: Yes (4) Elevated troponin SNOMED Code(s): 837850700, 939530315, 569016693 Code(s): R77.8 - OTHER SPECIFIED ABNORMALITIES OF PLASMA PROTEINS Status: Acute Current Visit: Yes (5) HFrEF (heart failure with reduced ejection fraction) SNOMED Code(s): 394488701 Code(s): I50.20 - UNSPECIFIED SYSTOLIC (CONGESTIVE) HEART FAILURE Status: Chronic Current Visit: Yes (6) CAD (coronary artery disease) SNOMED Code(s): 85036759 Code(s): I25.10 - ATHSCL HEART DISEASE OF [place] CORONARY ARTERY W/O ANG PCTRS Status: Chronic Current Visit: Yes Qualifiers: Coronary Disease-Associated Artery/Lesion type: [place] artery [place] vs. transplanted heart: [place] heart Associated angina: without angina Qualified Code(s): I25.10 - Atherosclerotic heart disease of [place] coronary artery without angina pectoris - Problem List Review Problem List Initiated/Reviewed/Updated: Yes - My Orders Last 24 Hours: My Active Orders 04/30/21 15:00 Meropenem [Merrem] 0.5 gm Sodium Chloride 0.9% [Normal Saline] 100 ml IV Q12H 05/01/21 05:00 BASIC METABOLIC PANEL,BMP [CHEM] Timed CBC W/O DIFF,HEMOGRAM [HEME] Timed (1) CRP [C-REACTIVE PROTEIN] [CHEM] Timed INR,PT,PROTHROMBIN TIME [COAG] Timed 05/01/21 08:00 predniSONE 20 mg PO WITHBREAKFAST - Plan Plan:: ASSESSMENT AND PLAN - Pneumonia, bilateral-probable component of bacterial pneumonia given persistent elevation in white count and borderline elevation in procalcitonin. CT scan showed bilateral infiltrates. Symptomatically he is doing better. Supplemental oxygen requirement stable to slightly improved. -Hold diuretic therapy -Continue empiric antibiotic therapy for healthcare acquired pneumonia; meropenem, and levofloxacin -Supplement oxygen, wean as able -Continue steroids, transition to oral COVID-19 pneumonia-complicated by acute on chronic respiratory failure. Covid infection has resolved and he no longer requires isolation. -Dexamethasone 6 mg daily, complete -Remdesivir x5 days complete -Supplement oxygen -Isolation precautions discontinued last week Acute kidney injury-renal function had improved and was stable but has worsened over the past 48 hours. -Hold diuretics -Recheck labs in the morning Coronary artery disease-complicated by ischemic cardiomyopathy and heart failure with reduced ejection fraction. -Continue diuretics -Continue isosorbide mononitrate -Hold losartan -Continue additional medical management Mechanical aortic valve replacement-chronically anticoagulated. INR still supratherapeutic despite vitamin K yesterday. -5 mg of vitamin K this morning -Hold warfarin -INR in the morning -INR goal 2.5-3.5 Anemia-mild, stable. -Outpatient work-up Palliative care-we discussed options for ongoing management, he is not yet ready to consider comfort cares only. He would like to be treated for comfort in ad dition to other interventions. -Morphine 2.5 mg p.o. every 2 hours as needed Maintenance issues - -DVT prophylaxis-warfarin -GI prophylaxis-PPI -[id number] Disposition -[facility] after the hospital stay. Once his respiratory status has stabilized he will be ready for subacute rehab. Hopefully in the next 2 to 3 days. Michel Cunha MD
[2021-04-30] MEDS: Digoxin 125 MCG Tab PO SCH (14:30)
[2021-04-30] MEDS: Levofloxacin/Dextrose 5%-Water 750 MG in Premix Bag 1 BAG IV SCH (14:30)
[2021-04-30] MEDS: Meropenem 500 MG in Sodium Chloride 0.9% 50 ML IV SCH (16:40)
[2021-04-30] MEDS: Benzonatate 100 MG Cap PO SCH ×2 (16:42→17:57)
[2021-04-30] MEDS: atorvaSTATin 20 MG Tab PO SCH (20:34)
[2021-05-01] MEDS: Meropenem 500 MG in Sodium Chloride 0.9% 50 ML IV SCH ×2 (02:10→16:11)
[2021-05-01] MEDS: Morphine 10 MG/0.5 ML Oral Syringe PO PRN ×5 (04:42→16:13)
[2021-05-01] MEDS: Formoterol/Mometasone 200-5 MCG 8.8 GM Inhaler IH SCH ×2 (07:14→21:04)
[2021-05-01] MEDS: Albuterol/Ipratropium 3.0-0.5 MG/3 ML Neb Soln NEB SCH ×4 (07:15→20:59)
[2021-05-01] MEDS ORDERED: Bisacodyl 10 MG Supp RECTAL ONE ×2 (10:00→12:45)
[2021-05-01] MEDS: Ascorbic Acid 500 MG Tab PO SCH ×4 (10:02→21:04)
[2021-05-01] MEDS: Pantoprazole 40 MG Tab.CR PO SCH ×2 (10:03→16:15)
[2021-05-01] MEDS: predniSONE 20 MG Tab PO SCH (10:03)
[2021-05-01] MEDS: Docusate Sodium 100 MG Cap PO SCH (10:03)
[2021-05-01] MEDS: Allopurinol 100 MG Tab PO SCH (10:03)
[2021-05-01] MEDS: Cholecalciferol (Vitamin D3) 25 MCG Tab PO SCH (10:03)
[2021-05-01] MEDS: Folic Acid 1 MG Tab PO SCH (10:08)
[2021-05-01] MEDS: Aspirin 81 MG Tab.EC PO SCH (10:09)
[2021-05-01] MEDS: Cyanocobalamin (Vitamin B12) 1,000 MCG Tab PO SCH (10:09)
[2021-05-01] MEDS: Isosorbide Mononitrate 30 MG Tab.ER PO SCH (10:09)
[2021-05-01] MEDS: Metoprolol Succinate 25 MG Tab.ER PO SCH ×2 (10:10→21:04)
[2021-05-01] MEDS: Digoxin 125 MCG Tab PO SCH (12:58)
--- NOTE | 2021-05-01 15:58 | PCM.PN ---
- General Info Date of Service: 05/01/21 Subjective Update: No acute events overnight. Patient does get very short of breath and desaturates with any activity. Appetite has been poor. He has no energy. He would like to do some activity and exercise but just does not have the strength or energy. No significant cough. Fairly comfortable at rest. White blood cell count is higher today. Creatinine and BUN are slightly higher again today. We did discuss the severity of his current situation. I expressed my concerns that there may not be enough medication to get him through this. He would like to continue with the current level of care at least for a little longer. He may consider a transition to comfort care if he does not improve in the next couple of days. Functional Status: Reports: Pain Controlled - Review of Systems General: Reports: Weakness Pulmonary: Reports: Shortness of Breath Neurological: Reports: Confusion - Patient Data Vitals - Most Recent: Last Vital Signs Temp 36.1 C 05/01/21 15:00 Pulse 85 05/01/21 15:00 Resp 16 05/01/21 15:00 BP 112/55 L 05/01/21 15:00 Pulse Ox 96 05/01/21 15:00 Weight - Most Recent: 83.915 kg I&O - Last 24 Hours: Intake & Output 05/01/21 05/01/21 05/01/21 06:59 14:59 22:59 Intake Total 150 120 Output Total 75 Balance 75 120 Lab Results Last 24 Hours: Laboratory Results - last 24 hr 05/01/21 05/01/21 05/01/21 Range/Units 05:45 05:45 05:45 WBC 38.7 H* (4.5-11.0) K/uL RBC 3.71 L (4.30-5.90) M/uL Hgb 11.0 L (12.0-15.0) g/dL Hct 36.2 L (40.0-54.0) % MCV 98 (80-98) fL MCH 30 (27-31) pg MCHC 30 L (32-36) % Plt Count 285 (150-400) K/uL PT 61.8 H (9.2-10.6) sec INR 6.4 H* Sodium 141 (140-148) mmol/L Potassium 4.9 (3.6-5.2) mmol/L Chloride 100 (100-108) mmol/L Carbon Dioxide 36 H (21-32) mmol/L Anion Gap 9.9 (5.0-14.0) mmol/L BUN 108 H* (7-18) mg/dL Creatinine 2.1 H (0.8-1.3) mg/dL Est Cr Clr Drug Dosing 24.48 mL/min Estimated GFR (MDRD) 30 L (>60) Glucose 201 H (74-106) mg/dL Calcium 8.7 (8.5-10.1) mg/dL C-Reactive Protein 6.70 H (0.0-0.3) mg/dL Darryl Results Last 24 Hours: Microbiology 04/26/21 11:45 Aerobic Blood Culture - Final Blood NO GROWTH AFTER 5 DAYS Anaerobic Blood Culture - Final NO GROWTH AFTER 5 DAYS 04/26/21 11:25 Aerobic Blood Culture - Final Blood - Venous - Lab Draw NO GROWTH AFTER 5 DAYS Anaerobic Blood Culture - Final NO GROWTH AFTER 5 DAYS Med Orders - Current: Current Medications Acetaminophen (Acetaminophen 325 Mg Tab) 650 mg PO Q4H PRN PRN Reason: Pain (Mild 1-3)/fever Last Admin: 04/25/21 22:04 Dose: 650 mg Documented by: Albuterol (Albuterol 8 Gm Inhaler) 0 gm INH Q4H PRN PRN Reason: Shortness of Breath Last Admin: 04/26/21 08:24 Dose: 2 puff Documented by: Albuterol (Albuterol 0.083% 2.5 Mg/3 Ml Neb Soln) 2.5 mg NEB Q4H PRN PRN Reason: Dyspnea Last Admin: 04/26/21 04:54 Dose: 2.5 mg Documented by: Albuterol/Ipratropium (Albuterol/Ipratropium 3.0-0.5 Mg/3 Ml Neb Soln) 3 ml NEB QIDRT [facility] Last Admin: 05/01/21 14:20 Dose: 3 ml Documented by: Allopurinol (Allopurinol 100 Mg Tab) 100 mg PO DAILY [facility] Last Admin: 05/01/21 10:03 Dose: 100 mg Documented by: Ascorbic Acid (Ascorbic Acid 500 Mg Tab) 250 mg PO QID [facility] Last Admin: 05/01/21 10:02 Dose: 250 mg Documented by: Aspirin (Aspirin 81 Mg Tab.Ec) 81 mg PO DAILY [facility] Last Admin: 05/01/21 10:09 Dose: 81 mg Documented by: Atorvastatin Calcium (Atorvastatin 20 Mg Tab) 40 mg PO BEDTIME [facility] Last Admin: 04/30/21 20:34 Dose: 40 mg Documented by: Benzonatate (Benzonatate 100 Mg Cap) 100 mg PO TID PRN PRN Reason: Cough Last Admin: 04/28/21 20:13 Dose: 100 mg Documented by: Benzonatate (Benzonatate 100 Mg Cap) 100 mg PO Q24H [facility] Last Admin: 04/30/21 17:57 Dose: Not Given Documented by: Calcium Carbonate/Glycine (Calcium Carbonate 500 Mg Tab.Chew) 1,000 mg PO Q2H PRN PRN Reason: Indigestion Last Admin: 04/25/21 21:32 Dose: 1,000 mg Documented by: Cholecalciferol (Cholecalciferol (Vitamin D3) 25 Mcg Tab) 25 mcg PO DAILY [facility] Last Admin: 05/01/21 10:03 Dose: 25 mcg Documented by: Cyanocobalamin (Cyanocobalamin (Vitamin B12) 1,000 Mcg Tab) 500 mcg PO DAILY [facility] Last Admin: 05/01/21 10:09 Dose: 500 mcg Documented by: Digoxin (Digoxin 125 Mcg Tab) 125 mcg PO DAILY@1300 [facility] Last Admin: 05/01/21 12:58 Dose: 125 mcg Documented by: Docusate Sodium (Docusate Sodium 100 Mg Cap) 100 mg PO DAILY [facility] Last Admin: 05/01/21 10:03 Dose: 100 mg Documented by: Folic Acid (Folic Acid 1 Mg Tab) 0.5 mg PO DAILY [facility] Last Admin: 05/01/21 10:08 Dose: 0.5 mg Documented by: Guaifenesin/Dextromethorphan (Guaifenesin/Dextromethorphan 100-10 Mg/5 Ml Soln 10 Ml Cup) 10 ml PO Q4H PRN PRN Reason: Cough Last Admin: 04/21/21 21:08 Dose: 10 ml Documented by: Levofloxacin/Dextrose 750 mg/ (Premix) 150 mls @ 100 mls/hr IV Q48H [facility] Last Admin: 04/30/21 14:30 Dose: 100 mls/hr Documented by: Meropenem 500 mg/ Sodium (Chloride) 50 mls @ 100 mls/hr IV Q12H [facility] Last Admin: 05/01/21 02:10 Dose: 100 mls/hr Documented by: Isosorbide Mononitrate (Isosorbide Mononitrate 30 Mg Tab.Er) 30 mg PO DAILY [facility] Last Admin: 05/01/21 10:09 Dose: 30 mg Documented by: Loperamide HCl (Loperamide 2 Mg Cap) 2 mg PO Q4H PRN PRN Reason: Diarrhea Last Admin: 04/16/21 17:47 Dose: 2 mg Documented by: Lorazepam (Lorazepam 2 Mg/Ml Sdv) 0.5 mg IVPUSH Q4H PRN PRN Reason: Nausea/Vomiting Magnesium Hydroxide (Magnesium Hydroxide 400 Mg/5 Ml Susp 30 Ml Cup) 30 ml PO Q12H PRN PRN Reason: Constipation Last Admin: 04/30/21 08:53 Dose: 30 ml Documented by: Melatonin (Melatonin 3 Mg Tab) 9 mg PO BEDTIME PRN PRN Reason: Sleep Last Admin: 04/25/21 20:36 Dose: 9 mg Documented by: Metoprolol Succinate (Metoprolol Succinate 25 Mg Tab.Er) 25 mg PO BID [facility] Last Admin: 05/01/21 10:10 Dose: 25 mg Documented by: Mometasone Furoate/Formoterol Fumar (Formoterol/Mometasone 200-5 Mcg 8.8 Gm Inhaler) 0 puff IH BIDRT [facility] Last Admin: 05/01/21 07:14 Dose: 2 puff Documented by: Morphine Sulfate (Morphine 10 Mg/0.5 Ml Oral Syringe) 2.5 mg PO Q2H PRN PRN Reason: Dyspnea Last Admin: 05/01/21 13:04 Dose: 2.5 mg Documented by: Ondansetron HCl (Ondansetron 4 Mg/2 Ml Sdv) 4 mg IV Q6H PRN PRN Reason: Nausea/Vomiting Ondansetron HCl (Ondansetron 4 Mg Tab.Dis) 4 mg PO Q6H PRN PRN Reason: Nausea able to take PO Pantoprazole Sodium (Pantoprazole 40 Mg Tab.Cr) 40 mg PO BIDAC [facility] Last Admin: 05/01/21 10:03 Dose: 40 mg Documented by: Prednisone (Prednisone 20 Mg Tab) 20 mg PO WITHBREAKFAST [facility] Last Admin: 05/01/21 10:03 Dose: 20 mg Documented by: Senna/Docusate Sodium (Docusate Sodium/Sennosides 50-8.6 Mg Tab) 1 tab PO BID PRN PRN Reason: Constipation Last Admin: 04/30/21 22:00 Dose: 1 tab Documented by: Spironolactone (Spironolactone 25 Mg Tab) 12.5 mg PO DAILY [facility] Last Admin: 04/29/21 08:20 Dose: 12.5 mg Documented by: Torsemide (Torsemide 20 Mg Tab) 60 mg PO DAILY [facility] Last Admin: 04/29/21 08:22 Dose: 60 mg Documented by: Discontinued Medications Albuterol/Ipratropium (Albuterol/Ipratropium 4 Gm Inhalation [place]) 0 gm INH QIDRT [facility] Last Admin: 04/26/21 10:21 Dose: Not Given Documented by: Ascorbic Acid (Ascorbic Acid 500 Mg Tab) [facility] Last Admin: 04/16/21 10:37 Dose: Not Given Documented by: Bisacodyl (Bisacodyl 10 Mg Supp) 10 mg RECTAL ONETIME ONE Stop: 05/01/21 12:46 Last Admin: 05/01/21 12:57 Dose: 10 mg Documented by: Bumetanide (Bumetanide 1 Mg/4 Ml Mdv) 2 mg IVPUSH ONETIME ONE Stop: 04/22/21 18:01 Last Admin: 04/22/21 17:12 Dose: 2 mg Documented by: Bumetanide (Bumetanide 2.5 Mg/10 Ml Mdv) 2 mg IV ONETIME ONE Stop: 04/27/21 18:01 Bumetanide (Bumetanide 1 Mg/4 Ml Mdv) 2 mg IV ONETIME ONE Stop: 04/26/21 18:01 Last Admin: 04/26/21 17:42 Dose: 2 mg Documented by: Bumetanide (Bumetanide 2.5 Mg/10 Ml Mdv) 2 mg IVPUSH ONETIME ONE Stop: 04/27/21 18:01 Last Admin: 04/27/21 17:59 Dose: 2 mg Documented by: Bumetanide (Bumetanide 1 Mg/4 Ml Mdv) 2 mg IVPUSH ONETIME ONE Stop: 04/28/21 18:01 Last Admin: 04/28/21 17:27 Dose: 2 mg Documented by: Dexamethasone (Dexamethasone 4 Mg/Ml Sdv) 6 mg IVPUSH Q24H [facility] Last Admin: 04/18/21 16:02 Dose: 6 mg Documented by: Dexamethasone (Dexamethasone 2 Mg Tab) 6 mg PO Q24H [facility] Last Admin: 04/24/21 17:03 Dose: 6 mg Documented by: Doxycycline Hyclate (Doxycycline 100 Mg Cap) 100 mg PO Q12H [facility] Stop: 04/25/21 00:01 Last Admin: 04/21/21 12:12 Dose: 100 mg Documented by: Doxycycline Hyclate (Doxycycline 100 Mg Cap) 100 mg PO Q12H [facility] Stop: 04/24/21 22:01 Last Admin: 04/24/21 22:34 Dose: 100 mg Documented by: Heparin Sodium (Porcine) (Heparin Sodium 5,000 Units/Ml Vial) 4,000 units IVPUSH ONETIME ONE Stop: 04/15/21 15:21 Last Admin: 04/15/21 16:51 Dose: Not Given Documented by: Heparin Sodium/Dextrose (Heparin 25,000 Units In D5w 500 Ml) 25,000 units in 500 mls @ 18 mls/hr IV TITRATE [facility] Meropenem 1 gm/ Sodium (Chloride) 100 mls @ 200 mls/hr IV Q8H [facility] Last Admin: 04/27/21 03:41 Dose: 200 mls/hr Documented by: Vancomycin HCl 1.6 gm/ Sodium (Chloride) 250 mls @ 166.667 mls/hr IV Q12H [facility] Stop: 04/26/21 13:59 Last Admin: 04/26/21 12:29 Dose: 166.667 mls/hr Documented by: Vancomycin HCl 1.25 gm/ Sodium (Chloride) 250 mls @ 166.667 mls/hr IV Q24H [facility] Last Admin: 04/28/21 13:04 Dose: 166.667 mls/hr Documented by: Meropenem 1 gm/ Sodium (Chloride) 100 mls @ 200 mls/hr IV Q12H [facility] Last Admin: 04/30/21 03:11 Dose: 200 mls/hr Documented by: Isosorbide Mononitrate (Isosorbide Mononitrate 30 Mg Tab.Er) 30 mg PO ONETIME ONE Stop: 04/18/21 06:28 Last Admin: 04/18/21 06:39 Dose: 30 mg Documented by: Methylprednisolone Sodium Succinate (Methylprednisolone Sodium Succinate 40 Mg/1 Ml Sdv) 40 mg IVPUSH Q8H [facility] Stop: 04/30/21 02:00 Last Admin: 04/29/21 21:39 Dose: 40 mg Documented by: Phytonadione (Phytonadione 5 Mg Tab) 2.5 mg PO ONETIME ONE Stop: 04/18/21 13:01 Last Admin: 04/18/21 13:43 Dose: 2.5 mg Documented by: Phytonadione (Phytonadione 5 Mg Tab) 2.5 mg PO ONETIME ONE Stop: 04/29/21 08:46 Last Admin: 04/29/21 08:49 Dose: 2.5 mg Documented by: Phytonadione (Phytonadione 5 Mg Tab) 5 mg PO ONETIME ONE Stop: 04/30/21 09:01 Last Admin: 04/30/21 08:43 Dose: 5 mg Documented by: Prednisone (Prednisone 20 Mg Tab) 40 mg PO WITHBREAKFAST [facility] Last Admin: 04/30/21 07:24 Dose: 40 mg Documented by: Torsemide (Torsemide 20 Mg Tab) 40 mg PO DAILY [facility] Last Admin: 04/25/21 08:54 Dose: 40 mg Documented by: Vancomycin HCl (Vancomycin 1 Gm Sdv) 1 gm IV .PHARMACY TO DOSE [facility] Stop: 04/26/21 12:00 Warfarin Sodium (Warfarin 5 Mg Tab) 5 mg PO DAILY@1300 [facility] Last Admin: 04/17/21 13:31 Dose: 5 mg Documented by: Warfarin Sodium (Warfarin 2.5 Mg Tab) 2.5 mg PO DAILY@1300 [facility] Last Admin: 04/20/21 12:21 Dose: 2.5 mg Documented by: Warfarin Sodium (Warfarin 2.5 Mg Tab) 1.25 mg PO DAILY@1300 [facility] Last Admin: 04/28/21 13:12 Dose: 1.25 mg Documented by: - Exam Quality Assessment: Supplemental Oxygen General: Alert, Oriented, Cooperative, Mild Distress Neck: No JVD Lungs: Normal Respiratory Effort, Decreased Breath Sounds (left lung base), Crackles (both bases) Cardiovascular: Regular Rate, Regular Rhythm GI/Abdominal Exam: Soft, No Distention Extremities: No Pedal Edema. No: Increased Warmth Skin: Warm, Dry Psy/Mental Status: Alert, Anxious - Patient Data Lab Results Last 24 hrs: Laboratory Results - last 24 hr 05/01/21 05/01/21 05/01/21 Range/Units 05:45 05:45 05:45 WBC 38.7 H* (4.5-11.0) K/uL RBC 3.71 L (4.30-5.90) M/uL Hgb 11.0 L (12.0-15.0) g/dL Hct 36.2 L (40.0-54.0) % MCV 98 (80-98) fL MCH 30 (27-31) pg MCHC 30 L (32-36) % Plt Count 285 (150-400) K/uL PT 61.8 H (9.2-10.6) sec INR 6.4 H* Sodium 141 (140-148) mmol/L Potassium 4.9 (3.6-5.2) mmol/L Chloride 100 (100-108) mmol/L Carbon Dioxide 36 H (21-32) mmol/L Anion Gap 9.9 (5.0-14.0) mmol/L BUN 108 H* (7-18) mg/dL Creatinine 2.1 H (0.8-1.3) mg/dL Est Cr Clr Drug Dosing 24.48 mL/min Estimated GFR (MDRD) 30 L (>60) Glucose 201 H (74-106) mg/dL Calcium 8.7 (8.5-10.1) mg/dL C-Reactive Protein 6.70 H (0.0-0.3) mg/dL Result Diagrams: 05/01/21 05:45 05/01/21 05:45 Darryl Results Last 24 hrs: Microbiology 04/26/21 11:45 Aerobic Blood Culture - Final Blood NO GROWTH AFTER 5 DAYS Anaerobic Blood Culture - Final NO GROWTH AFTER 5 DAYS 04/26/21 11:25 Aerobic Blood Culture - Final Blood - Venous - Lab Draw NO GROWTH AFTER 5 DAYS Anaerobic Blood Culture - Final NO GROWTH AFTER 5 DAYS Sepsis Event Note - Evaluation Sepsis Screening Result: Possible Sepsis Risk - Focused Exam Vital Signs: Vital Signs Temp Pulse Pulse Resp BP BP Pulse Ox 05/01/21 15:00 36.1 C 85 16 112/55 L 96 05/01/21 12:58 84 05/01/21 10:24 36.3 C 83 18 136/74 91 L 05/01/21 10:10 80 113/60 05/01/21 10:09 113/60 05/01/21 10:00 98 05/01/21 07:00 36.5 C 80 16 113/60 92 L 05/01/21 05:00 83 95 - Problem List & Annotations (1) Pneumonia due to COVID-19 virus SNOMED Code(s): 305438818979413653 Code(s): U07.1 - COVID-19; J12.82 - PNEUMONIA DUE TO CORONAVIRUS DISEASE 2019 Status: Acute Current Visit: Yes (2) Acute and chronic respiratory failure SNOMED Code(s): 28550151 Code(s): J96.20 - ACUTE AND CHR RESP FAILURE, UNSP W HYPOXIA OR HYPERCAPNIA Status: Acute Current Visit: Yes Qualifiers: Respiratory failure complication: hypoxia Qualified Code(s): J96.21 - Acute and chronic respiratory failure with hypoxia (3) Acute kidney injury SNOMED Code(s): 05169845, 27446799 Code(s): N17.9 - ACUTE KIDNEY FAILURE, UNSPECIFIED Status: Acute Current Visit: Yes (4) Elevated troponin SNOMED Code(s): 506676975, 735877675, 233769513 Code(s): R77.8 - OTHER SPECIFIED ABNORMALITIES OF PLASMA PROTEINS Status: Acute Current Visit: Yes (5) HFrEF (heart failure with reduced ejection fraction) SNOMED Code(s): 095196804 Code(s): I50.20 - UNSPECIFIED SYSTOLIC (CONGESTIVE) HEART FAILURE Status: Chronic Current Visit: Yes (6) CAD (coronary artery disease) SNOMED Code(s): 94418049 Code(s): I25.10 - ATHSCL HEART DISEASE OF [place] CORONARY ARTERY W/O ANG PCTRS Status: Chronic Current Visit: Yes Qualifiers: Coronary Disease-Associated Artery/Lesion type: [place] artery [place] vs. transplanted heart: [place] heart Associated angina: without angina Qualified Code(s): I25.10 - Atherosclerotic heart disease of [place] coronary artery without angina pectoris - Problem List Review Problem List Initiated/Reviewed/Updated: Yes - My Orders Last 24 Hours: My Active Orders 04/30/21 15:00 Meropenem [Merrem] 500 mg Sodium Chloride 0.9% [Normal Saline AdvBag] 50 ml IV Q12H 05/01/21 08:00 predniSONE 20 mg PO WITHBREAKFAST 05/02/21 05:00 BASIC METABOLIC PANEL,BMP [CHEM] Timed CBC W/O DIFF,HEMOGRAM [HEME] Timed (1) INR,PT,PROTHROMBIN TIME [COAG] Timed - Plan Plan:: ASSESSMENT AND PLAN - Pneumonia, bilateral-suspect bacterial infection on top of recent Covid infection. White blood cell count continues to rise. Respiratory status stable at rest but not able to tolerate any activity. Volume status appropriate today. I am very concerned that with his baseline of severe COPD and ischemic cardiomyopathy that this pneumonia on top of recent Covid infection could be too much for him and that he may as a result of this. -Hold diuretic therapy -Continue empiric antibiotic therapy for healthcare acquired pneumonia; meropenem, and levofloxacin -Supplement oxygen, wean as able -Continue prednisone COVID-19 pneumonia-complicated by acute on chronic respiratory failure. Active Covid infection has resolved and he no longer requires isolation. -Dexamethasone 6 mg daily, complete -Remdesivir x5 days complete -Isolation precautions discontinued last week Acute kidney injury-renal function had improved and was stable but then declined couple of days ago. Creatinine similar to yesterday. Suspect some intravascular volume depletion. -Hold diuretics -Recheck labs in the morning Coronary artery disease-complicated by ischemic cardiomyopathy and heart failure with reduced ejection fraction. -Continue diuretics -Continue isosorbide mononitrate -Hold losartan -Continue additional medical management Mechanical aortic valve replacement-chronically anticoagulated. INR still supratherapeutic despite vitamin K last 2 days. -Hold warfarin -INR in the morning -INR goal 2.5-3.5 Anemia-mild, stable. Palliative care-we discussed options for ongoing management, he is not yet ready to consider comfort cares only. He would like to be treated for comfort in addition to other interventions. -Morphine 2.5 mg p.o. every 2 hours as needed Maintenance issues - -DVT prophylaxis-warfarin -GI prophylaxis-PPI -[id number] Disposition -I anticipate [facility] to the [facility] for subacute rehab after the hospital stay if he survives the hospital stay. He appears to be declining and given acute medical problems superimposed on his chronic medical problems he may not survive the hospital stay. Michel Cunha MD
[2021-05-01] MEDS: Magnesium Hydroxide 400 MG/5 ML Susp 30 ML Cup PO PRN (16:13)
[2021-05-01] MEDS: Benzonatate 100 MG Cap PO SCH (17:37)
[2021-05-01] MEDS: atorvaSTATin 20 MG Tab PO SCH (21:05)
[2021-05-02] MEDS: Meropenem 500 MG in Sodium Chloride 0.9% 50 ML IV SCH ×2 (03:18→17:01)
[2021-05-02] MEDS: Ascorbic Acid 500 MG Tab PO SCH ×4 (05:52→21:43)
[2021-05-02] MEDS: Albuterol/Ipratropium 3.0-0.5 MG/3 ML Neb Soln NEB SCH ×4 (06:59→21:36)
[2021-05-02] MEDS: Formoterol/Mometasone 200-5 MCG 8.8 GM Inhaler IH SCH ×2 (07:00→21:43)
[2021-05-02] MEDS: Aspirin 81 MG Tab.EC PO SCH (08:12)
[2021-05-02] MEDS: Metoprolol Succinate 25 MG Tab.ER PO SCH ×2 (08:12→21:43)
[2021-05-02] MEDS: Isosorbide Mononitrate 30 MG Tab.ER PO SCH (08:12)
[2021-05-02] MEDS: predniSONE 20 MG Tab PO SCH (08:12)
[2021-05-02] MEDS: Cyanocobalamin (Vitamin B12) 1,000 MCG Tab PO SCH (08:12)
[2021-05-02] MEDS: Pantoprazole 40 MG Tab.CR PO SCH ×2 (08:12→17:30)
[2021-05-02] MEDS: Allopurinol 100 MG Tab PO SCH (08:12)
[2021-05-02] MEDS: Folic Acid 1 MG Tab PO SCH (08:13)
[2021-05-02] MEDS: Docusate Sodium 100 MG Cap PO SCH (08:13)
[2021-05-02] MEDS: Cholecalciferol (Vitamin D3) 25 MCG Tab PO SCH (08:14)
[2021-05-02] MEDS ORDERED: Phytonadione 5 MG Tab PO ONE (08:45)
[2021-05-02] MEDS: Morphine 10 MG/0.5 ML Oral Syringe PO PRN ×2 (13:46→16:15)
[2021-05-02] MEDS: Levofloxacin/Dextrose 5%-Water 750 MG in Premix Bag 1 BAG IV SCH (13:46)
[2021-05-02] MEDS: Digoxin 125 MCG Tab PO SCH (13:46)
--- NOTE | 2021-05-02 15:16 | PCM.PN ---
- General Info Date of Service: 05/02/21 Subjective Update: No acute events overnight. Patient is extremely weak and has difficulty even holding up his own weight to sit on the commode. He required maximal assist of 3 people to use the [place] steady. He is quite short of breath with any activity but appears short of breath even at rest. He has not had any fevers. Currently requiring 4 L of oxygen. He reports no appetite and no strength. He thinks his breathing feels okay. Does not report any pain. Creatinine slightly better but BUN still quite elevated. White blood cell count slightly better today. We did discuss the severity of his illnesses, both acute and chronic. I expressed my concern that he may be entering the dying process. He agrees that I might be right. He would like to sit down with he has preacher tomorrow and discussed the situation. He will consider a transition to comfort cares overnight. Functional Status: Reports: Pain Controlled, Tolerating Diet - Review of Systems General: Reports: Weakness Pulmonary: Reports: Shortness of Breath - Patient Data Vitals - Most Recent: Last Vital Signs Temp 36.6 C 05/02/21 10:55 Pulse 85 05/02/21 13:46 Resp 16 05/02/21 10:55 BP 102/56 L 05/02/21 10:55 Pulse Ox 97 05/02/21 10:55 Weight - Most Recent: 83.915 kg I&O - Last 24 Hours: Intake & Output 05/02/21 05/02/21 05/02/21 06:59 14:59 22:59 Intake Total 450 Output Total 725 200 Balance -275 -200 Lab Results Last 24 Hours: Laboratory Results - last 24 hr 05/02/21 05/02/21 05/02/21 Range/Units 05:36 05:36 05:36 WBC 27.2 H (4.5-11.0) K/uL RBC 3.72 L (4.30-5.90) M/uL Hgb 10.6 L (12.0-15.0) g/dL Hct 35.5 L (40.0-54.0) % MCV 95 (80-98) fL MCH 29 (27-31) pg MCHC 30 L (32-36) % Plt Count 227 (150-400) K/uL PT 60.8 H (9.2-10.6) sec INR 6.3 H* Sodium 144 (140-148) mmol/L Potassium 4.5 (3.6-5.2) mmol/L Chloride 105 (100-108) mmol/L Carbon Dioxide 38 H (21-32) mmol/L Anion Gap 5.5 (5.0-14.0) mmol/L BUN 95 H* (7-18) mg/dL Creatinine 1.5 H (0.8-1.3) mg/dL Est Cr Clr Drug Dosing 34.27 mL/min Estimated GFR (MDRD) 45 L (>60) Glucose 136 H (74-106) mg/dL Calcium 8.7 (8.5-10.1) mg/dL Darryl Results Last 24 Hours: Microbiology 04/26/21 11:45 Aerobic Blood Culture - Final Blood NO GROWTH AFTER 5 DAYS Anaerobic Blood Culture - Final NO GROWTH AFTER 5 DAYS 04/26/21 11:25 Aerobic Blood Culture - Final Blood - Venous - Lab Draw NO GROWTH AFTER 5 DAYS Anaerobic Blood Culture - Final NO GROWTH AFTER 5 DAYS Med Orders - Current: Current Medications Acetaminophen (Acetaminophen 325 Mg Tab) 650 mg PO Q4H PRN PRN Reason: Pain (Mild 1-3)/fever Last Admin: 04/25/21 22:04 Dose: 650 mg Documented by: Albuterol (Albuterol 8 Gm Inhaler) 0 gm INH Q4H PRN PRN Reason: Shortness of Breath Last Admin: 04/26/21 08:24 Dose: 2 puff Documented by: Albuterol (Albuterol 0.083% 2.5 Mg/3 Ml Neb Soln) 2.5 mg NEB Q4H PRN PRN Reason: Dyspnea Last Admin: 04/26/21 04:54 Dose: 2.5 mg Documented by: Albuterol/Ipratropium (Albuterol/Ipratropium 3.0-0.5 Mg/3 Ml Neb Soln) 3 ml NEB QIDRT COUNTS INCLUDE 234 BEDS AT THE [facility] Last Admin: 05/02/21 14:34 Dose: 3 ml Documented by: Allopurinol (Allopurinol 100 Mg Tab) 100 mg PO DAILY COUNTS INCLUDE 234 BEDS AT [facility] Last Admin: 05/02/21 08:12 Dose: 100 mg Documented by: Ascorbic Acid (Ascorbic Acid 500 Mg Tab) 250 mg PO QID COUNTS INCLUDE 234 BEDS AT THE [facility] Last Admin: 05/02/21 09:24 Dose: 250 mg Documented by: Aspirin (Aspirin 81 Mg Tab.Ec) 81 mg PO DAILY COUNTS INCLUDE 234 BEDS AT [facility] Last Admin: 05/02/21 08:12 Dose: 81 mg Documented by: Atorvastatin Calcium (Atorvastatin 20 Mg Tab) 40 mg PO BEDTIME COUNTS INCLUDE 234 BEDS AT [facility] Last Admin: 05/01/21 21:05 Dose: 40 mg Documented by: Benzonatate (Benzonatate 100 Mg Cap) 100 mg PO TID PRN PRN Reason: Cough Last Admin: 04/28/21 20:13 Dose: 100 mg Documented by: Benzonatate (Benzonatate 100 Mg Cap) 100 mg PO Q24H COUNTS INCLUDE 234 BEDS AT [facility] Last Admin: 05/01/21 17:37 Dose: 100 mg Documented by: Calcium Carbonate/Glycine (Calcium Carbonate 500 Mg Tab.Chew) 1,000 mg PO Q2H PRN PRN Reason: Indigestion Last Admin: 04/25/21 21:32 Dose: 1,000 mg Documented by: Cholecalciferol (Cholecalciferol (Vitamin D3) 25 Mcg Tab) 25 mcg PO DAILY COUNTS INCLUDE 234 BEDS AT [facility] Last Admin: 05/02/21 08:14 Dose: 25 mcg Documented by: Cyanocobalamin (Cyanocobalamin (Vitamin B12) 1,000 Mcg Tab) 500 mcg PO DAILY COUNTS INCLUDE 234 BEDS AT [facility] Last Admin: 05/02/21 08:12 Dose: 500 mcg Documented by: Digoxin (Digoxin 125 Mcg Tab) 125 mcg PO DAILY@1300 COUNTS INCLUDE 234 BEDS AT [facility] Last Admin: 05/02/21 13:46 Dose: 125 mcg Documented by: Docusate Sodium (Docusate Sodium 100 Mg Cap) 100 mg PO DAILY COUNTS INCLUDE 234 BEDS AT [facility] Last Admin: 05/02/21 08:13 Dose: 100 mg Documented by: Folic Acid (Folic Acid 1 Mg Tab) 0.5 mg PO DAILY COUNTS INCLUDE 234 BEDS AT [facility] Last Admin: 05/02/21 08:13 Dose: 0.5 mg Documented by: Guaifenesin/Dextromethorphan (Guaifenesin/Dextromethorphan 100-10 Mg/5 Ml Soln 10 Ml Cup) 10 ml PO Q4H PRN PRN Reason: Cough Last Admin: 04/21/21 21:08 Dose: 10 ml Documented by: Levofloxacin/Dextrose 750 mg/ (Premix) 150 mls @ 100 mls/hr IV Q48H COUNTS INCLUDE 234 BEDS AT [facility] Last Admin: 05/02/21 13:46 Dose: 100 mls/hr Documented by: Meropenem 500 mg/ Sodium (Chloride) 50 mls @ 100 mls/hr IV Q12H COUNTS INCLUDE 234 BEDS AT [facility] Last Admin: 05/02/21 03:18 Dose: 100 mls/hr Documented by: Isosorbide Mononitrate (Isosorbide Mononitrate 30 Mg Tab.Er) 30 mg PO DAILY COUNTS INCLUDE 234 BEDS AT [facility] Last Admin: 05/02/21 08:12 Dose: 30 mg Documented by: Loperamide HCl (Loperamide 2 Mg Cap) 2 mg PO Q4H PRN PRN Reason: Diarrhea Last Admin: 04/16/21 17:47 Dose: 2 mg Documented by: Lorazepam (Lorazepam 2 Mg/Ml Sdv) 0.5 mg IVPUSH Q4H PRN PRN Reason: Nausea/Vomiting Magnesium Hydroxide (Magnesium Hydroxide 400 Mg/5 Ml Susp 30 Ml Cup) 30 ml PO Q12H PRN PRN Reason: Constipation Last Admin: 05/01/21 16:13 Dose: 30 ml Documented by: Melatonin (Melatonin 3 Mg Tab) 9 mg PO BEDTIME PRN PRN Reason: Sleep Last Admin: 04/25/21 20:36 Dose: 9 mg Documented by: Metoprolol Succinate (Metoprolol Succinate 25 Mg Tab.Er) 25 mg PO BID COUNTS INCLUDE 234 BEDS AT [facility] Last Admin: 05/02/21 08:12 Dose: 25 mg Documented by: Mometasone Furoate/Formoterol Fumar (Formoterol/Mometasone 200-5 Mcg 8.8 Gm I nhaler) 0 puff IH BIDRT COUNTS INCLUDE 234 BEDS AT [facility] Last Admin: 05/02/21 07:00 Dose: 2 puff Documented by: Morphine Sulfate (Morphine 10 Mg/0.5 Ml Oral Syringe) 2.5 mg PO Q2H PRN PRN Reason: Dyspnea Last Admin: 05/02/21 13:46 Dose: 2.5 mg Documented by: Ondansetron HCl (Ondansetron 4 Mg/2 Ml Sdv) 4 mg IV Q6H PRN PRN Reason: Nausea/Vomiting Ondansetron HCl (Ondansetron 4 Mg Tab.Dis) 4 mg PO Q6H PRN PRN Reason: Nausea able to take PO Pantoprazole Sodium (Pantoprazole 40 Mg Tab.Cr) 40 mg PO BIDAC COUNTS INCLUDE 234 BEDS AT [facility] Last Admin: 05/02/21 08:12 Dose: 40 mg Documented by: Prednisone (Prednisone 20 Mg Tab) 20 mg PO WITHBREAKFAST COUNTS INCLUDE 234 BEDS AT [facility] Last Admin: 05/02/21 08:12 Dose: 20 mg Documented by: Senna/Docusate Sodium (Docusate Sodium/Sennosides 50-8.6 Mg Tab) 1 tab PO BID PRN PRN Reason: Constipation Last Admin: 05/01/21 16:14 Dose: 1 tab Documented by: Spironolactone (Spironolactone 25 Mg Tab) 12.5 mg PO DAILY COUNTS INCLUDE 234 BEDS AT [facility] Last Admin: 04/29/21 08:20 Dose: 12.5 mg Documented by: Torsemide (Torsemide 20 Mg Tab) 60 mg PO DAILY COUNTS INCLUDE 234 BEDS AT [facility] Last Admin: 04/29/21 08:22 Dose: 60 mg Documented by: Discontinued Medications Albuterol/Ipratropium (Albuterol/Ipratropium 4 Gm Inhalation [place]) 0 gm INH QIDRT COUNTS INCLUDE 234 BEDS AT [facility] Last Admin: 04/26/21 10:21 Dose: Not Given Documented by: Ascorbic Acid (Ascorbic Acid 500 Mg Tab) 1,000 mg PO BIDAC COUNTS INCLUDE 234 BEDS AT [facility] Last Admin: 04/16/21 10:37 Dose: Not Given Documented by: Bisacodyl (Bisacodyl 10 Mg Supp) 10 mg RECTAL ONETIME ONE Stop: 05/01/21 12:46 Last Admin: 05/01/21 12:57 Dose: 10 mg Documented by: Bumetanide (Bumetanide 1 Mg/4 Ml Mdv) 2 mg IVPUSH ONETIME ONE Stop: 04/22/21 18:01 Last Admin: 04/22/21 17:12 Dose: 2 mg Documented by: Bumetanide (Bumetanide 2.5 Mg/10 Ml Mdv) 2 mg IV ONETIME ONE Stop: 04/27/21 18:01 Bumetanide (Bumetanide 1 Mg/4 Ml Mdv) 2 mg IV ONETIME ONE Stop: 04/26/21 18:01 Last Admin: 04/26/21 17:42 Dose: 2 mg Documented by: Bumetanide (Bumetanide 2.5 Mg/10 Ml Mdv) 2 mg IVPUSH ONETIME ONE Stop: 04/27/21 18:01 Last Admin: 04/27/21 17:59 Dose: 2 mg Documented by: Bumetanide (Bumetanide 1 Mg/4 Ml Mdv) 2 mg IVPUSH ONETIME ONE Stop: 04/28/21 18:01 Last Admin: 04/28/21 17:27 Dose: 2 mg Documented by: Dexamethasone (Dexamethasone 4 Mg/Ml Sdv) 6 mg IVPUSH Q24H COUNTS INCLUDE 234 BEDS AT [facility] Last Admin: 04/18/21 16:02 Dose: 6 mg Documented by: Dexamethasone (Dexamethasone 2 Mg Tab) 6 mg PO Q24H COUNTS INCLUDE 234 BEDS AT [facility] Last Admin: 04/24/21 17:03 Dose: 6 mg Documented by: Doxycycline Hyclate (Doxycycline 100 Mg Cap) 100 mg PO Q12H COUNTS INCLUDE 234 BEDS AT [facility] Stop: 04/25/21 00:01 Last Admin: 04/21/21 12:12 Dose: 100 mg Documented by: Doxycycline Hyclate (Doxycycline 100 Mg Cap) 100 mg PO Q12H COUNTS INCLUDE 234 BEDS AT [facility] Stop: 04/24/21 22:01 Last Admin: 04/24/21 22:34 Dose: 100 mg Documented by: Heparin Sodium (Porcine) (Heparin Sodium 5,000 Units/Ml Vial) 4,000 units IVPUSH ONETIME ONE Stop: 04/15/21 15:21 Last Admin: 04/15/21 16:51 Dose: Not Given Documented by: Heparin Sodium/Dextrose (Heparin 25,000 Units In D5w 500 Ml) 25,000 units in 500 mls @ 18 mls/hr IV TITRATE COUNTS INCLUDE 234 BEDS AT [facility] Meropenem 1 gm/ Sodium (Chloride) 100 mls @ 200 mls/hr IV Q8H COUNTS INCLUDE 234 BEDS AT [facility] Last Admin: 04/27/21 03:41 Dose: 200 mls/hr Documented by: Vancomycin HCl 1.6 gm/ Sodium (Chloride) 250 mls @ 166.667 mls/hr IV Q12H COUNTS INCLUDE 234 BEDS AT [facility] Stop: 04/26/21 13:59 Last Admin: 04/26/21 12:29 Dose: 166.667 mls/hr Documented by: Vancomycin HCl 1.25 gm/ Sodium (Chloride) 250 mls @ 166.667 mls/hr IV Q24H COUNTS INCLUDE 234 BEDS AT [facility] Last Admin: 04/28/21 13:04 Dose: 166.667 mls/hr Documented by: Meropenem 1 gm/ Sodium (Chloride) 100 mls @ 200 mls/hr IV Q12H COUNTS INCLUDE 234 BEDS AT [facility] Last Admin: 04/30/21 03:11 Dose: 200 mls/hr Documented by: Isosorbide Mononitrate (Isosorbide Mononitrate 30 Mg Tab.Er) 30 mg PO ONETIME ONE Stop: 04/18/21 06:28 Last Admin: 04/18/21 06:39 Dose: 30 mg Documented by: Methylprednisolone Sodium Succinate (Methylprednisolone Sodium Succinate 40 Mg/1 Ml Sdv) 40 mg IVPUSH Q8H COUNTS INCLUDE 234 BEDS AT [facility] Stop: 04/30/21 02:00 Last Admin: 04/29/21 21:39 Dose: 40 mg Documented by: Phytonadione (Phytonadione 5 Mg Tab) 2.5 mg PO ONETIME ONE Stop: 04/18/21 13:01 Last Admin: 04/18/21 13:43 Dose: 2.5 mg Documented by: Phytonadione (Phytonadione 5 Mg Tab) 2.5 mg PO ONETIME ONE Stop: 04/29/21 08:46 Last Admin: 04/29/21 08:49 Dose: 2.5 mg Documented by: Phytonadione (Phytonadione 5 Mg Tab) 5 mg PO ONETIME ONE Stop: 04/30/21 09:01 Last Admin: 04/30/21 08:43 Dose: 5 mg Documented by: Phytonadione (Phytonadione 5 Mg Tab) 2.5 mg PO ONETIME ONE Stop: 05/02/21 08:46 Last Admin: 05/02/21 09:25 Dose: 2.5 mg Documented by: Prednisone (Prednisone 20 Mg Tab) 40 mg PO WITHBREAKFAST COUNTS INCLUDE 234 BEDS AT [facility] Last Admin: 04/30/21 07:24 Dose: 40 mg Documented by: Torsemide (Torsemide 20 Mg Tab) 40 mg PO DAILY COUNTS INCLUDE 234 BEDS AT [facility] Last Admin: 04/25/21 08:54 Dose: 40 mg Documented by: Vancomycin HCl (Vancomycin 1 Gm Sdv) 1 gm IV .PHARMACY TO DOSE COUNTS INCLUDE 234 BEDS AT THE [facility] Stop: 04/26/21 12:00 Warfarin Sodium (Warfarin 5 Mg Tab) 5 mg PO DAILY@1300 COUNTS INCLUDE 234 BEDS AT [facility] Last Admin: 04/17/21 13:31 Dose: 5 mg Documented by: Warfarin Sodium (Warfarin 2.5 Mg Tab) 2.5 mg PO DAILY@1300 COUNTS INCLUDE 234 BEDS AT [facility] Last Admin: 04/20/21 12:21 Dose: 2.5 mg Documented by: Warfarin Sodium (Warfarin 2.5 Mg Tab) 1.25 mg PO DAILY@1300 COUNTS INCLUDE 234 BEDS AT [facility] Last Admin: 04/28/21 13:12 Dose: 1.25 mg Documented by: - Exam Quality Assessment: Supplemental Oxygen General: Alert, Cooperative, No Acute Distress Lungs: No: Normal Respiratory Effort (increased work of breathing ), Wheezing Cardiovascular: Regular Rate, Irregular Rhythm GI/Abdominal Exam: Soft, No Distention Extremities: No Pedal Edema. No: Increased Warmth Skin: Warm, Dry Psy/Mental Status: Alert. No: Agitated - Patient Data Lab Results Last 24 hrs: Laboratory Results - last 24 hr 05/02/21 05/02/21 05/02/21 Range/Units 05:36 05:36 05:36 WBC 27.2 H (4.5-11.0) K/uL RBC 3.72 L (4.30-5.90) M/uL Hgb 10.6 L (12.0-15.0) g/dL Hct 35.5 L (40.0-54.0) % MCV 95 (80-98) fL MCH 29 (27-31) pg MCHC 30 L (32-36) % Plt Count 227 (150-400) K/uL PT 60.8 H (9.2-10.6) sec INR 6.3 H* Sodium 144 (140-148) mmol/L Potassium 4.5 (3.6-5.2) mmol/L Chloride 105 (100-108) mmol/L Carbon Dioxide 38 H (21-32) mmol/L Anion Gap 5.5 (5.0-14.0) mmol/L BUN 95 H* (7-18) mg/dL Creatinine 1.5 H (0.8-1.3) mg/dL Est Cr Clr Drug Dosing 34.27 mL/min Estimated GFR (MDRD) 45 L (>60) Glucose 136 H (74-106) mg/dL Calcium 8.7 (8.5-10.1) mg/dL Result Diagrams: 05/02/21 05:36 05/02/21 05:36 Darryl Results Last 24 hrs: Microbiology 04/26/21 11:45 Aerobic Blood Culture - Final Blood NO GROWTH AFTER 5 DAYS Anaerobic Blood Culture - Final NO GROWTH AFTER 5 DAYS 04/26/21 11:25 Aerobic Blood Culture - Final Blood - Venous - Lab Draw NO GROWTH AFTER 5 DAYS Anaerobic Blood Culture - Final NO GROWTH AFTER 5 DAYS Sepsis Event Note - Evaluation Sepsis Screening Result: Possible Sepsis Risk - Focused Exam Vital Signs: Vital Signs Temp Pulse Pulse Resp BP BP Pulse Ox 05/02/21 13:46 85 05/02/21 10:55 36.6 C 76 16 102/56 L 97 05/02/21 08:12 77 108/55 L 05/02/21 07:00 36.3 C 77 16 108/55 L 98 - Problem List & Annotations (1) Pneumonia due to COVID-19 virus SNOMED Code(s): 135264160918130802 Code(s): U07.1 - COVID-19; J12.82 - PNEUMONIA DUE TO CORONAVIRUS DISEASE 2019 Status: Acute Current Visit: Yes (2) Acute and chronic respiratory failure SNOMED Code(s): 20319867 Code(s): J96.20 - ACUTE AND CHR RESP FAILURE, UNSP W HYPOXIA OR HYPERCAPNIA Status: Acute Current Visit: Yes Qualifiers: Respiratory failure complication: hypoxia Qualified Code(s): J96.21 - Acute and chronic respiratory failure with hypoxia (3) Acute kidney injury SNOMED Code(s): 27262580, 07272063 Code(s): N17.9 - ACUTE KIDNEY FAILURE, UNSPECIFIED Status: Acute Current Visit: Yes (4) Elevated troponin SNOMED Code(s): 904764509, 296781987, 873381610 Code(s): R77.8 - OTHER SPECIFIED ABNORMALITIES OF PLASMA PROTEINS Status: Acute Current Visit: Yes (5) HFrEF (heart failure with reduced ejection fraction) SNOMED Code(s): 066814396 Code(s): I50.20 - UNSPECIFIED SYSTOLIC (CONGESTIVE) HEART FAILURE Status: Chronic Current Visit: Yes (6) CAD (coronary artery disease) SNOMED Code(s): 28269324 Code(s): I25.10 - ATHSCL HEART DISEASE OF [place] CORONARY ARTERY W/O ANG PCTRS Status: Chronic Current Visit: Yes Qualifiers: Coronary Disease-Associated Artery/Lesion type: [place] artery [place] vs. transplanted heart: [place] heart Associated angina: without angina Qualified Code(s): I25.10 - Atherosclerotic heart disease of [place] coronary artery without angina pectoris - Problem List Review Problem List Initiated/Reviewed/Updated: Yes - Plan Plan:: ASSESSMENT AND PLAN - Pneumonia, bilateral-suspect bacterial infection on top of recent Covid infection. White blood cell count slightly better today. Respiratory status stable at rest but not able to tolerate any activity. Volume status appropriate today. I am very concerned that with his baseline of severe COPD and ischemic cardiomyopathy that this pneumonia on top of recent Covid infection could be too much for him and that he may as a result of this. He is aware of the severity of his illnesses. He will consider transition to comfort cares overnight. -Hold diuretic therapy -Discontinue antibiotics, adequate treatment completed -Supplement oxygen, wean as able -Continue prednisone COVID-19 pneumonia-complicated by acute on chronic respiratory failure. Active Covid infection has resolved and he no longer requires isolation. -Dexamethasone 6 mg daily, complete -Remdesivir x5 days complete -Isolation precautions discontinued last week Acute kidney injury-renal function slightly better overnight. BUN still quite elevated. -Hold diuretics -Recheck labs in the morning Coronary artery disease-complicated by ischemic cardiomyopathy and heart failure with reduced ejection fraction. -Continue to hold diuretics -Continue isosorbide mononitrate -Hold losartan -Continue additional medical management Mechanical aortic valve replacement-chronically anticoagulated. INR still supratherapeutic despite vitamin K last 2 days. -Hold warfarin -INR in the morning -INR goal 2.5-3.5 Anemia-mild, stable. Palliative care-we discussed options for ongoing management, he is considering a transition to comfort cares only. He would like to have a meeting with his preacher tomorrow if able. -Morphine and lorazepam as needed Maintenance issues - -DVT prophylaxis-warfarin -GI prophylaxis-PPI -[id number] Disposition -I anticipate [facility] to [facility] for [facility] after the hospital stay if he survives the hospital stay. He appears to be declining and given acute medical problems superimposed on his chronic medical problems he may not survive the hospital stay. Michel Cunha MD
[2021-05-02] MEDS: LORazepam ORAL Concentrate 1MG/0.5ML U/D PO PRN ×2 (17:29→21:54)
[2021-05-02] MEDS: Benzonatate 100 MG Cap PO SCH (18:20)
[2021-05-02] MEDS: atorvaSTATin 20 MG Tab PO SCH (21:44)
[2021-05-03] MEDS: Morphine 10 MG/0.5 ML Oral Syringe PO PRN ×2 (02:54→09:44)
[2021-05-03] MEDS: Ascorbic Acid 500 MG Tab PO SCH ×2 (06:25→09:09)
[2021-05-03] MEDS: Formoterol/Mometasone 200-5 MCG 8.8 GM Inhaler IH SCH ×2 (07:11→20:38)
[2021-05-03] MEDS: Albuterol/Ipratropium 3.0-0.5 MG/3 ML Neb Soln NEB SCH (07:11)
[2021-05-03] MEDS: Pantoprazole 40 MG Tab.CR PO SCH ×2 (07:30→16:55)
[2021-05-03] MEDS: predniSONE 20 MG Tab PO SCH (07:30)
[2021-05-03] MEDS: Docusate Sodium 100 MG Cap PO SCH (09:09)
[2021-05-03] MEDS: Folic Acid 1 MG Tab PO SCH (09:09)
[2021-05-03] MEDS: Cholecalciferol (Vitamin D3) 25 MCG Tab PO SCH (09:09)
[2021-05-03] MEDS: Cyanocobalamin (Vitamin B12) 1,000 MCG Tab PO SCH (09:09)
[2021-05-03] MEDS: Isosorbide Mononitrate 30 MG Tab.ER PO SCH (09:12)
[2021-05-03] MEDS: Metoprolol Succinate 25 MG Tab.ER PO SCH ×2 (09:12→20:38)
[2021-05-03] MEDS: Aspirin 81 MG Tab.EC PO SCH (09:14)
--- NOTE | 2021-05-03 10:14 | PCM.PN ---
- General Info Date of Service: 05/03/21 Subjective Update: Patient has declined some overnight. He is much more somnolent today. He is interactive and seems to be answering questions appropriately but is quite lethargic. I expressed my concerns that he is further in the dying process. He nodded his head in agreement. He is in agreement that we should transition to comfort cares at this point. His [id number] Irma was updated and she is in agreement with the plan. The preacher from the voodoo near his home will be visiting him today. - Review of Systems General: Reports: Weakness. Denies: Fever - Patient Data Vitals - Most Recent: Last Vital Signs Temp 35.1 C L 05/03/21 07:24 Pulse 89 05/03/21 09:12 Resp 18 05/03/21 07:24 BP 114/58 L 05/03/21 09:12 Pulse Ox 97 05/03/21 07:24 Weight - Most Recent: 83.915 kg I&O - Last 24 Hours: Intake & Output 05/02/21 05/03/21 05/03/21 22:59 06:59 14:59 Output Total 550 75 25 Balance -550 -75 -25 Med Orders - Current: Current Medications Acetaminophen (Acetaminophen 325 Mg Tab) 650 mg PO Q4H PRN PRN Reason: Pain (Mild 1-3)/fever Last Admin: 04/25/21 22:04 Dose: 650 mg Documented by: Benzonatate (Benzonatate 100 Mg Cap) 100 mg PO TID PRN PRN Reason: Cough Last Admin: 04/28/21 20:13 Dose: 100 mg Documented by: Calcium Carbonate/Glycine (Calcium Carbonate 500 Mg Tab.Chew) 1,000 mg PO Q2H PRN PRN Reason: Indigestion Last Admin: 04/25/21 21:32 Dose: 1,000 mg Documented by: Cyanocobalamin (Cyanocobalamin (Vitamin B12) 1,000 Mcg Tab) 500 mcg PO DAILY [facility] Last Admin: 05/03/21 09:09 Dose: Not Given Documented by: Digoxin (Digoxin 125 Mcg Tab) 125 mcg PO DAILY@1300 [facility] Last Admin: 05/02/21 13:46 Dose: 125 mcg Documented by: Docusate Sodium (Docusate Sodium 100 Mg Cap) 100 mg PO DAILY [facility] [place] Last Admin: 05/03/21 09:09 Dose: Not Given Documented by: Folic Acid (Folic Acid 1 Mg Tab) 0.5 mg PO DAILY [facility] [place] Last Admin: 05/03/21 09:09 Dose: Not Given Documented by: Guaifenesin/Dextromethorphan (Guaifenesin/Dextromethorphan 100-10 Mg/5 Ml Soln 10 Ml Cup) 10 ml PO Q4H PRN PRN Reason: Cough Last Admin: 04/21/21 21:08 Dose: 10 ml Documented by: Isosorbide Mononitrate (Isosorbide Mononitrate 30 Mg Tab.Er) 30 mg PO DAILY [facility] [place] Last Admin: 05/03/21 09:12 Dose: 30 mg Documented by: Loperamide HCl (Loperamide 2 Mg Cap) 2 mg PO Q4H PRN PRN Reason: Diarrhea Last Admin: 04/16/21 17:47 Dose: 2 mg Documented by: Lorazepam (Lorazepam Oral Concentrate 1mg/0.5ml U/D) 0.5 mg PO Q2H PRN PRN Reason: Anxiety Last Admin: 05/02/21 21:54 Dose: 0.5 mg Documented by: Magnesium Hydroxide (Magnesium Hydroxide 400 Mg/5 Ml Susp 30 Ml Cup) 30 ml PO Q12H PRN PRN Reason: Constipation Last Admin: 05/01/21 16:13 Dose: 30 ml Documented by: Melatonin (Melatonin 3 Mg Tab) 9 mg PO BEDTIME PRN PRN Reason: Sleep Last Admin: 04/25/21 20:36 Dose: 9 mg Documented by: Metoprolol Succinate (Metoprolol Succinate 25 Mg Tab.Er) 25 mg PO BID [facility] Last Admin: 05/03/21 09:12 Dose: 25 mg Documented by: Mometasone Furoate/Formoterol Fumar (Formoterol/Mometasone 200-5 Mcg 8.8 Gm Inhaler) 0 puff IH BIDRT [facility] Last Admin: 05/03/21 07:11 Dose: 2 puff Documented by: Morphine Sulfate (Morphine 10 Mg/0.5 Ml Oral Syringe) 2.5 mg PO Q2H PRN PRN Reason: Dyspnea Last Admin: 05/03/21 09:44 Dose: 2.5 mg Documented by: Ondansetron HCl (Ondansetron 4 Mg Tab.Dis) 4 mg PO Q6H PRN PRN Reason: Nausea able to take PO Pantoprazole Sodium (Pantoprazole 40 Mg Tab.Cr) 40 mg PO BIDAC [facility] Last Admin: 05/03/21 07:30 Dose: 40 mg Documented by: Prednisone (Prednisone 20 Mg Tab) 20 mg PO WITHBREAKFAST [facility] Last Admin: 05/03/21 07:30 Dose: 20 mg Documented by: Senna/Docusate Sodium (Docusate Sodium/Sennosides 50-8.6 Mg Tab) 1 tab PO BID PRN PRN Reason: Constipation Last Admin: 05/01/21 16:14 Dose: 1 tab Documented by: Discontinued Medications Albuterol (Albuterol 8 Gm Inhaler) 0 gm INH Q4H PRN PRN Reason: Shortness of Breath Last Admin: 04/26/21 08:24 Dose: 2 puff Documented by: Albuterol (Albuterol 0.083% 2.5 Mg/3 Ml Neb Soln) 2.5 mg NEB Q4H PRN PRN Reason: Dyspnea Last Admin: 04/26/21 04:54 Dose: 2.5 mg Documented by: Albuterol/Ipratropium (Albuterol/Ipratropium 4 Gm Inhalation [place]) 0 gm INH QIDRT [facility] Last Admin: 04/26/21 10:21 Dose: Not Given Documented by: Albuterol/Ipratropium (Albuterol/Ipratropium 3.0-0.5 Mg/3 Ml Neb Soln) 3 ml NEB QIDRT [facility] Last Admin: 05/03/21 07:11 Dose: 3 ml Documented by: Allopurinol (Allopurinol 100 Mg Tab) 100 mg PO DAILY [facility] Last Admin: 05/02/21 08:12 Dose: 100 mg Documented by: Ascorbic Acid (Ascorbic Acid 500 Mg Tab) 1,000 mg PO BIDAC [facility] Last Admin: 04/16/21 10:37 Dose: Not Given Documented by: Ascorbic Acid (Ascorbic Acid 500 Mg Tab) 250 mg PO QID [facility] Last Admin: 05/03/21 09:09 Dose: Not Given Documented by: Aspirin (Aspirin 81 Mg Tab.Ec) 81 mg PO DAILY [facility] Last Admin: 05/03/21 09:14 Dose: 81 mg Documented by: Atorvastatin Calcium (Atorvastatin 20 Mg Tab) 40 mg PO BEDTIME [facility] Last Admin: 05/02/21 21:44 Dose: 40 mg Documented by: Benzonatate (Benzonatate 100 Mg Cap) 100 mg PO Q24H [facility] Last Admin: 05/02/21 18:20 Dose: Not Given Documented by: Bisacodyl (Bisacodyl 10 Mg Supp) 10 mg RECTAL ONETIME ONE Stop: 05/01/21 12:46 Last Admin: 05/01/21 12:57 Dose: 10 mg Documented by: Bumetanide (Bumetanide 1 Mg/4 Ml Mdv) 2 mg IVPUSH ONETIME ONE Stop: 04/22/21 18:01 Last Admin: 04/22/21 17:12 Dose: 2 mg Documented by: Bumetanide (Bumetanide 2.5 Mg/10 Ml Mdv) 2 mg IV ONETIME ONE Stop: 04/27/21 18:01 Bumetanide (Bumetanide 1 Mg/4 Ml Mdv) 2 mg IV ONETIME ONE Stop: 04/26/21 18:01 Last Admin: 04/26/21 17:42 Dose: 2 mg Documented by: Bumetanide (Bumetanide 2.5 Mg/10 Ml Mdv) 2 mg IVPUSH ONETIME ONE Stop: 04/27/21 18:01 Last Admin: 04/27/21 17:59 Dose: 2 mg Documented by: Bumetanide (Bumetanide 1 Mg/4 Ml Mdv) 2 mg IVPUSH ONETIME ONE Stop: 04/28/21 18:01 Last Admin: 04/28/21 17:27 Dose: 2 mg Documented by: Cholecalciferol (Cholecalciferol (Vitamin D3) 25 Mcg Tab) 25 mcg PO DAILY [facility] Last Admin: 05/03/21 09:09 Dose: Not Given Documented by: Dexamethasone (Dexamethasone 4 Mg/Ml Sdv) 6 mg IVPUSH Q24H [facility] Last Admin: 04/18/21 16:02 Dose: 6 mg Documented by: Dexamethasone (Dexamethasone 2 Mg Tab) 6 mg PO Q24H [facility] Last Admin: 04/24/21 17:03 Dose: 6 mg Documented by: Doxycycline Hyclate (Doxycycline 100 Mg Cap) 100 mg PO Q12H [facility] Stop: 04/25/21 00:01 Last Admin: 04/21/21 12:12 Dose: 100 mg Documented by: Doxycycline Hyclate (Doxycycline 100 Mg Cap) 100 mg PO Q12H [facility] Stop: 04/24/21 22:01 Last Admin: 04/24/21 22:34 Dose: 100 mg Documented by: Heparin Sodium (Porcine) (Heparin Sodium 5,000 Units/Ml Vial) 4,000 units IVPUSH ONETIME ONE Stop: 04/15/21 15:21 Last Admin: 04/15/21 16:51 Dose: Not Given Documented by: Heparin Sodium/Dextrose (Heparin 25,000 Units In D5w 500 Ml) 25,000 units in 500 mls @ 18 mls/hr IV TITRATE [facility] Meropenem 1 gm/ Sodium (Chloride) 100 mls @ 200 mls/hr IV Q8H [facility] Last Admin: 04/27/21 03:41 Dose: 200 mls/hr Documented by: Levofloxacin/Dextrose 750 mg/ (Premix) 150 mls @ 100 mls/hr IV Q48H [facility] Last Admin: 05/02/21 13:46 Dose: 100 mls/hr Documented by: Vancomycin HCl 1.6 gm/ Sodium (Chloride) 250 mls @ 166.667 mls/hr IV Q12H [facility] Stop: 04/26/21 13:59 Last Admin: 04/26/21 12:29 Dose: 166.667 mls/hr Documented by: Vancomycin HCl 1.25 gm/ Sodium (Chloride) 250 mls @ 166.667 mls/hr IV Q24H [facility] Last Admin: 04/28/21 13:04 Dose: 166.667 mls/hr Documented by: Meropenem 1 gm/ Sodium (Chloride) 100 mls @ 200 mls/hr IV Q12H [facility] Last Admin: 04/30/21 03:11 Dose: 200 mls/hr Documented by: Meropenem 500 mg/ Sodium (Chloride) 50 mls @ 100 mls/hr IV Q12H [facility] Last Admin: 05/02/21 17:01 Dose: Not Given Documented by: Isosorbide Mononitrate (Isosorbide Mononitrate 30 Mg Tab.Er) 30 mg PO ONETIME ONE Stop: 04/18/21 06:28 Last Admin: 04/18/21 06:39 Dose: 30 mg Documented by: Lorazepam (Lorazepam 2 Mg/Ml Sdv) 0.5 mg IVPUSH Q4H PRN PRN Reason: Nausea/Vomiting Methylprednisolone Sodium Succinate (Methylprednisolone Sodium Succinate 40 Mg/1 Ml Sdv) 40 mg IVPUSH Q8H [facility] Stop: 04/30/21 02:00 Last Admin: 04/29/21 21:39 Dose: 40 mg Documented by: Ondansetron HCl (Ondansetron 4 Mg/2 Ml Sdv) 4 mg IV Q6H PRN PRN Reason: Nausea/Vomiting Phytonadione (Phytonadione 5 Mg Tab) 2.5 mg PO ONETIME ONE Stop: 04/18/21 13:01 Last Admin: 04/18/21 13:43 Dose: 2.5 mg Documented by: Phytonadione (Phytonadione 5 Mg Tab) 2.5 mg PO ONETIME ONE Stop: 04/29/21 08:46 Last Admin: 04/29/21 08:49 Dose: 2.5 mg Documented by: Phytonadione (Phytonadione 5 Mg Tab) 5 mg PO ONETIME ONE Stop: 04/30/21 09:01 Last Admin: 04/30/21 08:43 Dose: 5 mg Documented by: Phytonadione (Phytonadione 5 Mg Tab) 2.5 mg PO ONETIME ONE Stop: 05/02/21 08:46 Last Admin: 05/02/21 09:25 Dose: 2.5 mg Documented by: Prednisone (Prednisone 20 Mg Tab) 40 mg PO WITHBREAKFAST [facility] Last Admin: 04/30/21 07:24 Dose: 40 mg Documented by: Spironolactone (Spironolactone 25 Mg Tab) 12.5 mg PO DAILY [facility] Last Admin: 04/29/21 08:20 Dose: 12.5 mg Documented by: Torsemide (Torsemide 20 Mg Tab) 40 mg PO DAILY [facility] Last Admin: 04/25/21 08:54 Dose: 40 mg Documented by: Torsemide (Torsemide 20 Mg Tab) 60 mg PO DAILY [facility] Last Admin: 04/29/21 08:22 Dose: 60 mg Documented by: Vancomycin HCl (Vancomycin 1 Gm Sdv) 1 gm IV .PHARMACY TO DOSE [facility] Stop: 04/26/21 12:00 Warfarin Sodium (Warfarin 5 Mg Tab) 5 mg PO DAILY@1300 [facility] Last Admin: 04/17/21 13:31 Dose: 5 mg Documented by: Warfarin Sodium (Warfarin 2.5 Mg Tab) 2.5 mg PO DAILY@1300 [facility] Last Admin: 04/20/21 12:21 Dose: 2.5 mg Documented by: Warfarin Sodium (Warfarin 2.5 Mg Tab) 1.25 mg PO DAILY@1300 [facility] Last Admin: 04/28/21 13:12 Dose: 1.25 mg Documented by: - Exam Quality Assessment: Supplemental Oxygen General: Alert, No Acute Distress, Lethargic Lungs: Normal Respiratory Effort GI/Abdominal Exam: Soft, No Distention Extremities: No Pedal Edema Psy/Mental Status: Alert. No: Agitated - Patient Data Result Diagrams: 05/02/21 05:36 05/02/21 05:36 Sepsis Event Note - Evaluation Sepsis Screening Result: Possible Sepsis Risk - Focused Exam Vital Signs: Vital Signs Temp Pulse Pulse Resp BP BP BP 05/03/21 09:12 89 114/58 L 05/03/21 07:24 35.1 C L 85 18 100/57 L 05/03/21 03:00 35.0 C L 80 18 110/62 05/02/21 22:28 35.4 C L 87 20 127/60 Pulse Ox 05/03/21 09:12 05/03/21 07:24 97 05/03/21 03:00 100 05/02/21 22:28 98 - Problem List & Annotations (1) Pneumonia due to COVID-19 virus SNOMED Code(s): 544179357457193642 Code(s): U07.1 - COVID-19; J12.82 - PNEUMONIA DUE TO CORONAVIRUS DISEASE 2019 Status: Acute Current Visit: Yes (2) Acute and chronic respiratory failure SNOMED Code(s): 77648923 Code(s): J96.20 - ACUTE AND CHR RESP FAILURE, UNSP W HYPOXIA OR HYPERCAPNIA Status: Acute Current Visit: Yes Qualifiers: Respiratory failure complication: hypoxia Qualified Code(s): J96.21 - Acute and chronic respiratory failure with hypoxia (3) Acute kidney injury SNOMED Code(s): 94572097, 00300568 Code(s): N17.9 - ACUTE KIDNEY FAILURE, UNSPECIFIED Status: Acute Current Visit: Yes (4) Elevated troponin SNOMED Code(s): 417320753, 231970909, 766980969 Code(s): R77.8 - OTHER SPECIFIED ABNORMALITIES OF PLASMA PROTEINS Status: Acute Current Visit: Yes (5) HFrEF (heart failure with reduced ejection fraction) SNOMED Code(s): 545420171 Code(s): I50.20 - UNSPECIFIED SYSTOLIC (CONGESTIVE) HEART FAILURE Status: Chronic Current Visit: Yes (6) CAD (coronary artery disease) SNOMED Code(s): 66896904 Code(s): I25.10 - ATHSCL HEART DISEASE OF [place] CORONARY ARTERY W/O ANG PCTRS Status: Chronic Current Visit: Yes Qualifiers: Coronary Disease-Associated Artery/Lesion type: [place] artery [place] vs. transplanted heart: [place] heart Associated angina: without angina Qualified Code(s): I25.10 - Atherosclerotic heart disease of [place] coronary artery without angina pectoris - Problem List Review Problem List Initiated/Reviewed/Updated: Yes - My Orders Last 24 Hours: My Active Orders 05/02/21 15:57 LORazepam [Ativan ORAL Concentrate 1MG/0.5 ML U/D] 0.5 mg PO Q2H PRN 05/03/21 10:13 Resuscitation Status Routine - Plan Plan:: ASSESSMENT AND PLAN - Pneumonia, bilateral-suspect bacterial infection on top of recent Covid infection. White blood cell count slightly better today. Respiratory status stable at rest but not able to tolerate any activity. Volume status appropriate today. I am very concerned that with his baseline of severe COPD and ischemic cardiomyopathy that this pneumonia on top of recent Covid infection could be too much for him and that he may as a result of this. He is aware of the severity of his illnesses. He will be transition to comfort care today. -Transitioning to comfort cares -Discontinue antibiotics, adequate treatment completed -Supplement oxygen, wean as able -Continue prednisone COVID-19 pneumonia-complicated by acute on chronic respiratory failure. Significant compromised with strength and respiratory status since the infection. -Dexamethasone, remdesivir and isolation precautions are complete Acute kidney injury-renal function slightly better on last check but urine output has been poor. -Hold diuretics Coronary artery disease-complicated by ischemic cardiomyopathy and heart failure with reduced ejection fraction. -Continue to hold diuretics -Continue isosorbide mononitrate -Hold losartan -Continue additional medical management Mechanical aortic valve replacement-chronically anticoagulated. INR still supratherapeutic on last check. Transitioning to comfort care so we will no longer be monitoring this. -Hold warfarin -INR goal 2.5-3.5 Anemia-mild, stable. Palliative care-we discussed options for ongoing management and he is now in agreement about transition to comfort cares. I would anticipate that he will in the next couple of days with his current decline. -Morphine and lorazepam as needed Maintenance issues - -DVT prophylaxis-warfarin -GI prophylaxis-PPI -[id number] Disposition -I anticipate discharge the patient will in the next couple of days Michel Cunha MD
[2021-05-03] MEDS: Digoxin 125 MCG Tab PO SCH (13:41)
[2021-05-03] MEDS: Allopurinol 100 MG Tab PO SCH (15:33)
[2021-05-04] MEDS: Formoterol/Mometasone 200-5 MCG 8.8 GM Inhaler IH SCH ×2 (07:48→20:31)
[2021-05-04] MEDS: predniSONE 20 MG Tab PO SCH (08:20)
[2021-05-04] MEDS: Isosorbide Mononitrate 30 MG Tab.ER PO SCH (08:21)
[2021-05-04] MEDS: Pantoprazole 40 MG Tab.CR PO SCH ×2 (08:21→16:03)
[2021-05-04] MEDS: Metoprolol Succinate 25 MG Tab.ER PO SCH ×2 (08:21→20:36)
--- NOTE | 2021-05-04 11:31 | PCM.PN ---
- General Info Date of Service: 05/04/21 Subjective Update: No acute events overnight. He rested well for most of the night. This morning he is little bit restless. He seems to be confused and is constantly reaching and grabbing for things. He has taken off his supplemental oxygen. He reports that he feels well. He does not feel short of breath and is not having abdominal pain. I did note mottling to above the knee bilaterally. His pulse is very weak. He has been receiving morphine and lorazepam for comfort. - Review of Systems General: Reports: Weakness Skin: Reports: Mottled Neurological: Reports: Confusion - Patient Data Vitals - Most Recent: Last Vital Signs Temp 35.3 C L 05/04/21 10:09 Pulse 82 05/04/21 08:21 Resp 22 H 05/04/21 07:51 BP 109/55 L 05/04/21 08:21 Pulse Ox 95 05/04/21 07:51 Weight - Most Recent: 83.915 kg I&O - Last 24 Hours: Intake & Output 05/03/21 05/04/21 05/04/21 22:59 06:59 14:59 Intake Total 0 120 Output Total 100 350 Balance -100 -350 120 Med Orders - Current: Current Medications Acetaminophen (Acetaminophen 325 Mg Tab) 650 mg PO Q4H PRN PRN Reason: Pain (Mild 1-3)/fever Last Admin: 04/25/21 22:04 Dose: 650 mg Documented by: Benzonatate (Benzonatate 100 Mg Cap) 100 mg PO TID PRN PRN Reason: Cough Last Admin: 04/28/21 20:13 Dose: 100 mg Documented by: Calcium Carbonate/Glycine (Calcium Carbonate 500 Mg Tab.Chew) 1,000 mg PO Q2H PRN PRN Reason: Indigestion Last Admin: 04/25/21 21:32 Dose: 1,000 mg Documented by: Digoxin (Digoxin 125 Mcg Tab) 125 mcg PO DAILY@1300 MICHAEL Last Admin: 05/03/21 13:41 Dose: 125 mcg Documented by: Guaifenesin/Dextromethorphan (Guaifenesin/Dextromethorphan 100-10 Mg/5 Ml Soln 10 Ml Cup) 10 ml PO Q4H PRN PRN Reason: Cough Last Admin: 04/21/21 21:08 Dose: 10 ml Documented by: Isosorbide Mononitrate (Isosorbide Mononitrate 30 Mg Tab.Er) 30 mg PO DAILY [facility] Last Admin: 05/04/21 08:21 Dose: 30 mg Documented by: Loperamide HCl (Loperamide 2 Mg Cap) 2 mg PO Q4H PRN PRN Reason: Diarrhea Last Admin: 04/16/21 17:47 Dose: 2 mg Documented by: Lorazepam (Lorazepam Oral Concentrate 1mg/0.5ml U/D) 0.5 mg PO Q2H PRN PRN Reason: Anxiety Last Admin: 05/02/21 21:54 Dose: 0.5 mg Documented by: Magnesium Hydroxide (Magnesium Hydroxide 400 Mg/5 Ml Susp 30 Ml Cup) 30 ml PO Q12H PRN PRN Reason: Constipation Last Admin: 05/01/21 16:13 Dose: 30 ml Documented by: Melatonin (Melatonin 3 Mg Tab) 9 mg PO BEDTIME PRN PRN Reason: Sleep Last Admin: 04/25/21 20:36 Dose: 9 mg Documented by: Metoprolol Succinate (Metoprolol Succinate 25 Mg Tab.Er) 25 mg PO BID [facility] Last Admin: 05/04/21 08:21 Dose: 25 mg Documented by: Mometasone Furoate/Formoterol Fumar (Formoterol/Mometasone 200-5 Mcg 8.8 Gm Inhaler) 0 puff IH BIDRT [facility] Last Admin: 05/04/21 07:48 Dose: 2 puff Documented by: Morphine Sulfate (Morphine 10 Mg/0.5 Ml Oral Syringe) 2.5 mg PO Q2H PRN PRN Reason: Dyspnea Last Admin: 05/03/21 09:44 Dose: 2.5 mg Documented by: Ondansetron HCl (Ondansetron 4 Mg Tab.Dis) 4 mg PO Q6H PRN PRN Reason: Nausea able to take PO Pantoprazole Sodium (Pantoprazole 40 Mg Tab.Cr) 40 mg PO BIDAC [facility] Last Admin: 05/04/21 08:21 Dose: 40 mg Documented by: Prednisone (Prednisone 20 Mg Tab) 20 mg PO WITHBREAKFAST [facility] Last Admin: 05/04/21 08:20 Dose: 20 mg Documented by: Senna/Docusate Sodium (Docusate Sodium/Sennosides 50-8.6 Mg Tab) 1 tab PO BID PRN PRN Reason: Constipation Last Admin: 05/01/21 16:14 Dose: 1 tab Documented by: Discontinued Medications Albuterol (Albuterol 8 Gm Inhaler) 0 gm INH Q4H PRN PRN Reason: Shortness of Breath Last Admin: 04/26/21 08:24 Dose: 2 puff Documented by: Albuterol (Albuterol 0.083% 2.5 Mg/3 Ml Neb Soln) 2.5 mg NEB Q4H PRN PRN Reason: Dyspnea Last Admin: 04/26/21 04:54 Dose: 2.5 mg Documented by: Albuterol/Ipratropium (Albuterol/Ipratropium 4 Gm Inhalation [place]) 0 gm INH QIDRT [facility] Last Admin: 04/26/21 10:21 Dose: Not Given Documented by: Albuterol/Ipratropium (Albuterol/Ipratropium 3.0-0.5 Mg/3 Ml Neb Soln) 3 ml NEB QIDRT [facility] Last Admin: 05/03/21 07:11 Dose: 3 ml Documented by: Allopurinol (Allopurinol 100 Mg Tab) 100 mg PO DAILY [facility] Last Admin: 05/03/21 15:33 Dose: Not Given Documented by: Ascorbic Acid (Ascorbic Acid 500 Mg Tab) 1,000 mg PO BIDAC [facility] Last Admin: 04/16/21 10:37 Dose: Not Given Documented by: Ascorbic Acid (Ascorbic Acid 500 Mg Tab) 250 mg PO QID [facility] Last Admin: 05/03/21 09:09 Dose: Not Given Documented by: Aspirin (Aspirin 81 Mg Tab.Ec) 81 mg PO DAILY [facility] Last Admin: 05/03/21 09:14 Dose: 81 mg Documented by: Atorvastatin Calcium (Atorvastatin 20 Mg Tab) 40 mg PO BEDTIME [facility] Last Admin: 05/02/21 21:44 Dose: 40 mg Documented by: Benzonatate (Benzonatate 100 Mg Cap) 100 mg PO Q24H [facility] Last Admin: 05/02/21 18:20 Dose: Not Given Documented by: Bisacodyl (Bisacodyl 10 Mg Supp) 10 mg RECTAL ONETIME ONE Stop: 05/01/21 12:46 Last Admin: 05/01/21 12:57 Dose: 10 mg Documented by: Bumetanide (Bumetanide 1 Mg/4 Ml Mdv) 2 mg IVPUSH ONETIME ONE Stop: 04/22/21 18:01 Last Admin: 04/22/21 17:12 Dose: 2 mg Documented by: Bumetanide (Bumetanide 2.5 Mg/10 Ml Mdv) 2 mg IV ONETIME ONE Stop: 04/27/21 18:01 Bumetanide (Bumetanide 1 Mg/4 Ml Mdv) 2 mg IV ONETIME ONE Stop: 04/26/21 18:01 Last Admin: 04/26/21 17:42 Dose: 2 mg Documented by: Bumetanide (Bumetanide 2.5 Mg/10 Ml Mdv) 2 mg IVPUSH ONETIME ONE Stop: 04/27/21 18:01 Last Admin: 04/27/21 17:59 Dose: 2 mg Documented by: Bumetanide (Bumetanide 1 Mg/4 Ml Mdv) 2 mg IVPUSH ONETIME ONE Stop: 04/28/21 18:01 Last Admin: 04/28/21 17:27 Dose: 2 mg Documented by: Cholecalciferol (Cholecalciferol (Vitamin D3) 25 Mcg Tab) 25 mcg PO DAILY [facility] Last Admin: 05/03/21 09:09 Dose: Not Given Documented by: Cyanocobalamin (Cyanocobalamin (Vitamin B12) 1,000 Mcg Tab) 500 mcg PO DAILY [facility] Last Admin: 05/03/21 09:09 Dose: Not Given Documented by: Dexamethasone (Dexamethasone 4 Mg/Ml Sdv) 6 mg IVPUSH Q24H [facility] Last Admin: 04/18/21 16:02 Dose: 6 mg Documented by: Dexamethasone (Dexamethasone 2 Mg Tab) 6 mg PO Q24H [facility] Last Admin: 04/24/21 17:03 Dose: 6 mg Documented by: Docusate Sodium (Docusate Sodium 100 Mg Cap) 100 mg PO DAILY [facility] Last Admin: 05/03/21 09:09 Dose: Not Given Documented by: Doxycycline Hyclate (Doxycycline 100 Mg Cap) 100 mg PO Q12H [facility] Stop: 04/25/21 00:01 Last Admin: 04/21/21 12:12 Dose: 100 mg Documented by: Doxycycline Hyclate (Doxycycline 100 Mg Cap) 100 mg PO Q12H [facility] Stop: 04/24/21 22:01 Last Admin: 04/24/21 22:34 Dose: 100 mg Documented by: Folic Acid (Folic Acid 1 Mg Tab) 0.5 mg PO DAILY [facility] Last Admin: 05/03/21 09:09 Dose: Not Given Documented by: Heparin Sodium (Porcine) (Heparin Sodium 5,000 Units/Ml Vial) 4,000 units IVPUSH ONETIME ONE Stop: 04/15/21 15:21 Last Admin: 04/15/21 16:51 Dose: Not Given Documented by: Heparin Sodium/Dextrose (Heparin 25,000 Units In D5w 500 Ml) 25,000 units in 500 mls @ 18 mls/hr IV TITRATE [facility] [place] 1 gm/ Sodium (Chloride) 100 mls @ 200 mls/hr IV Q8H [facility] Last Admin: 04/27/21 03:41 Dose: 200 mls/hr Documented by: Levofloxacin/Dextrose 750 mg/ (Premix) 150 mls @ 100 mls/hr IV Q48H [facility] Last Admin: 05/02/21 13:46 Dose: 100 mls/hr Documented by: Vancomycin HCl 1.6 gm/ Sodium (Chloride) 250 mls @ 166.667 mls/hr IV Q12H [facility] Stop: 04/26/21 13:59 Last Admin: 04/26/21 12:29 Dose: 166.667 mls/hr Documented by: Vancomycin HCl 1.25 gm/ Sodium (Chloride) 250 mls @ 166.667 mls/hr IV Q24H [facility] Last Admin: 04/28/21 13:04 Dose: 166.667 mls/hr Documented by: Meropenem 1 gm/ Sodium (Chloride) 100 mls @ 200 mls/hr IV Q12H [facility] Last Admin: 04/30/21 03:11 Dose: 200 mls/hr Documented by: [place]openem 500 mg/ Sodium (Chloride) 50 mls @ 100 mls/hr IV Q12H [facility] Last Admin: 05/02/21 17:01 Dose: Not Given Documented by: Isosorbide Mononitrate (Isosorbide Mononitrate 30 Mg Tab.Er) 30 mg PO ONETIME ONE Stop: 04/18/21 06:28 Last Admin: 04/18/21 06:39 Dose: 30 mg Documented by: Lorazepam (Lorazepam 2 Mg/Ml Sdv) 0.5 mg IVPUSH Q4H PRN PRN Reason: Nausea/Vomiting Methylprednisolone Sodium Succinate (Methylprednisolone Sodium Succinate 40 Mg/1 Ml Sdv) 40 mg IVPUSH Q8H [facility] Stop: 04/30/21 02:00 Last Admin: 04/29/21 21:39 Dose: 40 mg Documented by: Ondansetron HCl (Ondansetron 4 Mg/2 Ml Sdv) 4 mg IV Q6H PRN PRN Reason: Nausea/Vomiting Phytonadione (Phytonadione 5 Mg Tab) 2.5 mg PO ONETIME ONE Stop: 04/18/21 13:01 Last Admin: 04/18/21 13:43 Dose: 2.5 mg Documented by: Phytonadione (Phytonadione 5 Mg Tab) 2.5 mg PO ONETIME ONE Stop: 04/29/21 08:46 Last Admin: 04/29/21 08:49 Dose: 2.5 mg Documented by: Phytonadione (Phytonadione 5 Mg Tab) 5 mg PO ONETIME ONE Stop: 04/30/21 09:01 Last Admin: 04/30/21 08:43 Dose: 5 mg Documented by: Phytonadione (Phytonadione 5 Mg Tab) 2.5 mg PO ONETIME ONE Stop: 05/02/21 08:46 Last Admin: 05/02/21 09:25 Dose: 2.5 mg Documented by: Prednisone (Prednisone 20 Mg Tab) 40 mg PO WITHBREAKFAST [facility] Last Admin: 04/30/21 07:24 Dose: 40 mg Documented by: Spironolactone (Spironolactone 25 Mg Tab) 12.5 mg PO DAILY [facility] Last Admin: 04/29/21 08:20 Dose: 12.5 mg Documented by: Torsemide (Torsemide 20 Mg Tab) 40 mg PO DAILY [facility] Last Admin: 04/25/21 08:54 Dose: 40 mg Documented by: Torsemide (Torsemide 20 Mg Tab) 60 mg PO DAILY [facility] Last Admin: 04/29/21 08:22 Dose: 60 mg Documented by: Vancomycin HCl (Vancomycin 1 Gm Sdv) 1 gm IV .PHARMACY TO DOSE [facility] Stop: 04/26/21 12:00 Warfarin Sodium (Warfarin 5 Mg Tab) 5 mg PO DAILY@1300 [facility] Last Admin: 04/17/21 13:31 Dose: 5 mg Documented by: Warfarin Sodium (Warfarin 2.5 Mg Tab) 2.5 mg PO DAILY@1300 [facility] Last Admin: 04/20/21 12:21 Dose: 2.5 mg Documented by: Warfarin Sodium (Warfarin 2.5 Mg Tab) 1.25 mg PO DAILY@1300 [facility] Last Admin: 04/28/21 13:12 Dose: 1.25 mg Documented by: - Exam Quality Assessment: No: Supplemental Oxygen General: Alert, No Acute Distress, Other (confused). No: Oriented HEENT: Pupils Equal Lungs: Crackles (both bases). No: Normal Respiratory Effort (tachypnea ), Wheezing Cardiovascular: Regular Rate, Irregular Rhythm GI/Abdominal Exam: Soft, No Distention Extremities: Pedal Edema, Mottled (both legs to above the knee ) Peripheral Pulses: 1+: Dorsalis Pedis (L), Dorsalis Pedis (R) Skin: Dry, Cool Psy/Mental Status: Alert, Anxious - Patient Data Result Diagrams: 05/02/21 05:36 05/02/21 05:36 Sepsis Event Note - Evaluation Sepsis Screening Result: Sepsis Risk - Focused Exam Vital Signs: Vital Signs Temp Pulse Pulse Resp BP BP Pulse Ox 05/04/21 10:09 35.3 C L 05/04/21 08:21 82 109/55 L 05/04/21 07:51 35.2 C L 82 22 H 109/55 L 95 - Problem List & Annotations (1) Pneumonia due to COVID-19 virus SNOMED Code(s): 525939174095385495 Code(s): U07.1 - COVID-19; J12.82 - PNEUMONIA DUE TO CORONAVIRUS DISEASE 2019 Status: Acute Current Visit: Yes (2) Acute and chronic respiratory failure SNOMED Code(s): 07071609 Code(s): J96.20 - ACUTE AND CHR RESP FAILURE, UNSP W HYPOXIA OR HYPERCAPNIA Status: Acute Current Visit: Yes Qualifiers: Respiratory failure complication: hypoxia Qualified Code(s): J96.21 - Acute and chronic respiratory failure with hypoxia (3) Acute kidney injury SNOMED Code(s): 60838791, 45344384 Code(s): N17.9 - ACUTE KIDNEY FAILURE, UNSPECIFIED Status: Acute Current Visit: Yes (4) Elevated troponin SNOMED Code(s): 028955483, 698226696, 921064160 Code(s): R77.8 - OTHER SPECIFIED ABNORMALITIES OF PLASMA PROTEINS Status: Acute Current Visit: Yes (5) HFrEF (heart failure with reduced ejection fraction) SNOMED Code(s): 625577639 Code(s): I50.20 - UNSPECIFIED SYSTOLIC (CONGESTIVE) HEART FAILURE Status: Chronic Current Visit: Yes (6) CAD (coronary artery disease) SNOMED Code(s): 04423121 Code(s): I25.10 - ATHSCL HEART DISEASE OF [place] CORONARY ARTERY W/O ANG PCT RS Status: Chronic Current Visit: Yes Qualifiers: Coronary Disease-Associated Artery/Lesion type: [place] artery [place] vs. transplanted heart: [place] heart Associated angina: without angina Qualified Code(s): I25.10 - Atherosclerotic heart disease of [place] coronary artery without angina pectoris - Problem List Review Problem List Initiated/Reviewed/Updated: Yes - Plan Plan:: ASSESSMENT AND PLAN - Pneumonia, bilateral-suspect bacterial infection on top of recent Covid infection. Transition to comfort cares. Could be displaying some terminal agitation. -comfort cares -Discontinue antibiotics, adequate treatment completed -Supplement oxygen, wean as able -Continue prednisone COVID-19 pneumonia-complicated by acute on chronic respiratory failure. Significant compromised with strength and respiratory status since the infection. -Dexamethasone, remdesivir and isolation precautions are complete Acute kidney injury-renal function slightly better on last check but urine output has been poor. -Hold diuretics Coronary artery disease-complicated by ischemic cardiomyopathy and heart failure with reduced ejection fraction. -Continue to hold diuretics -Continue isosorbide mononitrate -Hold losartan -Continue additional medical management Mechanical aortic valve replacement-chronically anticoagulated. INR still supratherapeutic on last check. Transitioning to comfort care so we will no longer be monitoring this. -Hold warfarin -INR goal 2.5-3.5 Anemia-mild, stable. Palliative care-we discussed options for ongoing management and he is now in agreement about transition to comfort cares. I would anticipate that he will in the next couple of days with his current decline. -Morphine and lorazepam as needed Maintenance issues - -DVT prophylaxis-warfarin -GI prophylaxis-PPI -[id number] Disposition -I anticipate discharge the patient will in the next day or 2. Michel Cunha MD
[2021-05-04] MEDS: Digoxin 125 MCG Tab PO SCH (14:26)
[2021-05-04] MEDS: LORazepam ORAL Concentrate 1MG/0.5ML U/D PO PRN ×4 (16:08→23:46)
[2021-05-04] MEDS: Morphine 10 MG/0.5 ML Oral Syringe PO PRN ×2 (17:45→19:23)
[2021-05-05] MEDS: predniSONE 20 MG Tab PO SCH (09:12)
[2021-05-05] MEDS: Isosorbide Mononitrate 30 MG Tab.ER PO SCH (09:12)
[2021-05-05] MEDS: Metoprolol Succinate 25 MG Tab.ER PO SCH ×2 (09:12→20:39)
[2021-05-05] MEDS: Pantoprazole 40 MG Tab.CR PO SCH ×2 (09:12→15:36)
[2021-05-05] MEDS: Formoterol/Mometasone 200-5 MCG 8.8 GM Inhaler IH SCH ×2 (09:12→20:39)
--- NOTE | 2021-05-05 11:15 | PCM.PN ---
- General Info Date of Service: 05/05/21 Subjective Update: No acute events overnight. Everything has remained stable. He is obtunded this morning and not responsive. He has slow and shallow respirations. Pulse is guru y weak. He has mottled nearly to the waist and this has increased since yesterday. - Patient Data Vitals - Most Recent: Last Vital Signs Temp 35.5 C L 05/05/21 07:13 Pulse 81 05/05/21 07:13 Resp 20 05/05/21 07:13 BP 127/60 05/05/21 07:13 Pulse Ox 99 05/05/21 07:13 Weight - Most Recent: 83.915 kg Med Orders - Current: Current Medications Acetaminophen (Acetaminophen 325 Mg Tab) 650 mg PO Q4H PRN PRN Reason: Pain (Mild 1-3)/fever Last Admin: 04/25/21 22:04 Dose: 650 mg Documented by: Benzonatate (Benzonatate 100 Mg Cap) 100 mg PO TID PRN PRN Reason: Cough Last Admin: 04/28/21 20:13 Dose: 100 mg Documented by: Calcium Carbonate/Glycine (Calcium Carbonate 500 Mg Tab.Chew) 1,000 mg PO Q2H PRN PRN Reason: Indigestion Last Admin: 04/25/21 21:32 Dose: 1,000 mg Documented by: Digoxin (Digoxin 125 Mcg Tab) 125 mcg PO DAILY@1300 [facility] Last Admin: 05/04/21 14:26 Dose: 125 mcg Documented by: Guaifenesin/Dextromethorphan (Guaifenesin/Dextromethorphan 100-10 Mg/5 Ml Soln 10 Ml Cup) 10 ml PO Q4H PRN PRN Reason: Cough Last Admin: 04/21/21 21:08 Dose: 10 ml Documented by: Isosorbide Mononitrate (Isosorbide Mononitrate 30 Mg Tab.Er) 30 mg PO DAILY [facility] Last Admin: 05/05/21 09:12 Dose: Not Given Documented by: Loperamide HCl (Loperamide 2 Mg Cap) 2 mg PO Q4H PRN PRN Reason: Diarrhea Last Admin: 04/16/21 17:47 Dose: 2 mg Documented by: Lorazepam (Lorazepam Oral Concentrate 1mg/0.5ml U/D) 0.5 mg PO Q2H PRN PRN Reason: Anxiety Last Admin: 05/04/21 23:46 Dose: 0.5 mg Documented by: Magnesium Hydroxide (Magnesium Hydroxide 400 Mg/5 Ml Susp 30 Ml Cup) 30 ml PO Q12H PRN PRN Reason: Constipation Last Admin: 05/01/21 16:13 Dose: 30 ml Documented by: Melatonin (Melatonin 3 Mg Tab) 9 mg PO BEDTIME PRN PRN Reason: Sleep Last Admin: 04/25/21 20:36 Dose: 9 mg Documented by: Metoprolol Succinate (Metoprolol Succinate 25 Mg Tab.Er) 25 mg PO BID [facility] Last Admin: 05/05/21 09:12 Dose: Not Given Documented by: Mometasone Furoate/Formoterol Fumar (Formoterol/Mometasone 200-5 Mcg 8.8 Gm Inhaler) 0 puff IH BIDRT [facility] Last Admin: 05/05/21 09:12 Dose: Not Given Documented by: Morphine Sulfate (Morphine 10 Mg/0.5 Ml Oral Syringe) 2.5 mg PO Q2H PRN PRN Reason: Dyspnea Last Admin: 05/04/21 19:23 Dose: 2.5 mg Documented by: Ondansetron HCl (Ondansetron 4 Mg Tab.Dis) 4 mg PO Q6H PRN PRN Reason: Nausea able to take PO Pantoprazole Sodium (Pantoprazole 40 Mg Tab.Cr) 40 mg PO BIDAC [facility] Last Admin: 05/05/21 09:12 Dose: Not Given Documented by: Prednisone (Prednisone 20 Mg Tab) 20 mg PO WITHBREAKFAST [facility] Last Admin: 05/05/21 09:12 Dose: Not Given Documented by: Senna/Docusate Sodium (Docusate Sodium/Sennosides 50-8.6 Mg Tab) 1 tab PO BID PRN PRN Reason: Constipation Last Admin: 05/01/21 16:14 Dose: 1 tab Documented by: Discontinued Medications Albuterol (Albuterol 8 Gm Inhaler) 0 gm INH Q4H PRN PRN Reason: Shortness of Breath Last Admin: 04/26/21 08:24 Dose: 2 puff Documented by: Albuterol (Albuterol 0.083% 2.5 Mg/3 Ml Neb Soln) 2.5 mg NEB Q4H PRN PRN Reason: Dyspnea Last Admin: 04/26/21 04:54 Dose: 2.5 mg Documented by: Albuterol/Ipratropium (Albuterol/Ipratropium 4 Gm Inhalation [place]) 0 gm INH QIDRT [facility] Last Admin: 04/26/21 10:21 Dose: Not Given Documented by: Albuterol/Ipratropium (Albuterol/Ipratropium 3.0-0.5 Mg/3 Ml Neb Soln) 3 ml NEB QIDRT [facility] Last Admin: 05/03/21 07:11 Dose: 3 ml Documented by: Allopurinol (Allopurinol 100 Mg Tab) 100 mg PO DAILY [facility] Last Admin: 05/03/21 15:33 Dose: Not Given Documented by: Ascorbic Acid (Ascorbic Acid 500 Mg Tab) 1,000 mg PO BIDAC [facility] Last Admin: 04/16/21 10:37 Dose: Not Given Documented by: Ascorbic Acid (Ascorbic Acid 500 Mg Tab) 250 mg PO QID [facility] Last Admin: 05/03/21 09:09 Dose: Not Given Documented by: Aspirin (Aspirin 81 Mg Tab.Ec) 81 mg PO DAILY [facility] Last Admin: 05/03/21 09:14 Dose: 81 mg Documented by: Atorvastatin Calcium (Atorvastatin 20 Mg Tab) 40 mg PO BEDTIME [facility] Last Admin: 05/02/21 21:44 Dose: 40 mg Documented by: Benzonatate (Benzonatate 100 Mg Cap) 100 mg PO Q24H [facility] Last Admin: 05/02/21 18:20 Dose: Not Given Documented by: Bisacodyl (Bisacodyl 10 Mg Supp) 10 mg RECTAL ONETIME ONE Stop: 05/01/21 12:46 Last Admin: 05/01/21 12:57 Dose: 10 mg Documented by: Bumetanide (Bumetanide 1 Mg/4 Ml Mdv) 2 mg IVPUSH ONETIME ONE Stop: 04/22/21 18:01 Last Admin: 04/22/21 17:12 Dose: 2 mg Documented by: Bumetanide (Bumetanide 2.5 Mg/10 Ml Mdv) 2 mg IV ONETIME ONE Stop: 04/27/21 18:01 Bumetanide (Bumetanide 1 Mg/4 Ml Mdv) 2 mg IV ONETIME ONE Stop: 04/26/21 18:01 Last Admin: 04/26/21 17:42 Dose: 2 mg Documented by: Bumetanide (Bumetanide 2.5 Mg/10 Ml Mdv) 2 mg IVPUSH ONETIME ONE Stop: 04/27/21 18:01 Last Admin: 04/27/21 17:59 Dose: 2 mg Documented by: Bumetanide (Bumetanide 1 Mg/4 Ml Mdv) 2 mg IVPUSH ONETIME ONE Stop: 04/28/21 18:01 Last Admin: 04/28/21 17:27 Dose: 2 mg Documented by: Cholecalciferol (Cholecalciferol (Vitamin D3) 25 Mcg Tab) 25 mcg PO DAILY [facility] Last Admin: 05/03/21 09:09 Dose: Not Given Documented by: Cyanocobalamin (Cyanocobalamin (Vitamin B12) 1,000 Mcg Tab) 500 mcg PO DAILY [facility] Last Admin: 05/03/21 09:09 Dose: Not Given Documented by: Dexamethasone (Dexamethasone 4 Mg/Ml Sdv) 6 mg IVPUSH Q24H [facility] Last Admin: 04/18/21 16:02 Dose: 6 mg Documented by: Dexamethasone (Dexamethasone 2 Mg Tab) 6 mg PO Q24H [facility] Last Admin: 04/24/21 17:03 Dose: 6 mg Documented by: Docusate Sodium (Docusate Sodium 100 Mg Cap) 100 mg PO DAILY [facility] Last Admin: 05/03/21 09:09 Dose: Not Given Documented by: Doxycycline Hyclate (Doxycycline 100 Mg Cap) 100 mg PO Q12H [facility] Stop: 04/25/21 00:01 Last Admin: 04/21/21 12:12 Dose: 100 mg Documented by: Doxycycline Hyclate (Doxycycline 100 Mg Cap) 100 mg PO Q12H [facility] Stop: 04/24/21 22:01 Last Admin: 04/24/21 22:34 Dose: 100 mg Documented by: Folic Acid (Folic Acid 1 Mg Tab) 0.5 mg PO DAILY [facility] Last Admin: 05/03/21 09:09 Dose: Not Given Documented by: Heparin Sodium (Porcine) (Heparin Sodium 5,000 Units/Ml Vial) 4,000 units IVPUSH ONETIME ONE Stop: 04/15/21 15:21 Last Admin: 04/15/21 16:51 Dose: Not Given Documented by: Heparin Sodium/Dextrose (Heparin 25,000 Units In D5w 500 Ml) 25,000 units in 500 mls @ 18 mls/hr IV TITRATE [facility] Meropenem 1 gm/ Sodium (Chloride) 100 mls @ 200 mls/hr IV Q8H [facility] Last Admin: 04/27/21 03:41 Dose: 200 mls/hr Documented by: Levofloxacin/Dextrose 750 mg/ (Premix) 150 mls @ 100 mls/hr IV Q48H [facility] Last Admin: 05/02/21 13:46 Dose: 100 mls/hr Documented by: Vancomycin HCl 1.6 gm/ Sodium (Chloride) 250 mls @ 166.667 mls/hr IV Q12H [facility] Stop: 04/26/21 13:59 Last Admin: 04/26/21 12:29 Dose: 166.667 mls/hr Documented by: Vancomycin HCl 1.25 gm/ Sodium (Chloride) 250 mls @ 166.667 mls/hr IV Q24H [facility] Last Admin: 04/28/21 13:04 Dose: 166.667 mls/hr Documented by: Meropenem 1 gm/ Sodium (Chloride) 100 mls @ 200 mls/hr IV Q12H [facility] Last Admin: 04/30/21 03:11 Dose: 200 mls/hr Documented by: Meropenem 500 mg/ Sodium (Chloride) 50 mls @ 100 mls/hr IV Q12H [facility] Last Admin: 05/02/21 17:01 Dose: Not Given Documented by: Isosorbide Mononitrate (Isosorbide Mononitrate 30 Mg Tab.Er) 30 mg PO ONETIME ONE Stop: 04/18/21 06:28 Last Admin: 04/18/21 06:39 Dose: 30 mg Documented by: Lorazepam (Lorazepam 2 Mg/Ml Sdv) 0.5 mg IVPUSH Q4H PRN PRN Reason: Nausea/Vomiting Methylprednisolone Sodium Succinate (Methylprednisolone Sodium Succinate 40 Mg/1 Ml Sdv) 40 mg IVPUSH Q8H [facility] Stop: 04/30/21 02:00 Last Admin: 04/29/21 21:39 Dose: 40 mg Documented by: Ondansetron HCl (Ondansetron 4 Mg/2 Ml Sdv) 4 mg IV Q6H PRN PRN Reason: Nausea/Vomiting Phytonadione (Phytonadione 5 Mg Tab) 2.5 mg PO ONETIME ONE Stop: 04/18/21 13:01 Last Admin: 04/18/21 13:43 Dose: 2.5 mg Documented by: Phytonadione (Phytonadione 5 Mg Tab) 2.5 mg PO ONETIME ONE Stop: 04/29/21 08:46 Last Admin: 04/29/21 08:49 Dose: 2.5 mg Documented by: Phytonadione (Phytonadione 5 Mg Tab) 5 mg PO ONETIME ONE Stop: 04/30/21 09:01 Last Admin: 04/30/21 08:43 Dose: 5 mg Documented by: Phytonadione (Phytonadione 5 Mg Tab) 2.5 mg PO ONETIME ONE Stop: 05/02/21 08:46 Last Admin: 05/02/21 09:25 Dose: 2.5 mg Documented by: Prednisone (Prednisone 20 Mg Tab) 40 mg PO WITHBREAKFAST [facility] Last Admin: 04/30/21 07:24 Dose: 40 mg Documented by: Spironolactone (Spironolactone 25 Mg Tab) 12.5 mg PO DAILY [facility] Last Admin: 04/29/21 08:20 Dose: 12.5 mg Documented by: Torsemide (Torsemide 20 Mg Tab) 40 mg PO DAILY [facility] Last Admin: 04/25/21 08:54 Dose: 40 mg Documented by: Torsemide (Torsemide 20 Mg Tab) 60 mg PO DAILY [facility] Last Admin: 04/29/21 08:22 Dose: 60 mg Documented by: Vancomycin HCl (Vancomycin 1 Gm Sdv) 1 gm IV .PHARMACY TO DOSE [facility] Stop: 04/26/21 12:00 Warfarin Sodium (Warfarin 5 Mg Tab) 5 mg PO DAILY@1300 [facility] Last Admin: 04/17/21 13:31 Dose: 5 mg Documented by: Warfarin Sodium (Warfarin 2.5 Mg Tab) 2.5 mg PO DAILY@1300 [facility] Last Admin: 04/20/21 12:21 Dose: 2.5 mg Documented by: Warfarin Sodium (Warfarin 2.5 Mg Tab) 1.25 mg PO DAILY@1300 [facility] Last Admin: 04/28/21 13:12 Dose: 1.25 mg Documented by: - Exam Quality Assessment: Supplemental Oxygen General: No Acute Distress, Obtunded. No: Alert Lungs: Normal Respiratory Effort GI/Abdominal Exam: No Distention Extremities: No Pedal Edema Skin: Dry, Cool, Other (mottling from feet to the groin ) Psy/Mental Status: No: Alert - Patient Data Result Diagrams: 05/02/21 05:36 05/02/21 05:36 Sepsis Event Note - Evaluation Sepsis Screening Result: Severe Sepsis Risk - Focused Exam Vital Signs: Vital Signs Temp Pulse Resp BP Pulse Ox 05/05/21 07:13 35.5 C L 81 20 127/60 99 - Problem List & Annotations (1) Pneumonia due to COVID-19 virus SNOMED Code(s): 503183936363775946 Code(s): U07.1 - COVID-19; J12.82 - PNEUMONIA DUE TO CORONAVIRUS DISEASE 2018 Status: Acute Current Visit: Yes (2) Acute and chronic respiratory failure SNOMED Code(s): 27203656 Code(s): J96.20 - ACUTE AND CHR RESP FAILURE, UNSP W HYPOXIA OR HYPERCAPNIA Status: Acute Current Visit: Yes Qualifiers: Respiratory failure complication: hypoxia Qualified Code(s): J96.21 - Acute and chronic respiratory failure with hypoxia (3) Acute kidney injury SNOMED Code(s): 98758090, 31284537 Code(s): N17.9 - ACUTE KIDNEY FAILURE, UNSPECIFIED Status: Acute Current Visit: Yes (4) Elevated troponin SNOMED Code(s): 697806582, 671110089, 280444273 Code(s): R77.8 - OTHER SPECIFIED ABNORMALITIES OF PLASMA PROTEINS Status: Acute Current Visit: Yes (5) HFrEF (heart failure with reduced ejection fraction) SNOMED Code(s): 432991078 Code(s): I50.20 - UNSPECIFIED SYSTOLIC (CONGESTIVE) HEART FAILURE Status: Chronic Current Visit: Yes (6) CAD (coronary artery disease) SNOMED Code(s): 53533147 Code(s): I25.10 - ATHSCL HEART DISEASE OF [place] CORONARY ARTERY W/O ANG PCTRS Status: Chronic Current Visit: Yes Qualifiers: Coronary Disease-Associated Artery/Lesion type: [place] artery [place] vs. transplanted heart: [place] heart Associated angina: without angina Qualified Code(s): I25.10 - Atherosclerotic heart disease of [place] coronary artery wi thout angina pectoris - Problem List Review Problem List Initiated/Reviewed/Updated: Yes - Plan Plan:: ASSESSMENT AND PLAN - Pneumonia, bilateral-suspect bacterial infection on top of recent Covid infection. Transitioned to comfort cares. Very close to at this point with significant mottling and obtundation. -comfort cares COVID-19 pneumonia-complicated by acute on chronic respiratory failure. Significant compromised with strength and respiratory status since the infection. -Dexamethasone, remdesivir and isolation precautions are complete Acute kidney injury-renal function slightly better on last check but urine output has been poor. Coronary artery disease-complicated by ischemic cardiomyopathy and heart failure with reduced ejection fraction. 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 INR still supratherapeutic on last check. Transitioning to comfort care so we will no longer be monitoring this. Anemia-mild, stable. Palliative care-he has been transition to comfort care only. -Morphine and lorazepam as needed Maintenance issues - -DVT prophylaxis-not indicated -GI prophylaxis-not indicated -Nutrition-not able to take anything by mouth Disposition -I anticipate discharge the patient will in a limited number of hours. Michel Cunha MD
[2021-05-05] MEDS: Digoxin 125 MCG Tab PO SCH (14:06)
[2021-05-05] MEDS: Morphine 10 MG/0.5 ML Oral Syringe PO PRN ×3 (14:07→23:27)
[2021-05-05] MEDS: LORazepam ORAL Concentrate 1MG/0.5ML U/D PO PRN (22:23)
[2021-05-06] MEDS: Morphine 10 MG/0.5 ML Oral Syringe PO PRN ×6 (04:45→19:39)
[2021-05-06] MEDS: Formoterol/Mometasone 200-5 MCG 8.8 GM Inhaler IH SCH ×2 (06:28→20:05)
[2021-05-06] MEDS: Pantoprazole 40 MG Tab.CR PO SCH ×2 (07:22→16:51)
[2021-05-06] MEDS: predniSONE 20 MG Tab PO SCH (07:22)
[2021-05-06] MEDS: LORazepam ORAL Concentrate 1MG/0.5ML U/D PO PRN ×4 (08:45→16:55)
[2021-05-06] MEDS: Metoprolol Succinate 25 MG Tab.ER PO SCH ×2 (08:45→20:06)
[2021-05-06] MEDS: Isosorbide Mononitrate 30 MG Tab.ER PO SCH (08:45)
[2021-05-06] MEDS: Digoxin 125 MCG Tab PO SCH (12:36)
--- NOTE | 2021-05-06 13:53 | PCM.PN ---
- General Info Date of Service: 05/06/21 Subjective Update: Mr. Batres is currently on comfort cares. When seen today he was sedated and unable to provide meaningful information concerning symptoms or review of systems. He was resting very comfortably with no evidence of significant discomfort or pain. - Patient Data Vitals - Most Recent: Last Vital Signs Temp 95.3 F L 05/06/21 07:23 Pulse 74 05/06/21 07:23 Resp 20 05/06/21 07:23 BP 107/62 05/06/21 07:23 Pulse Ox 85 L 05/06/21 07:23 Weight - Most Recent: 185 lb Med Orders - Current: Current Medications Acetaminophen (Acetaminophen 325 Mg Tab) 650 mg PO Q4H PRN PRN Reason: Pain (Mild 1-3)/fever Last Admin: 04/25/21 22:04 Dose: 650 mg Documented by: Benzonatate (Benzonatate 100 Mg Cap) 100 mg PO TID PRN PRN Reason: Cough Last Admin: 04/28/21 20:13 Dose: 100 mg Documented by: Calcium Carbonate/Glycine (Calcium Carbonate 500 Mg Tab.Chew) 1,000 mg PO Q2H PRN PRN Reason: Indigestion Last Admin: 04/25/21 21:32 Dose: 1,000 mg Documented by: Digoxin (Digoxin 125 Mcg Tab) 125 mcg PO DAILY@1300 [facility] Last Admin: 05/06/21 12:36 Dose: Not Given Documented by: Guaifenesin/Dextromethorphan (Guaifenesin/Dextromethorphan 100-10 Mg/5 Ml Soln 10 Ml Cup) 10 ml PO Q4H PRN PRN Reason: Cough Last Admin: 04/21/21 21:08 Dose: 10 ml Documented by: Isosorbide Mononitrate (Isosorbide Mononitrate 30 Mg Tab.Er) 30 mg PO DAILY [facility] Last Admin: 05/06/21 08:45 Dose: Not Given Documented by: Loperamide HCl (Loperamide 2 Mg Cap) 2 mg PO Q4H PRN PRN Reason: Diarrhea Last Admin: 04/16/21 17:47 Dose: 2 mg Documented by: Lorazepam (Lorazepam Oral Concentrate 1mg/0.5ml U/D) 0.5 mg PO Q2H PRN PRN Reason: Anxiety Last Admin: 05/06/21 11:51 Dose: 0.5 mg Documented by: Magnesium Hydroxide (Magnesium Hydroxide 400 Mg/5 Ml Susp 30 Ml Cup) 30 ml PO Q12H PRN PRN Reason: Constipation Last Admin: 05/01/21 16:13 Dose: 30 ml Documented by: Melatonin (Melatonin 3 Mg Tab) 9 mg PO BEDTIME PRN PRN Reason: Sleep Last Admin: 04/25/21 20:36 Dose: 9 mg Documented by: Metoprolol Succinate (Metoprolol Succinate 25 Mg Tab.Er) 25 mg PO BID [facility] Last Admin: 05/06/21 08:45 Dose: Not Given Documented by: Mometasone Furoate/Formoterol Fumar (Formoterol/Mometasone 200-5 Mcg 8.8 Gm Inhaler) 0 puff IH BIDRT [facility] Last Admin: 05/06/21 06:28 Dose: Not Given Documented by: Morphine Sulfate (Morphine 10 Mg/0.5 Ml Oral Syringe) 2.5 mg PO Q2H PRN PRN Reason: Dyspnea Last Admin: 05/06/21 12:36 Dose: 2.5 mg Documented by: Ondansetron HCl (Ondansetron 4 Mg Tab.Dis) 4 mg PO Q6H PRN PRN Reason: Nausea able to take PO Pantoprazole Sodium (Pantoprazole 40 Mg Tab.Cr) 40 mg PO BIDAC [facility] Last Admin: 05/06/21 07:22 Dose: Not Given Documented by: Prednisone (Prednisone 20 Mg Tab) 20 mg PO WITHBREAKFAST [facility] Last Admin: 05/06/21 07:22 Dose: Not Given Documented by: Senna/Docusate Sodium (Docusate Sodium/Sennosides 50-8.6 Mg Tab) 1 tab PO BID PRN PRN Reason: Constipation Last Admin: 05/01/21 16:14 Dose: 1 tab Documented by: Discontinued Medications Albuterol (Albuterol 8 Gm Inhaler) 0 gm INH Q4H PRN PRN Reason: Shortness of Breath Last Admin: 04/26/21 08:24 Dose: 2 puff Documented by: Albuterol (Albuterol 0.083% 2.5 Mg/3 Ml Neb Soln) 2.5 mg NEB Q4H PRN PRN Reason: Dyspnea Last Admin: 04/26/21 04:54 Dose: 2.5 mg Documented by: Albuterol/Ipratropium (Albuterol/Ipratropium 4 Gm Inhalation [place]) 0 gm INH QIDRT [facility] Last Admin: 04/26/21 10:21 Dose: Not Given Documented by: Albuterol/Ipratropium (Albuterol/Ipratropium 3.0-0.5 Mg/3 Ml Neb Soln) 3 ml NEB QIDRT [facility] Last Admin: 05/03/21 07:11 Dose: 3 ml Documented by: Allopurinol (Allopurinol 100 Mg Tab) 100 mg PO DAILY [facility] Last Admin: 05/03/21 15:33 Dose: Not Given Documented by: Ascorbic Acid (Ascorbic Acid 500 Mg Tab) 1,000 mg PO BIDAC [facility] Last Admin: 04/16/21 10:37 Dose: Not Given Documented by: Ascorbic Acid (Ascorbic Acid 500 Mg Tab) 250 mg PO QID [facility] Last Admin: 05/03/21 09:09 Dose: Not Given Documented by: Aspirin (Aspirin 81 Mg Tab.Ec) 81 mg PO DAILY [facility] Last Admin: 05/03/21 09:14 Dose: 81 mg Documented by: Atorvastatin Calcium (Atorvastatin 20 Mg Tab) 40 mg PO BEDTIME [facility] Last Admin: 05/02/21 21:44 Dose: 40 mg Documented by: Benzonatate (Benzonatate 100 Mg Cap) 100 mg PO Q24H [facility] Last Admin: 05/02/21 18:20 Dose: Not Given Documented by: Bisacodyl (Bisacodyl 10 Mg Supp) 10 mg RECTAL ONETIME ONE Stop: 05/01/21 12:46 Last Admin: 05/01/21 12:57 Dose: 10 mg Documented by: Bumetanide (Bumetanide 1 Mg/4 Ml Mdv) 2 mg IVPUSH ONETIME ONE Stop: 04/22/21 18:01 Last Admin: 04/22/21 17:12 Dose: 2 mg Documented by: Bumetanide (Bumetanide 2.5 Mg/10 Ml Mdv) 2 mg IV ONETIME ONE Stop: 04/27/21 18:01 Bumetanide (Bumetanide 1 Mg/4 Ml Mdv) 2 mg IV ONETIME ONE Stop: 04/26/21 18:01 Last Admin: 04/26/21 17:42 Dose: 2 mg Documented by: Bumetanide (Bumetanide 2.5 Mg/10 Ml Mdv) 2 mg IVPUSH ONETIME ONE Stop: 04/27/21 18:01 Last Admin: 04/27/21 17:59 Dose: 2 mg Documented by: Bumetanide (Bumetanide 1 Mg/4 Ml Mdv) 2 mg IVPUSH ONETIME ONE Stop: 04/28/21 18:01 Last Admin: 04/28/21 17:27 Dose: 2 mg Documented by: Cholecalciferol (Cholecalciferol (Vitamin D3) 25 Mcg Tab) 25 mcg PO DAILY [facility] Last Admin: 05/03/21 09:09 Dose: Not Given Documented by: Cyanocobalamin (Cyanocobalamin (Vitamin B12) 1,000 Mcg Tab) 500 mcg PO DAILY [facility] Last Admin: 05/03/21 09:09 Dose: Not Given Documented by: Dexamethasone (Dexamethasone 4 Mg/Ml Sdv) 6 mg IVPUSH Q24H [facility] Last Admin: 04/18/21 16:02 Dose: 6 mg Documented by: Dexamethasone (Dexamethasone 2 Mg Tab) 6 mg PO Q24H [facility] Last Admin: 04/24/21 17:03 Dose: 6 mg Documented by: Docusate Sodium (Docusate Sodium 100 Mg Cap) 100 mg PO DAILY [facility] Last Admin: 05/03/21 09:09 Dose: Not Given Documented by: Doxycycline Hyclate (Doxycycline 100 Mg Cap) 100 mg PO Q12H [facility] Stop: 04/25/21 00:01 Last Admin: 04/21/21 12:12 Dose: 100 mg Documented by: Doxycycline Hyclate (Doxycycline 100 Mg Cap) 100 mg PO Q12H [facility] Stop: 04/24/21 22:01 Last Admin: 04/24/21 22:34 Dose: 100 mg Documented by: Folic Acid (Folic Acid 1 Mg Tab) 0.5 mg PO DAILY [facility] Last Admin: 05/03/21 09:09 Dose: Not Given Documented by: Heparin Sodium (Porcine) (Heparin Sodium 5,000 Units/Ml Vial) 4,000 units IVPUSH ONETIME ONE Stop: 04/15/21 15:21 Last Admin: 04/15/21 16:51 Dose: Not Given Documented by: Heparin Sodium/Dextrose (Heparin 25,000 Units In D5w 500 Ml) 25,000 units in 500 mls @ 18 mls/hr IV TITRATE [facility] Meropenem 1 gm/ Sodium (Chloride) 100 mls @ 200 mls/hr IV Q8H [facility] Last Admin: 04/27/21 03:41 Dose: 200 mls/hr Documented by: Levofloxacin/Dextrose 750 mg/ (Premix) 150 mls @ 100 mls/hr IV Q48H [facility] Last Admin: 05/02/21 13:46 Dose: 100 mls/hr Documented by: Vancomycin HCl 1.6 gm/ Sodium (Chloride) 250 mls @ 166.667 mls/hr IV Q12H [facility] Stop: 04/26/21 13:59 Last Admin: 04/26/21 12:29 Dose: 166.667 mls/hr Documented by: Vancomycin HCl 1.25 gm/ Sodium (Chloride) 250 mls @ 166.667 mls/hr IV Q24H [facility] Last Admin: 04/28/21 13:04 Dose: 166.667 mls/hr Documented by: Meropenem 1 gm/ Sodium (Chloride) 100 mls @ 200 mls/hr IV Q12H [facility] Last Admin: 04/30/21 03:11 Dose: 200 mls/hr Documented by: Meropenem 500 mg/ Sodium (Chloride) 50 mls @ 100 mls/hr IV Q12H [facility] Last Admin: 05/02/21 17:01 Dose: Not Given Documented by: Isosorbide Mononitrate (Isosorbide Mononitrate 30 Mg Tab.Er) 30 mg PO ONETIME ONE Stop: 04/18/21 06:28 Last Admin: 04/18/21 06:39 Dose: 30 mg Documented by: Lorazepam (Lorazepam 2 Mg/Ml Sdv) 0.5 mg IVPUSH Q4H PRN PRN Reason: Nausea/Vomiting Methylprednisolone Sodium Succinate (Methylprednisolone Sodium Succinate 40 Mg/1 Ml Sdv) 40 mg IVPUSH Q8H [facility] Stop: 04/30/21 02:00 Last Admin: 04/29/21 21:39 Dose: 40 mg Documented by: Ondansetron HCl (Ondansetron 4 Mg/2 Ml Sdv) 4 mg IV Q6H PRN PRN Reason: Nausea/Vomiting Phytonadione (Phytonadione 5 Mg Tab) 2.5 mg PO ONETIME ONE Stop: 04/18/21 13:01 Last Admin: 04/18/21 13:43 Dose: 2.5 mg Documented by: Phytonadione (Phytonadione 5 Mg Tab) 2.5 mg PO ONETIME ONE Stop: 04/29/21 08:46 Last Admin: 04/29/21 08:49 Dose: 2.5 mg Documented by: Phytonadione (Phytonadione 5 Mg Tab) 5 mg PO ONETIME ONE Stop: 04/30/21 09:01 Last Admin: 04/30/21 08:43 Dose: 5 mg Documented by: Phytonadione (Phytonadione 5 Mg Tab) 2.5 mg PO ONETIME ONE Stop: 05/02/21 08:46 Last Admin: 05/02/21 09:25 Dose: 2.5 mg Documented by: Prednisone (Prednisone 20 Mg Tab) 40 mg PO WITHBREAKFAST [facility] Last Admin: 04/30/21 07:24 Dose: 40 mg Documented by: Spironolactone (Spironolactone 25 Mg Tab) 12.5 mg PO DAILY [facility] Last Admin: 04/29/21 08:20 Dose: 12.5 mg Documented by: Torsemide (Torsemide 20 Mg Tab) 40 mg PO DAILY [facility] Last Admin: 04/25/21 08:54 Dose: 40 mg Documented by: Torsemide (Torsemide 20 Mg Tab) 60 mg PO DAILY [facility] Last Admin: 04/29/21 08:22 Dose: 60 mg Documented by: Vancomycin HCl (Vancomycin 1 Gm Sdv) 1 gm IV .PHARMACY TO DOSE [facility] Stop: 04/26/21 12:00 Warfarin Sodium (Warfarin 5 Mg Tab) 5 mg PO DAILY@1300 [facility] Last Admin: 04/17/21 13:31 Dose: 5 mg Documented by: Warfarin Sodium (Warfarin 2.5 Mg Tab) 2.5 mg PO DAILY@1300 [facility] Last Admin: 04/20/21 12:21 Dose: 2.5 mg Documented by: Warfarin Sodium (Warfarin 2.5 Mg Tab) 1.25 mg PO DAILY@1300 [facility] Last Admin: 04/28/21 13:12 Dose: 1.25 mg Documented by: - Exam General: Sedated, Lethargic Lungs: Decreased Breath Sounds, Rhonchi. No: Crackles, Rales, Wheezing Cardiovascular: Regular Rate, Regular Rhythm, No Murmurs GI/Abdominal Exam: Soft, Non-Tender, No Organomegaly, No Distention Extremities: Non-Tender, No Pedal Edema - Patient Data Result Diagrams: 05/02/21 05:36 05/02/21 05:36 Sepsis Event Note - Evaluation Sepsis Screening Result: No Definite Risk - Focused Exam Vital Signs: Vital Signs Temp Pulse Resp BP Pulse Ox 05/06/21 07:23 95.3 F L 74 20 107/62 85 L - Problem List Review Problem List Initiated/Reviewed/Updated: Yes - Plan Plan:: ASSESSMENT AND PLAN Pneumonia, bilateral-suspect bacterial infection on top of recent Covid infection. Transitioned to comfort cares. Very close to at this point with significant mottling and obtundation. -comfort cares COVID-19 pneumonia-complicated by acute on chronic respiratory failure. Significant compromised with strength and respiratory status since the infection. -Dexamethasone, remdesivir and isolation precautions are complete Acute kidney injury-renal function slightly better on last check but urine output has been poor. Coronary artery disease-complicated by ischemic cardiomyopathy and heart failure with reduced ejection fraction. 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 INR still supratherapeutic on last check. Transitioning to comfort care so we will no longer be monitoring this. Anemia-mild, stable. Palliative care-he has been transition to comfort care only. -Morphine and lorazepam as needed Maintenance issues - -DVT prophylaxis-not indicated -GI prophylaxis-not indicated -Nutrition-not able to take anything by mouth Disposition -I anticipate discharge the patient will in the next few days
--- NOTE | 2021-05-07 08:15 | PCM.DCSUM1 ---
Discharge Summary - Hospital Course Brief History: Mr. Batres was an 85-year-old gentleman who was admitted through the emergency department with weakness and progressive shortness of breath secondary to COVID-19 infection and underlying congestive heart failure. - Discharge Data Discharge Date: 05/07/21 Discharge Disposition: 20 Condition: - Referral to [facility] Primary Care Physician: Savage Rodriguez MD - Discharge Diagnosis/Problem(s) (1) Acute and chronic respiratory failure SNOMED Code(s): 31133577 ICD Code: J96.20 - ACUTE AND CHR RESP FAILURE, UNSP W HYPOXIA OR HYPERCAPNIA Status: Acute Qualifiers: Respiratory failure complication: hypoxia Qualified Code(s): J96.21 - Acute and chronic respiratory failure with hypoxia (2) Acute kidney injury SNOMED Code(s): 92577981, 53775278 ICD Code: N17.9 - ACUTE KIDNEY FAILURE, UNSPECIFIED Status: Acute (3) CHF exacerbation SNOMED Code(s): 332935579, 18079623273369 ICD Code: I50.9 - HEART FAILURE, UNSPECIFIED Status: Acute Qualifiers: Heart failure type: combined systolic and diastolic Qualified Code(s): I50.43 - Acute on chronic combined systolic (congestive) and diastolic (congestive) heart failure (4) CRF (chronic renal failure) SNOMED Code(s): 13271996 ICD Code: N18.9 - CHRONIC KIDNEY DISEASE, UNSPECIFIED Status: Acute Qualifiers: Chronic kidney disease stage: stage 3 (moderate) Chronic kidney disease stage 3 subtype: stage 3b (GFR 30-44) Qualified Code(s): N18.32 - Chronic kidney disease, stage 3b (5) Elevated troponin SNOMED Code(s): 780705455, 942956384, 354122316 ICD Code: R77.8 - OTHER SPECIFIED ABNORMALITIES OF PLASMA PROTEINS Status: Acute (6) Pneumonia due to COVID-19 virus SNOMED Code(s): 975495881118643903 ICD Code: U07.1 - COVID-19; J12.82 - PNEUMONIA DUE TO CORONAVIRUS DISEASE 2018 Status: Acute (7) CAD (coronary artery disease) SNOMED Code(s): 36250939 ICD Code: I25.10 - ATHSCL HEART DISEASE OF [place] CORONARY ARTERY W/O ANG PCTRS Status: Chronic Qualifiers: Coronary Disease-Associated Artery/Lesion type: [place] artery [place] vs. transplanted heart: [place] heart Associated angina: without angina Qualified Code(s): I25.10 - Atherosclerotic heart disease of [place] coronary artery without angina pectoris (8) HFrEF (heart failure with reduced ejection fraction) SNOMED Code(s): 268374616 ICD Code: I50.20 - UNSPECIFIED SYSTOLIC (CONGESTIVE) HEART FAILURE Status: Chronic - Patient Summary/Data Hospital Course: Mr. Batres presented to the emergency room with progressive shortness of breath, weakness and fatigue. He reports that he has been short of breath for a couple of years but more so over the past couple of weeks and especially the last few days. He is now short of breath with even minimal activity but comfortable at rest. He has an occasional cough but not dramatically different than usual. He was recently hospitalized at [facility] for management of a non-ST elevation myocardial infarction and diagnosed with heart failure with reduced ejection fraction and an ischemic cardiomyopathy that was managed medically. He seems to be going downhill since that time. He is aware of some sick contacts who have had Covid. He does report he has been vaccinated and has had a booster. Work- up in the emergency room revealed an elevated troponin at 0.2 as well as a mildly elevated INR. His Covid test was positive and D-dimer is moderately elevated while the CRP is quite high at more than 15. He has been started on dexamethasone since he was requiring 2 L of oxygen. Elevated troponin was felt likely secondary to demand ischemia with underlying shortness of breath and COVID-19 infection as well as his acute kidney injury. Diuretic therapy was held on admission and renal function did slowly improve following that. After renal function improved he did receive a course of remdesivir. Over the first week he did experience some modest improvement in symptoms. Diuretic therapy was restarted at a lower dose. He then began to develop progressive increase in shortness of breath, despite these interventions. Follow-up chest x-rays were obtained and showed bilateral infiltrates. Because of worsening he was started on broad-spectrum antibiotic therapy to cover for possible bacterial infection. Dose of diuretics was increased but was complicated by elevation in creatinine levels. INR levels were monitored daily and were frequently elevated necessitating holding his warfarin. Despite interventions with antibiotics and increased diuretics he continued to develop progressive increased shortness of breath and weakness. CT scan of the chest was obtained and again showed evidence of bilateral infiltrates. Situation was reviewed with Mr. Batres and given his lack of improvement he decided to forego further aggressive interventions or evaluations. He opted for more of a carry palliative care a [facility] with comfort cares only. He was started on liquid lorazepam and morphine for comfort which worked well for him. He early in the morning of May 07, no attempts were made at resuscitation as per his previously expressed wishes. - Discharge Plan *PRESCRIPTION DRUG MONITORING PROGRAM REVIEWED*: Not Applicable *COPY OF PRESCRIPTION DRUG MONITORING REPORT IN PATIENT PATRICK: Not Applicable Home Medications: Home Meds Albuterol Sulfate [Proair Hfa] 1 - 2 puff IH Q4H PRN 03/05/18 [History] Aspirin [Halfprin] 81 mg PO DAILY 03/05/18 [History] Cyanocobalamin (Vitamin B-12) [Vitamin B-12] 100 mcg PO DAILY 03/05/18 [History] Desonide [Tridesilon] 1 applic TP BID PRN 03/05/18 [History] Docusate Sodium [Colace] 100 mg PO DAILY 03/05/18 [History] Ferrous Sulfate [Iron] 325 mg PO BID 03/05/18 [History] Fluticasone/Vilanterol [Breo Ellipta 100-25 MCG Inhalation Kit] 1 puff IH DAILY 03/05/18 [History] Folic Acid 400 mg PO DAILY 03/05/18 [History] Isosorbide Mononitrate [Imdur] 60 mg PO DAILY 03/05/18 [History] Losartan [Cozaar] 50 mg PO DAILY 03/05/18 [History] Metoprolol Succinate [Toprol Xl] 25 mg PO BID 03/05/18 [History] Warfarin [Coumadin] 6 mg PO BEDTIME 03/05/18 [History] allopurinoL [Zyloprim] 100 mg PO BID 03/05/18 [History] atorvaSTATin [Lipitor] 40 mg PO BEDTIME 03/05/18 [History] Spironolactone [Aldactone] 12.5 mg PO DAILY 10/21/18 [History] Albuterol/Ipratropium [DuoNeb 3.0-0.5 MG/3 ML] 3 ml .XX Q4HR PRN 08/13/20 [History] Fluticasone/Salmeterol [Advair 250-50] 1 puff INH BID 08/13/20 [History] Melatonin/Pyridoxine HCl (B6) [Melatonin 10 mg Tablet] 1 each PO BEDTIME 08/13/20 [History] Nitroglycerin [Nitrostat] 0.4 mg SL ASDIRECTED PRN 08/13/20 [History] Ascorbic Acid [Vitamin C] 1,000 mg PO DAILY 04/12/21 [History] Cholecalciferol (Vitamin D3) [Vitamin D3] 25 mcg PO DAILY 04/12/21 [History] Digoxin 125 mcg PO DAILY 04/12/21 [History] Famotidine 20 mg PO DAILY #30 tab 04/12/21 [Rx] Lansoprazole [Prevacid] 15 mg PO DAILY 04/12/21 [History] Nystatin [Nystatin Crm] 15 gm TOP TID PRN 04/12/21 [History] Torsemide 100 mg PO DAILY 04/12/21 [History] Referrals: Savage Rodriguez MD [Primary Care Provider] - - Discharge Summary/Plan Comment DC Time >30 min.: No Total # of Minutes for Discharge Time: 25 - Patient Data Vitals - Most Recent: Last Vital Signs Temp 95.3 F L 05/06/21 07:23 Pulse 74 05/06/21 07:23 Resp 32 H 05/06/21 19:00 BP 107/62 05/06/21 07:23 Pulse Ox 80 L 05/06/21 19:00 Weight - Most Recent: 185 lb Med Orders - Current: Current Medications Discontinued Medications Acetaminophen (Acetaminophen 325 Mg Tab) 650 mg PO Q4H PRN PRN Reason: Pain (Mild 1-3)/fever Last Admin: 04/25/21 22:04 Dose: 650 mg Documented by: Albuterol (Albuterol 8 Gm Inhaler) 0 gm INH Q4H PRN PRN Reason: Shortness of Breath Last Admin: 04/26/21 08:24 Dose: 2 puff Documented by: Albuterol (Albuterol 0.083% 2.5 Mg/3 Ml Neb Soln) 2.5 mg NEB Q4H PRN PRN Reason: Dyspnea Last Admin: 04/26/21 04:54 Dose: 2.5 mg Documented by: Albuterol/Ipratropium (Albuterol/Ipratropium 4 Gm Inhalation Oliver) 0 gm INH QIDRT [facility] Last Admin: 04/26/21 10:21 Dose: Not Given Documented by: Albuterol/Ipratropium (Albuterol/Ipratropium 3.0-0.5 Mg/3 Ml Neb Soln) 3 ml NEB QIDRT [facility] Last Admin: 05/03/21 07:11 Dose: 3 ml Documented by: Allopurinol (Allopurinol 100 Mg Tab) 100 mg PO DAILY [facility] Last Admin: 05/03/21 15:33 Dose: Not Given Documented by: Ascorbic Acid (Ascorbic Acid 500 Mg Tab) 1,000 mg PO BIDAC [facility] Last Admin: 04/16/21 10:37 Dose: Not Given Documented by: Ascorbic Acid (Ascorbic Acid 500 Mg Tab) 250 mg PO QID [facility] Last Admin: 05/03/21 09:09 Dose: Not Given Documented by: Aspirin (Aspirin 81 Mg Tab.Ec) 81 mg PO DAILY [facility] Last Admin: 05/03/21 09:14 Dose: 81 mg Documented by: Atorvastatin Calcium (Atorvastatin 20 Mg Tab) 40 mg PO BEDTIME [facility] Last Admin: 05/02/21 21:44 Dose: 40 mg Documented by: Benzonatate (Benzonatate 100 Mg Cap) 100 mg PO TID PRN PRN Reason: Cough Last Admin: 04/28/21 20:13 Dose: 100 mg Documented by: Benzonatate (Benzonatate 100 Mg Cap) 100 mg PO Q24H [facility] Last Admin: 05/02/21 18:20 Dose: Not Given Documented by: Bisacodyl (Bisacodyl 10 Mg Supp) 10 mg RECTAL ONETIME ONE Stop: 05/01/21 12:46 Last Admin: 05/01/21 12:57 Dose: 10 mg Documented by: Bumetanide (Bumetanide 1 Mg/4 Ml Mdv) 2 mg IVPUSH ONETIME ONE Stop: 04/22/21 18:01 Last Admin: 04/22/21 17:12 Dose: 2 mg Documented by: Bumetanide (Bumetanide 2.5 Mg/10 Ml Mdv) 2 mg IV ONETIME ONE Stop: 04/27/21 18:01 Bumetanide (Bumetanide 1 Mg/4 Ml Mdv) 2 mg IV ONETIME ONE Stop: 04/26/21 18:01 Last Admin: 04/26/21 17:42 Dose: 2 mg Documented by: Bumetanide (Bumetanide 2.5 Mg/10 Ml Mdv) 2 mg IVPUSH ONETIME ONE Stop: 04/27/21 18:01 Last Admin: 04/27/21 17:59 Dose: 2 mg Documented by: Bumetanide (Bumetanide 1 Mg/4 Ml Mdv) 2 mg IVPUSH ONETIME ONE Stop: 04/28/21 18:01 Last Admin: 04/28/21 17:27 Dose: 2 mg Documented by: Calcium Carbonate/Glycine (Calcium Carbonate 500 Mg Tab.Chew) 1,000 mg PO Q2H PRN PRN Reason: Indigestion Last Admin: 04/25/21 21:32 Dose: 1,000 mg Documented by: Cholecalciferol (Cholecalciferol (Vitamin D3) 25 Mcg Tab) 25 mcg PO DAILY [facility] Last Admin: 05/03/21 09:09 Dose: Not Given Documented by: Cyanocobalamin (Cyanocobalamin (Vitamin B12) 1,000 Mcg Tab) 500 mcg PO DAILY [facility] Last Admin: 05/03/21 09:09 Dose: Not Given Documented by: Dexamethasone (Dexamethasone 4 Mg/Ml Sdv) 6 mg IVPUSH Q24H [facility] Last Admin: 04/18/21 16:02 Dose: 6 mg Documented by: Dexamethasone (Dexamethasone 2 Mg Tab) 6 mg PO Q24H [facility] Last Admin: 04/24/21 17:03 Dose: 6 mg Documented by: Digoxin (Digoxin 125 Mcg Tab) 125 mcg PO DAILY@1300 [facility] Last Admin: 05/06/21 12:36 Dose: Not Given Documented by: Docusate Sodium (Docusate Sodium 100 Mg Cap) 100 mg PO DAILY [facility] Last Admin: 05/03/21 09:09 Dose: Not Given Documented by: Doxycycline Hyclate (Doxycycline 100 Mg Cap) 100 mg PO Q12H [facility] Stop: 04/25/21 00:01 Last Admin: 04/21/21 12:12 Dose: 100 mg Documented by: Doxycycline Hyclate (Doxycycline 100 Mg Cap) 100 mg PO Q12H [facility] Stop: 04/24/21 22:01 Last Admin: 04/24/21 22:34 Dose: 100 mg Documented by: Folic Acid (Folic Acid 1 Mg Tab) 0.5 mg PO DAILY [facility] Last Admin: 05/03/21 09:09 Dose: Not Given Documented by: Guaifenesin/Dextromethorphan (Guaifenesin/Dextromethorphan 100-10 Mg/5 Ml Soln 10 Ml Cup) 10 ml PO Q4H PRN PRN Reason: Cough Last Admin: 04/21/21 21:08 Dose: 10 ml Documented by: Heparin Sodium (Porcine) (Heparin Sodium 5,000 Units/Ml Vial) 4,000 units IVPUSH ONETIME ONE Stop: 04/15/21 15:21 Last Admin: 04/15/21 16:51 Dose: Not Given Documented by: Heparin Sodium/Dextrose (Heparin 25,000 Units In D5w 500 Ml) 25,000 units in 500 mls @ 18 mls/hr IV TITRATE [facility] Meropenem 1 gm/ Sodium (Chloride) 100 mls @ 200 mls/hr IV Q8H [facility] Last Admin: 04/27/21 03:41 Dose: 200 mls/hr Documented by: Levofloxacin/Dextrose 750 mg/ (Premix) 150 mls @ 100 mls/hr IV Q48H [facility] Last Admin: 05/02/21 13:46 Dose: 100 mls/hr Documented by: Vancomycin HCl 1.6 gm/ Sodium (Chloride) 250 mls @ 166.667 mls/hr IV Q12H [facility] Stop: 04/26/21 13:59 Last Admin: 04/26/21 12:29 Dose: 166.667 mls/hr Documented by: Vancomycin HCl 1.25 gm/ Sodium (Chloride) 250 mls @ 166.667 mls/hr IV Q24H [facility] Last Admin: 04/28/21 13:04 Dose: 166.667 mls/hr Documented by: Meropenem 1 gm/ Sodium (Chloride) 100 mls @ 200 mls/hr IV Q12H [facility] Last Admin: 04/30/21 03:11 Dose: 200 mls/hr Documented by: Meropenem 500 mg/ Sodium (Chloride) 50 mls @ 100 mls/hr IV Q12H [facility] Last Admin: 05/02/21 17:01 Dose: Not Given Documented by: Isosorbide Mononitrate (Isosorbide Mononitrate 30 Mg Tab.Er) 30 mg PO ONETIME ONE Stop: 04/18/21 06:28 Last Admin: 04/18/21 06:39 Dose: 30 mg Documented by: Isosorbide Mononitrate (Isosorbide Mononitrate 30 Mg Tab.Er) 30 mg PO DAILY [facility] Last Admin: 05/06/21 08:45 Dose: Not Given Documented by: Loperamide HCl (Loperamide 2 Mg Cap) 2 mg PO Q4H PRN PRN Reason: Diarrhea Last Admin: 04/16/21 17:47 Dose: 2 mg Documented by: Lorazepam (Lorazepam 2 Mg/Ml Sdv) 0.5 mg IVPUSH Q4H PRN PRN Reason: Nausea/Vomiting Lorazepam (Lorazepam Oral Concentrate 1mg/0.5ml U/D) 0.5 mg PO Q2H PRN PRN Reason: Anxiety Last Admin: 05/06/21 16:55 Dose: 0.5 mg Documented by: Magnesium Hydroxide (Magnesium Hydroxide 400 Mg/5 Ml Susp 30 Ml Cup) 30 ml PO Q12H PRN PRN Reason: Constipation Last Admin: 05/01/21 16:13 Dose: 30 ml Documented by: Melatonin (Melatonin 3 Mg Tab) 9 mg PO BEDTIME PRN PRN Reason: Sleep Last Admin: 04/25/21 20:36 Dose: 9 mg Documented by: Methylprednisolone Sodium Succinate (Methylprednisolone Sodium Succinate 40 Mg/1 Ml Sdv) 40 mg IVPUSH Q8H [facility] Stop: 04/30/21 02:00 Last Admin: 04/29/21 21:39 Dose: 40 mg Documented by: Metoprolol Succinate (Metoprolol Succinate 25 Mg Tab.Er) 25 mg PO BID [facility] Last Admin: 05/06/21 20:06 Dose: Not Given Documented by: Mometasone Furoate/Formoterol Fumar (Formoterol/Mometasone 200-5 Mcg 8.8 Gm Inhaler) 0 puff IH BIDRT [facility] Last Admin: 05/06/21 20:05 Dose: Not Given Documented by: Morphine Sulfate (Morphine 10 Mg/0.5 Ml Oral Syringe) 2.5 mg PO Q2H PRN PRN Reason: Dyspnea Last Admin: 05/06/21 19:39 Dose: 2.5 mg Documented by: Ondansetron HCl (Ondansetron 4 Mg/2 Ml Sdv) 4 mg IV Q6H PRN PRN Reason: Nausea/Vomiting Ondansetron HCl (Ondansetron 4 Mg Tab.Dis) 4 mg PO Q6H PRN PRN Reason: Nausea able to take PO Pantoprazole Sodium (Pantoprazole 40 Mg Tab.Cr) 40 mg PO BIDAC [facility] Last Admin: 05/06/21 16:51 Dose: Not Given Documented by: Phytonadione (Phytonadione 5 Mg Tab) 2.5 mg PO ONETIME ONE Stop: 04/18/21 13:01 Last Admin: 04/18/21 13:43 Dose: 2.5 mg Documented by: Phytonadione (Phytonadione 5 Mg Tab) 2.5 mg PO ONETIME ONE Stop: 04/29/21 08:46 Last Admin: 04/29/21 08:49 Dose: 2.5 mg Documented by: Phytonadione (Phytonadione 5 Mg Tab) 5 mg PO ONETIME ONE Stop: 04/30/21 09:01 Last Admin: 04/30/21 08:43 Dose: 5 mg Documented by: Phytonadione (Phytonadione 5 Mg Tab) 2.5 mg PO ONETIME ONE Stop: 05/02/21 08:46 Last Admin: 05/02/21 09:25 Dose: 2.5 mg Documented by: Prednisone (Prednisone 20 Mg Tab) 40 mg PO WITHBREAKFAST [facility] Last Admin: 04/30/21 07:24 Dose: 40 mg Documented by: Prednisone (Prednisone 20 Mg Tab) 20 mg PO WITHBREAKFAST [facility] Last Admin: 05/06/21 07:22 Dose: Not Given Documented by: Senna/Docusate Sodium (Docusate Sodium/Sennosides 50-8.6 Mg Tab) 1 tab PO BID PRN PRN Reason: Constipation Last Admin: 05/01/21 16:14 Dose: 1 tab Documented by: Spironolactone (Spironolactone 25 Mg Tab) 12.5 mg PO DAILY [facility] Last Admin: 04/29/21 08:20 Dose: 12.5 mg Documented by: Torsemide (Torsemide 20 Mg Tab) 40 mg PO DAILY [facility] Last Admin: 04/25/21 08:54 Dose: 40 mg Documented by: Torsemide (Torsemide 20 Mg Tab) 60 mg PO DAILY [facility] Last Admin: 04/29/21 08:22 Dose: 60 mg Documented by: Vancomycin HCl (Vancomycin 1 Gm Sdv) 1 gm IV .PHARMACY TO DOSE [facility] Stop: 04/26/21 12:00 Warfarin Sodium (Warfarin 5 Mg Tab) 5 mg PO DAILY@1300 [facility] Last Admin: 04/17/21 13:31 Dose: 5 mg Documented by: Warfarin Sodium (Warfarin 2.5 Mg Tab) 2.5 mg PO DAILY@1300 [facility] Last Admin: 04/20/21 12:21 Dose: 2.5 mg Documented by: Warfarin Sodium (Warfarin 2.5 Mg Tab) 1.25 mg PO DAILY@1300 [facility] Last Admin: 04/28/21 13:12 Dose: 1.25 mg Documented by: - Exam General: Reports: Other ()
== END 2021-05-07 01:55 | disposition expired | DRG 177 ==
LOC: JP.ED 11:43 → JP.2SS 17:44 → JP.MS 05-04 18:11
PROVIDERS: ADMIT Internal Medicine; ATTEND Hospitalist
PROC: 3E0DX3Z Introduction of Anti-inflammatory into Mouth and Pharynx, External Approach (ICD-10-PCS; 2021-04-16)
PROC: 8E0ZXY6 Isolation (ICD-10-PCS; 2021-04-16)
PROC: XW033E5 Introduction of Remdesivir Anti-infective into Peripheral Vein, Percutaneous Approach, New Technology Group 5 (ICD-10-PCS; 2021-04-16)
PROC: XW033N5 Introduction of Meropenem-vaborbactam Anti-infective into Peripheral Vein, Percutaneous Approach, New Technology Group 5 (ICD-10-PCS; principal; 2021-04-26)
DX: U07.1 COVID-19 (principal); R06.09 Other forms of dyspnea; R77.8 Other specified abnormalities of plasma proteins; J96.21 Acute and chronic respiratory failure with hypoxia; R19.5 Other fecal abnormalities; I50.43 Acute on chronic combined systolic (congestive) and diastolic (congestive) heart failure; J12.82 Pneumonia due to coronavirus disease 2019; I50.9 Heart failure, unspecified; J44.9 Chronic obstructive pulmonary disease, unspecified; J15.9 Unspecified bacterial pneumonia; N17.9 Acute kidney failure, unspecified; I24.8 Other forms of acute ischemic heart disease; J44.0 Chronic obstructive pulmonary disease with (acute) lower respiratory infection; I11.0 Hypertensive heart disease with heart failure; I13.0 Hypertensive heart and chronic kidney disease with heart failure and stage 1 through stage 4 chronic kidney disease, or unspecified chronic kidney disease; N18.32 Chronic kidney disease, stage 3b; I25.10 Atherosclerotic heart disease of native coronary artery without angina pectoris; M19.90 Unspecified osteoarthritis, unspecified site; K21.9 Gastro-esophageal reflux disease without esophagitis; Z66 Do not resuscitate; M10.9 Gout, unspecified; E66.9 Obesity, unspecified; R91.8 Other nonspecific abnormal finding of lung field; R73.9 Hyperglycemia, unspecified; I48.91 Unspecified atrial fibrillation; I25.5 Ischemic cardiomyopathy; D50.0 Iron deficiency anemia secondary to blood loss (chronic); Z51.5 Encounter for palliative care; Z95.2 Presence of prosthetic heart valve; Z88.5 Allergy status to narcotic agent; Z79.82 Long term (current) use of aspirin; Z79.01 Long term (current) use of anticoagulants; Z79.899 Other long term (current) drug therapy; Z85.828 Personal history of other malignant neoplasm of skin; Z98.49 Cataract extraction status, unspecified eye; Z82.49 Family history of ischemic heart disease and other diseases of the circulatory system; Z68.29 Body mass index [BMI] 29.0-29.9, adult; Z88.8 Allergy status to other drugs, medicaments and biological substances; Z99.81 Dependence on supplemental oxygen; Z79.51 Long term (current) use of inhaled steroids
CPT/HCPCS: 36415; 71045; 71045-26; 71046; 71250; 71250-26; 80048; 80053; 82272; 83735; 83880; 84145; 84484; 85025; 85027; 85379; 85610; 86140; 87040; 93005; 94640; 94762; 97110-GO; 97110-GP; 97140-GP; 97162-GP; 97165-GO; 97530-GP; 97535-GO; 99285-25; A9270-GY; J1100; J1956; J2185; J2920; J3370; J3490; J7050; J7512; J7620-GY; J8540; U0002